=== PATIENT | female | born 1975 | race Hispanic/Latino ===

== ENCOUNTER 2017-07-26 10:07 | Emergency (ER) | payer OTHER ==
[2017-07-26] MEDS ORDERED: LORazepam 2 MG/ML VIAL ONE (10:39)
[2017-07-26 10:52] LABS: Absolute Lymphocytes (CBC) 1.6 K/uL (0.7-4.9); Absolute Monocytes 0.8 K/uL (0.1-1.3); Absolute Neutrophil 7.1 K/uL (1.8-8.0); Basophils % 0.4 % (0-1.3); Eosinophils % 0.4 % (0-4.4); Hematocrit 39.4 % (36.0-45.0); Lymphocytes % 16.6 % (15.3-44.8); MCH 29.2 pg (27.0-35.0); MCV 84.2 fL (80-100); MPV 7.7 fL (7.6-11.3); RBC Red Blood Cell Count 4.68 M/uL (3.86-4.86)
[2017-07-26 10:55] LABS: Protime INR 0.99
[2017-07-26 10:55] LABS: Barbiturates NEGATIVE; Benzodiazepines NEGATIVE; Cocaine NEGATIVE; METHAMPHETAM NEGATIVE; Opiates NEGATIVE; Phencyclidine NEGATIVE; THC Cannibis NEGATIVE
[2017-07-26 10:56] LABS: Bicarbonate 22 mEq/L (21-31); Glucose Level 103 mg/dL (65-120); Potassium 3.8 mEq/L (3.6-5.0); Sodium Level 132 mEq/L (135-145)
--- NOTE | 2017-07-26 11:01 | RAD REPORT ---
EXAM DESCRIPTION: CT - Head Brain Wo Cont - 07/26/2017 10:51 am CLINICAL HISTORY: Seizure, head injury. COMPARISON: 05/22/16, 02/22/16. TECHNIQUE: All CT scans are performed using dose optimization technique as appropriate and may inclu de automated exposure control or mA/KV adjustment according to patient size. FINDINGS: No intracranial hemorrhage, hydrocephalus or extra-axial fluid collection.No areas of brai n edema or evidence of midline shift. The paranasal sinuses and mastoids are clear. The calvarium is intact. IMPRESSION: No acute intracranial abnormality.
[2017-07-26 11:02] LABS: ALT/SGPT 20 IU/L (10-60); AST/SGOT 24 IU/L (10-42); Albumin 4.1 g/dL (3.2-5.5); Alkaline Phosphatase 113 IU/L (42-121); BUN Blood Urea Nitrogen 10 mg/dL (6-20); Bilirubin Direct < 0.1 mg/dL (0-0.2); Bilirubin Total 0.4 mg/dL (0.3-1.2); Protein, Total 8.1 g/dL (6.0-8.3); Salicylates Level 20.9 mg/dl (<30)
[2017-07-26 11:24] LABS: Alcohol Serum/Plasma < 10 mg/dl
[2017-07-26 11:48] LABS: Urine Blood 3+ (NEG); Urine Glucose NEGATIVE (NEG); Urine Protein 1+ (NEG); Urine Specific Gravity 1.015 (1.005-1.030); Urine pH 5.5 (5.0-7.0)
--- NOTE | 2017-07-26 14:09 | ER ---
Nurse's Notes [facility] Name: Bruna Cedeño Age: 42 yrs Sex: Female : 1975 Arrival Date: 07/26/2017 Time: 10:13 Bed 13 Private MD: Diagnosis: Epilepsy and recurrent seizures Presentation: 07/26 10:14 Presenting complaint: EMS states: Witnessed 3 absence seizures. the last one she fell jl7 back and hit her head, large hematoma to right aspect of head. Transition of care: patient was not received from another setting of care. Onset of symptoms was July 26, 2017. Initial Sepsis Screen: Does the patient meet any 2 criteria? No. Patient's initial sepsis screen is negative. Does the patient have a suspected source of infection? No. Patient's initial sepsis screen is negative. Care prior to arrival: None. 10:14 Method Of Arrival: EMS: [facility] 7 10:14 Acuity: DIANE 3 jl7 Triage Assessment: 10:17 General: Appears in no apparent distress. uncomfortable, Behavior is calm, cooperative, jl7 appropriate for age. Pain: Complains of pain in left temporal area Pain does not radiate. Pain currently is 4 out of 10 on a pain scale. at worst was 10 out of 10 on a pain scale. EENT: No signs and/or symptoms were reported regarding the EENT system. Neuro: Level of Consciousness is awake, alert, obeys commands, Oriented to person, place, time, situation, Speech is normal, Facial symmetry appears normal, Pupils are PERRLA. Cardiovascular: Patient's skin is warm and dry. Respiratory: Airway is patent Respiratory effort is even, unlabored, Respiratory pattern is regular, symmetrical. GI: No signs and/or symptoms were reported involving the gastrointestinal system. : No signs and/or symptoms were reported regarding the genitourinary system. Derm: Skin is pink, warm \\T\\ dry. Musculoskeletal: No signs and/or symptoms reported regarding the musculoskeletal system. 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 - Social history:: Smoking status: Patient/guardian denies using tobacco, Patient/guardian denies using alcohol, street drugs. Screenin:55 Abuse screen: Denies threats or abuse. Denies injuries from another. Nutritional jl7 screening: No deficits noted. Tuberculosis screening: No symptoms or risk factors identified. Fall Risk Secondary diagnosis (15 points) seizures, IV access (20 points). Total Tinsley Fall Scale indicates Low Risk Score (25-44 pts). Fall prevention measures have been instituted. Side Rails Up X 2 Placed close to Nursing Station Frequent Obs/Assesments occuring Family Present and informed to notify staff if they need to leave bedside As available Patient and Family Educated on Fall Prevention Program and strategies. Assessment: 10:30 General: See triage assessment. jl7 11:30 Reassessment: No changes from previously documented assessment. Patient and/or family jl7 updated on plan of care and expected duration. Pain level reassessed. Patient is alert, oriented x 3, equal unlabored respirations, skin warm/dry/pink. 12:30 Reassessment: Patient and/or family updated on plan of care and expected duration. Pain jl7 level reassessed. Patient is alert, oriented x 3, equal unlabored respirations, skin warm/dry/pink. Pt's daughter reports "She's been having small one's since she's been here." Pt and guest instructed to inform staff when another seizure happens, verbalizes understanding. Provider notified. 13:50 Reassessment: Provider at bedside discussing plan of care. jl7 Vital Signs: 10:17 BP 129 / 79; Pulse 102; Resp 16; Pulse Ox 95% on R/A; Weight 79.38 kg (R); Height 5 ft. jl7 1 in. (154.94 cm) (R); Pain 4/10; 11:39 BP 104 / 64; Pulse 84; Resp 15; Pulse Ox 95% ; mh5 12:39 BP 127 / 76; Pulse 78; Resp 16 S; Pulse Ox 96% on R/A; jl7 10:17 Body Mass Index 33.07 (79.38 kg, 154.94 cm) jl7 Susu Coma Score: 10:17 Eye Response: spontaneous(4). Verbal Response: oriented(5). Motor Response: obeys jl7 commands(6). Total: 15. ED Course: 10:13 Patient arrived in ED. jl7 10:16 Triage completed. jl7 10:17 Victorino Gil PA is PHCP. cp 10:17 Victorino Starr MD is Attending Physician. cp 10:17 Arm band placed on right wrist. jl7 10:20 Patient has correct armband on for positive identification. Seizure precautions jl7 initiated. 10:20 Pulse ox on. NIBP on. jl7 10:33 Initial lab(s) drawn, by mo, sent to lab. Urine collected: clean catch specimen. jl7 Inserted saline lock: 20 gauge in right antecubital area, using aseptic technique. Blood collected. 10:35 Radiology exam delayed due to pt not readycristy to call. 10:37 Cristy Ruffin, RN is Primary Nurse. jl7 10:51 CT Head Brain wo Cont In Process Unspecified. EDMS 11:07 EKG done, by reliability technician. reviewed by Victorino SHARIF. at1 Administered Medications: 10:40 Drug: Ativan 1 mg Route: IVP; Site: right antecubital; jl7 11:00 Follow up: Response: No adverse reaction jl7 Outcome: 15:03 AMA AMA form signed jl7 15:03 Condition: stable 15:05 Patient left the ED. jl7 Signatures: Dispatcher [employer] EDMS Nika Forbes Amanda, library media technician EKG Tat1 Victorino Gil PA PA cp Martinez, Maria 5 Cristy Ruffin, RN RN jl7 Corrections: (The following items were deleted from the chart) 11:07 10:40 EKG done, by reliability technician. reviewed by Victorino SHARIF at1 at1
--- NOTE | 2017-07-26 14:10 | EDPHYS ---
Physician Documentation [facility] Name: Bruna Cedeño Age: 42 yrs Sex: Female : 1975 Arrival Date: 07/26/2017 Time: 10:13 Bed 13 Private MD: ED Physician Victorino Starr HPI: 07/26 10:30 This 42 yrs old Female presents to ER via EMS with complaints of Seizure. cp 10:30 The patient presents with a history of multiple seizures, a total of 3, that last 1 cp minute(s), the episode(s) was witnessed, by co-worker(s). Character of seizure(s): Loss of consciousness: the patient experienced loss of consciousness, brief, Incontinence: none. Seizure Hx: Seizure medications: Keppra, Trileptal. 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 - Social history:: Smoking status: Patient/guardian denies using tobacco, Patient/guardian denies using alcohol, street drugs. ROS: 10:35 Constitutional: Negative for body aches, chills, fever, poor PO intake. cp 10:35 Eyes: Negative for injury, pain, redness, and discharge. cp 10:35 ENT: Negative for drainage from ear(s), ear pain, sore throat, difficulty swallowing, difficulty handling secretions. 10:35 Neck: Negative for pain with movement, pain at rest, stiffness. 10:35 Cardiovascular: Negative for chest pain, edema, palpitations. 10:35 Respiratory: Negative for cough, shortness of breath, wheezing. 10:35 Abdomen/GI: Negative for abdominal pain, nausea, vomiting, and diarrhea, black/tarry stool, rectal bleeding. 10:35 Back: Negative for pain at rest, pain with movement, radiated pain. 10:35 MS/extremity: Positive for contusion, pain, of the scalp. 10:35 Skin: Negative for cellulitis, rash. 10:35 Neuro: Positive for history of seizure activity, Negative for altered mental status, dizziness, headache, weakness. 10:35 All other systems are negative. Exam: 10:52 Constitutional: The patient appears in no acute distress, alert, awake, cp non-diaphoretic, non-toxic, well developed, well nourished. 10:52 Head/face: Noted is hematoma, that is mild, of the right side of the back of head, tenderness, that is mild, of the right side of the back of head. 10:52 Eyes: Periorbital structures: appear normal, Pupils: equal, round, and reactive to light and accomodation, Extraocular movements: intact throughout, Conjunctiva: normal, no exudate, no injection, Sclera: no appreciated abnormality, Lids and lashes: appear normal, bilaterally. 10:52 ENT: External ear(s): are unremarkable, Ear canal(s): are normal, clear, TM's: bulging, is not appreciated, bilaterally, dullness, bilaterally, erythema, is not appreciated, bilaterally. 10:52 Neck: C-spine: vertebral tenderness, is not appreciated, crepitus, is not appreciated, ROM/movement: is normal, is supple, without pain, no range of motions limitations, no meningismus, no nuchal rigidity, Lymph nodes: no appreciated lymphadenopathy. 10:52 Chest/axilla: Inspection: normal, Palpation: is normal, no crepitus, no tenderness. 10:52 Cardiovascular: Rate: tachycardic, Rhythm: regular, Pulses: Pulses are 2+ in right radial artery and left radial artery. Edema: is not appreciated, JVD: is not appreciated. 10:52 Respiratory: the patient does not display signs of respiratory distress, Respirations: normal, no use of accessory muscles, no retractions, no splinting, no tachypnea, labored breathing, is not present, Breath sounds: are clear throughout, no decreased breath sounds, no stridor, no wheezing. 10:52 Abdomen/GI: Inspection: abdomen appears normal, Bowel sounds: active, all quadrants, Palpation: abdomen is soft and non-tender, in all quadrants. 10:52 Back: pain, is absent, ROM is normal. 10:52 Skin: cellulitis, is not appreciated, no rash present. 10:52 Neuro: Orientation: to person, place \T\ time. Mentation: lucid, able to follow commands, Memory: is normal, Cerebellar function: is grossly normal, Motor: moves all fours, strength is normal, Sensation: is normal. 11:07 ECG was reviewed by the Attending Physician. cp Vital Signs: 10:17 BP 129 / 79; Pulse 102; Resp 16; Pulse Ox 95% on R/A; Weight 79.38 kg (R); Height 5 ft. jl7 1 in. (154.94 cm) (R); Pain 4/10; 11:39 BP 104 / 64; Pulse 84; Resp 15; Pulse Ox 95% ; mh5 12:39 BP 127 / 76; Pulse 78; Resp 16 S; Pulse Ox 96% on R/A; jl7 10:17 Body Mass Index 33.07 (79.38 kg, 154.94 cm) jl7 Susu Coma Score: 10:17 Eye Response: spontaneous(4). Verbal Response: oriented(5). Motor Response: obeys jl7 commands(6). Total: 15. MDM: 10:20 Patient medically screened. cp 12:35 Data reviewed: vital signs, nurses notes, lab test result(s), EKG, radiologic studies, cp CT scan. 12:35 Test interpretation: by ED physician or midlevel provider: ECG. cp 12:40 Physician consultation: Antolin Gutierrez MD was called at 12:41, was contacted at 12:41, regarding patient's condition, would like medications started, Depakote, give 10 mg/kg loading dose and discharge with RX to start 500 mg bid. Diastat can also be given for seizures. 13:05 Physician consultation: DR Cortes, left msg on voicemail \T\ . cp 13:50 Physician consultation: DR Cortes, recommends transfer to [facility] epilepsy center for cp continued monitoring and treatment. Dr Cortes reports difficulty in controlling seizures with current therapy and that patient was sensitive and reports adverse affects when taking oral Depakote and Dilantin in the past. 14:05 Refusal of service: The patient/guardian displays adequate decision making capability cp and despite a detailed discussion of alternatives, benefits, risks, and consequences refuses: transfer to [facility] epilepsy center for continued treatment and management. Patient reports she was admitted in the past and has not noticed any change in seizure activity. 07/26 10:19 Order name: Acetaminophen; Complete Time: 11:57 cp 07/26 11:57 Interpretation: Reviewed. cp 07/26 10:19 Order name: Basic Metabolic Panel; Complete Time: 11:57 cp 07/26 11:57 Interpretation: Normal except: NA 132. cp 07/26 10:19 Order name: CBC with Diff; Complete Time: 11:14 cp 07/26 11:14 Interpretation: Normal except: DANNY% 74.6. cp 07/26 10:19 Order name: ETOH Level; Complete Time: 11:57 cp 07/26 10:19 Order name: Hepatic Function; Complete Time: 11:57 cp 07/26 11:57 Interpretation: Normal except: GLOB 4.0; A/G 1.0. cp 07/26 10:19 Order name: PT-INR; Complete Time: 11:14 cp 07/26 10:19 Order name: Ptt, Activated; Complete Time: 11:14 cp 07/26 10:19 Order name: Salicylate; Complete Time: 11:57 cp 07/26 10:19 Order name: Urine Drug Screen; Complete Time: 11:14 cp 07/26 11:14 Interpretation: Reviewed. cp 07/26 10:19 Order name: EKG; Complete Time: 10:19 cp 07/26 10:19 Order name: CT Head Brain wo Cont; Complete Time: 11:14 cp 07/26 11:15 Interpretation: Report reviewed. 07/26 10:53 Order name: Urine Dipstick--Ancillary (enter results); Complete Time: 11:57 mw2 07/26 11:57 Interpretation: Normal except: UBLD 3+; UPROT 1+. cp 07/26 10:53 Order name: Urine --Ancillary (enter results); Complete Time: 11:57 mw2 07/26 11:58 Interpretation: Reviewed. cp 07/26 10:19 Order name: Urine Test (obtain specimen); Complete Time: 10:37 cp 07/26 10:19 Order name: EKG - Nurse/Tech; Complete Time: 11:18 cp 07/26 10:19 Order name: IV Saline Lock; Complete Time: 10:37 cp 07/26 10:19 Order name: Labs collected and sent; Complete Time: :37 cp 07/26 10:19 Order name: Urine Dipstick-Ancillary (obtain specimen); Complete Time: 10:37 cp EC:07 Rate is 86 beats/min. Rhythm is regular. OH interval is normal. QRS interval is normal. cp QT interval is normal. No ST changes noted. Interpreted by me. Reviewed by me. Administered Medications: 10:40 Drug: Ativan 1 mg Route: IVP; Site: right antecubital; jl7 11:00 Follow up: Response: No adverse reaction jl7 Disposition: 16:00 Chart complete. 19:11 Co-signature as Attending Physician, Victorino Starr MD I agree with the assessment and [facility] plan of care. Disposition: 07/26/17 14:08 Patient has left against medical advice. Impression: Epilepsy and recurrent seizures. - Patients states they are going to Home. - Condition is Stable. - Discharge Instructions: Seizure, Adult. Follow up: Private Physician; When: 2 - 3 days; Reason: Recheck today's complaints. - Problem is an ongoing problem. - Symptoms are unchanged. Signatures: Dispatcher [employer] Victorino Boone MD MD cha Page, Corey, PA PA cp Leal, Jahala RN RN jl7
[2017-07-26 15:11] VITALS: BP 127/76; O2SAT 96
--- NOTE | 2017-07-26 17:02 | EKG ---
Test Date: 2017-07-26 Test Time: 11:00:59 Hide Puller: TIMOTHY MEASUREMENT RESULTS: Intervals: Rate: 86 OH: 144 QRSD: 82 QT: 362 QTc: 433 [place]: P: 48 OH: 144 QRS: 45 T: 33 INTERPRETIVE STATEMENTS: Normal sinus rhythm Normal ECG Compared to ECG 02/22/2016 14:40:22 No significant changes Electronically Signed On 07-26-17 17:01:40 CDT by Efren Cavazos
== END 2017-07-26 15:05 | disposition left against medical advice (07) ==
LOC: ER 10:07
DX: G40.802 Other epilepsy, not intractable, without status epilepticus (principal); I10 Essential (primary) hypertension
CPT/HCPCS: 36415; 70450; 80048; 80076; 80307; 80320; 80329; 81003; 81025; 85025; 85610; 85730; 93005; 96374; 99284

== ENCOUNTER 2018-09-22 17:56 | Emergency (ER) | payer OTHER ==
[2018-09-22] MEDS ORDERED: DERMABOND SKIN ADHESIVE TOP ONE (18:38)
[2018-09-22] MEDS ORDERED: TETANUS & DIPHTHERIA TOX,ADULT 0.5 ML VIAL ONE (18:38)
--- NOTE | 2018-09-22 19:02 | ER ---
Nurse's Notes [facility] Name: Bruna Cedeño Age: 43 yrs Sex: Female : 1975 Arrival Date: 09/22/2018 Time: 17:58 Bed 17 Private MD: Diagnosis: Syncope and collapse;Epilepsy and recurrent seizures;Laceration without foreign body of other part of head Presentation: 09/22 18:00 Presenting complaint: EMS states: Pt had a seizure and fell on the bathtub 40 minutes ca1 ago. Pt hit head, +LOC, pt has Hx of seizures. VS stable. Transition of care: patient was not received from another setting of care. Onset of symptoms was September 22, 2018. Risk Assessment: Do you want to hurt yourself or someone else? Patient reports no desire to harm self or others. Initial Sepsis Screen: Does the patient meet any 2 criteria? No. Patient's initial sepsis screen is negative. Does the patient have a suspected source of infection? No. Patient's initial sepsis screen is negative. Care prior to arrival: Glucose check: 97. 18:00 Method Of Arrival: EMS: [facility] ca1 18:00 Acuity: DIANE 2 ca1 19:15 Mechanism of Injury: Fall bathtub. Trauma event details: Injury occurred in the [address] Triage Assessment: 18:04 General: Appears in no apparent distress. comfortable, Behavior is calm, cooperative, ca1 appropriate for age. Pain: Complains of pain in right temporal area and right ear Pain currently is 8 out of 10 on a pain scale. 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 - Social history:: Smoking status: Patient/guardian denies using tobacco. - Immunization history: Last tetanus immunization: Patient received tetanus shot today in ER. - Ebola Screening: : Patient negative for fever greater than or equal to 101.5 degrees Fahrenheit, and additional compatible Ebola Virus Disease symptoms Patient denies exposure to infectious person Patient denies travel to an Ebola-affected area in the 21 days before illness onset. Screenin:35 Abuse screen: Denies threats or abuse. Denies injuries from another. Nutritional bp screening: No deficits noted. Tuberculosis screening: No symptoms or risk factors identified. 19:15 Fall Risk Ambulatory Aid- None/Bed Rest/Nurse Assist (0 pts). Gait- Normal/Bed cc3 Rest/Wheelchair (0 pts) Mental Status- Oriented to own ability (0 pts). Primary Survey: 18:00 NO uncontrolled hemorrhage observed. A: The patient is alert. No supplemental oxygen in bp use on arrival. Breathing/Chest: Respiratory pattern: regular, Respiratory effort: spontaneous, unlabored, Breath sounds: clear, bilaterally. Chest inspection: symmetrical rise and fall of the chest. Circulation: Cardiac rhythm: sinus rhythm Skin color: pink, Skin temperature: warm, dry. Disability Alert. Exposure/Environment: Obvious injury(ies) are noted at this time: EAR LAC. 19:15 Reassessment Airway Airway Patent Oxygen No O2 Breathing/Chest Respiratory pattern cc3 Regular Respiratory effort Spontaneous Unlabored Breath sounds Clear Chest inspection Symmetrical Circulation Heart tones Present Disability Alert. Secondary Survey: 18:00 HEENT:. Gastrointestinal: No deficits noted. : No signs and/or symptoms were reported bp regarding the genitourinary system. Musculoskeletal: Circulation, motion, and sensation intact. Range of motion: intact in all extremities. Assessment: 18:00 General: Appears in no apparent distress. comfortable, Behavior is cooperative, bp appropriate for age, anxious. Pain: Complains of pain in head. Neuro: Level of Consciousness is awake, alert, obeys commands, Oriented to person, place, time, situation, Appropriate for age. Neuro: Seizure activity NONE NOTED AND NO POST-ICTAL PERIOD OR INCONTINENCE. EENT: No deficits noted. Cardiovascular: No deficits noted. Respiratory: Airway is patent Respiratory effort is even, unlabored, Respiratory pattern is regular, symmetrical. GI: No signs and/or symptoms were reported involving the gastrointestinal system. : No signs and/or symptoms were reported regarding the genitourinary system. Derm: No deficits noted. Musculoskeletal: Circulation, motion, and sensation intact. Range of motion: intact in all extremities. 18:27 Reassessment: PT TO CT. bp 19:15 Reassessment: Patient appears in no apparent distress at this time. Patient and/or cc3 family updated on plan of care and expected duration. Pain level reassessed. Patient is alert, oriented x 3, equal unlabored respirations, skin warm/dry/pink. Received this female patient from morning shift RN Jacques as a case of fall injury. No IV cannula in situ. Patient denies pain at this time. 19:40 Reassessment: Patient appears in no apparent distress at this time. Patient and/or cc3 family updated on plan of care and expected duration. Pain level reassessed. Patient is alert, oriented x 3, equal unlabored respirations, skin warm/dry/pink. Dr. Chapa discharged the patient home, no prescription given. No IV cannula in situ. Patient left ER vitally stable and ambulatory with her daughter. Patient denies pain at this time. Patient states feeling better. Patient states symptoms have improved. Vital Signs: 18:04 BP 153 / 97; Pulse 54; Resp 16 S; Temp 98.6(O); Pulse Ox 95% on R/A; ca1 18:53 BP 148 / 86; Pulse 65; Resp 17; Temp 98.6(TE); Pulse Ox 97% on R/A; mh5 19:15 BP 148 / 86; Pulse 59; Resp 19 S; Temp 98.7(O); Pulse Ox 98% on R/A; ca1 [place] Coma Score: 18:00 Eye Response: spontaneous(4). Verbal Response: oriented(5). Motor Response: obeys bp commands(6). Total: 15. Trauma Score (Adult): 18:00 Eye Response: spontaneous(1); Verbal Response: oriented(1); Motor Response: obeys bp commands(2); Systolic BP: > 89 mm Hg(4); Respiratory Rate: 10 to 29 per min(4); Susu Score: 15; Trauma Score: 12 ED Course: 17:58 Patient arrived in ED. ca1 18:00 Patient has correct armband on for positive identification. Bed in low position. Call bp light in reach. Side rails up X2. Adult w/ patient. 18:00 Patient maintains SpO2 saturation greater than 95% on room air. Thermoregulation: warm bp blanket given to patient. 18:02 Triage completed. ca1 18:04 Arm band placed on right wrist. ca1 18:12 Luis Chapa MD is Attending Physician. alexei 18:16 Jacques Escoto, RN is Primary Nurse. bp 18:33 CT completed. Patient tolerated procedure well. Patient moved back from CT. bq 18:34 CT Head C Spine In Process Unspecified. EDMS 19:40 No provider procedures requiring assistance completed. Patient did not have IV access cc3 during this emergency room visit. Administered Medications: 18:27 Drug: Tetanus-Diphtheria Toxoid Adult 0.5 ml {Tray Delivery Aide: Lumenpulse. Exp: bp 06/29/2020. Lot #: [id number]. } Route: IM; Site: right deltoid; 18:54 Follow up: Response: No adverse reaction bp Intake: 18:00 PO: 0ml; Total: 0ml. bp Output: 18:00 Urine: 0ml; Total: 0ml. bp Outcome: 19:02 Discharge ordered by MD. gs 19:05 Discharge ordered by MD. gs 19:40 Discharged to home ambulatory, with family. cc3 19:40 Condition: stable 19:40 Discharge instructions given to patient, Instructed on discharge instructions, follow up and referral plans. Demonstrated understanding of instructions, follow-up care. 19:40 Patient's length of stay was not longer than 2 hours. cc3 19:45 Patient left the ED. cc3 Signatures: Dispatcher [employer] EDPR Smitha Johnston Neda Duarte 5 Luis Chapa MD MD gs Peltier, Brian, RN RN Luzma Gandara cc3 Dinah Polanco RN RN ca1
--- NOTE | 2018-09-22 19:03 | EDPHYS ---
Physician Documentation [facility] Name: Bruna Cedeño Age: 43 yrs Sex: Female : 1975 Arrival Date: 09/22/2018 Time: 17:58 Bed 17 Private MD: ED Physician Luis Chapa HPI: 09/22 18:18 This 43 yrs old Female presents to ER via EMS with complaints of Fall Injury. gs 18:18 Details of fall: The patient fell from an upright position, while walking. Onset: The gs symptoms/episode began/occurred acutely, just prior to arrival. Associated injuries: The patient sustained injury to the head, contusion, laceration. Severity of symptoms: At their worst the symptoms were moderate, in the emergency department the symptoms have improved, markedly. The patient has experienced similar episodes in the past, a few times. 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 - Social history:: Smoking status: Patient/guardian denies using tobacco. - Immunization history: Last tetanus immunization: Patient received tetanus shot today in ER. - Ebola Screening: : Patient negative for fever greater than or equal to 101.5 degrees Fahrenheit, and additional compatible Ebola Virus Disease symptoms Patient denies exposure to infectious person Patient denies travel to an Ebola-affected area in the 21 days before illness onset. ROS: 18:18 All other systems are negative. gs Exam: 18:18 Head/Face: Normocephalic, atraumatic. Eyes: Pupils equal round and reactive to light, gs extra-ocular motions intact. Lids and lashes normal. Conjunctiva and sclera are non-icteric and not injected. Cornea within normal limits. Periorbital areas with no swelling, redness, or edema. Chest/axilla: Normal chest wall appearance and motion. Nontender with no deformity. No lesions are appreciated. Cardiovascular: Regular rate and rhythm with a normal S1 and S2. No gallops, murmurs, or rubs. Normal PMI, no JVD. No pulse deficits. Respiratory: Lungs have equal breath sounds bilaterally, clear to auscultation and percussion. No rales, rhonchi or wheezes noted. No increased work of breathing, no retractions or nasal flaring. Abdomen/GI: Soft, non-tender, with normal bowel sounds. No distension or tympany. No guarding or rebound. No evidence of tenderness throughout. Back: No spinal tenderness. No costovertebral tenderness. Full range of motion. Skin: Warm, dry with normal turgor. Normal color with no rashes, no lesions, and no evidence of cellulitis. MS/ Extremity: Pulses equal, no cyanosis. Neurovascular intact. Full, normal range of motion. Neuro: Awake and alert, GCS 15, oriented to person, place, time, and situation. Cranial nerves II-XII grossly intact. Motor strength 5/5 in all extremities. Sensory grossly intact. Cerebellar exam normal. Normal gait. 18:18 Constitutional: The patient appears alert, awake. 18:18 ENT: External ear(s): laceration, that is superficial, approximately 1 cm(s), to the pinna of left ear, TM's: are normal. 18:18 Neck: C-spine: vertebral tenderness, that is mild, appreciated at C4 and C5. 19:01 ECG was reviewed by the Attending Physician. Vital Signs: 18:04 BP 153 / 97; Pulse 54; Resp 16 S; Temp 98.6(O); Pulse Ox 95% on R/A; ca1 18:53 BP 148 / 86; Pulse 65; Resp 17; Temp 98.6(TE); Pulse Ox 97% on R/A; mh5 19:15 BP 148 / 86; Pulse 59; Resp 19 S; Temp 98.7(O); Pulse Ox 98% on R/A; ca1 [place] Coma Score: 18:00 Eye Response: spontaneous(4). Verbal Response: oriented(5). Motor Response: obeys bp commands(6). Total: 15. Trauma Score (Adult): 18:00 Eye Response: spontaneous(1); Verbal Response: oriented(1); Motor Response: obeys bp commands(2); Systolic BP: > 89 mm Hg(4); Respiratory Rate: 10 to 29 per min(4); [place] Score: 15; Trauma Score: 12 Laceration: 18:57 Wound Repair of 1cm ( 0.4in ) partial thickness laceration to pinna of left ear. Distal gs neuro/vascular/tendon intact. Wound prep: Simple cleansing. Skin closed with 1-0 Adhesive skin closure using Dermabond. Patient tolerated well. MDM: 18:12 Patient medically screened. 18:18 Differential diagnosis: closed head injury, fracture, laceration. Data reviewed: vital gs signs, nurses notes, radiologic studies. Response to treatment: the patient's symptoms have markedly improved after treatment, and as a result, I will discharge patient. 09/22 18:13 Order name: CT Head C Spine; Complete Time: 19:07 09/22 18:13 Order name: Dermabond; Complete Time: 18:54 09/22 18:17 Order name: EKG - Nurse/Tech; Complete Time: 18:53 09/22 18:17 Order name: EKG; Complete Time: 18:18 EC:01 Rate is 59 beats/min. Rhythm is regular. MD interval is normal. QRS interval is normal. gs T waves are Normal. No ST changes noted. Clinical impression: Normal ECG. Interpreted by me. Administered Medications: 18:27 Drug: Tetanus-Diphtheria Toxoid Adult 0.5 ml {Mattress Renovator: [employer]. Exp: bp 06/29/2020. Lot #: [id number]. } Route: IM; Site: right deltoid; 18:54 Follow up: Response: No adverse reaction bp Disposition: 09/22/18 19:05 Discharged to Home. Impression: Syncope and collapse, Epilepsy and recurrent seizures, Laceration without foreign body of other part of head. - Condition is Stable. - Discharge Instructions: Seizure, Adult, Syncope, Laceration Care, Adult, [id number]. - Medication Reconciliation Form, Thank You Letter, Antibiotic Education, Prescription Opioid Use form. - Follow up: Private Physician; When: 2 - 3 days; Reason: Re-evaluation by your physician. Signatures: Dispatcher [employer] Luis Albright MD MD Jacques Escoto, RN RN bp Luzma Gandara cc3 Dinah Polanco RN RN ca1 Corrections: (The following items were deleted from the chart) 19:04 19:02 09/22/2018 19:02 Discharged to Home. Impression: Syncope and collapse; Laceration gs without foreign body of other part of head. Condition is Stable. Forms are Medication Reconciliation Form, Thank You Letter, Antibiotic Education, Prescription Opioid Use. Follow up: Private Physician; When: 2 - 3 days; Reason: Re-evaluation by your physician. Problem is new. Symptoms have improved. 19:45 19:05 09/22/2018 19:05 Discharged to Home. Impression: Syncope and collapse; Epilepsy cc3 and recurrent seizures; Laceration without foreign body of other part of head. Condition is Stable. Discharge Instructions: Seizure, Adult, Syncope, Laceration Care, Adult, [id number]. Forms are Medication Reconciliation Form, Thank You Letter, Antibiotic Education, Prescription Opioid Use. Follow up: Private Physician; When: 2 - 3 days; Reason: Re-evaluation by your physician.
--- NOTE | 2018-09-22 19:04 | RAD REPORT ---
EXAM DESCRIPTION: CT - Head C Spine Mpr Wo Con - 09/22/2018 6:34 pm CLINICAL HISTORY: Seizure Head and neck injury status post fall. Head and neck pain COMPARISON: 2016 TECHNIQUE: Computed axial tomography of the head and cervical spine was obtained. Sagittal and coronal reconstruction was performed. All CT scans are performed using dose optimization technique as appropriate and may include automated exposure control or mA/KV adjustment according to patient size. FINDINGS: A lyn cisterna magna within the posterior fossa again demonstrated An intracranial bleed is not seen. The ventricles are normal in caliber. An extra-axial fluid collect ion is not noted.Fluid within the visualized sinuses and mastoids is not seen A cervical fracture is not visualized. No dislocation is noted. IMPRESSION: No acute intracranial abnormality is seen. A cervical fracture is not visualized. If the patient continues to have symptoms to suggest intracra nial /spinal cord pathology then MRI would be recommended
[2018-09-22 19:53] VITALS: BP 148/86
[2018-09-22 19:54] VITALS: TEMP 98.7; O2SAT 98
--- NOTE | 2018-09-23 09:09 | EKG ---
Test Date: 2018-09-22 Test Time: 19:01:12 Communications Electrician Supervisor: CHRISTIE MEASUREMENT RESULTS: Intervals: Rate: 59 NV: 154 QRSD: 80 QT: 400 QTc: 396 [place]: P: 39 NV: 154 QRS: 50 T: 40 INTERPRETIVE STATEMENTS: Sinus bradycardia Otherwise normal ECG Compared to ECG 07/26/2017 11:00:59 Sinus rhythm no longer present Electronically Signed On 09-23-18 09:08:22 CDT by Efren Cavazos
== END 2018-09-22 19:45 | disposition home or self-care (01) ==
LOC: ER 17:56
PROC: 0HQ3XZZ Repair Left Ear Skin, External Approach (ICD-10-PCS; principal; 2018-09-22)
DX: S01.312A Laceration without foreign body of left ear, initial encounter (principal); G40.802 Other epilepsy, not intractable, without status epilepticus; W19.XXXA Unspecified fall, initial encounter; Y93.01 Activity, walking, marching and hiking; Y92.9 Unspecified place or not applicable; Z23 Encounter for immunization; I10 Essential (primary) hypertension
CPT/HCPCS: 70450; 72125; 90471; 90714; 93005; 99285

== ENCOUNTER 2020-08-17 11:57 | Emergency (ER) | payer OTHER ==
--- OUTSIDE RECORDS SUMMARY | 2020-08-17 12:00 | XMS REPORT | Continuity of Care Document ---
:1975 Author Organization [facility] t Address [address] [place] [address] Care Team Providers Name Role Phone Doctor Unassigned, [place] Attending Clinician Unavailable Michael Bowman Attending Clinician Problems This patient has no known problems. Allergies, Adverse Reactions, Alerts This patient has no known allergies or adverse reactions. Medications This patient has no known medications. Procedures This patient has no known procedures. Encounters Start End Encounter Admission Attending Care Care Encounter Source Date/Time Date/Time Type Type Clinicians Facility Department ID 2018-11-12 2018-11-12 Orders Doctor ORTIZ [id number] 00:00:00 00:00:00 Only Unassigned, CARLOS [id number] [place] [facility] [id number] 2018-11-11 2018-11-11 [facility] [place] [facility] [id number] 10:42:43 11:54:00 Chelsea Herzog [id number] [place] [id number] [place] [id number] Results This patient has no known results.
[2020-08-17] MEDS ORDERED: levETIRAcetam 1,000 MG in NA CHLORIDE 0.9% 100 ML IV SCH (12:45)
[2020-08-17 12:52] LABS: BUN Blood Urea Nitrogen 5 mg/dL (7-18); Bicarbonate 23 mmol/L (21-32); Glucose Level 100 mg/dL (74-106); Potassium 3.6 mmol/L (3.5-5.1); Sodium Level 134 mmol/L (136-145)
--- NOTE | 2020-08-17 12:54 | RAD REPORT ---
EXAM DESCRIPTION: RAD - Ankle Right 3 View - 08/17/2020 12:40 pm CLINICAL HISTORY: PAINfall subsequent to a seizure COMPARISON: Ankle Right 3 View dated 08/04/2013; Forearm Right dated 08/17/2020 FINDINGS: No fracture, dislocation or periosteal reaction. No joint effusion seen. No joint space na rrowing. No soft tissue abnormality. IMPRESSION: Negative right ankle for acute bone or joint finding. No significant change from the 201 4 study.
--- NOTE | 2020-08-17 12:55 | RAD REPORT ---
EXAM DESCRIPTION: RAD - Forearm Right - 08/17/2020 12:40 pm CLINICAL HISTORY: PAIN, arm pain following a post seizure fall COMPARISON: No comparisons FINDINGS: No fracture is identified. There is no dislocation or periosteal reaction noted. No foreign body or other soft tissue abnormality. IMPRESSION: Negative right forearm examination.
[2020-08-17] MEDS ORDERED: NA CHLORIDE 0.9% 1,000 ML ONE (12:59)
--- NOTE | 2020-08-17 12:59 | RAD REPORT ---
EXAM DESCRIPTION: CT - CTHCSPWOC - 08/17/2020 12:38 pm CLINICAL HISTORY: PAIN, patient fell following a seizure striking the posterior skull and injuring t he neck, headache, neck pain COMPARISON: Head C Spine Mpr Wo Con dated 09/22/2018; Head C Spine Mpr Wo Con dated 02/22/2016 TECHNIQUE: Axial 5 mm thick images of the head were obtained. Axial 2 mm thick images of the cervic al spine were obtained with sagittal and coronal reconstruction images generated and reviewed. All CT scans are performed using dose optimization technique as appropriate and may include automated exposure control or mA/KV adjustment according to patient size. FINDINGS: No intracranial hemorrhage, mass, edema or acute intracranial finding. No suspicion for ac [place] infarction. No focal brain parenchymal abnormality seen as a specific seizure focus. Olvin cistern a magna variant again noted. Mastoid air cells and partially visualized paranasal sinuses are clear. No globe or orbit abnormality seen. Patient has a posterior midline parietal moderate scalp hematoma. Underlying bone is intact. No foreign body seen. Intracranial findings are similar to comparison. Cervical bodies are normal in height. There is reversal of the usual cervical lordosis which may refl ect a positioning artifact within the scanner or indicate muscle spasm. No subluxation abnormalities. No disk space narrowing. No fracture or acute bony abnormality. Central canal detail is inherently limited. No paraspinal mass or hematoma. IMPRESSION: Negative CT head examination for acute or significant finding. Patient has a posterior s calp hematoma with no underlying skull fracture. No cervical spine fracture identified. Kyphotic curvature may be a positioning artifact or the affect of muscle spasm. Central canal detail is inherently limited.
[2020-08-17 13:50] LABS: Urine Blood Negative (Negative); Urine Glucose Negative (Negative); Urine Protein Negative (Negative); Urine Specific Gravity 1.015 (1.005-1.030)
[2020-08-17 14:29] LABS: Absolute Lymphocytes (CBC) 1.6 K/uL (0.7-4.9); Basophils % 0.4 % (0-1.3); Hematocrit 36.5 % (36.0-45.0); Lymphocytes % 14.3 % (15.3-44.8); MPV 8.2 fL (7.6-11.3); RBC Red Blood Cell Count 4.21 M/uL (3.86-4.86)
[2020-08-17] MEDS ORDERED: HYDROCODONE/APAP 5/325 MG TAB ONE (14:50)
[2020-08-17] MEDS ORDERED: TETANUS & DIPHTHERIA TOX,ADULT 0.5 ML VIAL ONE (14:51)
--- NOTE | 2020-08-17 15:02 | ER ---
Nurse's Notes [facility] Name: Bruna Cedeño Age: 45 yrs Sex: Female : 1975 Arrival Date: 08/17/2020 Time: 12:01 Bed 7 Private MD: Diagnosis: Epilepsy and recurrent seizures;Superficial injury of head Presentation: 08/17 12:02 Chief complaint: EMS states: SZ WHILE AT FOOD PANTRY, FALL FROM STANDING, LAC TO bp OCCIPUT. Coronavirus screen: At this time, the client does not indicate any symptoms associated with coronavirus-19. Ebola Screen: No symptoms or risks identified at this time. Initial Sepsis Screen: Does the patient meet any 2 criteria? HR > 90 bpm. No. Patient's initial sepsis screen is negative. Does the patient have a suspected source of infection?. Risk Assessment: Do you want to hurt yourself or someone else? Patient reports no desire to harm self or others. Onset of symptoms was August 17, 2020 at 11:30. 12:02 Method Of Arrival: EMS: [facility] bp 12:02 Acuity: DIANE 3 bp Triage Assessment: 12:06 General: Appears in no apparent distress. comfortable, obese, Behavior is cooperative, bp appropriate for age, anxious. Pain: Complains of pain in scalp. EENT: No deficits noted. Neuro: Level of Consciousness is awake, alert, obeys commands, Oriented to Appropriate for age. Cardiovascular: No deficits noted. Respiratory: No deficits noted. GI: No signs and/or symptoms were reported involving the gastrointestinal system. : No signs and/or symptoms were reported regarding the genitourinary system. Derm: No deficits noted. Musculoskeletal: No deficits noted. Historical: - Allergies: 12:06 No Known Allergies; bp - Home Meds: 12:06 clonazepam 1 mg Oral tab 3 times per day [Active]; Trileptal 600 mg Oral tab 1 tab 2 bp times per day [Active]; Keppra 1,000 mg Oral tab 1 tab every 12 hours [Active]; - PMHx: 12:06 Seizures; Migraines; Hypertension; bp - Immunization history:: Adult Immunizations. - Social history:: Smoking status: Patient denies any tobacco usage or history of. Screenin:15 Abuse screen: Denies threats or abuse. Denies injuries from another. Nutritional bp screening: No deficits noted. Tuberculosis screening: No symptoms or risk factors identified. Fall Risk Fall in past 12 months (25 points). Secondary diagnosis (15 points) seizures, IV access (20 points). Ambulatory Aid- None/Bed Rest/Nurse Assist (0 pts). Gait- Normal/Bed Rest/Wheelchair (0 pts) Mental Status- Oriented to own ability (0 pts). Total Tinsley Fall Scale indicates High Risk Score (45 or more points). Fall prevention measures have been instituted. Side Rails Up X 2 Placed Close to Nursing Station Frequent Obs/Assessments Occuring Family Present and informed to notify staff if the need to leave the bedside As available patient and family educated on Fall Prevention Program and Strategies. Assessment: 12:10 General: SEE TRIAGE NOTE. bp 12:47 Reassessment: PT RETURNED FROM CT. bp 13:30 Reassessment: No changes from previously documented assessment. Patient and/or family bp updated on plan of care and expected duration. Pain level reassessed. Patient is alert, oriented x 3, equal unlabored respirations, skin warm/dry/pink. WOUND CLEANED. 14:58 Reassessment: No changes from previously documented assessment. Patient and/or family bp updated on plan of care and expected duration. Pain level reassessed. Patient is alert, oriented x 3, equal unlabored respirations, skin warm/dry/pink. FAMILY AT B/S. NO WOUND REPAIR NEEDED. 15:12 Reassessment: PT D/C HOME VIA W/C WITH FAMILY, DX WITH RECURRENT SEIZURES. bp Vital Signs: 12:02 BP 183 / 90; Pulse 112; Resp 17; Temp 98.5; Pulse Ox 100% ; Weight 81.65 kg; Height 5 bp ft. 1 in. (154.94 cm); 12:47 BP 184 / 104; Pulse 106; Resp 18; Pulse Ox 99% ; bp 13:27 BP 161 / 87; Pulse 83; Resp 16; Pulse Ox 97% ; bp 14:58 BP 135 / 76; Pulse 66; Resp 16; Pulse Ox 96% ; bp 12:02 Body Mass Index 34.01 (81.65 kg, 154.94 cm) bp [place] Coma Score: 12:06 Eye Response: spontaneous(4). Verbal Response: oriented(5). Motor Response: obeys bp commands(6). Total: 15. ED Course: 12:01 Patient arrived in ED. bp 12:04 Triage completed. bp 12:06 Arm band placed on. bp 12:07 Manju Hathaway [facility]-C [facility]. kb 12:07 Wali Li MD is Attending Physician. kb 12:11 Jacques Escoto, ODALYS is Primary Nurse. bp 12:15 Inserted saline lock: 20 gauge in right antecubital area, using aseptic technique. bp Blood collected. 12:38 CT Head C Spine In Process Unspecified. EDMS 12:40 Forearm Right XRAY In Process Unspecified. EDMS 12:40 Ankle Right 3 View XRAY In Process Unspecified. EDMS 12:49 Patient has correct armband on for positive identification. Bed in low position. Call bp light in reach. Side rails up X2. 13:00 Seizure precautions initiated. bp 14:21 Lab(s) recollected, by me, sent to lab. health system 15:09 Urine Dipstick-Ancillary Sent. bp 15:13 No provider procedures requiring assistance completed. IV discontinued, intact, bp bleeding controlled, No redness/swelling at site. Pressure dressing applied. Administered Medications: 12:46 Drug: Keppra (levETIRAcetam) 1000 mg Route: IV; Rate: calculated rate; Site: right bp antecubital; 12:46 Drug: NS 0.9% 1000 ml Route: IV; Rate: 1000 ml; Site: right antecubital; bp 14:30 Drug: Tetanus-Diphtheria Toxoid Adult 0.5 ml {At Risk Specialist: [employer]. Exp: bp 09/28/2021. Lot #: [id number]. } Route: IM; Site: right deltoid; 15:09 Follow up: Response: No adverse reaction bp 14:30 Drug: [place] (HYDROcodone-acetaminophen) 5 mg-325 mg 1 tabs Route: PO; bp 15:10 Follow up: Response: No adverse reaction; Pain is decreased bp Outcome: 15:02 Discharge ordered by . kb 15:13 Discharged to home via wheelchair, with family. bp 15:13 Condition: stable 15:13 Discharge instructions given to patient, Instructed on discharge instructions, follow up and referral plans. wound care, Demonstrated understanding of instructions, follow-up care, wound care. 15:24 Patient left the ED. bp Signatures: Dispatcher [employer] EDMS Manju Hathaway HOLE DIGGER OPERATOR-C HOLE DIGGER OPERATOR-Neda Duke 5 Jacques Escoto, RN RN bp Corrections: (The following items were deleted from the chart) 12:51 12:47 Pulse 106bpm; Resp 18bpm; Pulse Ox 99%; bp bp 15:13 13:00 Patient has correct armband on for positive identification. Bed in low position. bp Call light in reach. Side rails up X2. bp
--- NOTE | 2020-08-17 15:02 | EDPHYS ---
Physician Documentation [facility] Name: Bruna Cedeño Age: 45 yrs Sex: Female : 1975 Arrival Date: 08/17/2020 Time: 12:01 Bed 7 Private MD: ED Physician Wali Li HPI: 08/17 14:48 This 45 yrs old Female presents to ER via EMS with complaints of Probable kb Seizure. 14:48 The patient presents after having a single isolated seizure, that lasted a couple of kb seconds. Character of seizure(s): Loss of consciousness: the patient experienced loss of consciousness, Motor activity: generalized, Incontinence: none. Seizure onset: just prior to arrival. Context: the seizure(s) was witnessed, by a bystander, occurred at a store, occurred while the patient was standing, Contributing factors: unknown. Seizure Hx: Last seizure: The patient's last seizure was approximately 1 week(s) ago, Seizure medications: Keppra. Associated injury: Head/face: right occipital area, abrasion, pain, swelling, tenderness, Left upper extremity: left forearm, pain. Current symptoms: Currently, the patient is not experiencing any symptoms. The patient has experienced similar episodes in the past, chronically. The patient has not recently seen a physician. Pt reports she has 12-13 seizures a month and no medication regimen has kept them from coming. Has appt with her neurologist next week. States she was standing and all of the sudden had a seizure, woke up on the ground seconds later. States she was just mad that it happened. No post ictal period per EMS. Pt A\\T\\Ox4. Last seizure was last week. States "I have the small seizures, I don't know what yall call them. I don't get a warning, they just happen." Pt states this seizure was similar to ones she normally has.. Historical: - Allergies: 12:06 No Known Allergies; bp - Home Meds: 12:06 clonazepam 1 mg Oral tab 3 times per day [Active]; Trileptal 600 mg Oral tab 1 tab 2 bp times per day [Active]; Keppra 1,000 mg Oral tab 1 tab every 12 hours [Active]; - PMHx: 12:06 Seizures; Migraines; Hypertension; bp - Immunization history:: Adult Immunizations. - Social history:: Smoking status: Patient denies any tobacco usage or history of. ROS: 14:53 Constitutional: Negative for fever, chills, and weight loss. kb 14:53 MS/extremity: Positive for pain, of the left forearm. 14:53 Skin: Positive for abrasion(s), hematoma, swelling, of the right occipital area. 14:53 Neuro: Positive for seizure activity. 14:53 All other systems are negative. Exam: 14:53 Constitutional: This is a well developed, well nourished patient who is awake, alert, kb and in no acute distress. Eyes: Pupils equal round and reactive to light, extra-ocular motions intact. Lids and lashes normal. Conjunctiva and sclera are non-icteric and not injected. Cornea within normal limits. Periorbital areas with no swelling, redness, or edema. ENT: Moist Mucous membranes Cardiovascular: Regular rate and rhythm with a normal S1 and S2. No gallops, murmurs, or rubs. No pulse deficits. Respiratory: Respirations even and unlabored. No increased work of breathing, no retractions or nasal flaring. Abdomen/GI: Soft, non-tender. No distention MS/ Extremity: Pulses equal, no cyanosis. Neurovascular intact. Full, normal range of motion. Neuro: Awake and alert, GCS 15, oriented to person, place, time, and situation. Moves all extremities. Normal gait. 14:53 Skin: injury, abrasion(s), very small abrasion noted, of the right occipital area, moderate hematoma noted to back of scalp. Vital Signs: 12:02 BP 183 / 90; Pulse 112; Resp 17; Temp 98.5; Pulse Ox 100% ; Weight 81.65 kg; Height 5 bp ft. 1 in. (154.94 cm); 12:47 BP 184 / 104; Pulse 106; Resp 18; Pulse Ox 99% ; bp 13:27 BP 161 / 87; Pulse 83; Resp 16; Pulse Ox 97% ; bp 14:58 BP 135 / 76; Pulse 66; Resp 16; Pulse Ox 96% ; bp 12:02 Body Mass Index 34.01 (81.65 kg, 154.94 cm) bp Susu Coma Score: 12:06 Eye Response: spontaneous(4). Verbal Response: oriented(5). Motor Response: obeys bp commands(6). Total: 15. MDM: 12:09 Patient medically screened. kb 14:48 Data reviewed: vital signs, nurses notes. Data interpreted: Pulse oximetry: on room air kb is 97 %. Interpretation: normal. 15:01 Counseling: I had a detailed discussion with the patient and/or guardian regarding: the kb historical points, exam findings, and any diagnostic results supporting the discharge/admit diagnosis, lab results, radiology results, the need for outpatient follow up, a family practitioner, a neurologist, to return to the emergency department if symptoms worsen or persist or if there are any questions or concerns that arise at home. 08/17 12:08 Order name: CBC with Diff kb 08/17 12:08 Order name: Basic Metabolic Panel; Complete Time: 12:55 kb 08/17 12:08 Order name: CT Head C Spine; Complete Time: 13:11 kb 08/17 12:08 Order name: Forearm Right XRAY; Complete Time: 12:56 kb 08/17 12:09 Order name: CBC with Automated Diff; Complete Time: 14:55 EDMS 08/17 13:50 Order name: Urine Dipstick-Ancillary EDMS 08/17 12:08 Order name: Urine Dipstick-Ancillary (obtain specimen); Complete Time: 13:58 kb 08/17 12:08 Order name: IV Start; Complete Time: 12:25 kb 08/17 12:25 Order name: Ankle Right 3 View XRAY; Complete Time: 12:55 bp 08/17 12:50 Order name: Wound Care; Complete Time: 13:58 kb 08/17 12:54 Order name: Labs - recollect needed: recollect all labs; Complete Time: 13:58 bd 08/17 13:53 Order name: Labs collected and sent: recollect [facility], did not have a label.; bd Complete Time: 14:20 Administered Medications: 12:46 Drug: Keppra (levETIRAcetam) 1000 mg Route: IV; Rate: calculated rate; Site: right bp antecubital; 12:46 Drug: NS 0.9% 1000 ml Route: IV; Rate: 1000 ml; Site: right antecubital; bp 14:30 Drug: Tetanus-Diphtheria Toxoid Adult 0.5 ml {Production Troubleshooter: [id number]. Exp: 09/28/2021. Lot #: [id number]. } Route: IM; Site: right deltoid; 15:09 Follow up: Response: No adverse reaction bp 14:30 Drug: Hundred (HYDROcodone-acetaminophen) 5 mg-325 mg 1 tabs Route: PO; bp 15:10 Follow up: Response: No adverse reaction; Pain is decreased bp Disposition: 17:14 Co-signature as Attending Physician, Wali Li MD. rn Disposition: 08/17/20 15:02 Discharged to Home. Impression: Epilepsy and recurrent seizures, Superficial injury of head. - Condition is Stable. - Discharge Instructions: Hematoma, [id number], Seizure, Adult, [id number]. - Medication Reconciliation Form, Thank You Letter, Antibiotic Education, Prescription Opioid Use form. - Follow up: Emergency Department; When: As needed; Reason: Worsening of condition. Follow up: Private Physician; When: 2 - 3 days; Reason: Recheck today's complaints, Continuance of care, Re-evaluation by your physician. Signatures: Dispatcher [employer] EDManju Mac, MATHEW-C [employer]CON[employer]RAFTING OFFICER-Anjali Lockett Roman, MD MD rn Jacques Escoto RN RN bp Corrections: (The following items were deleted from the chart) 15:02 15:02 08/17/2020 15:02 Discharged to Home. Impression: Epilepsy and recurrent seizures. kb Condition is Stable. Forms are Medication Reconciliation Form, Thank You Letter, Antibiotic Education, Prescription Opioid Use. Follow up: Emergency Department; When: As needed; Reason: Worsening of condition. Follow up: Private Physician; When: 2 - 3 days; Reason: Recheck today's complaints, Continuance of care, Re-evaluation by your physician. kb 15:24 15:02 08/17/2020 15:02 Discharged to Home. Impression: Epilepsy and recurrent seizures; bp Superficial injury of head. Condition is Stable. Discharge Instructions: Seizure, Adult, [id number]. Forms are Medication Reconciliation Form, Thank You Letter, Antibiotic Education, Prescription Opioid Use. Follow up: Emergency Department; When: As needed; Reason: Worsening of condition. Follow up: Private Physician; When: 2 - 3 days; Reason: Recheck today's complaints, Continuance of care, Re-evaluation by your physician. kb
[2020-08-17 15:30] VITALS: TEMP 98.5
[2020-08-17 15:34] VITALS: BP 135/76; O2SAT 96
== END 2020-08-17 15:24 | disposition home or self-care (01) ==
LOC: ER 11:57
DX: S00.03XA Contusion of scalp, initial encounter (principal); W19.XXXA Unspecified fall, initial encounter; Z23 Encounter for immunization; I10 Essential (primary) hypertension
CPT/HCPCS: 85025; 80048; 36415; 81003; 70450; 72125; 73090; 73610; 90714; J1953; J7030; 90471; 96374; 99284

== ENCOUNTER 2021-08-19 10:31 | Emergency (ER) | payer OTHER ==
--- OUTSIDE RECORDS SUMMARY | 2021-08-19 10:34 | XMS REPORT | Continuity of Care Document ---
:[address] [facility] t Address 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 Social History Social Habit Start Date Stop Date Quantity Comments Source Sex Assigned At Uni versity [facility] Smoking Status Start Date Stop Date Source Never smoker [facility] Medications Ordered Filled Start Stop Current Ordering Indication Dosage Frequency Signature Comments Components Source Medication Medication Date Date Medication? Clinician (SIG) Name Name lisinopril 2014-04 Yes 20mg Take 20 mg U nivers (PRINIVIL,Z 1-24 by mouth ity of ESTRIL) 20 00:34: daily. [place] mg tablet [facility] [place] topiramate 2014-04 Yes Take by Uni vers (QUDEXY XR) 1-24 mouth. ity of 50 mg CSpX 00:34: [address] lovastatin 2014-04 Yes Take by Uni vers (MEVACOR) 1-24 mouth at ity of 20 mg 00:34: bedtime. [place] tablet [facility] [place] lisinopril 2014-04 Yes 20mg Take 20 mg U nivers (PRINIVIL,Z 1-24 by mouth ity of ESTRIL) 20 00:34: daily. [place] mg tablet [facility] [place] topiramate 2014-04 Yes Take by Uni vers (QUDEXY XR) 1-24 mouth. ity of 50 mg CSpX 00:34: [address] lovastatin 2014-04 Yes Take by Uni vers (MEVACOR) 1-24 mouth at ity of 20 mg 00:34: bedtime. [address] Vital Signs Vital Name Observation Time Observation Value Comments Source Systolic blood 2018-11-11 15:41:00 152 mm[Hg] Univer sity of [facility] Diastolic blood 2018-11-11 15:41:00 84 [facility]Hg[facility] 2018-11-11 15:41:00 69 /min [facility] Body temperature 2018-11-11 15:41:00 36.89 Yolanda [facility] Respiratory rate 2018-11-11 15:41:00 16 /min [facility] Body weight 2018-11-11 15:41:00 79.198 kg [facility] BMI 2018-11-11 15:41:00 32.99 kg/m2 [facility] Oxygen saturation in 2018-11-11 15:41:00 100 /min [facility] Arterial blood by [facility] Pulse oximetry Branch Systolic blood 2018-11-11 15:41:00 152 mm[Hg] Univer sity of [facility] Diastolic blood 2018-11-11 15:41:00 84 mm[Hg] Unive rsity [facility] Heart rate 2018-11-11 15:41:00 69 /min [facility] Body temperature 2018-11-11 15:41:00 36.89 Yolnada [facility] Respiratory rate 2018-11-11 15:41:00 16 /min [facility] Body weight 2018-11-11 15:41:00 79.198 kg [facility] BMI 2018-11-11 15:41:00 32.99 kg/m2 [facility] Oxygen saturation in 2018-11-11 15:41:00 100 /min [facility] Arterial blood by [facility] Pulse oximetry [place] Procedures Procedure Date / Time Performing Clinician Source Performed PATIENT QUESTIONNAIRE 2018-11-12 05:01:00 Doctor Unassigned, No [facility] NOTICE OF PRIVACY 2018-11-11 15:33:25 Doctor Unassigned, No [facility] CONSENT/REFUSAL FOR 2018-11-11 15:32:43 Doctor Unassigned, No [facility] DIAGNOSIS AND TREATMENT [facility] Encounters Start End Encounter Admission Attending Care Care Encounter Source Date/Time Date/Time Type Type Clinicians Facility Department ID 2018-11-12 2018-11-12 Orders Doctor ORTIZ [id number] [facility] 00:00:00 00:00:00 Only UnassignedCARLOS [id number] ity of [facility] [id number] [facility] as [id number] [place] [id number] Branch 2018-11-12 2018-11-12 Orders Doctor ORTIZ [id number] 00:00:00 00:00:00 Only UnassignedCARLOS [id number] [facility] [id number] 2018-11-11 2018-11-11 Emergency [place], [facility] [id number] 10:42:43 11:54:00 Chelsea Herzog [id number] [place] [id number] [place] [id number] 2018-11-11 2018-11-11 Emergency [place], [facility] [id number] [facility] 10:42:43 11:54:00 Chelsea Herzog [id number] i ty [place] [id number] [facility] [id number] [facility] 084 Branch Results This patient has no known results.
[2021-08-19 11:49] LABS: Urine Blood 3+ (Negative); Urine Glucose Negative (Negative); Urine Protein Trace (Negative); Urine Specific Gravity 1.015 (1.005-1.030)
[2021-08-19 11:53] LABS: Absolute Lymphocytes (CBC) 1.9 K/uL (0.7-4.9); Hematocrit 30.5 % (36.0-45.0); MPV 7.9 fL (7.6-11.3)
[2021-08-19 12:07] LABS: Albumin 3.7 g/dL (3.4-5.0); Bilirubin Total 0.2 mg/dL (0.2-1.0); Potassium 3.9 mmol/L (3.5-5.1); Protein, Total 7.7 g/dL (6.4-8.2)
--- NOTE | 2021-08-19 13:19 | EDPHYS ---
Physician Documentation [facility] Name: Alka Cedeño Age: 46 yrs Sex: Female : 1975 Arrival Date: 08/19/2021 Time: 10:36 Bed 17 Private MD: ED Physician Marty Newsome HPI: 08/19 11:22 This 46 yrs old Female presents to ER via Wheelchair with complaints of pm1 Vaginal Bleeding, Abdominal Cramping. 11:22 The patient presents with vaginal bleeding that is heavy, with clots. Onset: The pm1 symptoms/episode began/occurred 3 month(s) ago. Modifying factors: The symptoms are alleviated by nothing, the symptoms are aggravated by nothing. Associated signs and symptoms: Pertinent positives: cramping, Pertinent negatives: nausea, vomiting. Severity of symptoms: in the emergency department the symptoms are actually worse. The patient's method of control includes nothing. The patient has not experienced similar symptoms in the past. The patient has not recently seen a physician. 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 - Social history:: Smoking status: Patient denies any tobacco usage or history of. ROS: 11:22 Positive for vaginal bleeding, Negative for urinary symptoms. pm1 11:22 Constitutional: Negative for fever, chills, and weight loss, Cardiovascular: Negative for chest pain, palpitations, and edema, Respiratory: Negative for shortness of breath, cough, wheezing, and pleuritic chest pain. 11:22 Back: Negative for injury and pain, MS/Extremity: Negative for injury and deformity, Skin: Negative for injury, rash, and discoloration, Neuro: Negative for headache, weakness, numbness, tingling, and seizure. 11:22 Abdomen/GI: Positive for abdominal cramps, of the suprapubic area, Negative for nausea, vomiting, and diarrhea. 11:22 All other systems are negative. Exam: 11:22 Constitutional: This is a well developed, well nourished patient who is awake, alert, pm1 and in no acute distress. Head/Face: Normocephalic, atraumatic. 11:22 Back: No spinal tenderness. No costovertebral tenderness. Full range of motion. Skin: Warm, dry with normal turgor. Normal color with no rashes, no lesions, and no evidence of cellulitis. MS/ Extremity: Pulses equal, no cyanosis. Neurovascular intact. Full, normal range of motion. 11:22 Cardiovascular: Exam negative for acute changes, Rate: normal, Rhythm: regular, Pulses: no pulse deficits are appreciated, Heart sounds: normal, normal S1and S2. 11:22 Respiratory: Exam negative for acute changes, respiratory distress, shortness of breath, Breath sounds: are clear throughout. 11:22 Abdomen/GI: Inspection: abdomen appears normal, Palpation: soft, in all quadrants, mild abdominal tenderness, in the suprapubic area. 11:22 Neuro: Exam negative for acute changes, Orientation: is normal, Mentation: is normal, Motor: is normal, moves all fours. Vital Signs: 11:11 BP 144 / 93; Pulse 80; Resp 16; Temp 98.8(TE); Pulse Ox 100% on R/A; Weight 97.52 kg; vg1 Height 5 ft. 1 in. (154.94 cm); Pain 6/10; 14:35 BP 145 / 65; Pulse 55; Resp 18; Pulse Ox 99% ; ww 11:11 Body Mass Index 40.62 (97.52 kg, 154.94 cm) vg1 MDM: 11:20 Patient medically screened. pm1 13:14 Data reviewed: vital signs. Data interpreted: Pulse oximetry: on room air is 100 %. pm1 Interpretation: normal. Counseling: I had a detailed discussion with the patient and/or guardian regarding: the historical points, exam findings, and any diagnostic results supporting the discharge/admit diagnosis, lab results, the need for outpatient follow up, for definitive care, an OB/Gyne specialist. 08/19 11:20 Order name: CBC with Diff; Complete Time: 12:28 pm1 08/19 11:20 Order name: CMP; Complete Time: 12:28 pm1 08/19 11:49 Order name: Urine Dipstick-Ancillary; Complete Time: 11:53 EDMS 08/19 11:52 Order name: Urine --Ancillary (enter results); Complete Time: 16:52 eb 08/19 11:20 Order name: IV Saline Lock; Complete Time: 11:51 pm1 08/19 11:22 Order name: Urine Dipstick-Ancillary (obtain specimen); Complete Time: 11:51 pm1 08/19 11:22 Order name: Urine Test (obtain specimen); Complete Time: 11:51 pm1 Administered Medications: 13:32 Drug: morphine 4 mg Route: IVP; Site: right antecubital; ww 13:40 Drug: Ketorolac 30 mg Route: IVP; Site: right antecubital; ww 13:46 Drug: Zofran (Ondansetron) 4 mg Route: IVP; Site: right antecubital; ww Disposition: 14:42 Co-signature as Attending Physician, Marty Newsome MD I agree with the assessment and kdr plan of care. Disposition Summary: 08/19/21 13:17 Discharge Ordered Location: Home pm1 Problem: new pm1 Symptoms: have improved pm1 Condition: Stable pm1 Diagnosis - Abnormal uterine and vaginal bleeding, unspecified pm1 Followup: pm1 - With: Emergency Department - When: As needed - Reason: Worsening of condition Followup: pm1 - With: Private Physician - When: 2 - 3 days - Reason: Recheck today's complaints, Continuance of care, Re-evaluation by your physician Discharge Instructions: - Discharge Summary Sheet pm1 - Abnormal Uterine Bleeding pm1 Forms: - Medication Reconciliation Form pm1 - Thank You Letter pm1 - Antibiotic Education pm1 - Prescription Opioid Use pm1 Signatures: Dispatcher [employer] [facility] Marty Newsome MD MD kdr Marinas, Patrick, NP [employer] pm1 Ailyn Santana, RN RN vg1 Rosio Irby RN RN ww
--- NOTE | 2021-08-19 13:19 | ER ---
Nurse's Notes [facility] Name: Alka Cedeño Age: 46 yrs Sex: Female : 1975 Arrival Date: 08/19/2021 Time: 10:36 Bed 17 Private MD: Diagnosis: Abnormal uterine and vaginal bleeding, unspecified Presentation: 08/19 11:11 Chief complaint: Patient states: vaginal bleeding x 3 months; states "heavy flow with vg1 golf size clots" and is going through "one pad within 15 minutes" States had diarrhea yesterday and c/o RLQ pain. Coronavirus screen: Vaccine status: Patient reports being unvaccinated. Client denies travel out of the [place] in the last 14 days. Ebola Screen: Patient denies exposure to infectious person. Patient denies travel to an Ebola-affected area in the 21 days before illness onset. Initial Sepsis Screen: Does the patient meet any 2 criteria? No. Patient's initial sepsis screen is negative. Does the patient have a suspected source of infection? No. Patient's initial sepsis screen is negative. Risk Assessment: Do you want to hurt yourself or someone else? Patient reports no desire to harm self or others. Onset of symptoms was May 2021. 11:11 Method Of Arrival: Wheelchair vg1 11:11 Acuity: DIANE 3 vg1 Triage Assessment: 11:14 General: Appears uncomfortable, Behavior is calm, cooperative. Pain: Complains of pain vg1 in right lower quadrant Pain currently is 10 out of 10 on a pain scale. : Reports vaginal bleeding that is with clots, heavy flow. 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 - Social history:: Smoking status: Patient denies any tobacco usage or history of. Screenin:35 Abuse screen: Denies threats or abuse. Denies injuries from another. Nutritional ww screening: No deficits noted. Tuberculosis screening: No symptoms or risk factors identified. Fall Risk None identified. Assessment: 12:15 General: Appears in no apparent distress. comfortable, Behavior is calm, cooperative. ww Pain: Complains of pain in groin. Neuro: Level of Consciousness is awake, alert, obeys commands, Oriented to person, place, time, situation, Moves all extremities. Speech is normal. Cardiovascular: Patient's skin is warm and dry. GI: Abdomen is non-distended, Reports cramping. : Urine is clear, Reports vaginal bleeding that is. Derm: Skin is intact, is healthy with good turgor, Skin is pink, warm \\T\\ dry. 13:30 Reassessment: Patient appears in no apparent distress at this time. No changes from ww previously documented assessment. Patient and/or family updated on plan of care and expected duration. Pain level reassessed. Patient is alert, oriented x 3, equal unlabored respirations, skin warm/dry/pink. 14:35 Reassessment: Patient appears in no apparent distress at this time. No changes from ww previously documented assessment. Patient and/or family updated on plan of care and expected duration. Pain level reassessed. Patient is alert, oriented x 3, equal unlabored respirations, skin warm/dry/pink. Vital Signs: 11:11 BP 144 / 93; Pulse 80; Resp 16; Temp 98.8(TE); Pulse Ox 100% on R/A; Weight 97.52 kg; vg1 Height 5 ft. 1 in. (154.94 cm); Pain 6/10; 14:35 BP 145 / 65; Pulse 55; Resp 18; Pulse Ox 99% ; ww 11:11 Body Mass Index 40.62 (97.52 kg, 154.94 cm) vg1 ED Course: 10:36 Patient arrived in ED. am2 11:13 Triage completed. vg1 11:14 Arm band placed on. vg1 11:20 Richard Dietrich NP is PHCP. pm1 11:20 Marty Newsome MD is Attending Physician. pm1 11:38 Rosoi Irby RN is Primary Nurse. ww 11:50 Inserted saline lock: 20 gauge in right antecubital area, using aseptic technique. jw7 Blood collected. 11:50 Initial lab(s) drawn, by me, sent to lab. Urine collected: clean catch specimen, jw7 cloudy, blood tinged, Amount Voided: 100mL. 14:35 Patient has correct armband on for positive identification. Bed in low position. Call ww light in reach. Side rails up X 1. Adult w/ patient. 14:35 No provider procedures requiring assistance completed. IV discontinued, bleeding ww controlled, No redness/swelling at site. Pressure dressing applied. Administered Medications: 13:32 Drug: morphine 4 mg Route: IVP; Site: right antecubital; ww 13:40 Drug: Ketorolac 30 mg Route: IVP; Site: right antecubital; ww 13:46 Drug: Zofran (Ondansetron) 4 mg Route: IVP; Site: right antecubital; ww Medication: 14:35 VIS not applicable for this client. ww Outcome: 13:17 Discharge ordered by MD. pm1 14:35 Discharged to home ambulatory. ww 14:35 Condition: stable 14:35 Discharge instructions given to patient, family, Instructed on discharge instructions, follow up and referral plans. medication usage, safety practices, Demonstrated understanding of instructions, follow-up care, medications. 14:37 Patient left the ED. ww Signatures: Richard Dietrich NP [employer] pm1 Anne Fernandez am2 Ailyn Santana, RN RN vg1 Rosio Irby, RN RN ww [place] jw7
[2021-08-19] MEDS ORDERED: ONDANSETRON 4 MG/2 ML VIAL ONE (13:29)
[2021-08-19] MEDS ORDERED: KETOROLAC 30 MG/ML INJ ONE (13:29)
[2021-08-19] MEDS ORDERED: MORPHINE 4 MG/ML SYR ONE (13:29)
[2021-08-19 14:33] LABS: Urine Specific Gravity/Preg 1.015 (1.005-1.030)
[2021-08-19 15:18] VITALS: TEMP 98.8
[2021-08-19 15:19] VITALS: BP 145/65; O2SAT 99
== END 2021-08-19 14:37 | disposition home or self-care (01) ==
LOC: ER 10:31
DX: N93.9 Abnormal uterine and vaginal bleeding, unspecified (principal); I10 Essential (primary) hypertension
CPT/HCPCS: 85025; 36415; 81025; 81003; 80053; 96375; 96374; 99283; J2405

== ENCOUNTER 2022-04-11 15:11 | Emergency (ER) | payer OTHER ==
--- OUTSIDE RECORDS SUMMARY | 2022-04-11 15:17 | XMS REPORT | Continuity of Care Document ---
:1975 Author Organization [facility] t Address [address] [place] [address] Care Team Providers Name Role Phone PCP, PATIENT DOES NOT HAVE A Primary Care Physician UnavailJAN Benton Attending Clinician Unavailable Doctor Unassigned, [place] Attending Clinician Unavailable STEFFI GUERRERO Attending Clinician Unavailable STEFFI GUERRERO Attending Clinician Unavailable Chelsea Bowman Attending Clinician Payers Payer Name Policy Type Policy Number Effective Date Expiration Date Priyanka meyer [facility] [id number] 2018 00:00:00 Problems Condition Condition Condition Status Onset Resolution Last Treating Co mments Source Name Details Category Date Date Treatment Clinician Date Seizure Seizure Disease Active 2014-04 [facility] 04-30 ity of 00:00: [place] 00 Medical Branch 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 Complex partial seizures with secondary generaliz ationICD1 0 Diagnosis Term Remote Computer Terminal Operator Utility Migraine Migraine Disease Active Overview: Un michael -17 Formattin ity of 00:00: g of this [place] 00 note Medical might be Branch different from the original. ICD10 Diagnosis Term Remote Computer Terminal Operator Utility Allergies, Adverse Reactions, Alerts Allergy Allergy Status Severity Reaction(s) Onset Inactive Treating Comm ents Source Name Type Date Date Clinician NO KNOWN Drug Active Univers ALLERGIE Class ity of S [facility] Social History Social Habit Start Date Stop Date Quantity Comments Source Tobacco use and 2021-08-22 2021-08-22 Smokeless tobacco Un iversity of exposure 00:00:00 00:00:00 non-user [facility] Alcohol intake 2021-08-22 2021-08-22 Lifetime University of 00:00:00 00:00:00 non-drinker [facility] (finding) [place] Sex Assigned At [birth year] Universit y of 00:00:00 00:00:00 [facility] Smoking Status Start Date Stop Date Source Never smoked tobacco [facility] Medications Ordered Filled Start Stop Current Ordering Indication Dosage Frequency Signature Comments Components Source Medication Medication Date Date Medication? Clinician (SIG) Name Name ferrous 2021- No [id number] 325mg Take 1 U nivers sulfate 08-23 tablet by ity of (IRON, 00:00: 04:59 mouth [place] FERROUS 00 :00 daily for Medical SULFATE,) 90 days. Branch 325 mg (65 mg iron) tablet ascorbic 2021- No [id number] 500mg Take 1 Univers acid, 08-23 tablet by ity of vitamin C, 00:00: 04:59 mouth [place] 500 mg 00 :00 daily for Medical tablet 90 days. Branch ferrous 2021- No [id number] 325mg Take 1 U nivers sulfate 08-23- tablet by ity of (IRON, 00:00: 04:59 mouth [place] FERROUS 00 :00 daily for Medical SULFATE,) 90 days. Branch 325 mg (65 mg iron) tablet ascorbic 2021- No [id number] 500mg Take 1 Univers acid, 08-23-16 tablet by ity of vitamin C, 00:00: 04:59 mouth [place] 500 mg 00 :00 daily for Medical tablet 90 days. Branch topiramate Yes Take by Univ ers (QUDEXY XR) 5-16 mouth. ity of 50 mg CSpX 14:49: [place] 31 Medical Branch lovastatin 2022-0 Yes Take by [facility] ers (MEVACOR) 5-16 mouth at ity of 20 mg 14:49: bedtime. [place] tablet 31 Medical Branch lisinopril 2021-0 Yes 20mg Take 20 mg U nivers (PRINIVIL,Z 5-16 by mouth ity of ESTRIL) 20 14:49: daily. [place] mg tablet 31 Medical Branch topiramate 0 Yes Take by [facility] ers (QUDEXY XR) 5-16 mouth. ity of 50 mg CSpX 14:49: [place] 31 Medical Branch lovastatin 2021-0 Yes Take by [facility] ers (MEVACOR) 5-16 mouth at ity of 20 mg 14:49: bedtime. [place] tablet 31 Medical Branch lisinopril 0 Yes 20mg Take 20 mg U nivers (PRINIVIL,Z 5-16 by mouth ity of ESTRIL) 20 14:49: daily. [place] mg tablet 31 Medical Branch topiramate 0 Yes Take by [facility] ers (QUDEXY XR) 5-16 mouth. ity of 50 mg CSpX 14:49: [address] Branch lovastatin 0 Yes Take by [facility] ers (MEVACOR) 5-16 mouth at ity of 20 mg 14:49: bedtime. [place] tablet 31 [facility] Branch lisinopril 0 Yes 20mg Take 20 mg U nivers (PRINIVIL,Z 5-16 by mouth ity of ESTRIL) 20 14:49: daily. [place] mg tablet 31 [facility] Branch clonazePAM 2021-0 Yes 1mg Take 1 mg Un michael 1 mg tablet 5-04 by mouth 3 it y of 00:00: (three) [place] 00 times Medical daily. Branch clonazePAM 2021-0 Yes 1mg Take 1 mg Un michael 1 mg tablet 5-04 by mouth 3 it y of 00:00: (three) [place] 00 times Medical daily. Branch clonazePAM 2-0 Yes 1mg Take 1 mg Un michael 1 mg tablet 5-04 by mouth 3 it y of 00:00: (three) [place] 00 times Medical daily. Branch levETIRAcet 2021-0 Yes 750mg Take 750 U nivers am 750 mg 4-28 mg by ity of tablet 00:00: mouth 2 [place] 00 (two) Medical times Branch daily. OXcarbazepi 2021-0 Yes 600mg Take 600 U nivers ne 600 mg 4-28 mg by ity of tablet 00:00: mouth 2 [place] (two) Medical times Branch daily. levETIRAcet 2022-0 Yes 750mg Take 750 U nivers am 750 mg 4-28 mg by ity of tablet 00:00: mouth 2 [place] 00 (two) Medical times Branch daily. OXcarbazepi 2022-0 Yes 600mg Take 600 U nivers ne 600 mg 4-28 mg by ity of tablet 00:00: mouth 2 [place] 00 (two) Medical times Branch daily. levETIRAcet 2022-0 Yes 750mg Take 750 U nivers am 750 mg 4-28 mg by ity of tablet 00:00: mouth 2 [place] (two) Medical times Branch daily. OXcarbazepi 2022-0 Yes 600mg Take 600 U nivers ne 600 mg 4-28 mg by ity of tablet 00:00: mouth 2 [place] (two) Medical times Branch daily. Vital Signs Vital Name Observation Time Observation Value Comments Source Systolic blood 2021-08-22 19:57:00 133 mm[Hg[facility] Diastolic blood 2021-08-22 19:57:00 89 mm[Hg] [facility] Heart rate 2021-08-22 19:43:00 72 /min [facility] Body temperature 2021-08-22 19:43:00 36.67 [facility] Respiratory rate 2021-08-22 19:43:00 20 /min [facility] Body height 2021-08-22 19:43:00 154.9 cm [facility] Body weight 2021-08-22 19:43:00 84.171 kg [facility] BMI 2021-08-22 19:43:00 35.06 kg/m2 [facility] Procedures Procedure Date / Time Performed Performing Clinician [facility] e REFERRAL- 2022-04-05 06:01:00 Doctor Unassigned, No Univer [facility] REQUEST/RESPONSE Name Medical Branch Encounters Start End Encounter Admission Attending Care Care Encounter Source Date/Time Date/Time Type Type Clinicians Facility Department ID 2022-04-05 2022-04-05 Orders Doctor DIANA [id number] Univers 00:00:00 00:00:00 Only Unassigned, CARLOS [id number] ity of [place] [facility] [id number] Lg as [id number] [address] 2021-08-22 2021-08-22 Outpatient R STEFFI GUERRERO [facility] B [id number] Univers 14:30:00 15:12:53 STEFFI GUERRERO ity of [facility] 2021-08-22 2021-08-22 Office [facility] [id number] Univers 14:30:00 15:12:53 Visit Steffi FOFANA [id number] it y of [place] [id number] [facility] [id number] [facility] 134 Branch 2018-11-12 2018-11-12 Orders Doctor DIANA [id number] Univers 00:00:00 00:00:00 Only Unassigned, CARLOS [id number] ity of [place] [facility] [id number] Lg as [id number] [address] 2018-11-12 2018-11-12 Orders Doctor DIANA [id number] 00:00:00 00:00:00 Only Unassigned, CARLOS [id number] [place] [facility] [id number] [id number] 2018-11-11 2018-11-11 [facility] [id number] [facility] 10:42:43 11:54:00 Chelsea Herzog [id number] i ty of [place] 4.2.7.2.686 [facility] [id number] [facility] 084 Branch 2018-11-11 2018-11-11 [facility] [id number] 10:42:43 11:54:00 Chelsea Herzog [id number] [place] 4.2.7.2[place] [id number] Results This patient has no known results.
[2022-04-11] MEDS ORDERED: ONDANSETRON 4 MG/2 ML VIAL ONE (16:01)
[2022-04-11] MEDS ORDERED: KETOROLAC 30 MG/ML INJ ONE (16:01)
[2022-04-11] MEDS ORDERED: NA CHLORIDE 0.9% 1,000 ML ONE (16:01)
[2022-04-11 16:10] LABS: Urine Blood Negative (Negative); Urine Glucose Negative (Negative); Urine Protein Negative (Negative); Urine pH 6.5 (5.0-7.0)
[2022-04-11 16:13] LABS: Absolute Lymphocytes (CBC) 2.1 K/uL (0.7-4.9); Hematocrit 37.9 % (36.0-45.0); Lymphocytes % 20.1 % (15.3-44.8); MCV 89.9 fL (80-100); MPV 8.2 fL (7.6-11.3); RBC Red Blood Cell Count 4.22 M/uL (3.86-4.86)
[2022-04-11 16:30] LABS: Albumin 3.6 g/dL (3.4-5.0); Bilirubin Total 0.2 mg/dL (0.2-1.0)
[2022-04-11 16:46] LABS: Urine Bacteria <20 /HPF (<20); Urine Mucus Slight /HPF (None Seen); Urine RBC <5 /HPF (None Seen)
--- NOTE | 2022-04-11 17:20 | RAD REPORT ---
EXAM DESCRIPTION: CTAbdomen Pelvis W Contrast - 04/11/2022 5:06 pm CLINICAL HISTORY: rlq pain COMPARISON: No comparisons TECHNIQUE: CT of the abdomen and pelvis was performed. All CT scans are performed using dose optimization technique as appropriate and may include automated exposure control or mA/KV adjustment according to patient size. FINDINGS: Lower chest: Ingested contents in the distal esophagus. Liver: No acute abnormality or suspicious lesions. Hepatic steatosis suspected. Biliary: No biliary ductal dilatation. Contracted gallbladder. Stomach: No significant focal abnormality. Duodenum: No significant focal abnormality. Pancreas: No significant abnormality. Spleen: No significant abnormality. Adrenal: No suspicious lesions. Kidney/ureter: No hydronephrosis. No renal calculi. Retroperitoneum: No retroperitoneal adenopathy. Vascular: No aneurysm. Atherosclerosis Bowel: No significant focal abnormality. Normal appendix. Peritoneum: No ascites or free air. Small fat containing right inguinal hernia. Bladder: Grossly unremarkable. Reproductive: No adnexal masses. Nabothian cyst noted. Bones: No acute fracture. Other: n/a IMPRESSION: No acute intra-abdominal or pelvic finding. Normal appendix. No urinary tract calculi id entified.
[2022-04-11] MEDS ORDERED: MORPHINE 4 MG/ML SYR ONE (18:00)
--- NOTE | 2022-04-11 18:05 | RAD REPORT ---
EXAM DESCRIPTION: US - Transvaginal Study Probe - 04/11/2022 5:59 pm CLINICAL HISTORY: ABD PAIN Pelvic pain. COMPARISON: Abdomen Pelvis W Contrast dated 04/11/2022 FINDINGS: Transabdominal ultrasound was obtained. The patient refused a transvaginal pelvic ultrasou nd. The uterus is normal in size, shape and echotexture. The uterus measures 10.4 cm x 4.8 cm x 6.2 cm. The endometrial stripe measures 4 mm, normal. The right ovary measures 2.1 x 1.9 x 1.8 cm with volume of 3.8 cc. The left ovary was not visualized. Blood flow present in the right ovary. Nonvisualized left ovary. No significant pelvic ascites. IMPRESSION: Blood flow present within the right ovary. Nonvisualized left ovary.
--- NOTE | 2022-04-11 18:21 | ER ---
Nurse's Notes [facility] Name: Alka Cedeño Age: 47 yrs Sex: Female : 1975 Arrival Date: 04/11/2022 Time: 15:14 Bed 25 Private MD: Diagnosis: Lower abdominal pain, unspecified Presentation: 04/11 15:31 Chief complaint: Patient states: right lower abdominal pain since her last menstrual ap3 period, which was approx toward the end of March. patient states this has never happened with any of her cycles before which concerns her. Coronavirus screen: At this time, the client does not indicate any symptoms associated with coronavirus-19. Ebola Screen: No symptoms or risks identified at this time. Initial Sepsis Screen: Does the patient meet any 2 criteria? No. Patient's initial sepsis screen is negative. Does the patient have a suspected source of infection? No. Patient's initial sepsis screen is negative. Risk Assessment: Do you want to hurt yourself or someone else? Patient reports no desire to harm self or others. Onset of symptoms was March 28, 2022. 15:31 Method Of Arrival: Ambulatory ap3 15:31 Acuity: DIANE 3 ap3 Triage Assessment: 15:35 General: Appears in no apparent distress. Behavior is calm, cooperative, appropriate ap3 for age. Pain: Complains of pain in right lower quadrant Pain radiates to left lower quadrant Pain currently is 7 out of 10 on a pain scale. Pain began gradually, over the last couple of weeks. Neuro: Level of Consciousness is awake, alert, obeys commands, Oriented to person, place, time, situation, Gait is steady. Cardiovascular: Patient's skin is warm and dry. GI: Reports lower abdominal pain, nausea. : Reports pain in right lower quadrant(s). 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 - Social history:: Smoking status: Patient denies any tobacco usage or history of. Screenin:37 [facility] ED Fall Risk Assessment (Adult) History of falling in the last 3 months, ap3 including since admission. Abuse screen: Denies threats or abuse. Nutritional screening: No deficits noted. Tuberculosis screening: No symptoms or risk factors identified. Assessment: 15:55 General: Appears uncomfortable, Behavior is cooperative. Pain: Complains of pain in em6 left lower quadrant and abdomen and right lower quadrant Pain radiates to right leg Pain currently is 9 out of 10 on a pain scale. Quality of pain is described as radiating, sharp, shooting, Pain began 03/28/22. Neuro: Level of Consciousness is awake, alert, obeys commands, Oriented to person, place, time, situation. Cardiovascular: Patient's skin is warm and dry. Respiratory: Airway is patent Respiratory effort is even, unlabored, Respiratory pattern is regular, symmetrical, Breath sounds are clear bilaterally. GI: Abdomen is non-distended, Bowel sounds present X 4 quads. Abdomen is tender to palpation in right lower quadrant. : No signs and/or symptoms were reported regarding the genitourinary system. EENT: No signs and/or symptoms were reported regarding the EENT system. Derm: No signs and/or symptoms reported regarding the dermatologic system. Musculoskeletal: Circulation, motion, and sensation intact. Range of motion: intact in all extremities. 16:58 Reassessment: Patient appears in no apparent distress at this time. No changes from em6 previously documented assessment. Patient and/or family updated on plan of care and expected duration. Pain level reassessed. Patient is alert, oriented x 3, equal unlabored respirations, skin warm/dry/pink. taken for a cat scan by [employer] in a wheelchair. 17:15 Reassessment: back from ct. em6 17:42 Reassessment: Patient appears in no apparent distress at this time. No changes from em6 previously documented assessment. Patient and/or family updated on plan of care and expected duration. Pain level reassessed. Patient is alert, oriented x 3, equal unlabored respirations, skin warm/dry/pink. left to US with tech via wheelchair. 17:55 Reassessment: patient is back from US. patient had stated pain in the lower left em6 abdomen. provider notified new order given. Vital Signs: 15:31 BP 157 / 94; Pulse 89; Resp 18; Temp 98.8; Pulse Ox 96% ; Weight 85.28 kg; Height 5 ft. ap3 1 in. (154.94 cm); Pain 8/10; 16:00 BP 148 / 80; Pulse 83; Resp 18; Pulse Ox 97% on R/A; em6 17:10 BP 163 / 94; Pulse 82; Resp 16; Pulse Ox 99% on R/A; em6 17:51 BP 102 / 63; Pulse 77; Resp 18; Pulse Ox 98% ; em6 15:31 Body Mass Index 35.52 (85.28 kg, 154.94 cm) ap3 ED Course: 15:14 Patient arrived in ED. rg4 15:16 Manju Hathaway FNP-C is PHCP. kb 15:16 Jose Almonte MD is Attending Physician. kb 15:34 Triage completed. ap3 15:37 Arm band placed on right wrist. ap3 15:37 Patient has correct armband on for positive identification. Adult w/ patient. ap3 15:54 Jessie Duarte, RN is Primary Nurse. em6 15:56 Inserted saline lock: 20 gauge in right antecubital area, using aseptic technique. rs5 Blood collected. 15:56 No provider procedures requiring assistance completed. em6 16:09 CBC with Diff Sent. em6 16:09 CMP Sent. em6 16:09 Lipase Sent. em6 17:08 CT Abd/Pelvis - IV Contrast Only In Process Unspecified. EDMS 18:01 US Transvaginal Study (Probe) In Process Unspecified. EDMS 18:37 IV discontinued, intact, bleeding controlled, No redness/swelling at site. Pressure em6 dressing applied. Administered Medications: 16:09 Drug: NS 0.9% 1000 ml Route: IV; Rate: 1 bolus; Site: right antecubital; em6 18:26 Follow up: IV Status: Completed infusion; IV Intake: 1000ml em6 16:10 Drug: TORadol - (ketorolac) 15 mg Route: IVP; Site: right antecubital; em6 17:00 Follow up: Response: No adverse reaction em6 16:10 Drug: Zofran (Ondansetron) 4 mg Route: IVP; Site: right antecubital; em6 17:00 Follow up: Response: No adverse reaction em6 18:01 Drug: morphine 4 mg Route: IVP; Infused Over: 4 mins; Site: right antecubital; em6 18:26 Follow up: Response: No adverse reaction em6 Medication: 18:37 VIS not applicable for this client. em6 Intake: 18:26 IV: 1000ml; Total: 1000ml. em6 Outcome: 18:20 Discharge ordered by MD. pierre 18:37 Discharged to home via wheelchair, with family. em6 18:37 Condition: stable 18:37 Discharge instructions given to patient, Instructed on discharge instructions, follow up and referral plans. medication usage, Demonstrated understanding of instructions, follow-up care, medications, Prescriptions given X 1. 18:38 Patient left the ED. em6 Signatures: Dispatcher [employer] EDMS Manju Hathaway, MARTHA MEDINAP-Pooja Null rg4 Anne Mota RN RN ap3 Jessie Duarte RN RN em6 Jesus Stallings rs5 Corrections: (The following items were deleted from the chart) 18:27 17:55 Reassessment: patient is back from US em6 em6
--- NOTE | 2022-04-11 18:21 | EDPHYS ---
Physician Documentation [facility] Name: Alka Cedeño Age: 47 yrs Sex: Female : 1975 Arrival Date: 04/11/2022 Time: 15:14 Bed 25 Private MD: ED Physician Jose Almonte HPI: 04/11 18:16 This 47 yrs old Female presents to ER via Ambulatory with complaints of kb Abdominal Pain, Flank Pain, Back Pain. 18:16 The patient presents with abdominal pain right lower quadrant. Onset: The kb symptoms/episode began/occurred 4 week(s) ago. The symptoms radiate to left lower quadrant. Associated signs and symptoms: none. The symptoms are described as constant. Modifying factors: The symptoms are alleviated by nothing, the symptoms are aggravated by pressure. Severity of pain: At its worst the pain was moderate in the emergency department the pain is unchanged. The patient has not experienced similar symptoms in the past. The patient has not recently seen a physician. Pt reports she has had RLQ pain that radiates to LLQ for 4 weeks. States she normally has similar pain just before starting her period, but has never had it continue afterwards. 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 - Social history:: Smoking status: Patient denies any tobacco usage or history of. ROS: 18:16 Constitutional: Negative for fever, chills, and weight loss. kb 18:16 Abdomen/GI: Positive for abdominal pain, Negative for nausea, vomiting, and diarrhea. 18:16 All other systems are negative. Exam: 18:16 Constitutional: This is a well developed, well nourished patient who is awake, alert, kb and in no acute distress. Head/Face: Normocephalic, atraumatic. ENT: Moist Mucous membranes Cardiovascular: Regular rate and rhythm with a normal S1 and S2. No gallops, murmurs, or rubs. No pulse deficits. Respiratory: Respirations even and unlabored. No increased work of breathing. Talking in full sentences Skin: Warm, dry with normal turgor. Normal color. MS/ Extremity: Pulses equal, no cyanosis. Neurovascular intact. Full, normal range of motion. Neuro: Awake and alert, GCS 15, oriented to person, place, time, and situation. Moves all extremities. Normal gait. Psych: Awake, alert, with orientation to person, place and time. Behavior, mood, and affect are within normal limits. 18:16 Abdomen/GI: Inspection: abdomen appears normal, Bowel sounds: normal, Palpation: soft, in all quadrants, moderate abdominal tenderness, in the right lower quadrant. Vital Signs: 15:31 BP 157 / 94; Pulse 89; Resp 18; Temp 98.8; Pulse Ox 96% ; Weight 85.28 kg; Height 5 ft. ap3 1 in. (154.94 cm); Pain 8/10; 16:00 BP 148 / 80; Pulse 83; Resp 18; Pulse Ox 97% on R/A; em6 17:10 BP 163 / 94; Pulse 82; Resp 16; Pulse Ox 99% on R/A; em6 17:51 BP 102 / 63; Pulse 77; Resp 18; Pulse Ox 98% ; em6 15:31 Body Mass Index 35.52 (85.28 kg, 154.94 cm) ap3 MDM: 15:42 Patient medically screened. kb 18:18 Data reviewed: vital signs, nurses notes. Data interpreted: Pulse oximetry: on room air kb is 98 %. Interpretation: normal. Counseling: I had a detailed discussion with the patient and/or guardian regarding: the historical points, exam findings, and any diagnostic results supporting the discharge/admit diagnosis, lab results, radiology results, the need for outpatient follow up, an OB/Gyne specialist, to return to the emergency department if symptoms worsen or persist or if there are any questions or concerns that arise at home. 18:20 ED course: Pt has follow up appt with new grad rn on Sunday. kb 18:36 Differential diagnosis: appendicitis, Endometriosis, non-specific abd pain, urinary kb tract infection, ovarian torsion. 04/11 15:55 Order name: CBC with Diff; Complete Time: 16:46 kb 04/11 15:55 Order name: CMP; Complete Time: 16:46 kb 04/11 15:55 Order name: Lipase; Complete Time: 16:46 kb 04/11 15:55 Order name: Urine Microscopic Only; Complete Time: 16:48 kb 04/11 16:10 Order name: Urine Dipstick-Ancillary; Complete Time: 16:46 EDMS 04/11 17:09 Order name: Urine --Ancillary (enter results); Complete Time: 17:19 bd 04/11 15:55 Order name: CT Abd/Pelvis - IV Contrast Only; Complete Time: 17:21 kb 04/11 15:55 Order name: IV Saline Lock; Complete Time: 15:56 kb 04/11 15:55 Order name: Labs collected and sent; Complete Time: 16:09 kb 04/11 17:22 Order name: US Transvaginal Study (Probe); Complete Time: 18:11 kb 04/11 15:55 Order name: Urine Dipstick-Ancillary (obtain specimen); Complete Time: 16:24 kb Administered Medications: 16:09 Drug: NS 0.9% 1000 ml Route: IV; Rate: 1 bolus; Site: right antecubital; em6 18:26 Follow up: IV Status: Completed infusion; IV Intake: 1000ml em6 16:10 Drug: TORadol - (ketorolac) 15 mg Route: IVP; Site: right antecubital; em6 17:00 Follow up: Response: No adverse reaction em6 16:10 Drug: Zofran (Ondansetron) 4 mg Route: IVP; Site: right antecubital; em6 17:00 Follow up: Response: No adverse reaction em6 18:01 Drug: morphine 4 mg Route: IVP; Infused Over: 4 mins; Site: right antecubital; em6 18:26 Follow up: Response: No adverse reaction em6 Disposition Summary: 04/11/22 18:20 Discharge Ordered Location: Home kb Condition: Stable kb Diagnosis - Lower abdominal pain, unspecified kb Followup: kb - With: Emergency Department - When: As needed - Reason: Worsening of condition Followup: kb - With: Private Physician - When: 2 - 3 days - Reason: Recheck today's complaints, Continuance of care, Re-evaluation by your physician Discharge Instructions: - Discharge Summary Sheet kb - Pelvic Pain, Female, Zose-ac-Chly kb - Abdominal Pain, Adult, Blna-hb-Iabk kb Forms: - Medication Reconciliation Form kb - Thank You Letter kb - Antibiotic Education kb - Prescription Opioid Use kb Prescriptions: - Diclofenac Sodium 75 mg Oral tablet,delayed release (DR/EC) - take 1 tablet by ORAL route 2 times per day As needed; 30 tablet; Refills: 0, kb Product Selection Permitted Signatures: Dispatcher [employer] EDManju Mac, LINSEED CAKE TRIMMER-C Anne Trinidad, RN RN ap3 Jessie Duarte RN RN em6
[2022-04-11 18:51] VITALS: TEMP 98.8
[2022-04-11 19:03] VITALS: BP 102/63; O2SAT 98
== END 2022-04-11 18:38 | disposition home or self-care (01) ==
LOC: ER 15:11
DX: R10.31 Right lower quadrant pain (principal); I10 Essential (primary) hypertension
CPT/HCPCS: 85025; 36415; 81025; 83690; 80053; 74177; 76830; Q9967; J7030; J2405; 81003; 81015; 96361; 96374; 96375; 99284

== ENCOUNTER 2022-04-15 13:53 | Emergency (ER) | payer OTHER ==
--- OUTSIDE RECORDS SUMMARY | 2022-04-15 14:02 | XMS REPORT | Continuity of Care Document ---
:1975 Author Organization [facility] t Address [address] [place] [address] Care Team Providers Name Role Phone PCP, PATIENT DOES NOT HAVE A Primary Care Physician UnavailJAN Benton Attending Clinician Unavailable Doctor Unassigned, Kiefer Attending Clinician Unavailable STEFFI GUERRERO Attending Clinician Unavailable STEFFI GUERRERO Attending Clinician Unavailable Chelsea Bowman Attending Clinician Payers Payer Name Policy Type Policy Number Effective Date Expiration Date Priyanka meyer [facility] [id number] 2018 00:00:00 Problems Condition Condition Condition Status Onset Resolution Last Treating Co mments Source Name Details Category Date Date Treatment Clinician Date Seizure Seizure Disease Active 2014-04 Univers 04-30 ity of 00:00: [place] 00 Medical Branch 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 Complex partial seizures with secondary generaliz ationICD1 0 Diagnosis Term Bar Host Utility Migraine Migraine Disease Active Overview: Un micahel -17 Formattin ity of 00:00: g of this [place] 00 note Medical might be Branch different from the original. ICD10 Diagnosis Term Bar Host Utility Allergies, Adverse Reactions, Alerts Allergy Allergy Status Severity Reaction(s) Onset Inactive Treating Comm ents Source Name Type Date Date Clinician NO KNOWN Drug Active Univers ALLERGIE Class ity of [facility] Social History Social Habit Start Date Stop Date Quantity Comments Source Tobacco use and 2021-08-22 2021-08-22 Smokeless tobacco Un iversity of exposure 00:00:00 00:00:00 non-user [facility] Alcohol intake 2021-08-22 2021-08-22 Lifetime University of 00:00:00 00:00:00 non-drinker [facility] (finding) [place] Sex Assigned At [birth year] Universit y of 00:00:00 00:00:00 [facility] Smoking Status Start Date Stop Date Source Never smoked tobacco [facility] Medications Ordered Filled Start Stop Current Ordering Indication Dosage Frequency Signature Comments Components Source Medication Medication Date Date Medication? Clinician (SIG) Name Name ferrous 2021- No [id number] 325mg Take 1 U nivers sulfate 08-23 tablet by ity of (IRON, 00:00: 04:59 mouth [place] FERROUS 00 :00 daily for Medical SULFATE,) 90 days. Branch 325 mg (65 mg iron) tablet ascorbic No [id number] 500mg Take 1 Univers acid, 08-23 tablet by ity of vitamin C, 00:00: 04:59 mouth [place] 500 mg 00 :00 daily for Medical tablet 90 days. Branch ferrous 2021- No [id number] 325mg Take 1 U nivers sulfate 08-23 tablet by ity of (IRON, 00:00: 04:59 mouth [place] FERROUS 00 :00 daily for Medical SULFATE,) 90 days. Branch 325 mg (65 mg iron) tablet ascorbic 2021- No [id number] 500mg Take 1 Univers acid, 08-23 tablet by ity of vitamin C, 00:00: 04:59 mouth [place] 500 mg 00 :00 daily for Medical tablet 90 days. Branch topiramate Yes Take by [facility] ers (QUDEXY XR) 5-16 mouth. ity of 50 mg CSpX 14:49: [place] 31 Medical Branch lovastatin 0 Yes Take by Univ ers (MEVACOR) 5-16 mouth at ity of 20 mg 14:49: bedtime. [place] tablet 31 Medical Branch lisinopril 0 Yes 20mg Take 20 mg U nivers (PRINIVIL,Z 5-16 by mouth ity of ESTRIL) 20 14:49: daily. [place] mg tablet 31 Medical Branch topiramate 0 Yes Take by [facility] ers (QUDEXY XR) 5-16 mouth. ity of 50 mg CSpX 14:49: [address] Branch lovastatin 0 Yes Take by Univ ers (MEVACOR) 5-16 mouth at ity of 20 mg 14:49: bedtime. [place] tablet [address] [place] [address] Branch lisinopril 0 Yes 20mg Take 20 mg U nivers (PRINIVIL,Z 5-16 by mouth ity of ESTRIL) 20 14:49: daily. [place] mg tablet [address] [place] [address] Branch topiramate 0 Yes Take by [facility] ers (QUDEXY XR) 5-16 mouth. ity of 50 mg CSpX 14:49: [address] Branch lovastatin 0 Yes Take by [facility] ers (MEVACOR) 5-16 mouth at ity of 20 mg 14:49: bedtime. [place] tablet [address] [place] [address] Branch lisinopril 0 Yes 20mg Take 20 mg U nivers (PRINIVIL,Z 5-16 by mouth ity of ESTRIL) 20 14:49: daily. [place] mg tablet 31 [facility] Branch clonazePAM 2021-0 Yes 1mg Take 1 mg Un michael 1 mg tablet 5-04 by mouth 3 it y of 00:00: (three) [place] 00 times Medical daily. Branch clonazePAM 2021-0 Yes 1mg Take 1 mg Un michael 1 mg tablet 5-04 by mouth 3 it y of 00:00: (three) [place] 00 times Medical daily. Branch clonazePAM 2-0 Yes 1mg Take 1 mg Un michael 1 mg tablet 5-04 by mouth 3 it y of 00:00: (three) [place] 00 times Medical daily. Branch levETIRAcet 2021-0 Yes 750mg Take 750 U nivers am 750 mg 4-28 mg by ity of tablet 00:00: mouth 2 [place] 00 (two) Medical times Branch daily. OXcarbazepi 2022-0 Yes 600mg Take 600 U nivers ne 600 mg 4-28 mg by ity of tablet 00:00: mouth 2 [place] (two) Medical times Branch daily. levETIRAcet 2022-0 Yes 750mg Take 750 U nivers am 750 mg 4-28 mg by ity of tablet 00:00: mouth 2 [place] (two) Medical times Branch daily. OXcarbazepi 2022-0 Yes 600mg Take 600 U nivers ne 600 mg 4-28 mg by ity of tablet 00:00: mouth 2 [place] (two) Medical times Branch daily. levETIRAcet 2022-0 Yes 750mg Take 750 U nivers am 750 mg 4-28 mg by ity of tablet 00:00: mouth 2 [place] (two) Medical times Branch daily. OXcarbazepi 2022-0 Yes 600mg Take 600 U nivers ne 600 mg 4-28 mg by ity of tablet 00:00: mouth [place] (two) Medical times Branch daily. Vital Signs Vital Name Observation Time Observation Value Comments Source Systolic blood 2021-08-22 19:57:00 133 mm[Hg] Univer [facility]ity of [facility] Diastolic blood 2021-08-22 19:57:00 89 mm[Hg] Unive [facility] Heart rate 2021-08-22 19:43:00 72 /min [facility] Body temperature 2021-08-22 19:43:00 36.67 Yolanda [facility] Respiratory rate 2021-08-22 19:43:00 20 /min [facility] Body height 2021-08-22 19:43:00 154.9 cm [facility] Body weight 2021-08-22 19:43:00 84.171 kg [facility] BMI 2021-08-22 19:43:00 35.06 kg/m2 [facility] Procedures Procedure Date / Time Performed Performing Clinician [facility] e REFERRAL- 2022-04-05 06:01:00 [facility]igned, [facility] Name Medical Branch Encounters Start End Encounter Admission Attending Care Care Encounter Source Date/Time Date/Time Type Type Clinicians Facility Department ID 2022-04-05 2022-04-05 Orders Doctor DIANA [id number] Univers 00:00:00 00:00:00 Only Unassigned, CARLOS [id number] ity of [facility] [id number] Lg as [id number] [address] 2021-08-22 2021-08-22 Outpatient R STEFFI GUERRERO [facility] B [id number] Univers 14:30:00 15:12:53 STEFFI GUERRERO ity of [facility] 2021-08-22 2021-08-22 Office Angelic [facility] [id number] [facility] [place] [facility] 14:30:00 15:12:53 Visit Steffi FOFANA [id number] it y of [facility] [id number] [facility] [phone] [facility] 134 Branch 2018-11-12 2018-11-12 Orders Doctor DIANA [id number] Univers 00:00:00 00:00:00 Only Unassigned, CARLOS [id number] ity of [facility] [id number] Lg as [id number] [address] 2018-11-12 2018-11-12 Orders Doctor DIANA [id number] 00:00:00 00:00:00 Only Unassigned, CARLOS [id number] [facility] [id number] [facility] 2018-11-11 2018-11-11 Emergency [facility] [id number] [facility] 10:42:43 11:54:00 Chelsea Herzog [id number] i ty of [place] [id number] [facility] [id number] [place] [id number] Branch 2018-11-11 2018-11-11 [facility] [id number] 10:42:43 11:54:00 Chelsea Herzog [id number] [place] [id number] [place] [phone] [id number] Results This patient has no known results.
[2022-04-15 14:31] LABS: Urine Blood Negative (Negative); Urine Glucose Negative (Negative); Urine Protein Negative (Negative); Urine Specific Gravity 1.025 (1.005-1.030); Urine pH 5.5 (5.0-7.0)
--- NOTE | 2022-04-15 14:46 | RAD REPORT ---
EXAM DESCRIPTION: [facility]Stone Protocol - 04/15/2022 2:31 pm CLINICAL HISTORY: flank pain, RLQ pain COMPARISON: Abdomen Pelvis W Contrast dated 04/11/2022 TECHNIQUE: CT of the abdomen and pelvis was performed without contrast. All CT scans are performed using dose optimization technique as appropriate and may include automated exposure control or mA/KV adjustment according to patient size. FINDINGS: Lower chest: No acute abnormality. Liver: No acute abnormality or suspicious lesions. Biliary: No biliary ductal dilatation. Stomach: No significant focal abnormality. Duodenum: No significant focal abnormality. Pancreas: No significant abnormality. Spleen: No significant abnormality. Adrenal: No suspicious lesions. Kidney/ureter: No hydronephrosis. No renal calculi. Retroperitoneum: No retroperitoneal adenopathy. Vascular: No aneurysm. Bowel: No significant focal abnormality. Normal appendix. Peritoneum: No ascites or free air. Bladder: Grossly unremarkable. Reproductive: No adnexal masses. Bones: No acute fracture. Other: n/a IMPRESSION: No acute intra-abdominal or pelvic finding. Normal appendix. No urinary tract calculi.
[2022-04-15 14:50] LABS: Absolute Lymphocytes (CBC) 1.9 K/uL (0.7-4.9); Hematocrit 36.5 % (36.0-45.0); Lymphocytes % 25.2 % (15.3-44.8); MPV 7.8 fL (7.6-11.3); RBC Red Blood Cell Count 4.05 M/uL (3.86-4.86)
[2022-04-15] MEDS ORDERED: MORPHINE 4 MG/ML SYR ONE (14:55)
[2022-04-15] MEDS ORDERED: NA CHLORIDE 0.9% 1,000 ML ONE (14:55)
[2022-04-15] MEDS ORDERED: ONDANSETRON 4 MG/2 ML VIAL ONE (14:55)
[2022-04-15 15:03] LABS: Urine Bacteria <20 /HPF (<20); Urine Crystals Unidentified Few /HPF (None Seen); Urine Mucus Slight /HPF (None Seen); Urine RBC <5 /HPF (None Seen)
[2022-04-15 15:15] LABS: Albumin 3.3 g/dL (3.4-5.0); Bilirubin Total 0.2 mg/dL (0.2-1.0); Potassium 3.7 mmol/L (3.5-5.1); Protein, Total 7.6 g/dL (6.4-8.2)
--- NOTE | 2022-04-15 16:31 | ER ---
Nurse's Notes [facility] Name: Alka Cedeño Age: 47 yrs Sex: Female : 1975 Arrival Date: 04/15/2022 Time: 13:55 Bed 7 Private MD: Diagnosis: Lower abdominal pain, unspecified Presentation: 04/15 14:03 Chief complaint: Patient states: Right side back pain and RLQ pain; denies urine vg1 frequency, burning or blood in urine. Denies NVD. Coronavirus screen: Vaccine status: Patient reports being unvaccinated. Client denies travel out of the [place] in the last 14 days. Ebola Screen: Patient negative for fever greater than or equal to 101.5 degrees Fahrenheit, and additional compatible Ebola Virus Disease symptoms. Initial Sepsis Screen: Does the patient meet any 2 criteria? No. Patient's initial sepsis screen is negative. Does the patient have a suspected source of infection? No. Patient's initial sepsis screen is negative. Risk Assessment: Do you want to hurt yourself or someone else? Patient reports no desire to harm self or others. Onset of symptoms was March 2022. 14:03 Method Of Arrival: Ambulatory vg1 14:03 Acuity: DIANE 3 vg1 Triage Assessment: 14:06 General: Appears uncomfortable, Behavior is cooperative. Pain: Complains of pain in vg1 posterior aspect of right lateral abdomen and right lower quadrant Pain currently is 10 out of 10 on a pain scale. Pain began about a month ago. GI: Abdomen is round non-distended, Last BM was April 14, 2022. Abdomen is tender to palpation in posterior aspect of right lateral abdomen and right lower quadrant Patient currently denies diarrhea, nausea, vomiting. 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 - Social history:: Smoking status: Patient denies any tobacco usage or history of. Screenin:20 [facility] ED Fall Risk Assessment (Adult) History of falling in the last 3 months, aa5 including since admission No falls in past 3 months (0 pts) Confusion or Disorientation No (0 pts) Intoxicated or Sedated No (0 pts) Impaired Gait No (0 pts) Mobility Assist Device Used No (0 pt) Altered Elimination No (0 pt). Abuse screen: Denies threats or abuse. Nutritional screening: No deficits noted. Tuberculosis screening: No symptoms or risk factors identified. Assessment: 14:15 General: Appears uncomfortable, Behavior is calm, cooperative. Pain: Complains of pain aa5 in right lower quadrant and right low back Pain radiates to left lower quadrant Pain currently is 10 out of 10 on a pain scale. Quality of pain is described as crampy, Pain began March 2022 Is continuous. Neuro: Level of Consciousness is awake, alert, obeys commands, Oriented to person, place, time, situation. Cardiovascular: Heart tones S1 S2 present Rhythm is regular. Respiratory: Airway is patent Respiratory effort is even, unlabored, Respiratory pattern is regular, symmetrical. GI: Abdomen is round non-distended, Bowel sounds present X 4 quads. Abd is soft X 4 quads Abdomen is tender to palpation in right lower quadrant and left lower quadrant Reports nausea, Patient currently denies diarrhea, vomiting. : No signs and/or symptoms were reported regarding the genitourinary system. Denies burning with urination. EENT: No signs and/or symptoms were reported regarding the EENT system. Derm: Skin is pink, warm \T\ dry. Musculoskeletal: Range of motion: intact in all extremities. 14:40 Reassessment: Patient is alert, oriented x 3, equal unlabored respirations, skin aa5 warm/dry/pink. Pt back from CT. Pt requesting pain medication, provider notified. . 15:00 Reassessment: Patient is alert, oriented x 3, equal unlabored respirations, skin aa5 warm/dry/pink. 15:28 Reassessment: Patient appears in no apparent distress at this time. Patient and/or hb family updated on plan of care and expected duration. Pain level reassessed. Patient is alert, oriented x 3, equal unlabored respirations, skin warm/dry/pink. 16:30 Reassessment: Patient is alert, oriented x 3, equal unlabored respirations, skin aa5 warm/dry/pink. 17:17 Reassessment: Patient is alert, oriented x 3, equal unlabored respirations, skin aa5 warm/dry/pink. Vital Signs: 14:03 BP 135 / 92; Pulse 90; Resp 18; Temp 98.6(TE); Pulse Ox 97% on R/A; Weight 85.28 kg; vg1 Height 5 ft. 1 in. (154.94 cm); Pain 10/10; 14:36 BP 122 / 71; Pulse 73; Resp 16 S; Pulse Ox 98% on R/A; aa5 15:10 BP 107 / 65; Pulse 69; Resp 14 S; Pulse Ox 96% on R/A; aa5 16:30 BP 112 / 68; Pulse 65; Resp 18 S; Pulse Ox 98% on R/A; aa5 14:03 Body Mass Index 35.52 (85.28 kg, 154.94 cm) vg1 ED Course: 13:55 Patient arrived in ED. as 13:59 Manju Hathaway FNP-C [facility] kb 13:59 Wali Li MD is Attending Physician. kb 14:06 Triage completed. vg1 14:06 Arm band placed on. vg1 14:15 Patient has correct armband on for positive identification. Bed in low position. Call aa5 light in reach. Side rails up X 1. Pulse ox on. NIBP on. 14:16 Rachel Jeffers, ODALYS is Primary Nurse. aa5 14:33 [facility] Protocol In Process Unspecified. EDMS 14:40 Initial lab(s) drawn, by me, sent to lab. Inserted saline lock: 20 gauge in right aa5 antecubital area, using aseptic technique. Blood collected. 17:16 No provider procedures requiring assistance completed. IV discontinued, intact, aa5 bleeding controlled, No redness/swelling at site. Pressure dressing applied. Administered Medications: 14:59 Drug: morphine 4 mg Route: IVP; Infused Over: 4 mins; Site: right antecubital; aa5 15:10 Follow up: Response: No adverse reaction aa5 14:59 Drug: Zofran (Ondansetron) 4 mg Route: IVP; Site: right antecubital; aa5 15:10 Follow up: Response: No adverse reaction aa5 14:59 Drug: NS 0.9% 1000 ml Route: IV; Rate: 1000 ml; Site: right antecubital; aa5 16:00 Follow up: IV Status: Completed infusion; IV Intake: 1000ml aa5 17:13 Drug: Ketorolac 15 mg Route: IVP; Site: right antecubital; aa5 17:16 Follow up: Response: No adverse reaction aa5 Medication: 15:00 VIS not applicable for this client. aa5 Intake: 16:00 IV: 1000ml; Total: 1000ml. aa5 Outcome: 16:31 Discharge ordered by . gabby 17:17 Discharged to home ambulatory. aa5 17:17 Condition: stable 17:17 Discharge instructions given to patient, Instructed on discharge instructions, follow up and referral plans. medication usage, Demonstrated understanding of instructions, follow-up care, medications, Prescriptions given X 1. 17:21 Patient left the ED. aa5 Signatures: Dispatcher [employer] EDMS Manju Hathaway, CRATE LINER-C CRATE LINER-CkSapna Christie Audri, RN RN aa5 Maryellen Norman, RN RN Ailyn Galeano, RN RN vg1 Corrections: (The following items were deleted from the chart) 15:00 14:15 GI: Abdomen is round non-distended, Bowel sounds present X 4 quads. Abd is soft aa5 and non tender X 4 quads. Reports nausea, Patient currently denies diarrhea, vomiting, aa5
--- NOTE | 2022-04-15 16:32 | EDPHYS ---
Physician Documentation [facility] Name: Alka Cedeño Age: 47 yrs Sex: Female : 1975 Arrival Date: 04/15/2022 Time: 13:55 Bed 7 Private MD: ED Physician Wali Li HPI: 04/15 16:35 This 47 yrs old Female presents to ER via Ambulatory with complaints of kb Abdominal Cramping, Thigh Pain. 16:35 The patient presents with abdominal pain right lower quadrant. Onset: The kb symptoms/episode began/occurred 3 week(s) ago, and became worse. The symptoms radiate to left lower quadrant, right quadriceps and left quadriceps. Associated signs and symptoms: none. The symptoms are described as constant. Modifying factors: The symptoms are alleviated by nothing, the symptoms are aggravated by pressure, walking. Severity of pain: At its worst the pain was moderate in the emergency department the pain is unchanged. The patient has experienced similar episodes in the past. The patient has not recently seen a physician. Patient presents for continued right lower quadrant pain that radiates to left lower quadrant and to bilateral upper thighs. Patient reports pain has been increasing since visit on April 11. I saw patient on that day, diagnostics performed include CT abdomen pelvis with contrast, ultrasound, labs. All diagnostics on the day were within normal limits.. 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 - Social history:: Smoking status: Patient denies any tobacco usage or history of. ROS: 16:35 Constitutional: Negative for fever, chills, and weight loss. kb 16:35 Abdomen/GI: Positive for abdominal pain, Negative for nausea, vomiting, and diarrhea. 16:35 All other systems are negative. Exam: 16:35 Constitutional: This is a well developed, well nourished patient who is awake, alert, kb and in no acute distress. Head/Face: Normocephalic, atraumatic. ENT: Moist Mucous membranes Cardiovascular: Regular rate and rhythm with a normal S1 and S2. No gallops, murmurs, or rubs. No pulse deficits. Respiratory: Respirations even and unlabored. No increased work of breathing. Talking in full sentences Skin: Warm, dry with normal turgor. Normal color. MS/ Extremity: Pulses equal, no cyanosis. Neurovascular intact. Full, normal range of motion. Neuro: Awake and alert, GCS 15, oriented to person, place, time, and situation. Moves all extremities. Normal gait. Psych: Awake, alert, with orientation to person, place and time. Behavior, mood, and affect are within normal limits. 16:35 Abdomen/GI: Inspection: abdomen appears normal, Bowel sounds: normal, Palpation: soft, in all quadrants, moderate abdominal tenderness, in the right lower quadrant. Vital Signs: 14:03 BP 135 / 92; Pulse 90; Resp 18; Temp 98.6(TE); Pulse Ox 97% on R/A; Weight 85.28 kg; vg1 Height 5 ft. 1 in. (154.94 cm); Pain 10/10; 14:36 BP 122 / 71; Pulse 73; Resp 16 S; Pulse Ox 98% on R/A; aa5 15:10 BP 107 / 65; Pulse 69; Resp 14 S; Pulse Ox 96% on R/A; aa5 16:30 BP 112 / 68; Pulse 65; Resp 18 S; Pulse Ox 98% on R/A; aa5 14:03 Body Mass Index 35.52 (85.28 kg, 154.94 cm) vg1 MDM: 14:05 Patient medically screened. kb 16:35 Data reviewed: vital signs, nurses notes. Data interpreted: Pulse oximetry: on room air kb is 98 %. Interpretation: normal. Counseling: I had a detailed discussion with the patient and/or guardian regarding: the historical points, exam findings, and any diagnostic results supporting the discharge/admit diagnosis, lab results, radiology results, the need for outpatient follow up, a family practitioner, to return to the emergency department if symptoms worsen or persist or if there are any questions or concerns that arise at home. ED course: Discussed diagnostic results with patient. Patient has follow-up appointment for Sunday with PCP.. ED course: I considered the following discharge prescriptions or medication management in the emergency department: Prescription analgesics considered but were prescribed during last visit. Diagnostic test considered but not performed: Pelvic ultrasound considered but was completed and normal during last visit on April 11. History obtained from: Patient. 04/15 14:05 Order name: CBC with Diff; Complete Time: 14:58 kb 04/15 14:05 Order name: CMP; Complete Time: 15:16 kb 04/15 14:05 Order name: Lipase; Complete Time: 15:16 kb 04/15 14:05 Order name: Urine Microscopic Only; Complete Time: 15:05 kb 04/15 14:05 Order name: CT Stone Protocol; Complete Time: 14:58 kb 04/15 14:32 Order name: Urine Dipstick-Ancillary; Complete Time: 14:37 EDMS 04/15 14:05 Order name: IV Saline Lock; Complete Time: 14:37 kb 04/15 14:05 Order name: Labs collected and sent; Complete Time: 14:37 kb 04/15 14:05 Order name: Urine Dipstick-Ancillary (obtain specimen); Complete Time: 14:29 kb Administered Medications: 14:59 Drug: morphine 4 mg Route: IVP; Infused Over: 4 mins; Site: right antecubital; aa5 15:10 Follow up: Response: No adverse reaction aa5 14:59 Drug: Zofran (Ondansetron) 4 mg Route: IVP; Site: right antecubital; aa5 15:10 Follow up: Response: No adverse reaction aa5 14:59 Drug: NS 0.9% 1000 ml Route: IV; Rate: 1000 ml; Site: right antecubital; aa5 16:00 Follow up: IV Status: Completed infusion; IV Intake: 1000ml aa5 17:13 Drug: Ketorolac 15 mg Route: IVP; Site: right antecubital; aa5 17:16 Follow up: Response: No adverse reaction aa5 Disposition: 18:02 Co-signature as Attending Physician, Wali Li MD. rn Disposition Summary: 04/15/22 16:31 Discharge Ordered Location: Home kb Condition: Stable kb Diagnosis - Lower abdominal pain, unspecified kb Followup: kb - With: Emergency Department - When: As needed - Reason: Worsening of condition Followup: kb - With: Private Physician - When: 2 - 3 days - Reason: Recheck today's complaints, Continuance of care, Re-evaluation by your physician Discharge Instructions: - Discharge Summary Sheet kb - Pelvic Pain, Female, [id number] kb - Abdominal Pain, Adult, [id number] kb Forms: - Medication Reconciliation Form kb - Thank You Letter kb - Antibiotic Education kb - Prescription Opioid Use kb Prescriptions: - Cyclobenzaprine 10 mg Oral Tablet - take 1 tablet by ORAL route every 8 hours As needed; 15 tablet; Refills: 0, kb Product Selection Permitted Signatures: Dispatcher [employer] EDMS Manju Hathaway, ENGINEERING PROGRAMMER-C ENGINEERING PROGRAMMER-Estevanb Wali Li MD MD rn Rachel Jeffers, RN RN aa5 Maryellen Norman, RN RN Ailyn Galeano, RN RN vg1
[2022-04-15] MEDS ORDERED: KETOROLAC 30 MG/ML INJ ONE (17:10)
[2022-04-15 17:44] VITALS: TEMP 98.6
[2022-04-15 17:50] VITALS: BP 122/71; O2SAT 98
== END 2022-04-15 17:21 | disposition home or self-care (01) ==
LOC: ER 13:53
DX: R10.31 Right lower quadrant pain (principal); I10 Essential (primary) hypertension
CPT/HCPCS: 96361; 85025; 36415; 83690; 80053; 76377; 74176; 96375; 96374; 99284; J7030; J2405; 81003; 81015

== ENCOUNTER 2022-07-28 07:36 | Inpatient (IN) | payer OTHER ==
--- OUTSIDE RECORDS SUMMARY | 2022-07-28 07:40 | XMS REPORT | Continuity of Care Document ---
:1975 Author Organization [facility] t Address [address] [facility]. [address] [place] [address] Care Team Providers Name Role Phone Pcp, Patient Does Not Have A Primary Care Physician [id number] Jan Gray MD Attending Clinician JAN GRAY Attending Clinician Unavailable Dorina Church MA Attending Clinician Unavailable Micheline Riggins Attending Clinician Unavailable Pcp-Lab Attending Clinician Unavailable Doctor Unassigned, [place] Attending Clinician Unavailable ABDI GUERRERO Attending Clinician Unavailable ABDI GUERRERO Attending Clinician Unavailable Chelsea Bowman Attending Clinician Payers Payer Name Policy Type Policy Number Effective Date Expiration Date Priyanka meyer [employer] [place] [id number] 2018 2022 [place] 00:00:00 00:00:00 Problems Condition Condition Condition Status Onset [...] different from the original. 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 Complex partial seizures with secondary generaliz ationICD1 0 Diagnosis Term Lens Mounter Utility Migraine Migraine Disease Active Overview: Un michael 4-17 Formattin ity of 00:00: g of this [place] 00 note Medical might be Branch different from the original. ICD10 Diagnosis Term Lens Mounter Utility Allergies, Adverse Reactions, Alerts Allergy Allergy Status Severity Reaction(s) Onset Inactive Treating Comm ents Source Name Type Date Date Clinician NO KNOWN Drug Active Univers ALLERGIE Class ity of S [facility] Social History Social Habit Start Date Stop Date Quantity Comments Source Alcohol intake 2022-07-25 2022-07-25 Lifetime University of 00:00:00 00:00:00 non-drinker [facility] ([facility]) [place] Tobacco use and 2022-05-09 2022-05-09 Smokeless tobacco Un iversity of exposure 00:00:00 00:00:00 non-user [facility] Sex Assigned At [birth year] Universit y of 00:00:00 00:00:00 [facility] Smoking Status Start Date Stop Date Source Never smoked tobacco [facility] Medications Ordered Filled Start Stop Current Ordering Indication Dosage Frequency Signature Comments Components Source Medication Medication Date Date Medication? Clinician (SIG) Name Name OXcarbazepi Yes [id number] 600mg Take 1 Univers ne 600 mg 4-18 tablet by ity o f tablet 00:00: mouth in [place] [address] the Medical morning Branch and 1 tablet in the evening. levETIRAcet Yes [id number] 1000mg Take 1 Univers am 1,000 mg 4-18 tablet by ity of tablet 00:00: mouth in [place] [address] the Medical morning Branch and 1 tablet in the evening. OXcarbazepi 2022-0 Yes [id number] 600mg Take 1 Univers ne 600 mg 4-18 tablet by ity o f tablet 00:00: mouth in [place] [address] the Medical morning Branch and 1 tablet in the evening. levETIRAcet 2022-0 Yes [id number] 1000mg Take 1 Univers am 1,000 mg 4-18 tablet by ity of tablet 00:00: mouth in [place] [address] the Medical morning [place] and 1 tablet in the evening. OXcarbazepi Yes [id number] 600mg Take 1 Univers ne 600 mg 4-18 tablet by ity o f tablet 00:00: mouth in [place] 00 the Medical morning Branch and 1 tablet in the evening. levETIRAcet 2022-0 Yes [id number] 1000mg Take 1 Univers am 1,000 mg 4-18 tablet by ity of tablet 00:00: mouth in [place] 00 the Medical morning Branch and 1 tablet in the evening. cenobamate 2023- Yes [id number] Take 25 mg Univers (XCOPRI) 50 18 -09 by mouth ity of mg Tab 00:00: 04:59 daily for [place] 00 :00 14 days, Medical THEN 50 mg Branch daily for 14 days, THEN 100 mg daily for 14 days, THEN 150 mg daily for 14 days, THEN 200 mg daily for 300 days. cenobamate 2023- Yes [id number] Take 25 mg Univers (XCOPRI) 50 07-25 by mouth ity of mg Tab 00:: 04:59 daily for [place] 00 :00 14 days, Medical THEN 50 mg Branch daily for 14 days, THEN 100 mg daily for 14 days, THEN 150 mg daily for 14 days, THEN 200 mg daily for 300 days. cenobamate 2023- Yes [id number] Take 25 mg Univers (XCOPRI) 50 18 07-16 by mouth ity of mg Tab 00:: 04:59 daily for [place] 00 :00 14 days, Medical THEN 50 mg Branch daily for 14 days, THEN 100 mg daily for 14 days, THEN 150 mg daily for 14 days, THEN 200 mg daily for 300 days. OXcarbazepi 2022-0 Yes [id number] 600mg Take 1 Univers ne 600 mg 4-10 tablet by ity o f tablet 00:00: mouth in [place] 00 the Medical morning Branch and 1 tablet in the evening. OXcarbazepi 2022-2022- No [id number] 600mg Take 1 Univers ne 600 mg 4-10 04-18 tablet by ity of tablet 00:00: 00:00 mouth in [place] 00 :00 the Medical morning Branch and 1 tablet in the evening. OXcarbazepi 2022-0 2022- No [id number] 600mg Take 1 Univers ne 600 mg 4-10 04-18 tablet by ity of tablet 00:00: 00:00 mouth in [place] 00 :00 the Medical morning Branch and 1 tablet in the evening. OXcarbazepi 2022-0 2022- No [id number] 600mg Take 1 Univers ne 600 mg -01 10-18 tablet by ity of tablet 00:00: 00:00 mouth in [place] 00 :00 the Medical morning Branch and 1 tablet in the evening. XCOPRI 200 2022-0 2022- No 1{tbl} Take 1 Un michael mg Tab 3-05 13-18 tablet by ity of 00:00: 00:00 mouth in [place] 00 :00 the Medical morning. Branch XCOPRI 200 2022-0 2022- No 1{tbl} Take 1 Un michael mg Tab 3-05 13-18 tablet by ity of 00:00: 00:00 mouth in [place] 00 :00 the Medical morning. Branch XCOPRI 200 2022-0 2022- No 1{tbl} Take 1 Un michael mg Tab 3-05 13-18 tablet by ity of 00:00: 00:00 mouth in [place] 00 :00 the Medical morning. Branch topiramate 2022-2022- No Take by Uni vers (QUDEXY XR) 05-09 mouth. ity o f 50 mg CSpX 15:19: 00:00 [place] 44 :00 Medical Branch topiramate 2022-0 2022- No Take by Uni vers (QUDEXY XR) 05-09 mouth. ity o f 50 mg CSpX 15:19: 00:00 [place] 44 :00 Medical Branch topiramate 2022-2022- No Take by Uni vers (QUDEXY XR) 05-09 mouth. ity o f 50 mg CSpX 15:19: 00:00 [place] 44 :00 Medical Branch clonazePAM 3-0 Yes [id number] 1mg Take 1 Univers 1 mg tablet -31 tablet by ity of 00:00: mouth in [place] 00 the Medical morning Branch and 1 tablet at noon and 1 tablet in the evening. clonazePAM 2023-0 Yes [id number] 1mg Take 1 Univers 1 mg tablet 1-31 tablet by ity of 00:00: mouth in [place] 00 the Medical morning Branch and 1 tablet at noon and 1 tablet in the evening. clonazePAM 2023-0 Yes [id number] 1mg Take 1 Univers 1 mg tablet 1-31 tablet by ity of 00:00: mouth in [place] [address] the Medical morning Branch and 1 tablet at noon and 1 tablet in the evening. clonazePAM 2023-0 Yes [id number] 1mg Take 1 Univers 1 mg tablet 1-31 tablet by ity of 00:00: mouth in [place] [address] the Medical morning Branch and 1 tablet at noon and 1 tablet in the evening. clonazePAM 2023-0 Yes [id number] 1mg Take 1 Univers 1 mg tablet 1-31 tablet by ity of 00:00: mouth in [place] [address] the Medical morning Branch and 1 tablet at noon and 1 tablet in the evening. clonazePAM 2023-0 Yes [id number] 1mg Take 1 Univers 1 mg tablet 1-31 tablet by ity of 00:00: mouth in [place] [address] the Medical morning Branch and 1 tablet at noon and 1 tablet in the evening. clonazePAM 2023-0 Yes [id number] 1mg Take 1 Univers 1 mg tablet 1-31 tablet by ity of 00:00: mouth in [place] [address] the Medical morning [place] and 1 tablet at noon and 1 tablet in the evening. clonazePAM 2023-0 Yes [id number] 1mg Take 1 Univers 1 mg tablet 1-31 tablet by ity of 00:00: mouth in [place] [address] the Medical morning [place] and 1 tablet at noon and 1 tablet in the evening. clonazePAM 2023-0 Yes [id number] 1mg Take 1 Univers 1 mg tablet 1-31 tablet by ity of 00:00: mouth in [place] [address] the Medical morning Branch and 1 tablet at noon and 1 tablet in the evening. clonazePAM 2023-0 Yes [id number] 1mg Take 1 Univers 1 mg tablet 1-31 tablet by ity of 00:00: mouth in [place] [address] the Medical morning Branch and 1 tablet at noon and 1 tablet in the evening. clonazePAM 2023-0 Yes [id number] 1mg Take 1 Univers 1 mg tablet 1-31 tablet by ity of 00:00: mouth in [place] [address] the Medical morning [place] and 1 tablet at noon and 1 tablet in the evening. clonazePAM 2023-0 Yes [id number] 1mg Take 1 Univers 1 mg tablet 1-31 tablet by ity of 00:00: mouth in [address] Medical morning [place] and 1 tablet at noon and 1 tablet in the evening. ascorbic 2021-0 2021- No [id number] 500mg Take 1 Univers acid, 08-23-16 tablet by ity of vitamin C, 00:00: 04:59 mouth [place] 500 mg 00 :00 daily for Medical tablet 90 days. Branch ferrous 2021-0 2021- No [id number] 325mg Take 1 U nivers sulfate 08-23-16 tablet by ity of (IRON, 00:00: 04:59 mouth [place] FERROUS 00 :00 daily for Medical SULFATE,) 90 days. Branch 325 mg (65 mg iron) tablet ascorbic 2021- No [id number] 500mg Take 1 Univers acid, 08-23-16 tablet by ity of vitamin C, 00:00: 04:59 mouth [place] 500 mg 00 :00 daily for Medical tablet 90 days. Branch ferrous 2021-0 2021- No [id number] 325mg Take 1 U nivers sulfate 08-23-16 tablet by ity of (IRON, 00:00: 04:59 mouth [place] FERROUS 00 :00 daily for Medical SULFATE,) 90 days. Branch 325 mg (65 mg iron) tablet lovastatin Yes Take by [facility] ers (MEVACOR) 5-16 mouth at ity of 20 mg 14:49: bedtime. [place] tablet 31 Medical Branch lisinopril 0 Yes 20mg Take 20 mg U nivers (PRINIVIL,Z 5-16 by mouth ity of ESTRIL) 20 14:49: daily. [place] mg tablet 31 Medical Branch lovastatin 2021-0 Yes Take by [facility] ers (MEVACOR) 5-16 mouth at ity of 20 mg 14:49: bedtime. [place] tablet 31 Medical Branch lisinopril 0 Yes 20mg Take 20 mg U nivers (PRINIVIL,Z 5-16 by mouth ity of ESTRIL) 20 14:49: daily. [place] mg tablet 31 Medical Branch lovastatin 2021-0 Yes Take by [facility] ers (MEVACOR) 5-16 mouth at ity of 20 mg 14:49: bedtime. [place] tablet 31 Medical Branch lisinopril 2021-0 Yes 20mg Take 20 mg U nivers (PRINIVIL,Z 5-16 by mouth ity of ESTRIL) 20 14:49: daily. [place] mg tablet 31 Medical Branch lovastatin 2021-0 Yes Take by Univ ers (MEVACOR) 5-16 mouth at ity of 20 mg 14:49: bedtime. [place] tablet 31 Medical Branch lisinopril 2021-0 Yes 20mg Take 20 mg U nivers (PRINIVIL,Z 5-16 by mouth ity of ESTRIL) 20 14:49: daily. [place] mg tablet 31 Medical Branch lovastatin 2021-0 Yes Take by Univ ers (MEVACOR) 5-16 mouth at ity of 20 mg 14:49: bedtime. [place] tablet 31 Medical Branch lisinopril 2021-0 Yes 20mg Take 20 mg U nivers (PRINIVIL,Z 5-16 by mouth ity of ESTRIL) 20 14:49: daily. [place] mg tablet 31 Medical Branch lovastatin 2021-0 Yes Take by Univ ers (MEVACOR) 5-16 mouth at ity of 20 mg 14:49: bedtime. [place] tablet 31 Medical Branch lisinopril 2021-0 Yes 20mg Take 20 mg U nivers (PRINIVIL,Z 5-16 by mouth ity of ESTRIL) 20 14:49: daily. [place] mg tablet 31 Medical Branch lovastatin 2021-0 Yes Take by Univ ers (MEVACOR) 5-16 mouth at ity of 20 mg 14:49: bedtime. [place] tablet 31 Medical Branch lisinopril 2021-0 Yes 20mg Take 20 mg U nivers (PRINIVIL,Z 5-16 by mouth ity of ESTRIL) 20 14:49: daily. [place] mg tablet 31 Medical Branch lovastatin 2021-0 Yes Take by Univ ers (MEVACOR) 5-16 mouth at ity of 20 mg 14:49: bedtime. [place] tablet 31 Medical Branch lisinopril 2-0 Yes 20mg Take 20 mg U nivers (PRINIVIL,Z 5-16 by mouth ity of ESTRIL) 20 14:49: daily. [place] mg tablet 31 Medical Branch lovastatin 2-0 Yes Take by Univ ers (MEVACOR) 5-16 mouth at ity of 20 mg 14:49: bedtime. [place] tablet 31 Medical Branch lisinopril 2-0 Yes 20mg Take 20 mg U nivers (PRINIVIL,Z 5-16 by mouth ity of ESTRIL) 20 14:49: daily. [place] mg tablet 31 Medical Branch lovastatin 2021-0 Yes Take by Univ ers (MEVACOR) 5-16 mouth at ity of 20 mg 14:49: bedtime. [place] tablet 31 Medical Branch lisinopril 2021-0 Yes 20mg Take 20 mg U nivers (PRINIVIL,Z 5-16 by mouth ity of ESTRIL) 20 14:49: daily. [place] mg tablet 31 Medical Branch lovastatin 2021-0 Yes Take by Univ ers (MEVACOR) 5-16 mouth at ity of 20 mg 14:49: bedtime. [place] tablet 31 Medical Branch lisinopril 2021-0 Yes 20mg Take 20 mg U nivers (PRINIVIL,Z 5-16 by mouth ity of ESTRIL) 20 14:49: daily. [place] mg tablet 31 Medical Branch lovastatin 2021-0 Yes Take by Univ ers (MEVACOR) 5-16 mouth at ity of 20 mg 14:49: bedtime. [place] tablet 31 Medical Branch lisinopril 2021-0 Yes 20mg Take 20 mg U nivers (PRINIVIL,Z 5-16 by mouth ity of ESTRIL) 20 14:49: daily. [place] mg tablet 31 Medical Branch topiramate 2021-0 Yes Take by [facility] ers (QUDEXY XR) 5-16 mouth. ity of 50 mg CSpX 14:49: [place] 31 Medical Branch lovastatin 2021-0 Yes Take by Univ ers (MEVACOR) 5-16 mouth at ity of 20 mg 14:49: bedtime. [place] tablet 31 Medical Branch lisinopril 2021-0 Yes 20mg Take 20 mg U nivers (PRINIVIL,Z 5-16 by mouth ity of ESTRIL) 20 14:49: daily. [place] mg tablet 31 Medical Branch topiramate 2021-0 Yes Take by Univ ers (QUDEXY XR) 5-16 mouth. ity of 50 mg CSpX 14:49: [place] 31 Medical Branch lovastatin 2-0 Yes Take by Univ ers (MEVACOR) 5-16 mouth at ity of 20 mg 14:49: bedtime. [place] tablet 31 Medical Branch lisinopril 2021-0 Yes 20mg Take 20 mg U nivers (PRINIVIL,Z 5-16 by mouth ity of ESTRIL) 20 14:49: daily. [place] mg tablet 31 Medical Branch topiramate 2021-0 Yes Take by Univ ers (QUDEXY XR) 5-16 mouth. ity of 50 mg CSpX 14:49: [place] Medical Branch lovastatin 2021-0 Yes Take by Univ ers (MEVACOR) 5-16 mouth at ity of 20 mg 14:49: bedtime. [place] tablet 31 Medical Branch lisinopril 2021-0 Yes 20mg Take 20 mg U nivers (PRINIVIL,Z 5-16 by mouth ity of ESTRIL) 20 14:49: daily. [place] mg tablet 31 Medical Branch topiramate 2021-0 Yes Take by Univ ers (QUDEXY XR) 5-16 mouth. ity of 50 mg CSpX 14:49: [place] [id number] Medical Branch lovastatin 2021-0 Yes Take by Univ ers (MEVACOR) 5-16 mouth at ity of 20 mg 14:49: bedtime. [place] tablet 31 Medical Branch lisinopril 0 Yes 20mg Take 20 mg U nivers (PRINIVIL,Z 5-16 by mouth ity of ESTRIL) 20 14:49: daily. [place] mg tablet 31 Medical Branch topiramate 2021-0 Yes Take by Univ ers (QUDEXY XR) 5-16 mouth. ity of 50 mg CSpX 14:49: [place] [address] Medical Branch lovastatin 2021-0 Yes Take by Univ ers (MEVACOR) 5-16 mouth at ity of 20 mg 14:49: bedtime. [place] tablet 31 Medical Branch lisinopril 2021-0 Yes 20mg Take 20 mg U nivers (PRINIVIL,Z 5-16 by mouth ity of ESTRIL) 20 14:49: daily. [place] mg tablet 31 Medical Branch clonazePAM 2-0 Yes 1mg Take 1 mg Un michael 1 mg tablet 5-04 by mouth 3 it y of 00:00: (three) [place] 00 times Medical daily. Branch clonazePAM 2-0 Yes 1mg Take 1 mg Un michael 1 mg tablet 5-04 by mouth 3 it y of 00:00: (three) [place] 00 times Medical daily. Branch clonazePAM 2-0 Yes 1mg Take 1 mg Un michael 1 mg tablet 5-04 by mouth 3 it y of 00:00: (three) [place] 00 times Medical daily. Branch clonazePAM 2022-0 Yes 1mg Take 1 mg Un michael 1 mg tablet -04 by mouth 3 it y of 00:00: (three) 00 times Medical daily. Branch clonazePAM 2022-0 Yes 1mg Take 1 mg Un michael 1 mg tablet -04 by mouth 3 it y of 00:00: (three) [place] 00 times Medical daily. Branch clonazePAM 2022-0 2023- No 1mg Take 1 mg U nivers 1 mg tablet 08-10 by mouth 3 i ty of 00:00: 00:00 (three) [place] 00 :00 times Medical daily. Branch clonazePAM 2022-0 2023- No 1mg Take 1 mg U nivers 1 mg tablet -05-09 by mouth 3 i ty of 00:00: 00:00 (three) [place] 00 :00 times Medical daily. Branch clonazePAM 2022-0 2023- No 1mg Take 1 mg U nivers 1 mg tablet 08-10 by mouth 3 i ty of 00:00: 00:00 (three) [place] 00 :00 times Medical daily. Branch levETIRAcet 2022-0 Yes 750mg Take 750 U nivers am 750 mg 4-28 mg by ity of tablet 00:00: mouth [place] (two) Medical times Branch daily. OXcarbazepi 2022-0 Yes 600mg Take 600 U nivers ne 600 mg 4-28 mg by ity of tablet 00:00: mouth [place] (two) Medical times Branch daily. levETIRAcet 2022-0 Yes 750mg Take 750 U nivers am 750 mg 4-28 mg by ity of tablet 00:00: mouth [place] (two) Medical times Branch daily. OXcarbazepi 2022-0 Yes 600mg Take 600 U nivers ne 600 mg 4-28 mg by ity of tablet 00:00: mouth [place] (two) Medical times Branch daily. levETIRAcet 2022-0 Yes 750mg Take 750 U nivers am 750 mg 4-28 mg by ity of tablet 00:00: mouth 2 [place] (two) Medical times Branch daily. OXcarbazepi 2022-0 Yes 600mg Take 600 U nivers ne 600 mg 4-28 mg by ity of tablet 00:00: mouth (two) Medical times Branch daily. levETIRAcet 2022-0 Yes 750mg Take 750 U nivers am 750 mg 4-28 mg by ity of tablet 00:00: mouth (two) Medical times Branch daily. OXcarbazepi 2022-0 Yes 600mg Take 600 U nivers ne 600 mg 4-28 mg by ity of tablet 00:00: mouth (two) Medical times Branch daily. levETIRAcet 2022-0 Yes 750mg Take 750 U nivers am 750 mg 4-28 mg by ity of tablet 00:00: mouth (two) Medical times Branch daily. OXcarbazepi 2022-0 Yes 600mg Take 600 U nivers ne 600 mg 4-28 mg by ity of tablet 00:00: mouth (two) Medical times Branch daily. levETIRAcet 2022-0 Yes 750mg Take 750 U nivers am 750 mg 4-28 mg by ity of tablet 00:00: mouth (two) Medical times Branch daily. OXcarbazepi 2022-0 Yes 600mg Take 600 U nivers ne 600 mg 4-28 mg by ity of tablet 00:00: mouth (two) Medical times Branch daily. levETIRAcet 2022-0 Yes 750mg Take 750 U nivers am 750 mg 4-28 mg by ity of tablet 00:00: mouth (two) Medical times Branch daily. OXcarbazepi 2022-0 Yes 600mg Take 600 U nivers ne 600 mg 4-28 mg by ity of tablet 00:00: mouth (two) Medical times Branch daily. levETIRAcet 2022-0 Yes 750mg Take 750 U nivers am 750 mg 4-28 mg by ity of tablet 00:00: mouth (two) Medical times Branch daily. OXcarbazepi 2022-0 Yes 600mg Take 600 U nivers ne 600 mg 4-28 mg by ity of tablet 00:00: mouth (two) Medical times Branch daily. levETIRAcet 2022-0 Yes 750mg Take 750 U nivers am 750 mg 4-28 mg by ity of tablet 00:00: mouth (two) Medical times Branch daily. levETIRAcet 2022-0 Yes 750mg Take 750 U nivers am 750 mg 4-28 mg by ity of tablet 00:00: mouth (two) Medical times Branch daily. OXcarbazepi 2022-0 Yes 600mg Take 600 U nivers ne 600 mg 4-28 mg by ity of tablet 00:00: mouth (two) Medical times Branch daily. levETIRAcet 2022-0 Yes 750mg Take 750 U nivers am 750 mg 4-28 mg by ity of tablet 00:00: mouth (two) Medical times Branch daily. OXcarbazepi 2022-0 Yes 600mg Take 600 U nivers ne 600 mg 4-28 mg by ity of tablet 00:00: mouth (two) Medical times Branch daily. levETIRAcet 2022-0 Yes 750mg Take 750 U nivers am 750 mg 4-28 mg by ity of tablet 00:00: mouth (two) Medical times Branch daily. OXcarbazepi 2022-0 Yes 600mg Take 600 U nivers ne 600 mg 4-28 mg by ity of tablet 00:00: mouth (two) Medical times Branch daily. levETIRAcet 2022-0 Yes 750mg Take 750 U nivers am 750 mg 4-28 mg by ity of tablet 00:00: mouth (two) Medical times Branch daily. OXcarbazepi 2022-0 Yes 600mg Take 600 U nivers ne 600 mg 4-28 mg by ity of tablet 00:00: mouth (two) Medical times Branch daily. levETIRAcet 2022-0 Yes 750mg Take 750 U nivers am 750 mg 4-28 mg by ity of tablet 00:00: mouth (two) Medical times Branch daily. OXcarbazepi 2022-0 Yes 600mg Take 600 U nivers ne 600 mg 4-28 mg by ity of tablet 00:00: mouth (two) Medical times Branch daily. levETIRAcet 2022-0 2023- No 750mg Take 750 Univers am 750 mg 4-28 04-18 mg by ity of tablet 00:00: 00:00 mouth 2 [place] 00 :00 (two) Medical times Branch daily. levETIRAcet 2022- No 750mg Take 750 Univers am 750 mg 4-28 04-18 mg by ity of tablet 00:00: 00:00 mouth 2 [place] 00 :00 (two) Medical times Branch daily. levETIRAcet 2022- No 750mg Take 750 Univers am 750 mg 4-28 04-18 mg by ity of tablet 00:00: 00:00 mouth 2 [place] 00 :00 (two) Medical times Branch daily. OXcarbazepi 2022- No 600mg Take 600 Univers ne 600 mg 4- 04-10 mg by ity of tablet 00:00: 00:00 mouth 2 [place] 00 :00 (two) Medical times [place] daily. Vital Signs Vital Name Observation Time Observation Value Comments Source Systolic blood 2022-07-25 20:52:00 158 mm[Hg] Univer [facility]ity of [facility] Diastolic blood 2022-07-25 20:52:00 89 mm[Hg] [facility] 2022-07-25 20:52:00 69 /min [facility] Body temperature 2022-07-25 20:52:00 36.61 [facility] Respiratory rate 2022-07-25 20:52:00 18 /[facility] Body height 2022-07-25 20:52:00 154.9 cm [facility] Body weight 2022-07-25 20:52:00 78.835 kg [facility] BMI 2022-07-25 20:52:00 32.84 kg/m2 [facility] Oxygen saturation in 2022-07-25 20:52:00 96 /min [facility] Arterial blood by [facility] Pulse oximetry Branch Systolic blood 2022-05-09 20:19:00 124 mm[Hg] Univer sity [facility] Diastolic blood 2022-05-09 20:19:00 66 mm[Hg] [facility] 2022-05-09 20:19:00 77 /min [facility] Body temperature 2022-05-09 20:18:00 36.39 Yolanda [facility] ersity of [facility] Respiratory rate 2022-05-09 20:18:00 18 /min Univ ersity of [facility] Body weight 2022-05-09 20:18:00 81.647 kg Universi ty of [facility] BMI 2022-05-09 20:18:00 34.01 kg/m2 Universi ty of [facility] Oxygen saturation in 2022-05-09 20:18:00 98 /min [facility] Arterial blood by [facility] Pulse oximetry Branch Systolic blood 2021-08-22 19:57:00 133 mm[Hg] Univer sity of pressure [facility] Diastolic blood 2021-08-22 19:57:00 89 mm[Hg] Unive rsity of [facility] Heart rate 2021-08-22 19:43:00 72 /min Universi ty of [facility] Body temperature 2021-08-22 19:43:00 36.67 Yolanda [facility] ersity of [facility] Respiratory rate 2021-08-22 19:43:00 20 /min [facility] ersity of [facility] Body height 2021-08-22 19:43:00 154.9 cm Universi ty of [facility] Body weight 2021-08-22 19:43:00 84.171 kg Universi ty of [facility] BMI 2021-08-22 19:43:00 35.06 kg/m2 Universi ty [facility] Procedures Procedure Date / Time Performed Performing Clinician Sour e EXTERNAL PROVIDER 2022-04-21 06:01:00 [facility] Branch REFERRAL- 2022-04-05 06:01:00 Doctor Unassigned, No [facility] REQUEST/RESPONSE Name Medical Branch Encounters Start End Encounter Admission Attending Care Care Encounter Source Date/Time Date/Time Type Type Clinicians Facility Department ID 2022-07-25 2022-07-25 Office LINO Gray [id number] [facility] 16:00:00 16:30:00 Visit Jan PRIMARY [id number] ity of CARE [id number] Shima SIDDIQUI [id number] La dical 092 Branch 2022-07-25 2022-07-25 Outpatient R MARINA [facility] [id number] Univers 16:00:00 16:00:00 XIANGPING ity of [facility] 2022-07-17 2022-07-17 Refill Marina [facility] [id number] Univers 00:00:00 00:00:00 [place] PRIMARY [id number] [id number] [id number] [address] 2022-06-15 2022-06-15 [facility] [id number] Univers 00:00:00 00:00:00 [place] PRIMARY [id number] [id number] [id number] [address] 2022-06-08 2022-06-08 Case [facility] [id number] Univers 00:00:00 00:00:00 Management Dorina KAMARA [id number] [id number] [id number] [address] 2022-06-08 2022-06-08 Telephone [facility] [id number] Univers 00:00:00 00:00:00 Dorina KAMARA [id number] [id number] [id number] [address] 2022-05-22 2022-05-22 Telephone Elida JUSTICE [id number] Univers 00:00:00 00:00:00 ANH Hogan [id number] ity of Micheline [place].2.686 [place] [phone] [address] 2022-05-09 2022-05-09 Account Manager Education Pcp-Lab [facility] [id number] Univers 17:15:00 17:30:00 Visit Jan Gray PRIMARY [id number] [place] [phone] [facility] [address] 2022-05-09 2022-05-09 Outpatient R MARINA [facility] [id number] Univers 15:30:00 15:52:23 XIAARIN ity [facility] 2022-05-09 2022-05-09 Office [facility] [id number] Univers 15:30:00 15:52:23 Visit Jan PRIMARY 350.1.13.10 [place] [phone] [facility] [address] [place] [address] 2022-04-21 2022-04-21 Orders Doctor DIANA [id number] [id number] Univers 00:00:00 00:00:00 Only Unassigned, CARLOS 350.1.13.10 ity of [place] [facility] 4.2.7.2.686 Lg as [phone] [address] 2022-04-21 2022-04-21 Telephone [facility] [id number] Univers 00:00:00 00:00:00 [facility] 350.1.13.10 [place] [phone] [address] OFFICE BUILDING 2022-04-19 2022-04-19 Outpatient [facility] [id number] Oren 14:13:12 14:13:12 0111 F Ruperto 2022-04-05 2022-04-05 Orders Doctor DIANA [id number] [id number] Univers 00:00:00 00:00:00 Only Unassigned, CARLOS 350.1.13.10 ity of [place] [facility] 4.2.7.2.686 Lg as [phone] [address] 2021-08-22 2021-08-22 Outpatient R ABDI GUERRERO [facility] B [id number] Univers 14:30:00 15:12:53 ABDI GUERRERO ity [facility] 2021-08-22 2021-08-[address] [facility] 1.2.840.114 [id number] [facility] 14:30:00 15:12:53 Visit Abdi FOFANA 350.1.13.10 it y of WOMEN'S 4.2.7.2.686 [facility] [phone] [facility] [address] 2018-11-12 2018-11-12 Orders Doctor DIANA 1.2.840.114 [id number] Univers 00:00:00 00:00:00 Only Unassigned, CARLOS 350.1.13.10 ity of [place] [facility] 4.2.7.2.686 [facility] [id number] [facility] [address] 2018-11-12 2018-11-12 Orders Doctor DIANA 1.2.840.114 [id number] 00:00:00 00:00:00 Only Unassigned, CARLOS 350.1.13.10 [place] [facility] 4.2.7.2.68 [id number] [facility] 2018-11-11 2018-11-11 Emergency [facility] [id number] [facility] 10:42:43 11:54:00 Chelsea Herzog 350.1.13.10 i ty of [place] 4.[address].7[address] [place] [address] [phone] [place] [address] [place] 2018-11-11 2018-11-11 [facility] [id number] 10:42:43 11:54:00 Chelsea Herzog 350.1.13.10 [place] [address] [place] [address] [id number] [id number] Results Test Description Test Time Test Comments Results Result Comments Source CULTURE, URINE 2022-04-22 SPECIMEN NUMBER: 12:13:50 [id number] CULTURE, URINE SPECIMEN NUMBER: [id number] SPECIMEN COMMENT: URINE SOURCE: URINE REPORT STATUS: FINAL ISOLATE NUMBER 1: ORGANISM: 04/21/2022 >100,000 CFU/ML GRAM NEGATIVE BACILLI IDENTIFICATION: 04/22/2022 ESCHERICHIA COLI E. COLI AMOX ICILLIN/CA SENSITIVE <=8/4AMPICILLIN RESISTANT >16CEFAZOLIN SENSITIVE <=2CEFTRIAXONE SENSITIVE <=1CIPROFLOXACIN SENSITIVE <=1LEVOFLOXACIN SENSITIVE <=2NITROFURANTOIN SENSITIVE <=32PIP/TAZOBAC SENSITIVE <=16TETRACYCLINE SENSITIVE <=4TOBRAMYCIN SENSITIVE <=4TRIMETH/SULFA RESISTANT > NOTE: NUMBERS DISPLAYED REPRESENT MINIMUM INHIBITORY CONCENTRATION (AL) WHICH IS EXPRESSED IN MCG/ML. UNLESS OTHERWISE INDICATED, ALL TESTING PERFORMED [facility] [address] [place] [id number] CRIME PREVENTION POLICE OFFICER: NAOMI ACOSTA M.D. CLIA NUMBER [id number] [facility] [place]. [id number] CBC W/AUTO DIFF WITH PLATELETS 2022-04-20 03:53:15 Test Item Value Reference Range Interpretation Comme nts WBC (test code = 1001) 5.7 K/UL 3.5-11.0 RBC (test code = 1002) 3.99 M/UL 3.80-5.40 HEMOGLOBIN (test code = 12.1 G/DL 11.5-15.5 1003) HEMATOCRIT (test code = 36.0 % 34.0-45.0 1004) MCV (test code = 1005) 90.2 fL 80.0-99.0 MCH (test code = 1006) 30.3 PG 25.0-33.0 MCHC (test code = 1007) 33.6 G/DL 31.0-36.0 RDW (test code = 1038) 12.8 % 11.5-15.0 NEUTROPHILS (test code = 62.6 % 1008) LYMPHOCYTES (test code = 27.6 % 1010) MONOCYTES (test code = 1011) 7.9 % EOSINOPHILS (test code = 1.4 % 1012) BASOPHILS (test code = 1013) 0.3 % IMMATURE GRANULOCYTES (test 0.2 % code = 1036) NUCLEATED RBCS (test code = 0.0 /100 WBC'S See_Comment [Automated message] The 1065) system which ge nerated this result transmit stacey reference range: 0.0. The reference range was not u sed to interpret this result as normal/abnormal . PLATELET COUNT (test code = 228 K/UL [phone]) ABSOLUTE NEUTROPHILS (test 3.58 K/UL 1.50-7.50 code = 1066) ABSOLUTE LYMPHOCYTES (test 1.58 K/UL 1.00-4.00 code = 1067) ABSOLUTE MONOCYTES (test 0.45 K/UL 0.20-1.00 code = 1068) ABSOLUTE EOSINOPHILS (test 0.08 K/UL 0.00-0.50 code = 1040) ABSOLUTE BASOPHILS (test 0.02 K/UL 0.00-0.20 code = 1069) ABS IMMATURE GRANULOCYTES 0.01 K/UL 0.00-0.10 (test code = 1020) ABS NUCLEATED RBCS (test 0.00 K/UL 0.00-0.11 UN LESS OTHERWISE INDICATED, code = 31999) ALL TESTING PE RFORMED ATCLIN[facility] PATH [facility], [facility]. [address] [place] [address] [address] LAB[address]AT[address] DIRE CTOR: NAOMI ACOSTA M.D. CLIA NUMBER [id number] [place]. [id number]
[2022-07-28] MEDS ORDERED: ACETAMINOPHEN 500 MG TAB ONE (08:02)
--- NOTE | 2022-07-28 08:15 | RAD REPORT ---
EXAM DESCRIPTION: CT - Head Brain Wo Cont - 07/28/2022 8:04 am CLINICAL HISTORY: Seizure COMPARISON: 2020 TECHNIQUE: Computed axial tomography of the head was obtained. IV contrast was not requested. All CT scans are performed using dose optimization technique as appropriate and may include automated exposure control or mA/KV adjustment according to patient size. FINDINGS: An intracranial bleed is not seen The ventricles are normal in caliber No extra-axial fluid collection is noted. 1 centimeter low-density area white matter right parietal lobe unchanged. Prominent lyn cisterna magna normal-variant Fluid within the sinuses/ mastoids is not seen. IMPRESSION: No acute intracranial abnormality is seen If patient's symptoms persist MRI of the brain would be recommended
[2022-07-28 09:07] LABS: Hematocrit 38.7 % (36.0-45.0); Lymphocytes % 11.8 % (15.3-44.8); MCV 90.1 fL (80-100); MPV 7.7 fL (7.6-11.3)
--- NOTE | 2022-07-28 09:13 | RAD REPORT ---
EXAM DESCRIPTION: Swapna Single View07/28/2022 9:06 am CLINICAL HISTORY: Facial numbness/seizure COMPARISON: 2015 FINDINGS: The lungs appear clear of acute infiltrate. The heart is normal size IMPRESSION: No acute abnormalities displayed
[2022-07-28] MEDS ORDERED: METOCLOPRAMIDE 10 MG/2mL INJ ONE (09:16)
[2022-07-28] MEDS ORDERED: KETOROLAC 30 MG/ML INJ ONE (09:17)
[2022-07-28] MEDS ORDERED: DIPHENHYDRAMINE 50 MG/ML VIAL ONE (09:17)
[2022-07-28] MEDS ORDERED: NA CHLORIDE 0.9% 1,000 ML ONE ×2 (09:17→14:58)
[2022-07-28 09:25] LABS: Potassium 3.7 mEq/L (3.5-5.1); Troponin High Sensitivity 26.1 pg/mL (<58.9)
[2022-07-28 09:27] LABS: Protime INR 0.97
[2022-07-28] MEDS ORDERED: ONDANSETRON 4 MG/2 ML VIAL ONE (09:59)
--- NOTE | 2022-07-28 10:39 | RAD REPORT ---
EXAM DESCRIPTION: MRI - Brain Wo Cont - 07/28/2022 10:26 am CLINICAL HISTORY: Facial numbness COMPARISON: Head CT July 28, 2022 TECHNIQUE: Axial, sagittal, and coronal magnetic resonance images of the brain were obtained. FINDINGS: A 1 centimeter area of increased signal deep white matter right parietal lobe. Additional small areas increased signal deep, periventricular and subcortical white matter. Diffusion-weighted/ADC mapping demonstrates 3 millimeter area of abnormal signal left periventricular white matter posterior frontal lobe consistent with acute infarct The ventricles are normal caliber. Olvin cisterna magna normal-variant Fluid within the sinuses/mastoids is not seen IMPRESSION: 3 millimeter acute infarction periventricular white matter left frontal lobe Areas of increased signal within deep, periventricular and subcortical white matter could be secondar y to ischemic changes secondary to small vessel disease. A demyelinating process such as multiple scl erosis can also have this appearance
--- NOTE | 2022-07-28 11:01 | ER ---
Nurse's Notes [facility] Name: Alka Cedeño Age: 47 yrs Sex: Female : 1975 Arrival Date: 07/28/2022 Time: 07:36 Bed 5 Private MD: Diagnosis: Left frontal ischemic CVA;Other seizures;Essential (primary) hypertension;Headache Presentation: 07/28 07:41 Chief complaint: EMS states: she has a history of seizures and has recently started ko1 seeing another physician who has changed her medications and the seizures have started back. Coronavirus screen: At this time, the client does not indicate any symptoms associated with coronavirus-19. Ebola Screen: No symptoms or risks identified at this time. Initial Sepsis Screen: Does the patient meet any 2 criteria? No. Patient's initial sepsis screen is negative. Does the patient have a suspected source of infection? No. Patient's initial sepsis screen is negative. Risk Assessment: Do you want to hurt yourself or someone else? Patient reports no desire to harm self or others. Onset of symptoms is unknown. 07:41 Method Of Arrival: EMS: [facility] ko1 07:41 Acuity: DIANE 3 ko1 Triage Assessment: 07:49 General: Appears distressed, comfortable, Behavior is cooperative, appropriate for age, ko1 anxious. Pain: Denies pain. TOOL AND DIE MANAGER: 14:45 LMP N/A - control method ko1 Historical: - PMHx: 07:49 Hypertension; Migraines; Seizures; ko1 - PSHx: 07:49 tubal ligation; ko1 - Immunization history:: Adult Immunizations up to date. - Social history:: Smoking status: Patient denies any tobacco usage or history of. Screenin:07 [facility] ED Fall Risk Assessment (Adult) History of falling in the last 3 months, ko1 including since admission No falls in past 3 months (0 pts) Confusion or Disorientation No (0 pts) Intoxicated or Sedated No (0 pts) Impaired Gait No (0 pts) Mobility Assist Device Used No (0 pt) Altered Elimination No (0 pt) Score/Fall Risk Level 0 - 2 = Low Risk Oriented to surroundings, Maintained a safe environment, Educated pt \T\ family on fall prevention, incl call for assistance when getting out of bed, Assessed \T\ reinforced patient's understanding of fall precautions, Provided non-skid footwear, Hourly rounding (assess needs \T\ fall precautionary measures) done, Used ambulatory aids as needed (educated on \T\ assisted with), Used gait belt as appropriate. Abuse screen: Denies threats or abuse. Denies injuries from another. Nutritional screening: No deficits noted. Tuberculosis screening: No symptoms or risk factors identified. Assessment: 08:07 Neuro: Reports headache frontal area. Cardiovascular: No deficits noted. Respiratory: ko1 No deficits noted. GI: No deficits noted. : No deficits noted. EENT: No deficits noted. Derm: No deficits noted. Musculoskeletal: No deficits noted. 09:04 General: Appears. Pain: Complains of pain in face Pain does not radiate. Pain currently ld1 is 8 out of 10 on a pain scale. Quality of pain is described as throbbing. 09:04 Reassessment: Notified ERP of pain and nausea. See MAR for orders. ld1 10:59 Reassessment: No changes from previously documented assessment. Patient and/or family ko1 updated on plan of care and expected duration. Pain level reassessed. 11:37 Neuro: Seizure activity noted at this time. Patient is post-ictal at this time. ld1 notified ERP. See MAR for orders. 11:55 Neuro: Seizure activity noted at this time. ERP at bedside. Nasopharyngeal 20FR ld1 inserted to right nare. SpO2 desat to 70%. NC applied at 3L. Seizure precautions in place. Meds administered per MD orders. Vital Signs: 07:41 BP 183 / 114; Pulse 106; Resp 20; Temp 98.4; Pulse Ox 96% on R/A; Weight 79.38 kg; ko1 Height 5 ft. 1 in. ; 08:07 BP 194 / 110; Pulse 104; Resp 18; Pulse Ox 98% ; ko1 09:05 Pain 9/10; ld1 09:07 BP 175 / 124; Pulse 115; Resp 18; Pulse Ox 99% on R/A; ld1 09:49 BP 156 / 95; Pulse 100; Resp 16; Pulse Ox 100% ; ko1 10:59 BP 162 / 72; Pulse 92; Resp 16; Pulse Ox 99% ; ko1 11:35 BP 166 / 86; Pulse 116; Resp 20; Pulse Ox 96% on R/A; ld1 11:55 BP 140 / 74; Pulse 118; Resp 28; Pulse Ox 98% on 3 lpm NC; ld1 12:24 BP 150 / 83; Pulse 105; Resp 18; Pulse Ox 99% on 3 lpm NC; ld1 14:44 BP 148 / 94; Pulse 101; Resp 19; Pulse Ox 97% on R/A; ko1 07:41 Body Mass Index 33.07 (79.38 kg, 154.94 cm) ko1 09:05 Pain Scale: Adult ld1 Susu Coma Score: 08:00 Eye Response: spontaneous(4). Motor Response: obeys commands(6). Verbal Response: ko1 oriented(5). Total: 15. ED Course: 07:39 Patient arrived in ED. eb 07:45 Seizure precautions initiated. ko1 07:45 No provider procedures requiring assistance completed. ko1 07:48 Barry Robledo DO is Attending Physician. ms3 07:49 Triage completed. ko1 07:49 Arm band placed on right wrist. Patient placed in an exam room, on a stretcher, on ko1 director of cardiac rehabilitation, on pulse oximetry, Patient notified of wait time. 07:52 Deja Hernandez, RN is Primary Nurse. ko1 08:04 CT Head Brain wo Cont In Process Unspecified. EDMS 08:07 Patient has correct armband on for positive identification. Bed in low position. Call ko1 light in reach. Side rails up X2. Adult w/ patient. Client placed on continuous cardiac and pulse oximetry monitoring. NIBP monitoring applied. telemetry monitor on. Door closed. Noise minimized. Lights dimmed. Warm blanket given. 09:04 Inserted saline lock: 20 gauge in right antecubital area, using aseptic technique. ld1 Blood collected. 09:07 Stroke CXR 1 View In Process Unspecified. EDMS 10:28 MRI - Brain Wo Cont In Process Unspecified. EDMS 10:58 Barry Robledo DO is Hospitalizing Provider. ms3 13:45 EEG was attempted but not completed. The EEG machine kept powering on and off. Biomed at1 was called. Unable to leave message with Dr. Bro due to full voice mail box. 14:38 Patient admitted, IV remains in place. ko1 Administered Medications: 08:03 Drug: Acetaminophen PO 1000 mg Route: PO; ko1 09:21 Drug: metoCLOPramide IVP 10 mg Route: IVP; Site: right antecubital; ko1 09:21 Drug: NS 0.9% IV 1000 ml Route: IV; Rate: 1000 ml; Site: right antecubital; ko1 09:22 Drug: diphenhydrAMINE IVP 25 mg Route: IVP; Site: right antecubital; ko1 09:23 Drug: Ketorolac IVP 10 mg 10 mg Route: IVP; Site: right antecubital; ko1 09:59 Drug: Ondansetron IVP 4 mg Route: IVP; Site: right antecubital; ld1 11:15 Drug: Aspirin PO 325 mg Route: PO; ko1 11:16 Drug: Atorvastatin PO 40 mg Route: PO; ko1 11:50 Drug: Keppra PO 1000 mg Route: PO; ld1 11:50 Drug: clonazePAM PO 1 mg Route: PO; ld1 11:55 Drug: Ativan IVP 1 mg Route: IVP; Site: right antecubital; ko1 Medication: 14:37 VIS not applicable for this client. ko1 Outcome: 11:00 Decision to Hospitalize by Provider. ms3 14:38 Admitted to Tele accompanied by tech, via wheelchair, room 216, on monitor, with chart. ko1 14:38 Admitted to 14:38 Condition: stable 14:38 Instructed on the need for admit. 15:04 Patient left the ED. ld1 Signatures: Dispatcher [employer] EDMS Anne Colón, watch inspector final movement EKG Tat1 Alka Mcnair Marcus, DO DO ms3 Kalli Robledo RN RN ld1 Deja Hernandez RN RN ko1
--- NOTE | 2022-07-28 11:01 | EDPHYS ---
Physician Documentation [facility] Name: Alka Cedeño Age: 47 yrs Sex: Female : 1975 Arrival Date: 07/28/2022 Time: 07:36 Bed 5 Private MD: ED Physician Barry Robledo HPI: 07/28 07:50 This 47 yrs old Female presents to ER via EMS with complaints of Seizure. ms3 07:50 47-year-old female with past medical history of seizures, migraines, ms3 hypertension presents via [facility] for seizures. Patient states she had an appointment with her new neurologist in [place] and her medication dose was decreased from 200 to 25 mg of Xcorpi. Patient states she had multiple seizures yesterday and awoke with left-sided headache and bilateral facial numbness.. HEALTHCARE ADVISORY SERVICES MANAGER: 14:45 LMP N/A - control method ko1 Historical: - PMHx: 07:49 Hypertension; Migraines; Seizures; ko1 - PSHx: 07:49 tubal ligation; ko1 - Immunization history:: Adult Immunizations up to date. - Social history:: Smoking status: Patient denies any tobacco usage or history of. ROS: 07:50 Constitutional: Negative for fever, and chills. Neck: Negative for injury, pain, and ms3 swelling, Cardiovascular: Negative for chest pain, and palpitations. Respiratory: Negative for shortness of breath, cough, wheezing, and pleuritic chest pain, Abdomen/GI: Negative for abdominal pain, nausea, vomiting, diarrhea, and constipation. 07:50 Neuro: Positive for seizure activity. 07:50 All other systems are negative. Exam: 07:50 Constitutional: This is a well developed, well nourished patient who is awake, alert, ms3 and in no acute distress. Head/Face: Normocephalic, atraumatic. Chest/axilla: Normal chest wall appearance and motion. Nontender with no deformity. Cardiovascular: Regular rate and rhythm with a normal S1 and S2. No gallops, murmurs, or rubs. Normal PMI, no JVD. No pulse deficits. Respiratory: Lungs have equal breath sounds bilaterally, clear to auscultation and percussion. No rales, rhonchi or wheezes noted. No increased work of breathing, no retractions or nasal flaring. Abdomen/GI: Soft, non-tender, with normal bowel sounds. No distension or tympany. No guarding or rebound. No evidence of tenderness throughout. Back: No spinal tenderness. No costovertebral tenderness. Full range of motion. Skin: Warm, dry with normal turgor. Normal color with no rashes, no lesions, and no evidence of cellulitis. MS/ Extremity: Pulses equal, no cyanosis. Neurovascular intact. Full, normal range of motion. Neuro: Awake and alert, GCS 15, oriented to person, place, time, and situation. Cranial nerves II-XII grossly intact. Motor strength 5/5 in all extremities. Sensory grossly intact. Cerebellar exam normal. Normal gait. 09:05 ECG was reviewed by the Attending Physician. ms3 Vital Signs: 07:41 BP 183 / 114; Pulse 106; Resp 20; Temp 98.4; Pulse Ox 96% on R/A; Weight 79.38 kg; ko1 Height 5 ft. 1 in. ; 08:07 BP 194 / 110; Pulse 104; Resp 18; Pulse Ox 98% ; ko1 09:05 Pain 9/10; ld1 09:07 BP 175 / 124; Pulse 115; Resp 18; Pulse Ox 99% on R/A; ld1 09:49 BP 156 / 95; Pulse 100; Resp 16; Pulse Ox 100% ; ko1 10:59 BP 162 / 72; Pulse 92; Resp 16; Pulse Ox 99% ; ko1 11:35 BP 166 / 86; Pulse 116; Resp 20; Pulse Ox 96% on R/A; ld1 11:55 BP 140 / 74; Pulse 118; Resp 28; Pulse Ox 98% on 3 lpm NC; ld1 12:24 BP 150 / 83; Pulse 105; Resp 18; Pulse Ox 99% on 3 lpm NC; ld1 14:44 BP 148 / 94; Pulse 101; Resp 19; Pulse Ox 97% on R/A; ko1 07:41 Body Mass Index 33.07 (79.38 kg, 154.94 cm) ko1 09:05 Pain Scale: Adult ld1 Susu Coma Score: 08:00 Eye Response: spontaneous(4). Motor Response: obeys commands(6). Verbal Response: ko1 oriented(5). Total: 15. MDM: 07:48 Patient medically screened. ms3 07:50 Independent interpretation of the following test(s) in the Emergency Department Rhythm ms3 Strip Interpretation Rate: 111BPM Rhythm: sinus tachycardia. 08:34 ED course: Patient states she has had left facial and left foot numbness. She states ms3 this is not typical after her seizures. Discussed case with Dr Gutierrez and he agrees with MRI.. 12:06 ED course: Patient with tonic/clonic seizure. 1 mg Ativan ordered. patient remains ms3 post-ictal. Nasal trumpet placed in right nare. Dr Bro updated on patient's status. 12:07 Data reviewed: vital signs, nurses notes, lab test result(s), EKG, radiologic studies, ms3 and as a result, I will admit patient. Consideration of Admission/Observation Patient was admitted/placed on observation. Management of patient was discussed with the following: Hospitalist: Dr Bro. Accredited Pharmacy Technician: Dr Gutierrez. I considered the following discharge prescriptions or medication management in the emergency department Medications were administered in the Emergency Department. See MAR. Historians other than the Patient: EMS: [facility]. Daughter/Son: Patient's daughter. Counseling: I had a detailed discussion with the patient and/or guardian regarding: the historical points, exam findings, and any diagnostic results supporting the discharge/admit diagnosis, lab results, radiology results, the need for further work-up and treatment in the hospital. 07/28 08:28 Order name: Basic Metabolic Panel; Complete Time: 09:41 ms3 07/28 08:28 Order name: CBC with Diff; Complete Time: 09:41 ms3 07/28 08:28 Order name: High Sensitivity Troponin; Complete Time: 09:41 ms3 07/28 08:28 Order name: Protime (+inr); Complete Time: 09:41 ms3 07/28 08:28 Order name: Ptt, Activated; Complete Time: 09:41 ms3 07/28 09:12 Order name: Glucose, Ancillary Testing; Complete Time: 09:41 EDMS 07/28 12:24 Order name: CBC with Automated Diff EDMS 07/28 12:24 Order name: CBC with Automated Diff EDMS 07/28 12:24 Order name: Comprehensive Metabolic Panel EDMS 07/28 12:24 Order name: Comprehensive Metabolic Panel EDMS 07/28 12:24 Order name: Lipid Profile EDMS 07/28 12:24 Order name: Lipid Profile EDMS 07/28 12:24 Order name: Magnesium EDMS 07/28 12:24 Order name: Magnesium EDMS 07/28 12:24 Order name: Phosphorus EDMS 07/28 12:24 Order name: Phosphorus EDMS 07/28 07:49 Order name: CT Head Brain wo Cont; Complete Time: 08:17 ms3 07/28 08:28 Order name: Stroke CXR 1 View; Complete Time: 09:41 ms3 07/28 08:34 Order name: MRI - Brain Wo Cont; Complete Time: 10:46 ms3 07/28 12:24 Order name: Echo with Doppler EDMS 07/28 12:24 Order name: EEG Request EDMT 07/28 08:28 Order name: EKG; Complete Time: 08:29 ms3 07/28 12:24 Order name: Physical Therapy Consult EDMS 07/28 12:24 Order name: Speech Therapy Consult EDMT 07/28 12:24 Order name: NPO EDMT 07/28 12:24 Order name: NPO EDMT 07/28 12:24 Order name: NPO EDMS 07/28 12:24 Order name: EKG Electrocardiogram EDMS 07/28 08:28 Order name: Accucheck; Complete Time: 09:01 ms3 07/28 08:28 Order name: Cardiac monitoring; Complete Time: 08:31 ms3 07/28 08:28 Order name: EKG - Nurse/Tech; Complete Time: 08:49 ms3 07/28 08:28 Order name: IV Saline Lock; Complete Time: 08:31 ms3 07/28 08:28 Order name: Labs collected and sent; Complete Time: 09:01 ms3 07/28 08:28 Order name: NPO; Complete Time: 08:31 ms3 07/28 08:28 Order name: O2 Per Protocol; Complete Time: 08:31 ms3 07/28 08:28 Order name: O2 Sat Monitoring; Complete Time: 08:31 ms3 07/28 08:28 Order name: Stroke Swallow Screen; Complete Time: 08:49 ms3 EC:05 Rate is 86 beats/min. Rhythm is regular. QRS [place] is Normal. [place] interval is normal. QRS ms3 interval is normal. QT interval is normal. Clinical impression: Normal ECG. Interpreted by me. Reviewed by me. Administered Medications: 08:03 Drug: Acetaminophen PO 1000 mg Route: PO; ko1 09:21 Drug: metoCLOPramide IVP 10 mg Route: IVP; Site: right antecubital; ko1 09:21 Drug: NS 0.9% IV 1000 ml Route: IV; Rate: 1000 ml; Site: right antecubital; ko1 09:22 Drug: diphenhydrAMINE IVP 25 mg Route: IVP; Site: right antecubital; ko1 09:23 Drug: Ketorolac IVP 10 mg 10 mg Route: IVP; Site: right antecubital; ko1 09:59 Drug: Ondansetron IVP 4 mg Route: IVP; Site: right antecubital; ld1 11:15 Drug: Aspirin PO 325 mg Route: PO; ko1 11:16 Drug: Atorvastatin PO 40 mg Route: PO; ko1 11:50 Drug: Keppra PO 1000 mg Route: PO; ld1 11:50 Drug: clonazePAM PO 1 mg Route: PO; ld1 11:55 Drug: Ativan IVP 1 mg Route: IVP; Site: right antecubital; ko1 Disposition Summary: 07/28/22 11:00 Hospitalization Ordered Hospitalization Status: Inpatient Admission ms3 Provider: Barry Robledo msSusy [facility] ms3 Condition: Stable ms3 Problem: new ms3 Symptoms: are unchanged ms3 Bed/Room Type: Standard ms3 Room Assignment: [facility](07/28/22 14:04) eb Diagnosis - Left frontal ischemic CVA ms3 - Other seizures ms3 - Essential (primary) hypertension ms3 - Headache ms3 Forms: - Medication Reconciliation Form ms3 - SBAR form ms3 Critical care time excluding procedures: 12:09 Critical care time: Bedside Care: 30 minutes, Consultation: 10 minutes, Family ms3 Intervention: 5 minutes. Total time: 45 minutes Signatures: Dispatcher [employer] EDMS Alka Mcnair Marcus, DO DO ms3 Kalli Robledo RN RN ld1 Deja Hernandez RN RN ko1 Corrections: (The following items were deleted from the chart) 12:28 12:24 Chest Pa And Lat (2 Views) ordered. EDMS EDMS 14:04 11:00 ms3 eb
[2022-07-28] MEDS ORDERED: ATORVASTATIN 40 MG TAB ONE (11:19)
[2022-07-28] MEDS ORDERED: ASPIRIN 325 MG TAB ONE (11:19)
[2022-07-28] MEDS ORDERED: clonazePAM 1 MG TAB ONE (11:53)
[2022-07-28] MEDS ORDERED: levETIRAcetam 500 MG TAB ONE (11:53)
[2022-07-28] MEDS ORDERED: LORazepam 2 MG/ML VIAL ONE (11:58)
[2022-07-28] MEDS ORDERED: ONDANSETRON 4 MG/2 ML VIAL IV PRN (12:05)
[2022-07-28] MEDS ORDERED: levETIRAcetam 1,000 MG in NA CHLORIDE 0.9% 100 ML IV SCH (12:15)
[2022-07-28 12:43] VITALS: BMI 33.0
[2022-07-28] MEDS: NA CHLORIDE 0.9% 1,000 ML IV SCH (13:00)
[2022-07-28] MEDS: clonazePAM 0.5 MG TAB PO SCH ×2 (14:50→21:30)
[2022-07-28] MEDS ORDERED: clonazePAM 0.5 MG TAB ONE (14:58)
[2022-07-28] MEDS ORDERED: ACETAMINOPHEN 325 MG TABLET PO PRN (18:06)
[2022-07-28] MEDS: ATORVASTATIN 40 MG TAB PO SCH (21:30)
[2022-07-28] MEDS: OXcarbazepine 150 MG TAB PO SCH (21:30)
[2022-07-28] MEDS ORDERED: HYDROCODONE/APAP 10/325 TAB PO ONE (21:42)
[2022-07-28] MEDS ORDERED: DIPHENHYDRAMINE 50 MG/ML VIAL IV ONE (21:42)
[2022-07-28] MEDS ORDERED: NA CHLORIDE 0.9% 1,000 ML IV ONE (21:42)
[2022-07-28] MEDS: levETIRAcetam 1,000 MG in NA CHLORIDE 0.9% 100 ML IV SCH (21:49)
[2022-07-28] MEDS ORDERED: MAGNESIUM SULFATE 1 gm IVPB 1 GM/100 ML BAG IV ONE (22:00)
[2022-07-28] MEDS: METOCLOPRAMIDE 10 MG/2mL INJ IV SCH (22:03)
[2022-07-29] MEDS: NA CHLORIDE 0.9% 1,000 ML IV SCH ×3 (02:20→19:35)
[2022-07-29 03:26] LABS: Absolute Lymphocytes (CBC) 1.7 K/uL (0.7-4.9); Hematocrit 31.5 % (36.0-45.0); MCV 90.6 fL (80-100); MPV 7.7 fL (7.6-11.3); RBC Red Blood Cell Count 3.47 M/uL (3.86-4.86)
[2022-07-29 03:58] LABS: ALT/SGPT 18 U/L (13-56); AST/SGOT 14 U/L (15-37); Albumin 2.8 g/dL (3.4-5.0); Alkaline Phosphatase 107 U/L (45-117); BUN Blood Urea Nitrogen 5 mg/dL (7-18); Bicarbonate 24 mEq/L (21-32); Bilirubin Total 0.4 mg/dL (0.2-1.0); Glomerular Filtration Rate 115 ml/min (=/>90); Glucose Level 121 mg/dL (74-106); HDL Cholesterol 50 mg/dL (40-60); LDL Cholesterol, Calculated 74 mg/dL (<130); Magnesium 2.4 mg/dL (1.6-2.4); Phosphorus 2.5 mg/dL (2.5-4.9); Potassium 3.4 mEq/L (3.5-5.1); Protein, Total 6.1 g/dL (6.4-8.2); Sodium Level 138 mEq/L (136-145)
--- NOTE | 2022-07-29 07:20 | P.HP ---
Certification for Inpatient Patient admitted to: Inpatient With expected LOS: >2 Midnights Patient will require the following post-hospital care: None Practitioner: I am a practitioner with admitting privileges, knowledge of patient current condition, hospital course, and medical plan of care. Services: Services provided to patient in accordance with Admission requirements found in Title 42 Section 412.3 of the Code of Federal Regulations Patient History Date of Service: 07/28/22 Reason for admission: Acute CVA with persistent seizures History of Present Illness: Patient is a 47-year-old female with a history of seizure disorder who normally goes to [facility] for her seizure treatments. She apparently was not acting right according to the daughter so they brought her into the emergency room. In the emergency room she was found to have an acute CVA. She also had a couple of seizures that she did not start on her antiepileptics. She is also recently reduced her dose significantly of a third antiepileptic that she was taken. At this time, she will be admitted to the hospital and we will go ahead and proceed with an MRI of the brain. Neurology consultation is pending. Resume her prior seizure medications. Patient will be admitted for inpatient hospitalization for an acute CVA. We will monitor her and get keep her blood pressure control. Allergies No Known Allergies Allergy (Unverified 07/28/22 12:31) Home medications list reviewed: Yes Home Medications: Cenobamate [Xcopri] 200 mg PO DAILY 07/28/22 Levetiracetam [Keppra] 750 mg PO BID 07/28/22 Lisinopril [Zestril] 20 mg PO DAILY 07/28/22 OXcarbazepine [Oxcarbazepine] 600 mg PO BID 07/28/22 - Past Medical/Surgical History Has patient received pneumonia vaccine in the past: No Diabetic: No -: Seizure disorder -: Hypertension Past Surgical History: Patient denies surgical history - Family History Father Family History: Reviewed- Non-Contributory - Social History Smoking Status: Never smoker Alcohol use: No CD- Drugs: No Caffeine use: No Place of Residence: Home Review of Systems 10-point ROS is otherwise unremarkable Physical Examination - Vital Signs Temperature: 97.8 F Blood Pressure: 136/73 Pulse: 74 Respirations: 17 Pulse Ox (%): 95 - Physical Exam General: Alert, In no apparent distress, Oriented x3 HEENT: Atraumatic, PERRLA, Mucous membr. moist/pink, EOMI, Sclerae nonicteric Neck: Supple, 2+ carotid pulse no bruit, No LAD, Without JVD or thyroid abno rmality Respiratory: Clear to auscultation bilaterally, Normal air movement Cardiovascular: Regular rate/rhythm, Normal S1 S2, No murmurs Gastrointestinal: Normal bowel sounds, Soft and benign, Non-distended, No tenderness Musculoskeletal: No clubbing, No swelling, No tenderness Integumentary: No rashes Neurological: Normal gait, Normal speech, Normal strength at 5/5 x4 extr, Normal tone, Sensation intact, Cranial nerves 3-12 intact, Normal affect Lymphatics: No axilla or inguinal lymphadenopathy - Studies Laboratory Data (last 24 hrs) 07/28/22 08:56: PT 10.7, INR 0.97, APTT 25.7 07/28/22 08:56: WBC 8.20, Hgb 13.1, Hct 38.7, Plt Count 235 07/28/22 08:56: Sodium 134 L, Potassium 3.7, BUN 7, Creatinine 0.57, Glucose 125 H Assessment & Plan - Problems (Diagnosis) (1) Acute cerebrovascular accident (CVA) Current Visit: Yes Status: Acute (2) Seizure disorder Current Visit: Yes Status: Acute (3) History of hypertension Current Visit: Yes Status: Acute - Plan 1. MRI of the brain 2. Echocardiogram and carotid Doppler 3. Anti-platelet therapy and statin therapy 4. Neurology consultation 5. Physical therapy/occupational therapy/speech therapy evaluation 6. Modified barium swallow study 7. EEG; resume antiepileptics 8. Permissive hypertension 9. DVT prophylaxis Discharge Plan: Home Plan to discharge in: Greater than 2 days - Advance Directives Does patient have a Living Will: No Does patient have a Durable POA for Healthcare: No - Code Status/Comfort Care Code Status Assessed: Yes Code Status: Full Code Critical Care: No Time Spent Managing PTS Care (In Minutes): 45
[2022-07-29] MEDS ORDERED: POTASSIUM PHOS IN 0.9 % NACL 15 MMOL/250 ML BAG IV ONE (08:00)
[2022-07-29] MEDS: ENOXAPARIN 40 MG/0.4 ML SQ SCH (08:36)
[2022-07-29] MEDS: ASPIRIN EC 81 MG TAB PO SCH (08:36)
[2022-07-29] MEDS: lisinopriL 20 MG TAB PO SCH (08:36)
[2022-07-29] MEDS: CENOBAMATE 50 MG PO SCH (08:36)
[2022-07-29] MEDS: CLOPIDOGREL 75 MG TABLET PO SCH (08:37)
[2022-07-29] MEDS: clonazePAM 0.5 MG TAB PO SCH ×3 (08:37→21:47)
[2022-07-29] MEDS: OXcarbazepine 150 MG TAB PO SCH ×2 (08:51→21:47)
[2022-07-29] MEDS: levETIRAcetam 1,000 MG in NA CHLORIDE 0.9% 100 ML IV SCH ×2 (08:51→21:47)
[2022-07-29] MEDS ORDERED: CENOBAMATE 50 MG PO SCH (09:00)
--- NOTE | 2022-07-29 14:45 | P.PN ---
Subjective Date of Service: 07/29/22 Subjective: No new changes, No C/O voiced, Improving Review of Systems 10-point ROS is otherwise unremarkable Physical Examination - Vital Signs Temperature: 98.0 F Blood Pressure: 143/79 Pulse: 75 Respirations: 18 Pulse Ox (%): 97 - Physical Exam General: Alert, In no apparent distress, Oriented x3 Respiratory: Clear to auscultation bilaterally, Normal air movement Cardiovascular: Regular rate/rhythm, Normal S1 S2 Gastrointestinal: Normal bowel sounds, No tenderness Musculoskeletal: No tenderness Integumentary: No rashes Neurological: Normal speech, Normal tone, Normal affect Lymphatics: No axilla or inguinal lymphadenopathy - Studies Medications List Reviewed: Yes Assessment & Plan - Problems (Diagnosis) (1) Acute cerebrovascular accident (CVA) Current Visit: Yes Status: Acute (2) Seizure disorder Current Visit: Yes Status: Acute (3) History of hypertension Current Visit: Yes Status: Acute - Plan 1. MRI of the brain 2. Echocardiogram and carotid Doppler 3. Anti-platelet therapy and statin therapy 4. Neurology consultation 5. Physical therapy/occupational therapy/speech therapy evaluation 6. Modified barium swallow study 7. EEG; resume antiepileptics 8. Permissive hypertension 9. DVT prophylaxis - Advance Directives Does patient have a Living Will: No Does patient have a Durable POA for Healthcare: No - Code Status/Comfort Care Code Status: Full Code
[2022-07-29] MEDS: ATORVASTATIN 40 MG TAB PO SCH (21:46)
[2022-07-29] MEDS: METOCLOPRAMIDE 10 MG/2mL INJ IV SCH (22:00)
[2022-07-30] MEDS: NA CHLORIDE 0.9% 1,000 ML IV SCH ×2 (05:00→08:39)
[2022-07-30 06:30] LABS: Potassium 3.7 mEq/L (3.5-5.1)
[2022-07-30] MEDS: CENOBAMATE 50 MG PO SCH (08:30)
[2022-07-30] MEDS: ASPIRIN EC 81 MG TAB PO SCH (08:31)
[2022-07-30] MEDS: OXcarbazepine 150 MG TAB PO SCH (08:31)
[2022-07-30] MEDS: clonazePAM 0.5 MG TAB PO SCH ×2 (08:31→14:31)
[2022-07-30] MEDS: CLOPIDOGREL 75 MG TABLET PO SCH (08:32)
[2022-07-30] MEDS: lisinopriL 20 MG TAB PO SCH (08:32)
[2022-07-30] MEDS: ENOXAPARIN 40 MG/0.4 ML SQ SCH (08:33)
--- NOTE | 2022-07-30 08:54 | EKG ---
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
[2022-07-30] MEDS ORDERED: POTASSIUM 25 MEQ EFFERV TAB PO ONE (09:00)
[2022-07-30] MEDS: levETIRAcetam 1,000 MG in NA CHLORIDE 0.9% 100 ML IV SCH (09:04)
[2022-07-30 09:31] VITALS: O2SAT 99
[2022-07-30 12:32] VITALS: BP 118/64; TEMP 98
== END 2022-07-30 15:53 | disposition home or self-care (01) | DRG 66 ==
LOC: ER 07:36 → ERHOLD 12:06 → 2ND 14:49
PROVIDERS: ADMIT Hospitalist; ATTEND Hospitalist
DX: I63.9 Cerebral infarction, unspecified (principal); G40.909 Epilepsy, unspecified, not intractable, without status epilepticus; I10 Essential (primary) hypertension; Z79.899 Other long term (current) drug therapy; Z98.51 Tubal ligation status
CPT/HCPCS: 36415; 70450; 70551; 71045; 80048; 80053; 80061; 80156; 82947; 83735; 84100; 84132; 84484; 85025; 85610; 85730; 92610; 93005; 96374; 96375; 97116; 97161; 99285; J1200; J1650; J1953; J2405; J2765; J3475; J7030

== ENCOUNTER 2023-11-05 18:13 | Emergency (ER) | payer OTHER ==
--- OUTSIDE RECORDS SUMMARY | 2023-11-05 18:20 | XMS REPORT | Continuity of Care Document ---
Author Name Unknown Address [address] [facility] [address] [place] [address] [facility] thconnect Address [address] [facility] [address] [place] [address] Care Team Providers Care C Software Engineer Name Role Phone PCP, PATIENT DOES NOT HAVE A Primary Care Physic francis Unavailable EL SINGH Attending Clinician Unavailable YOAV PLATT Attending Clinician Unavailable Blane [facility], Justin Attending Clinician Unavailable Yoav Platt MD Attending Clinician [phone] El Singh MD Attending Clinician [phone] Vishal [facility] Attending Clinician Unavailable Draw, Clc-Bls Lab Attending Clinician UnavailJADE Cantrell Attending Clinician Unavailable Pcp, Patient Does Not Have A Attending Clinician Irlanda Rich MD Attending Clinician + IRLANDA RICH Attending Clinician Unaankur Odonnell [facility] Attending Clinician UnaTheresa Israel RN Attending Clinician Unavail able JAN GRAY Attending Clinician Unavailable Jan Gray MD Attending Clinician [phone] Doctor Unassigned, Thrall Attending Clinician U nanoailDorina Rocha MA Attending Clinician UnavailMicheline Griffin Attending Clinician U navailable Pcp-Lab Attending Clinician Unavailable STEFFI GUERRERO Attending Clinician UnavailSTEFFI Mcdowell Attending Clinician Unavaila Chelsea Palomino Attending Clinician [phone] JAN GRAY Admitting Clinician Unavailable Jan Gray MD Admitting Clinician [phone] YOAV PLATT Admitting Clinician Unavailable Payers Payer Name Policy Type Policy Number Effective Date Expirati on Date Source Layar AMARILLO PLUS [id number] 2023 00:00:00 Problems Condition Name Condition Details Condition Category Status Onset Date Resolution Date Last Treatment Date Treating Clinician Comments Source 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 Complex partial seizures with secondary generaliz ationICD1 0 Diagnosis Term Stabilizer Operator Utility [facility] Migraine Migraine Disease Active 07-24 00:00: 00 Overview: Formattin g of this note might be different from the original. ICD10 Diagnosis Term Stabilizer Operator Utility [facility] Allergies, Adverse Reactions, Alerts Allergy Name Allergy Type Status Severity Reaction(s) Onset Date Inactive Date Treating Clinician Comments Source NO KNOWN ALLERGIE S Drug Class Active [facility] Social History Social Habit Start Date Stop Date Quantity Comments Source Gender identity [facility] History of Social function 2023-10-29 00:00:00 2023-10-29 00:00:00 [facility] Alcoholic beverage intake 2023-04-18 00:00:00 2023-04-18 00:00:00 Lifetime non-drinker (finding) [facility] Alcohol intake 2023-04-18 00:00:00 2023-04-18 00:00:00 Lifetime non-drinker (finding) [facility] Tobacco use and exposure 2022-12-18 00:00:00 2022-12-18 00:00:00 Smokeless tobacco non-user [facility] Sex assigned at 1975 00:00:00 1975 00:00:00 [facility] Smoking Status Start Date Stop Date Source Never smoked tobacco [facility] Medications Ordered Medication Name Filled Medication Name Start Date Stop Date Current Medication? Ordering Clinician Indication Dosage Frequency Signature (SIG) Comments Components Source rimegepant (NURTEC ODT) 75 mg TbDL 10-29 00:00: 00 Yes [id number] 75mg Take 1 tablet by mouth as needed for headache. Do not exceed 1 tablet in any 24-hour period. [facility] lovastatin (MEVACOR) 20 mg tablet 10-28 12:23: 40 10-28 00:00 :00 No Take by mouth at bedtime. [facility] lisinopril (PRINIVIL,Z ESTRIL) 20 mg tablet 10-28 12:23: 40 10-28 00:00 :00 No 20mg Take 1 tablet by mouth in the morning. [facility] atorvastati n 40 mg tablet 10-28 00:00: 00 Yes [id number] 40mg Take 1 tablet by mouth at bedtime. [facility] lisinopriL (ZESTRIL) 30 mg tablet 10-28 00:00: 00 Yes [id number] 30mg Take 1 tablet by mouth in the morning. [facility] ergocalcife rol (vitamin D2) 1,250 mcg (50,000 unit) capsule 09-27 00:00: 00 Yes (50,000 unit) Oren Hickey atorvastati n 40 mg tablet 09-27 00:00: 00 Yes 1mg Oren Hickey lisinopril 30 mg tablet 09-27 00:00: 00 Yes 1mg Oren Hickey clopidogrel 75 mg tablet 09-27 00:00: 00 Yes 1mg Oren Hickey paroxetine 20 mg tablet 09-27 00:00: 00 Yes 1mg Oren Hickey Topamax 50 mg tablet 09-27 00:00: 00 Yes 1mg Oren Hickey Topamax 100 mg tablet 09-27 00:00: 00 Yes 1mg Oren Hickey ferrous sulfate 325 mg (65 mg iron) tablet,aiyana yed release 09-27 00:00: 00 Yes 5(65 mg iron) Oren Hickey atorvastati n 40 mg tablet 09-13 00:00: 00 Yes 1mg Oren Hickey clopidogrel 75 mg tablet 09-13 00:00: 00 Yes 1mg Oren Hickey lisinopril 30 mg tablet 09-13 00:00: 00 Yes 1mg Oren Hickey Topamax 50 mg tablet 09-13 00:00: 00 Yes 1mg Oren Hickey paroxetine 20 mg tablet 09-13 00:00: 00 Yes 1mg Oren Hickey ferrous sulfate 325 mg (65 mg iron) tablet,aiyana yed release 09-13 00:00: 00 Yes 5(65 mg iron) Oren Hickey cenobamate 200 mg Tab 07-17 00:00: 00 Yes [id number] 1{tbl} Take 1 tablet by mouth in the morning. [facility] clonazePAM 1 mg tablet 07-17 00:00: 00 Yes [id number] 1mg Take 1 tablet by mouth in the morning and 1 tablet at noon and 1 tablet in the evening. [facility] levETIRAcet am 1,000 mg tablet 07-17 00:00: 00 Yes [id number] 1000mg Take 1 tablet by mouth in the morning and 1 tablet in the evening. [facility] OXcarbazepi ne 600 mg tablet 07-17 00:00: 00 Yes [id number] 600mg Take 1 tablet by mouth in the morning and 1 tablet in the evening. [facility] topiramate 50 mg tablet 07-17 00:00: 00 Yes [id number] 50mg Take 1 tablet by mouth in the morning. [facility] rimegepant (NURTEC ODT) 75 mg TbDL 10 00:00: 00 10-28 00:00 :00 No [id number] 75mg Take 1 tablet by mouth as needed for headache. Do not exceed 1 tablet in any 24-hour period. [facility] OXCARBAZEPI N 600MG 07-01 00:00: 00 Yes 600 Oren Hickey LEVETIRACET A 1000MG 07-01 00:00: 00 Yes 1000 Oren Hickey ergocalcife rol (vitamin D2) 1,250 mcg (50,000 unit) capsule 06-25 00:00: 00 Yes (50,000 unit) Oren Hickey TAKE 1 TABLET DAILY. 06-25 00:00: 00 Yes 20 Oren Hickey TAKE 1 TABLET DAILY. 06-25 00:00: 00 Yes 75 Oren Hickey LISINOPRIL 30MG 06-25 00:00: 00 Yes Oren Hickey XCOPRI 200MG 06-09 00:00: 00 Yes Oren Hickey CLONAZEPAM 1MG - 00:00: 00 Yes Oren Hickey clonazePAM 1 mg tablet 2- 00:00: 00 07-16 00:00 :00 No [id number] 1mg Take 1 tablet by mouth in the morning and 1 tablet at noon and 1 tablet in the evening. [facility] atorvastati n 40 mg tablet 2- 00:00: 00 Yes mg Oren Hickey clopidogrel 75 mg tablet 2- 00:00: 00 Yes mg Oren Hickey lisinopril 30 mg tablet 05-14 00:00: 00 Yes mg Oren Hickey Topamax 50 mg tablet 05-14 00:00: 00 Yes mg Oren Hickey ergocalcife rol (vitamin D2) 1,250 mcg (50,000 unit) capsule 05-14 00:00: 00 Yes (50,000 unit) Oren Hickey SUMATRIPTAN 50MG 05-14 00:00: 00 Yes Oren Hickey NURTEC 75MG ODT - 00:00: 00 Yes Oren Hickey OXcarbazepi ne 600 mg tablet 04-18 00:00: 00 07-16 00:00 :00 No [id number] 600mg Take 1 tablet by mouth in the morning and 1 tablet in the evening. [facility] rimegepant (NURTEC ODT) 75 mg TbDL 04-18 00:00: 00 07-16 00:00 :00 No [id number] 75mg Take 1 tablet by mouth as needed (Headache) . Do not exceed 1 tab in any 24-hour period. [facility] topiramate 50 mg tablet 04-18 00:00: 00 07-16 00:00 :00 No [id number] 50mg Take 1 tablet by mouth in the morning. [facility] levETIRAcet am 1,000 mg tablet 04-18 00:00: 00 07-16 00:00 :00 No [id number] 1000mg Take 1 tablet by mouth in the morning and 1 tablet in the evening. [facility] cenobamate 200 mg Tab 04-18 00:00: 00 07-16 00:00 :00 No [id number] 1{tbl} Take 1 tablet by mouth in the morning. [facility] clonazePAM 1 mg tablet 04-18 00:00: 00 05-15 00:00 :00 No [id number] 1.5mg Take 1.5 tablets by mouth in the morning and 1.5 tablets in the evening. [facility] clonazePAM 1 mg tablet 04-12 00:00: 00 04-18 00:00 :00 No [id number] 1mg TAKE ONE (1) TABLET(S) BY MOUTH THREE TIMES A DAY. [facility] TAKE 1 TABLET DAILY. 2022-04 00:00: 00 Yes 30 Oren Hickey TAKE 1 TABLET AT BEDTIME. 2022-04 00:00: 00 Yes 40 Oren Hickey TAKE 1 TABLET DAILY. 2022-04 00:00: 00 Yes [id number] Oren Hickey TOPAMAX 50MG 2022-04- 00:00: 00 Yes Oren Hickey ATORVASTATI N 40MG 2022-04- 00:00: 00 Yes [id number] Oren Hickey CLONAZEPAM 1MG 2022-04 00:00: 00 Yes 1000 Oren Hickey LEVETIRACET A 1000MG 2022-04 00:00: 00 Yes [id number] Oren Hickey TOPAMAX 50MG 2022-04-16 00:00: 00 Yes [id number] Oren Hickey LISINOPRIL 30MG 2022-04-16 00:00: 00 Yes [id number] Oren Hickey XCOPRI 200MG 2022-04 1-13 00:00: 00 Yes [id number] Oren Hickey ATORVASTATI N 40MG 2022-04 0-24 00:00: 00 Yes Oren Hickey TAKE 1 TABLET FOR MIGRAINE RELIEF. MAY REPEAT EVERY 2 HOURS. MAX 200MG/DAY. 2022-0424 00:00: 00 07-09 00:00 :00 No 50 Oren Hickey TAKE 1 TABLET DAILY. 2022-04 0-24 00:00: 00 07-09 00:00 :00 No 50 Oren Hickey TAKE HALF TAB DAILY 2022-04 0-24 00:00: 00 07-09 00:00 :00 No [id number] Oren Hickey NURTEC 75MG ODT 2022-04 0-19 00:00: 00 Yes Oren Hickey XCOPRI 200MG 2022-04 0-16 00:00: 00 Yes Oren Hickey rimegepant (NURTEC ODT) 75 mg TbDL 2022-04 0- 00:00: 00 04-18 00:00 :00 No [id number] 75mg Take 1 tablet by mouth as needed (Headache) . Do not exceed 1 tab in any 24-hour period. [facility] LEVETIRACET A 1000MG 2022-04 0-05 00:00: 00 Yes Oren Hickey TAKE ONE (1) TABLET(S) BY MOUTH TWICE A DAY. 2022-04 0 00:00: 00 Yes Oren Hickey TAKE ONE (1) TABLET(S) BY MOUTH THREE TIMES A DAY. 2022-04 0 00:00: 00 Yes Oren Hickey cenobamate 200 mg Tab 2022-04 0 00:00: 00 04-18 00:00 :00 No [id number] 1{tbl} Take 1 tablet by mouth in the morning. [facility] levETIRAcet am 1,000 mg tablet 2022-04 0 00:00: 00 04-18 00:00 :00 No [id number] 1000mg Take 1 tablet by mouth in the morning and 1 tablet in the evening. [facility] OXcarbazepi ne 600 mg tablet 2022-04 0 00:00: 00 04-18 00:00 :00 No [id number] 600mg Take 1 tablet by mouth in the morning and 1 tablet in the evening. [facility] topiramate 50 mg tablet 2022-04 0- 00:00: 00 04-18 00:00 :00 No [id number] 50mg Take 1 tablet by mouth in the morning. [facility] clonazePAM 1 mg tablet 2022-04 0- 00:00: 00 04-12 00:00 :00 No [id number] 1mg Take 1 tablet by mouth in the morning and 1 tablet at noon and 1 tablet in the evening. [facility] rimegepant (NURTEC ODT) 75 mg TbDL 2022-04 0- 00:00: 00 01-17 00:00 :00 No [id number] 75mg Take 1 tablet by mouth as needed (Headache) . Do not exceed 1 tab in any 24-hour period. [facility] TAKE 1 TABLET DAILY. 01-05 00:00: 00 07-09 00:00 :00 No [id number] Oren Hickey SUMATRIPTAN 50MG 12-27 00:00: 00 Yes Oren Hickey TOPAMAX 50MG 12-27 00:00: 00 Yes Oren Hickey CLOPIDOGREL 75MG 12-27 00:00: 00 Yes [id number] Oren Hickey TAKE 1 TABLET DAILY. 12-27 00:00: 00 07-09 00:00 :00 No 30 Oren Hickey TAKE 1 TABLET DAILY. 12-27 00:00: 00 07-09 00:00 :00 No 50 Oren Hickey lovastatin (MEVACOR) 20 mg tablet 12-22 17:05: 35 Yes Take by mouth at bedtime. [facility] lisinopril (PRINIVIL,Z ESTRIL) 20 mg tablet 12-22 17:05: 35 Yes 20mg Take 1 tablet by mouth in the morning. [facility] cenobamate (XCOPRI) Tab 200 mg 12-19 15:30: 00 Yes 200mg 200 mg, Oral, QAM, First dose on Sun12/19/22 at 1030, Until Discontinu ed, Routine [facility] topiramate (TOPAMAX) tablet 100 mg 12-19 14:00: 00 Yes 100mg 100 mg, Oral, DAILY, First dose on Sun12/19/22 at 0900, Until Discontinu ed, Routine
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 installation crew member approving Restricted medication : JAN GRAY [facility] lisinopriL (PRINIVIL,Z ESTRIL) tablet 20 mg 12-19 14:00: 00 Yes 20mg 20 mg, Oral, DAILY, First dose on Sun12/19/22 at 0900, Until Discontinu ed, Routine [facility] clopidogreL (PLAVIX) 75 mg tablet 75 mg 12-19 14:00: 00 Yes 75mg 75 mg, Oral, DAILY, First dose on Sun12/19/22 at 0900, Until Discontinu ed, Routine [facility] pantoprazol e (PROTONIX) EC tablet 40 mg 12-19 14:00: 00 Yes 40mg 40 mg, Oral, DAILY, First dose on Sun12/19/22 at 0900, Until Discontinu ed, Routine [facility] atorvastati n (LIPITOR) tablet 40 mg 12-19 02:00: 00 Yes 40mg 40 mg, Oral, QHS, First dose on Sun12/18/22 at 2100, Until Discontinu ed, Routine [facility] heparin (porcine) injection 5,000 Units 12-19 01:00: 00 Yes [id number] 5,000 Units, Subcutaneo us, Q12H, First dose on Sun12/18/22 at 2000, Until Discontinu ed, [facility] LEV[facility] 1000MG 12-19 00:00: 00 Yes Orenchace Hickey OXCARBAZEPI N 600MG 12-19 00:00: 00 Yes [id number] Oren Hickey LORazepam (ATIVAN) injection 1 mg 12-18 21:30: 15 Yes 1mg 1 mg, Intravenou s, Q4HPRN, Starting on Sun12/18/22 at 1630, Until Discontinu ed, Routine, Seizures [facility] OXcarbazepi ne (TRILEPTAL) tablet 600 mg 12-18 20:00: 00 Yes 600mg 600 mg, Oral, BID, First dose on Sun12/18/22 at 1500, Until Discontinu ed, Routine [facility] levETIRAcet am (KEPPRA) tablet 1,000 mg 12-18 20:00: 00 Yes 1000mg 1,000 mg, Oral, BID, First dose on Sun12/18/22 at 1500, Until Discontinu ed, Routine [facility] acetaminoph en (TYLENOL) tablet 650 mg 2023-0 9-11 15:25: 55 Yes 650mg 650 mg, Oral, Q6HPRN, Starting on Sun12/18/22 at 1025, Until Discontinu ed, Routine, Pain (scale 4-6) [facility] docusate (COLACE) capsule 100 mg 12-18 15:25: 55 Yes 100mg 100 mg, Oral, QDAILYPRN, Starting on Sun12/18/22 at 1025, Until Discontinu ed, Routine, Constipati on [facility] SUMATRIPTAN 50MG 11-30 00:00: 00 Yes [id number] Oren Hickey sulfur hexafluorid e microsphr (LUMASON) injection 5 mL 11-29 17:30: 00 11-29 17:21 :00 No [id number] 5mL 5 mL, Intravenou s, ONCE, 1 dose, On Sun11/29/22 at 1230, Routine
solar field installation crew member approving Restricted medication : ANNY DENISE [facility] TAKE 1 TABLET FOR MIGRAINE RELIEF. MAY REPEAT EVERY 2 HOURS. MAX 200MG/DAY. 11-23 00:00: 00 07-09 00:00 :00 No 50 Oren Hickey TOPIRAMATE 50MG 11-18 00:00: 00 Yes [id number] Oren Hickey CLOPIDOGREL 75MG 11-18 00:00: 00 Yes [id number] Oren Hickey TAKE 1 TAB TWICE A DAY NEEDED 11-18 00:00: 00 07-09 00:00 :00 No 25 Oren Hickey iopamidol (ISOVUE 370-500 mL) injection 90 mL 11-06 15:24: 00 11-06 15:24 :00 No [id number] 90mL 90 mL, Intravenou s, ONCE, 1 dose, On Sun11/06/22 at 1030, Routine [facility] lovastatin (MEVACOR) 20 mg tablet 10-30 07:59: 08 Yes Take by mouth at bedtime. [facility] lisinopril (PRINIVIL,Z ESTRIL) 20 mg tablet 10-30 07:57: 26 Yes 20mg Take 1 tablet by mouth in the morning. [facility] NAYZILAM 2PK 5MG SPR 10-30 00:00: 00 Yes Oren Hickey TAKE ONE (1) TABLET(S) BY MOUTH TWICE A DAY. 10-30 00:00: 00 Yes Oren Hickey TAKE ONE (1) TABLET(S) BY MOUTH ONCE A DAY IN THE MORNING. 10-30 00:00: 00 Yes Oren Hickey midazolam 5 mg/spray (0.1 mL) [place] 10-30 00:00: 00 Yes [id number] 1{spray } Use 1 [place] in 1 nostril SEE-INSTRU CTIONS. 1 spray in ONE nostril for seizure lasting more than 3 minutes or for seizure cluster; may repeat dose in 10 minutes in other nostril if needed (do not repeat if the patient is having trouble breathing or excessive sedation). Do not exceed 2 sprays for single episode. Do not use for more than one episode in a 3-day span or more than 5 episodes in a month. [facility] topiramate 50 mg tablet 10-30 00:00: 00 01-08 00:00 :00 No [id number] 100mg Take 2 tablets by mouth in the morning. [facility] levETIRAcet am 1,000 mg tablet 10-30 00:00: 00 01-08 00:00 :00 No [id number] 1000mg Take 1 tablet by mouth in the morning and 1 tablet in the evening. [facility] OXcarbazepi ne 600 mg tablet 10-30 00:00: 00 01-08 00:00 :00 No [id number] 600mg Take 1 tablet by mouth in the morning and 1 tablet in the evening. [facility] cenobamate 200 mg Tab 10-30 00:00: 00 01-08 00:00 :00 No [id number] 1{tbl} Take 1 tablet by mouth in the morning. [facility] LISINOPRIL 30MG 10-23 00:00: 00 Yes Oren Hickey clopidogreL 75 mg tablet 10-23 00:00: 00 Yes [facility] atorvastati n 40 mg tablet 10-23 00:00: 00 10-28 00:00 :00 No [facility] topiramate 50 mg tablet 10-23 00:00: 00 10-30 00:00 :00 No [facility] ergocalcife rol, vitamin d2, 1,250 mcg (50,000 unit) capsule 10-19 00:00: 00 Yes [facility] LEVETIRACET A 750MG 10-07 00:00: 00 Yes [id number] Oren Hickey TOPIRAMATE 50MG 09-25 00:00: 00 Yes Oren Hickey CLOPIDOGREL 75MG 09-25 00:00: 00 Yes [id number] Oren Hickey XCOPRI 50MG 09-25 00:00: 00 Yes [id number] Oren Hickey LEVETIRACET A 750MG 08 00:00: 00 Yes [id number] Oren Hickey OXCARBAZEPI N 600MG 09-10 00:00: 00 Yes [id number] Oren Hickey TAKE 1 TABLET DAILY. 08-29 00:00: 00 07-09 00:00 :00 No 50 Oren Hickey TAKE 1 TABLET DAILY. 08-29 00:00: 00 07-09 00:00 :00 No 75 Oren Hickey TAKE 1 TABLET FOR MIGRAINE RELIEF. MAY REPEAT EVERY 2 HOURS. MAX 200MG/DAY. 08-29 00:00: 00 07-09 00:00 :00 No 50 Oren Hickey TAKE 1 TABLET AT BEDTIME. 08-29 00:00: 00 07-09 00:00 :00 No 40 Oren Hickey TAKE 1 TABLET DAILY. 08-29 00:00: 00 07-09 00:00 :00 No 30 Oren Hickey XCOPRI 50MG 08-26 00:00: 00 Yes Oren Hickey LEVETIRACET A 750MG 5-16 00:00: 00 Yes [id number] Oren Hickey TAKE 1 TABLET DAILY. 08-05 00:00: 00 07-09 00:00 :00 No 30 Oren Hickey TAKE 1 TABLET DAILY. 08-05 00:00: 00 07-09 00:00 :00 No 75 Oren Hickey TAKE 1 TABLET AT BEDTIME. 08-05 00:00: 00 07-09 00:00 :00 No 40 Oren Hickey LISINOPRIL 20MG 07-31 00:00: 00 Yes Oren Hickey TAKE ONE (1) TABLET(S) BY MOUTH DAILY. 07-30 00:00: 00 Yes Oren Hickey ATORVASTATI N 40MG 07-30 00:00: 00 Yes Oren Hickey TAKE ONE (1) TABLET(S) BY MOUTH THREE TIMES A DAY. 07-30 00:00: 00 Yes Oren Hickey XCOPRI 50MG 07-26 00:00: 00 Yes Oren Hickey LEVETIRACET A 1000MG 07-25 00:00: 00 Yes Oren Hickey TAKE 1 TABLET BY MOUTH IN THE MORNING AND IN THE EVENING 07-25 00:00: 00 Yes Oren Hickey OXcarbazepi ne 600 mg tablet 07-25 00:00: 00 10-30 00:00 :00 No [id number] 600mg Take 1 tablet by mouth in the morning and 1 tablet in the evening. [facility] levETIRAcet am 1,000 mg tablet 07-25 00:00: 00 10-30 00:00 :00 No [id number] 1000mg Take 1 tablet by mouth in the morning and 1 tablet in the evening. [facility] cenobamate (XCOPRI) 50 mg Tab 07-25 00:00: 00 10-30 00:00 :00 No [id number] Take 25 mg by mouth daily for 14 days, THEN 50 mg daily for 14 days, THEN 100 mg daily for 14 days, THEN 150 mg daily for 14 days, THEN 200 mg daily for 300 days. [facility] OXcarbazepi ne 600 mg tablet 4-10 00:00: 00 07-25 00:00 :00 No [id number] 600mg Take 1 tablet by mouth in the morning and 1 tablet in the evening. [facility] OXCARBAZEPI N 600MG 0 3-24 00:00: 00 Yes Oren Hickey LISINOPRIL 20MG 2022-0 - 00:00: 00 Yes Oren Hickey XCOPRI 200 mg Tab - 00:00: 00 07-25 00:00 :00 No 1{tbl} Take 1 tablet by mouth in the morning. [facility] OXCARBAZEPI N 600MG 0 2- 00:00: 00 Yes Oren Hickey LISINOPRIL 20MG 0 2- 00:00: 00 Yes Oren Hickey topiramate (QUDEXY XR) 50 mg CSpX - 15:19: 44 05-09 00:00 :00 No Take by mouth. [facility] clonazePAM 1 mg tablet - 00:00: 00 01-08 00:00 :00 No [id number] 1mg Take 1 tablet by mouth in the morning and 1 tablet at noon and 1 tablet in the evening. [facility] LEVETIRACET A 750MG 0 1-25 00:00: 00 Yes [id number] Oren Hickey OXCARBAZEPI N 600MG 2022-0 1- 00:00: 00 Yes Oren Hickey OXCARBAZEPI N 600MG TAB 0 - 00:00: 00 Yes Oren Hickey VITAMIN C 500MG TAB 0 -17 00:00: 00 Yes Oren Hickey 1 TABLET EVERY 12 HOURS. 1-16 00:00: 00 07-09 00:00 :00 No 500 Oren Hickey CLONAZEPAM 1MG 1-12 00:00: 00 Yes 1000 Oren Hickey NITROFUR MON 100MG 1-11 00:00: 00 Yes Oren Hickey TAKE 1 TABLET DAILY. 1-11 00:00: 00 07-09 00:00 :00 No 20 Oren Hickey TAKE ONE (1) TABLET(S) BY MOUTH EVERY EIGHT HOURS NEEDED FOR MUSCLE SPASMS. 1-07 00:00: 00 Yes Oren Hickey XCOPRI 200MG 1-05 00:00: 00 Yes Oren Hickey LISINOPRIL 10MG 2021-04 2-28 00:00: 00 Yes Oren Hickey Dose Unknown 2021-04 2-28 00:00: 00 Yes Oren Hickey LEVETIRACET A 750MG 2021-04 2-27 00:00: 00 Yes 750 Oren Hickey CLONAZEPAM 1MG 2021-04 2-14 00:00: 00 Yes Oren Hickey TAKE 1 TABLET BY MOUTH TWICE A DAY 2021-04 1-28 00:00: 00 Yes Oren Hickey OXCARBAZEPI N 600MG 2021-04 1-04 00:00: 00 Yes Oren Hickey XCOPRI 200MG 2021-04 1-03 00:00: 00 Yes [id number] Oren Hickey CLONAZEPAM 1MG 0 9-14 00:00: 00 Yes 1000 Oren Hickey LEVETIRACET A 750MG 2021-0 7-30 00:00: 00 Yes [id number] Oren Hickey FERROUS SULF 325MG 2021-0 7-18 00:00: 00 Yes [id number] Oren Hickey OXCARBAZEPI N 600MG 0 6-28 00:00: 00 Yes [id number] Oren Hickey FERROUS SULF 325MG 2021-0 6-17 00:00: 00 Yes [id number] Oren Hickey VITAMIN C 500MG 0 6-17 00:00: 00 Yes [id number] Oren Hickey ferrous sulfate (IRON, FERROUS SULFATE,) 325 mg (65 mg iron) tablet 5-17 00:00: 00 11-22 04:59 :00 No [id number] 325mg Take 1 tablet by mouth daily for 90 days. [facility] ascorbic acid, vitamin C, 500 mg tablet 08-23 00:00: 00 11-22 04:59 :00 No [id number] 500mg Take 1 tablet by mouth daily for 90 days. [facility] lovastatin (MEVACOR) 20 mg tablet 08-22 14:49: 31 Yes Take by mouth at bedtime. [facility] lisinopril (PRINIVIL,Z ESTRIL) 20 mg tablet 08-22 14:49: 31 Yes 20mg Take 1 tablet by mouth in the morning. [facility] topiramate (QUDEXY XR) 50 mg CSpX 08-22 14:49: 31 Yes Take by mouth. [facility] clonazePAM 1 mg tablet 08-10 00:00: 00 05-09 00:00 :00 No 1mg Take 1 mg by mouth 3 (three) times daily. [facility] levETIRAcet am 750 mg tablet 08-04 00:00: 00 07-25 00:00 :00 No 750mg Take 750 mg by mouth 2 (two) times daily. [facility] OXcarbazepi ne 600 mg tablet 08-04 00:00: 00 07-17 00:00 :00 No 600mg Take 600 mg by mouth 2 (two) times daily. [facility] pantoprazol e 40 mg tablet,aiyana yed release 11-13 00:00: 00 Yes 1mg Oren Hickey Dose Unknown 09-25 00:00: 00 Yes Oren Hickey lisinopril 20 mg tablet 08-18 00:00: 00 Yes 1mg Oren Hickey amlodipine 10 mg tablet 08-14 00:00: 00 Yes 1mg Orne Hickey prednisone 20 mg tablet 08-14 00:00: 00 Yes 2mg Oren Hickey loratadine 10 mg tablet 08-14 00:00: 00 Yes 1mg Oren Hickey benzonatate 200 mg capsule 08-14 00:00: 00 Yes 1mg Oren Hickey lisinopril 10 mg tablet 06-26 00:00: 00 Yes 1mg Oren Hickey lisinopril 10 mg tablet 2015-04 00:00: 00 Yes 1mg Oren Hickey cyclobenzap rine 10 mg tablet 2015-04 00:00: 00 Yes 1mg Oren Hickey ibuprofen 800 mg tablet 2015-04 00:00: 00 Yes 1mg Oren Hickey amoxicillin 500 mg tablet 2015-04 00:00: 00 Yes 1mg Oren Hickey Sudafed 30 mg tablet 2015-04 00:00: 00 Yes 1mg Oren Hickey gemfibrozil 600 mg tablet 09-07 00:00: 00 Yes 1mg Oren Hickey Vitamin D3 1,000 unit tablet 09-07 00:00: 00 Yes 1unit Oren Hickey Trileptal 600 mg tablet 08-31 00:00: 00 Yes 1mg Oren Hickey Klonopin 0.5 mg tablet 08-31 00:00: 00 Yes 5mg Oren Hickey Keppra 1,000 mg tablet 08-31 00:00: 00 Yes 1mg Oren Hickey Vital Signs Vital Name Observation Time Observation Value Comments S ource Systolic blood pressure 2023-10-29 16:36:00 136 mm[Hg] [facility] Diastolic blood pressure 2023-10-29 16:36:00 76 mm[Hg] [facility] Heart rate 2023-10-29 16:36:00 67 /min [facility] Body temperature 2023-10-29 16:36:00 35.67 Yolanda [facility] Respiratory rate 2023-10-29 16:36:00 16 /min [facility] Body height 2023-10-29 16:36:00 154.9 cm [facility] Body weight 2023-10-29 16:36:00 74.798 kg [facility] BMI 2023-10-29 16:36:00 31.16 kg/m2 [facility] Oxygen saturation in Arterial blood by Pulse oximetry 2023-10-29 16:36:00 99 /min ra [facility] Systolic blood pressure 2023-07-18 17:55:00 134 mm[Hg] [facility] Diastolic blood pressure 2023-07-18 17:55:00 75 mm[Hg] [facility] Heart rate 2023-07-18 17:55:00 66 /min [facility] Body temperature 2023-07-18 17:55:00 36.28 Yolanda [facility] Respiratory rate 2023-07-18 17:55:00 18 /min [facility] Body height 2023-07-18 17:55:00 154.9 cm Univ [facility] Body weight 2023-07-18 17:55:00 74.844 kg [facility] BMI 2023-07-18 17:55:00 31.18 kg/m2 [facility] Oxygen saturation in Arterial blood by Pulse oximetry 2023-07-18 17:55:00 95 /min [facility] Systolic blood pressure 2023-04-18 18:48:00 117 mm[Hg] [facility] Diastolic blood pressure 2023-04-18 18:48:00 72 mm[Hg] [facility] Heart rate 2023-04-18 18:48:00 68 /min [facility] Body temperature 2023-04-18 18:48:00 36.5 Yolanda [facility] Respiratory rate 2023-04-18 18:48:00 16 /min [facility] Body height 2023-04-18 18:48:00 154.9 cm [facility] Body weight 2023-04-18 18:48:00 74.39 kg [facility] BMI 2023-04-18 18:48:00 30.99 kg/m2 [facility] Oxygen saturation in Arterial blood by Pulse oximetry 2023-04-18 18:48:00 100 /min [facility] Systolic blood pressure 2023-03-19 19:25:00 129 mm[Hg] [facility] Diastolic blood pressure 2023-03-19 19:25:00 79 mm[Hg] [facility] Heart rate 2023-03-19 19:25:00 57 /min [facility] 2023-03-19 19:25:00 36.28 Yolanda [facility] Respiratory rate 2023-03-19 19:25:00 18 /min [facility] Body height 2023-03-19 19:25:00 154.9 cm [facility] weight 2023-03-19 19:25:00 74.39 kg Univ [facility] BMI 2023-03-19 19:25:00 30.99 kg/m2 [facility] Oxygen saturation in Arterial blood by Pulse oximetry 2023-03-19 19:25:00 99 /min [facility] Systolic blood pressure 2023-02-15 19:22:00 116 mm[Hg] [facility] Diastolic blood pressure 2023-02-15 19:22:00 69 mm[Hg] [facility] Heart rate 2023-02-15 19:22:00 80 /min [facility] Body height 2023-02-15 19:22:00 154.9 cm [facility] Body weight 2023-02-15 19:22:00 73.347 kg [facility] BMI 2023-02-15 19:22:00 30.55 kg/m2 [facility] Oxygen saturation in Arterial blood by Pulse oximetry 2023-02-15 19:22:00 97 /min [facility] Systolic blood pressure 2023-01-08 17:53:00 137 mm[Hg] [facility] Diastolic blood pressure 2023-01-08 17:53:00 78 mm[Hg] [facility] Heart rate 2023-01-08 17:53:00 77 /min [facility] Body height 2023-01-08 17:53:00 154.9 cm Univ [facility] Body weight 2023-01-08 17:53:00 74.163 kg [facility] BMI 2023-01-08 17:53:00 30.89 kg/m2 [facility] Oxygen saturation in Arterial blood by Pulse oximetry 2023-01-08 17:53:00 98 /min [facility] Systolic blood pressure 2022-12-22 16:15:00 127 mm[Hg] [facility] Diastolic blood pressure 2022-12-22 16:15:00 61 mm[Hg] [facility] Heart rate 2022-12-22 16:15:00 86 /min [facility] Body temperature 2022-12-22 16:15:00 36.83 Yolanda [facility] Respiratory rate 2022-12-22 16:15:00 16 /min [facility] Oxygen saturation in Arterial blood by Pulse oximetry 2022-12-22 16:15:00 98 /min [facility] Body height 2022-12-18 14:15:00 154.9 cm [facility] Body weight 2022-12-18 14:15:00 74.844 kg [facility] BMI 2022-12-18 14:15:00 31.18 kg/m2 [facility] Systolic blood pressure 2022-12-04 13:07:00 128 mm[Hg] [facility] Diastolic blood pressure 2022-12-04 13:07:00 73 mm[Hg] [facility] Heart rate 2022-12-04 13:07:00 64 /min [facility] Body temperature 2022-12-04 13:07:00 36.39 Yolanda [facility] Respiratory rate 2022-12-04 13:07:00 16 /min [facility] Body height 2022-12-04 13:07:00 154.9 cm Univ [facility] Body weight 2022-12-04 13:07:00 74.118 kg [facility] BMI 2022-12-04 13:07:00 30.87 kg/m2 [facility] Oxygen saturation in Arterial blood by Pulse oximetry 2022-12-04 13:07:00 97 /min [facility] Systolic blood pressure 2022-10-30 12:59:00 135 mm[Hg] [facility] Diastolic blood pressure 2022-10-30 12:59:00 77 mm[Hg] [facility] Heart rate 2022-10-30 12:59:00 59 /min [facility] Body height 2022-10-30 12:59:00 154.9 cm [facility] Body weight 2022-10-30 12:59:00 76.068 kg [facility] BMI 2022-10-30 12:59:00 31.69 kg/m2 [facility] Oxygen saturation in Arterial blood by Pulse oximetry 2022-10-30 12:59:00 97 /min [facility] Systolic blood pressure 2022-07-25 20:52:00 158 mm[Hg] [facility] Diastolic blood pressure 2022-07-25 20:52:00 89 mm[Hg] [facility] Heart rate 2022-07-25 20:52:00 69 /min [facility] Body temperature 2022-07-25 20:52:00 36.61 Yolanda [facility] Respiratory rate 2022-07-25 20:52:00 18 /min [facility] Body height 2022-07-25 20:52:00 154.9 cm [facility] Body weight 2022-07-25 20:52:00 78.835 kg [facility] BMI 2022-07-25 20:52:00 32.84 kg/m2 [facility] Oxygen saturation in Arterial blood by Pulse oximetry 2022-07-25 20:52:00 96 /min [facility] Systolic blood pressure 2022-05-09 20:19:00 124 mm[Hg] [facility] Diastolic blood pressure 2022-05-09 20:19:00 66 mm[Hg] [facility] Heart rate 2022-05-09 20:19:00 77 /min [facility] Body temperature 2022-05-09 20:18:00 36.39 Yolanda [facility] Respiratory rate 2022-05-09 20:18:00 18 /min [facility] Body weight 2022-05-09 20:18:00 81.647 kg [facility] BMI 2022-05-09 20:18:00 34.01 kg/m2 [facility] Oxygen saturation in Arterial blood by Pulse oximetry 2022-05-09 20:18:00 98 /min [facility] Systolic blood pressure 2021-08-22 19:57:00 133 mm[Hg] [facility] Diastolic blood pressure 2021-08-22 19:57:00 89 mm[Hg] [facility] Heart rate 2021-08-22 19:43:00 72 /min [facility] Body temperature 2021-08-22 19:43:00 36.67 Yolanda [facility] Respiratory rate 2021-08-22 19:43:00 20 /min [facility] Body height 2021-08-22 19:43:00 154.9 cm [facility] Body weight 2021-08-22 19:43:00 84.171 kg [facility] BMI 2021-08-22 19:43:00 35.06 kg/m2 [facility] BP Systolic 2023-09-28 15:10:00 109 mm[Hg] Step hen F Ruperto BP Diastolic 2023-09-28 15:10:00 64 mm[Hg] Matteo phen F [place] Weight Measured 2023-09-28 15:10:00 165.60 pounds Oren F Ruperto Height Measured 2023-09-28 15:10:00 61.00 inches Oren F [place] Body Temperature 2023-09-28 15:10:00 98.30 degrees Oren F Ruperto Heart Rate 2023-09-28 15:10:00 81.00 /min Michaela en F Ruperto Respiratory Rate 2023-09-28 15:10:00 18.00 /min Oren F Ruperto BP Systolic 2023-06-26 13:17:00 122 mm[Hg] Step hen F Ruperto BP Diastolic 2023-06-26 13:17:00 69 mm[Hg] Matteo phen F Ruperto Weight Measured 2023-06-26 13:17:00 164.20 pounds Oren F Ruperto Height Measured 2023-06-26 13:17:00 61.00 inches Oren F Ruperto Body Temperature 2023-06-26 13:17:00 98.40 degrees Oren F Ruperto Heart Rate 2023-06-26 13:17:00 78.00 /min Michaela en F Ruperto Respiratory Rate 2023-06-26 13:17:00 19.00 /min Oren F Ruperto BP Systolic 2023-04-03 13:28:00 128 mm[Hg] Step hen F Ruperto BP Diastolic 2023-04-03 13:28:00 75 mm[Hg] Matteo phen F Ruperto Weight Measured 2023-04-03 13:28:00 159.80 pounds Oren F Ruperto Height Measured 2023-04-03 13:28:00 61.00 inches Oren F Ruperto Body Temperature 2023-04-03 13:28:00 98.10 degrees Oren F Ruperto Heart Rate 2023-04-03 13:28:00 65.00 /min Michaela en F Ruperto Respiratory Rate 2023-04-03 13:28:00 17.00 /min Oren F Ruperto BP Systolic 2023-01-30 13:45:00 108 mm[Hg] Step hen F Ruperto BP Diastolic 2023-01-30 13:45:00 71 mm[Hg] Matteo phen F Ruperto Weight Measured 2023-01-30 13:45:00 162.00 pounds Oren F Ruperto Height Measured 2023-01-30 13:45:00 61.00 inches Oren F Ruperto Body Temperature 2023-01-30 13:45:00 98.10 degrees Oren F Ruperto Heart Rate 2023-01-30 13:45:00 84.00 /min Michaela en F Ruperto Respiratory Rate 2023-01-30 13:45:00 17.00 /min Oren F Ruperto BP Systolic 2022-12-27 13:17:00 110 mm[Hg] Step hen F Ruperto BP Diastolic 2022-12-27 13:17:00 68 mm[Hg] Matteo phen F Ruperto Weight Measured 2022-12-27 13:17:00 162.60 pounds Oren F Ruperto Height Measured 2022-12-27 13:17:00 61.00 inches Oren F Ruperto Body Temperature 2022-12-27 13:17:00 98.20 degrees Oren F Ruperto Heart Rate 2022-12-27 13:17:00 79.00 /min Michaela en F Ruperto Respiratory Rate 2022-12-27 13:17:00 19.00 /min Oren F Ruperto BP Systolic 2022-11-18 10:23:00 154 mm[Hg] Step hen F Ruperto BP Diastolic 2022-11-18 10:23:00 84 mm[Hg] Matteo phen F Ruperto Weight Measured 2022-11-18 10:23:00 166.00 pounds Oren F Ruperto Height Measured 2022-11-18 10:23:00 61.00 inches Oren F Ruperto Body Temperature 2022-11-18 10:23:00 97.80 degrees Oren F Ruperto Heart Rate 2022-11-18 10:23:00 68.00 /min Michaela en F Ruperto Respiratory Rate 2022-11-18 10:23:00 Oren F Ruperto BP Systolic 2022-08-29 10:23:00 123 mm[Hg] Step hen F Ruperto BP Diastolic 2022-08-29 10:23:00 74 mm[Hg] Matteo phen F Ruperto Weight Measured 2022-08-29 10:23:00 173.20 pounds Oren F Ruperto Height Measured 2022-08-29 10:23:00 61.00 inches Oren F Ruperto Body Temperature 2022-08-29 10:23:00 98.10 degrees Oren F Ruperto Heart Rate 2022-08-29 10:23:00 76.00 /min Michaela en F Ruperto Respiratory Rate 2022-08-29 10:23:00 17.00 /min Oren F Ruperto BP Systolic 2022-08-05 10:25:00 139 mm[Hg] Step hen F Ruperto BP Diastolic 2022-08-05 10:25:00 82 mm[Hg] Matteo phen F Ruperto Weight Measured 2022-08-05 10:25:00 175.00 pounds Oren F Ruperto Height Measured 2022-08-05 10:25:00 61.00 inches Oren F Ruperto Body Temperature 2022-08-05 10:25:00 98.00 degrees Oren F Ruperto Heart Rate 2022-08-05 10:25:00 67.00 /min Michaela en F Ruperto Respiratory Rate 2022-08-05 10:25:00 18.00 /min Oren F Ruperto BP Systolic 2022-04-19 14:19:00 129 mm[Hg] Step hen F Ruperto BP Diastolic 2022-04-19 14:19:00 80 mm[Hg] Matteo phen F Ruperto Weight Measured 2022-04-19 14:19:00 182.60 pounds Oren F Ruperto Height Measured 2022-04-19 14:19:00 61.00 inches Oren F Ruperto Body Temperature 2022-04-19 14:19:00 98.00 degrees Oren F Ruperto Heart Rate 2022-04-19 14:19:00 100.00 /min Step hen F Ruperto Respiratory Rate 2022-04-19 14:19:00 18.00 /min Oren F Ruperto BP Systolic 2022-04-05 14:20:00 150 mm[Hg] Step hen F Ruperto BP Diastolic 2022-04-05 14:20:00 88 mm[Hg] Matteo phen F Ruperto Weight Measured 2022-04-05 14:20:00 182.40 pounds Oren Hickey Height Measured 2022-04-05 14:20:00 61.00 inches Oren Hickey Body Temperature 2022-04-05 14:20:00 98.60 degrees Oren F Ruperto Heart Rate 2022-04-05 14:20:00 84.00 /min Michaela en F Ruperto Respiratory Rate 2022-04-05 14:20:00 18.00 /min Oren F Ruperto Procedures Procedure Date / Time Performed Performing Clinician Source PHOSPHORUS 2022-12-18 19:22:00 Masha Skelton [facility] MAGNESIUM 2022-12-18 19:22:00 Masha Skelton [facility] BASIC METABOLIC PANEL (NA, K, CL, CO2, GLUCOSE, BUN, CREATININE, CA) 2022-12-18 19:22:00 Masha Skelton [facility] CBC WITH DIFF 2022-12-18 19:22:00 Masha Skelton [facility] TRANSTHORACIC ECHO (TTE) COMPLETE W/ CONTRAST 2022-11-29 17:18:[address] [facility] CT ANGIOGRAM NECK 2022-11-06 15:37:[address] [facility] CT ANGIOGRAM HEAD 2022-11-06 15:37:[address] [facility] COMP. METABOLIC PANEL ([id number]) 2022-10-30 16:25:00 Ron Fitch [facility] CBC WITH DIFF 2022-10-30 16:25:00 Ron Fitch [facility] VITAMIN D, 25-OH 2022-10-30 16:25:00 Ron Fitch [facility] FACTOR 5 LEIDEN 2022-10-30 16:25:00 [facility] [id number] MUTATION 2022-10-30 16:25:00 Mimi Fitch [facility] FIBRINOGEN 2022-10-30 16:25:00 Ron Fitch [facility] HYPERCOAGULABLE EVALUATION-LAV 2022-10-30 16:25:00 Ron Fitch [facility] ANTITHROMBIN ACTIVITY 2022-10-30 16:25:00 Alma Fitch [facility] PROTEIN C ACTIVITY 2022-10-30 16:25:00 Jono Fitch [facility] FREE PROTEIN S 2022-10-30 16:25:00 [facility] BENEFITS 2022-10-30 12:19:35 Docto r Unassigned, Thrall [facility] EXTERNAL PROVIDER RECORDS 2022-04-21 06:01:00 Do ctor Unassigned, Thrall [facility] REFERRAL- REQUEST/RESPONSE 2022-04-05 06:01:00 D octor Unassigned, Thrall [facility] [id number] Ecg Routine Ecg W/least 12 Lds W/i r 2016-11-13 00:00:00 Oren Hickey Encounters Start Date/Time End Date/Time Encounter Type Admission Type Attending Clinicians Care Facility Care Department Encounter ID Source 2023-11-16 00:00:00 2023-11-16 00:00:00 Outpatient R EL SINGH [facility] [id number] [facility] 2023-10-01 00:00:00 2023-11-02 17:20:41 Telephone Justin Arguelles [facility] 1.2.840.114 350.1.13.10 4.2.7.2.686 [id number] [facility] 2023-10-29 00:00:00 2023-10-30 08:24:10 Refill Yoav Platt [facility] 1.2.840.114 350.1.13.10 4.2.7.2.686 [id number] [facility] 2023-10-29 11:30:00 2023-10-29 12:32:27 Outpatient R EL SINGH [facility] [id number] [facility] 2023-10-29 11:30:00 2023-10-29 12:32:27 Office Visit El Singh [facility] 1..840.114 350.1.13.10 4.2.7.2.686 [id number] [facility] 2023-09-28 15:06:11 2023-09-28 15:06:[address] [facility] [id number] Oren Hickey 2023-09-28 00:00:00 2023-09-28 00:00:00 Outpatient Visit SFA [id number] Oren Hickey 2023-09-04 00:00:00 2023-09-04 10:57:15 Telephone Ina Rodgers [facility] 1.2.840.114 350.1.13.10 4.2.7.2.686 [id number] [facility] 2023-08-13 00:00:00 2023-08-17 16:41:10 Telephone GiuliaYoav [facility] 1.2.840.114 350.1.13.10 4.2.7.2.686 [id number] [facility] 2023-07-30 00:00:00 2023-07-30 00:00:00 Refill Yoav Platt [facility] 1.2.840.114 350.1.13.10 4.2.7.2.686 [id number] [facility] 2023-07-18 14:15:00 2023-07-18 14:30:00 Desk Monitor Visit Draw, Clc-Bls Lab Yoav Platt [facility] 1.2.840.114 350.1.13.10 4.2.7.2.686 [id number] [facility] 2023-07-18 14:15:00 2023-07-18 14:15:00 Outpatient [facility] [id number] [facility] 2023-07-18 13:20:00 2023-07-18 13:40:00 Office Visit Yoav Platt [facility] 1.2.840.114 350.1.13.10 4.2.7.2.686 [id number] [facility] 2023-07-16 14:30:00 2023-07-16 14:30:00 Outpatient R EL SINGH [facility] [id number] [facility] 2023-07-13 00:00:00 2023-07-13 00:00:00 Telephone Yoav Platt [facility] 1.2.840.114 350.1.13.10 4.2.7.2.686 [id number] [facility] 2023-07-10 00:00:00 2023-07-10 00:00:00 Telephone Yoav Platt [facility] 1.2.840.114 350.1.13.10 4.2.7.2.686 [id number] [facility] 2023-05-15 00:00:00 2023-05-15 00:00:00 Telephone Yoav Platt [facility] 1.2.840.114 350.1.13.10 4.2.7.2.686 [id number] [facility] 2023-04-18 13:20:00 2023-04-18 13:34:13 Office Visit Yoav Platt [facility] 1.2.840.114 350.1.13.10 4.2.7.2.686 [id number] [facility] 2023-04-18 13:20:00 2023-04-18 13:34:13 Outpatient R YOAV PLATT [facility] [id number] [facility] 2023-04-12 00:00:00 2023-04-12 00:00:00 Refill Yoav Platt [facility] 1.2.840.114 350.1.13.10 4.2.7.2.686 [id number] [facility] 2023-04-03 13:17:16 2023-04-03 13:17:[address] [facility] [id number] Oren Jean Ruperto 2023-03-19 14:30:00 2023-03-19 14:30:00 Office Visit El Singh [facility] 1.2.840.114 350.1.13.10 4.2.7.2.686 [id number] [facility] 2023-03-19 14:30:00 2023-03-19 14:15:15 Outpatient R EL SINGH [facility] [id number] [facility] 2023-03-08 00:00:00 2023-03-08 00:00:00 Letter (Out) Pcp, Patient Does Not Have A [facility] 1.2840.114 350.1.13.10 4.2.7.2.686 [id number] [facility] 2023-02-23 00:00:00 2023-02-23 00:00:00 Telephone Irlanda Richeshan [facility] 1.2.840.114 350.1.13.10 4.2.7.2.686 [id number] [facility] 2023-02-20 00:00:00 2023-02-20 00:00:00 Telephone Irlanda Rich Bryan [facility] 1.2.840.114 350.1.13.10 4.2.7.2.686 [id number] [facility] 2023-02-19 00:00:00 2023-02-19 00:00:00 Telephone Irlanda Rich [facility] 1.2.840.114 350.1.13.10 4.2.7.2.686 [id number] [facility] 2023-02-15 13:00:00 2023-02-15 13:58:35 Outpatient R IRLANDA RICH [facility]AD [facility] [id number] [facility] 2023-02-15 13:00:00 2023-02-15 13:58:35 Office Visit Irlanda Rich [facility] 1.2.840.114 350.1.13.10 4.2.7.2.686 [id number] [facility] 2023-01-30 13:19:50 2023-01-30 13:19:[address] [facility] [id number] [facility] Oren Hickey 2023-01-26 00:00:00 2023-01-26 00:00:00 Telephone Hadley Odonnell [facility] 1.2.840.114 350.1.13.10 4.2.7.2.686 [id number] [facility] 2023-01-17 00:00:00 2023-01-17 00:00:00 Telephone Yoav Platt [facility] 1.2.840.114 350.1.13.10 4.2.7.2.686 [id number] [facility] 2023-01-08 13:30:00 2023-01-08 13:45:00 Desk Monitor Visit Draw, Clc-Bls Lab Yoav Platt [facility] OFF[facility] 1.2.840.114 350.1.13.10 4.2.7.2.686 [id number] [facility] 2023-01-08 12:40:00 2023-01-08 13:00:00 Office Visit Yoav Platt [facility] OFF[facility] 1.2.840.114 350.1.13.10 4.2.7.2.686 [id number] [facility] 2023-01-08 12:40:00 2023-01-08 12:40:00 Outpatient R YOAV PLATT [facility] [id number] [facility] 2022-12-27 13:07:44 2022-12-27 13:07:[address] [facility] [id number] Oren Miranda Ruperto 2022-12-25 00:00:00 2022-12-25 00:00:00 Transition of Care Theresa Tracey 1.2.840.114 350.1.13.10 4.2.7.2.686 [id number] [facility] 2022-12-18 09:02:00 2022-12-22 17:05:00 Inpatient U JAN GRAY [facility] [id number] [facility] 2022-12-18 09:02:00 2022-12-22 17:05:00 Hospital Encounter Yoav Platt Jan Gray [facility] 1.2.840.114 350.1.13.10 4.2.7.2.686 [id number] [facility] 2022-12-04 08:00:00 2022-12-04 17:13:42 Outpatient R EL SINGH [facility] [id number] [facility] 2022-12-04 08:00:00 2022-12-04 17:13:42 Office Visit El Singh [facility] 1.840.114 350.1.13.10 4.2.7.2.686 [id number] [facility] 2022-11-30 00:00:00 2022-11-30 00:00:00 Telephone GiuliaYoav [facility] 1.840.114 350.1.13.10 4.2.7.2.686 [id number] [facility] 2022-11-29 11:00:00 2022-11-29 23:59:00 Outpatient R GIULIA YOAV [facility] [id number] [facility] 2022-11-29 11:00:00 2022-11-29 23:59:00 Hospital Encounter AracelipaoloYoav [facility] BU[facility] 1..840.114 350.1.13.10 4.2.7.2.686 [id number] [facility] 2022-11-18 10:16:15 2022-11-18 10:16:[address] [facility] [id number] Oren Hickey 2022-11-13 08:00:00 2022-11-13 08:00:00 Outpatient R YOAV PLATT [facility] [id number] [facility] 2022-11-06 09:26:11 2022-11-06 23:59:00 Hospital Encounter Yoav Platt [facility] 1.84.114 350.1.13.10 4.2.7.2.686 [id number] [facility] 2022-11-06 09:25:54 2022-11-06 09:25:54 Outpatient R YOAV PLATT [facility] [id number] [facility] 2022-11-06 09:25:54 2022-11-06 09:25:54 Hospital Encounter Yoav Platt [facility] 1.2840.114 350.1.13.10 4.2.7.2.686 [id number] [facility] 2022-10-31 00:00:00 2022-10-31 00:00:00 Telephone Yoav Platt [facility] 1.20.114 350.1.13.10 4.2.7.2.686 [id number] [id number] [facility] 2022-10-30 11:15:00 2022-10-30 15:46:43 Desk Monitor Visit Draw, Clc-Bls Lab Yoav Platt [facility] 1.20.114 350.1.13.10 4.2.7.2.686 [id number] [facility] 2022-10-30 08:00:00 2022-10-30 09:15:48 Outpatient R YOAV PLATT [facility] [id number] [facility] 2022-10-30 08:00:00 2022-10-30 09:15:48 Office Visit Yoav Platt [facility] 1.2840.114 350.1.13.10 4.2.7.2.686 [id number] [id number] [facility] 2022-10-30 00:00:00 2022-10-30 00:00:00 Orders Only Doctor Unassigned, [facility] 1.2840.114 350.1.13.10 4.2.7.2.686 [id number] [id number] [facility] 2022-10-16 00:00:00 2022-10-16 00:00:00 Telephone Yoav Platt [facility] 1.2.840.114 350.1.13.10 4.2.7.2.686 [id number] [id number] [facility] 2022-08-29 10:10:01 2022-08-29 10:10:[address] [facility] [id number] Oren Hickey 2022-08-18 09:45:47 2022-08-18 09:45:47 Outpatient [facility] [id number] Oren Hickey 2022-08-10 00:00:00 2022-08-10 00:00:00 Telephone Jan Gray [facility] 1.2.840.114 350.1.13.10 4.2.7.2.686 [id number] [id number] [facility] 2022-08-08 00:00:00 2022-08-08 00:00:00 Telephone Yoav Platt [facility] 1.2.840.114 350.1.13.10 4.2.7.2.686 [id number] [id number] [facility] 2022-08-08 00:00:00 2022-08-08 00:00:00 Telephone Jan Gray [facility] 1.2.840.114 350.1.13.10 4.2.7.2.686 [id number] [id number] [facility] 2022-08-05 10:17:45 2022-08-05 10:17:[address] [facility] [id number] Oren Hickey 2022-07-28 00:00:00 2022-07-28 00:00:00 Telephone Jan Gray [facility] 1.2.840.114 350.1.13.10 4.2.7.2.686 [id number] [id number] [facility] 2022-07-25 16:00:00 2022-07-25 16:30:00 Office Visit Jan Gray [facility] 1.2.840.114 350.1.13.10 4.2.7.2.686 [id number] 092 [id number] [facility] 2022-07-25 16:00:00 2022-07-25 16:00:00 Outpatient R JAN GRAY [facility] [id number] [facility] 2022-07-17 00:00:00 2022-07-17 00:00:00 [facility] 1.2.840.114 350.1.13.10 4.2.7.2.686 [id number] [id number] [facility] 2022-06-15 00:00:00 2022-06-15 00:00:00 [facility] 1.2.840.114 350.1.13.10 4.2.7.2.686 [id number] [id number] [facility] 2022-06-08 00:00:00 2022-06-08 00:00:00 Case Management [facility] 1.2.840.114 350.1.13.10 4.2.7.2.686 [id number] 086 [id number] [facility] 2022-06-08 00:00:00 2022-06-08 00:00:00 Telephone Dorina Church [facility] 1.2.840.114 350.1.13.10 4.2.7.2.686 [id number] [id number] [facility] 2022-05-22 00:00:00 2022-05-22 00:00:00 Telephone Micheline Riggins [facility] 1.2.840.114 350.1.13.10 4.2.7.2.686 [id number] [id number] [facility] 2022-05-09 17:15:00 2022-05-09 17:30:00 Desk Monitor Visit Pcp-Lab [facility] 1.2.840.114 350.1.13.10 4.2.7.2.686 [id number] [facility] 2022-05-09 15:30:00 2022-05-09 15:52:23 Outpatient R MARINA [facility] [id number] [facility] 2022-05-09 15:30:00 2022-05-09 15:52:23 Office Visit [facility] 1.2.840.114 350.1.13.10 4.2.7.2.686 [id number] [id number] [facility] 2022-04-21 00:00:00 2022-04-21 00:00:00 Orders Only Doctor Unassigned, Thrall [facility] 1.2.840.114 350.1.13.10 4.2.7.2.686 [id number] [facility] 2022-04-21 00:00:00 2022-04-21 00:00:00 [facility] 1.2.840.114 350.1.13.10 4.2.7.2.686 [id number] [id number] [facility] 2022-04-19 14:13:12 2022-04-19 14:13:[address] [facility] [id number] Oren Hickey 2022-04-05 00:00:00 2022-04-05 00:00:00 Orders Only Doctor Unassigned, Thrall [facility] 1.2.840.114 350.1.13.10 4.2.7.2.686 [id number] [facility] 2021-08-22 14:30:00 2021-08-22 15:12:53 Outpatient R STEFFI GUERRERO [facility] [id number] [facility] 2021-08-22 14:30:00 2021-08-22 15:12:53 Office Visit Steffi Guerrero [facility] 1.2.840.114 350.1.13.10 4.2.7.2.686 [id number] [facility] 2018-11-12 00:00:00 2018-11-12 00:00:00 Orders Only Doctor Unassigned, Thrall [facility] 1.2.840.114 350.1.13.10 4.2.7.2.686 [id number] 009 [id number] [facility] 2018-11-12 00:00:00 2018-11-12 00:00:00 Orders Only Doctor Unassigned, Thrall [facility] 1.2.840.114 350.1.13.10 4.2.7.2.686 [id number] 009 [id number] 2018-11-11 10:42:43 2018-11-11 11:54:00 Emergency BrandtChelsea [facility] 1.2.840.114 350.1.13.10 4.2.7.2.686 [id number] 084 [id number] [facility] 2018-11-11 10:42:43 2018-11-11 11:54:00 Emergency PruettChelsea donald [facility] 1.2.840.114 350.1.13.10 4.2.7.2.686 [id number] [id number] Results Test Description Test Time Test Comments Results Result Co mments Source Oren HickeyVITAMIN D, 25 [id number] 00:00:00* Test Item Value Reference Range Interpretation Comme nts VITAMIN D, 25 OH (test code = 4958) 23 NG/ML TNOY [id number] 00:00:00* Test Item Value Reference Range Interpretation Comme haroon TSH, THIRD GENERATION (test code = 2821) 1.520 UIU/ML Oren HickeyLIPID [id number] 00:00:00* Test Item Value Reference Range Interpretation Comme nts CHOLESTEROL (test code = 2210) 168 MG/DL TRIGLYCERIDES (test code = 2232) 256 MG/DL HDL CHOLESTEROL (test code = 2220) 46 MG/DL CALC LDL CHOL (test code = 2237) 88 MG/DL RISK RATIO LDL/HDL (test cod e = 2238) 1.91 RATIO Oren HickeyCOMPREHENSIVE METABOLIC [id number] 00:00:00* Test Item Value Reference Range Interpretation Comme nts GLUCOSE (test code = 2217) 106 MG/DL BUN (test code = 2208) 9 MG/DL CREATININE (test code = 2214) 0.59 MG/DL eGFR (2020 CKD-EPI) (test code = 75782) 112 ML/MIN/1.73 CALC BUN/CREAT (test code = 2235) 15 RATIO SODIUM (test code = 2231) 136 MEQ/L POTASSIUM (test code = 2228) 4.2 MEQ/L CHLORIDE (test code = 2215) 103 MEQ/L CARBON DIOXIDE (test code = 2206) 18 MEQ/L CALCIUM (test code = 2209) 8.8 MG/DL PROTEIN, TOTAL (test code = 2229) 7.0 G/DL ALBUMIN (test code = 2201) 4.3 G/DL CALC GLOBULIN (test code = 2240) 2.7 G/DL CALC A/G RATIO (test code = 2234) 1.6 RATIO BILIRUBIN, TOTAL (test code = 2207) <0.2 MG/DL ALKALINE PHOSPHATASE (test code = 2204) 137 U/L AST (test code = 2218) 16 U/L ALT (test code = 2219) 14 U/L Oren HickeyOXCARBAZEPINE [id number] 00:00:00* Test Item Value Reference Range Interpretation Comme nts OXCARBAZEPINE METABOLITE (te st code = 63043) 18.2 mcg/mL Oren [id number] 00:00:00* Test Item Value Reference Range Interpretation Comme nts LEVETIRACETAM (test code = 44286) 15.2 mcg/mL Oren HickeyCBC W/AUTO [id number] 00:00:00* Test Item Value Reference Range Interpretation Comme nts WBC (test code = 1001) 7.2 K/UL RBC (test code = 1002) 3.95 M/UL HEMOGLOBIN (test code = 1003) 12.2 G/DL HEMATOCRIT (test code = 1004) 36.6 % MCV (test code = 1005) 92.7 fL MCH (test code = 1006) 30.9 PG MCHC (test code = 1007) 33.3 G/DL RDW (test code = 1038) 13.7 % NEUTROPHILS (test code = 1008) 64.4 % LYMPHOCYTES (test code = 1010) 27.4 % MONOCYTES (test code = 1011) 7.2 % EOSINOPHILS (test code = 1012) 0.6 % BASOPHILS (test code = 1013) 0.3 % IMMATURE GRANULOCYTES (test code = 1036) 0.1 % NUCLEATED RBCS (test code = 1065) 0.0 /100WBC'S PLATELET COUNT (test code = 1015) 233 K/UL ABSOLUTE NEUTROPHILS (test c ode = 1066) 4.66 K/UL ABSOLUTE LYMPHOCYTES (test c ode = 1067) 1.98 K/UL ABSOLUTE MONOCYTES (test cod e = 1068) 0.52 K/UL ABSOLUTE EOSINOPHILS (test c ode = 1040) 0.04 K/UL ABSOLUTE BASOPHILS (test cod e = 1069) 0.02 K/UL ABS IMMATURE GRANULOCYTES (t est code = 1020) 0.01 K/UL ABS NUCLEATED RBCS (test cod e = 16770) 0.00 K/UL Oren HickeyCOMPREHENSIVE METABOLIC [id number] 00:00:00* Test Item Value Reference Range Interpretation Comme nts GLUCOSE (test code = 2217) 87 MG/DL BUN (test code = 2208) 13 MG/DL CREATININE (test code = 2214) 0.96 MG/DL eGFR (2020 CKD-EPI) (test co de = 08556) 74 ML/MIN/1.73 CALC BUN/CREAT (test code = 2235) 14 RATIO SODIUM (test code = 2231) 141 MEQ/L POTASSIUM (test code = 2228) 3.9 MEQ/L CHLORIDE (test code = 2215) 106 MEQ/L CARBON DIOXIDE (test code = 2206) 22 MEQ/L CALCIUM (test code = 2209) 8.8 MG/DL PROTEIN, TOTAL (test code = 2229) 7.2 G/DL ALBUMIN (test code = 2201) 4.8 G/DL CALC GLOBULIN (test code = 2240) 2.4 G/DL CALC A/G RATIO (test code = 2234) 2.0 RATIO BILIRUBIN, TOTAL (test code = 2207) <0.2 MG/DL ALKALINE PHOSPHATASE (test code = 2204) 133 U/L AST (test code = 2218) 16 U/L ALT (test code = 2219) 12 U/L Oren HickeyVITAMIN D, 25 [id number] 07:00:13* Test Item Value Reference Range Interpretation Comme nts VITAMIN D, 25 OH (test code = 4958) 35 NG/ML SEE BELOW EFFECTIVE 12/2022, PLEASE NOTE NEW METHODOLOGY IS ELECTROCHEMILUMINESCENCE BINDING ASSAY. NOTE: 25-HYDROXYVITAMIN D ASSAY INCLUDES 25-HYDROXYVITAMIN D2 AND D3. INTERPRETIVE RANGES PEDIATRIC (<17 YEARS) . . . . . . . . . . . NG/ML 20-100ADULT: INSUFFICIENT . . . . . . . . . . . . . . NG/ML <20 SUBOPTIMAL . . . . . . . . . . . . . . . NG/ML 20-29 OPTIMAL . . . . . . . . . . . . . . . . . NG/ML 30-100 UNLESS OTHERWISE INDICATED, ALL TESTING PERFORMED AT [facility] [address] [place] [address] COMPUTER SUPPORT ANALYST: VALENCIA GONZALES M.D. CLIA NUMBER [id number] [place]. [id number] CBC W/AUTO DIFF WITH [id number] 01:35:43* Test Item Value Reference Range Interpretation Comme nts WBC (test code = 1001) 7.2 K/UL 3.5-11.0 RBC (test code = 1002) 4.06 M/UL 3.80-5.40 HEMOGLOBIN (test code = 1003) 12.1 G/DL 11.5-15.5 HEMATOCRIT (test code = 1004) 36.4 % 34.0-45.0 MCV (test code = 1005) 89.7 fL 80.0-99.0 MCH (test code = 1006) 29.8 PG 25.0-33.0 MCHC (test code = 1007) 33.2 G/DL 31.0-36.0 RDW (test code = 1038) 14.5 % 11.5-15.0 NEUTROPHILS (test code = 1008) 62.5 % LYMPHOCYTES (test code = 1010) 29.5 % MONOCYTES (test code = 1011) 6.8 % EOSINOPHILS (test code = 1012) 0.6 % BASOPHILS (test code = 1013) 0.3 % IMMATURE GRANULOCYTES (test code = 1036) 0.3 % NUCLEATED RBCS (test code = 1065) 0.0 /100 WBC'S See_Comment [Automated messa ge] The system which generated this result transmitted reference range: 0.0. The reference range was not used to interpret this result as normal/abnormal. PLATELET COUNT (test code = 1015) 232 K/UL 130-400 ABSOLUTE NEUTROPHILS (test code = 1066) 4.51 K/UL 1.50-7.50 ABSOLUTE LYMPHOCYTES (test code = 1067) 2.13 K/UL 1.00-4.00 ABSOLUTE MONOCYTES (test code = 1068) 0.49 K/UL 0.20-1.00 ABSOLUTE EOSINOPHILS (test code = 1040) 0.04 K/UL 0.00-0.50 ABSOLUTE BASOPHILS (test code = 1069) 0.02 K/UL 0.00-0.20 ABS IMMATURE GRANULOCYTES (test code = 1020) 0.02 K/UL 0.00-0.10 ABS NUCLEATED RBCS (test code = 96222) 0.00 K/UL 0.00-0.11 VITAMIN D, 25 [id number] 00:00:00* Test Item Value Reference Range Interpretation Comme nts VITAMIN D, 25 OH (test code = 4958) 35 NG[facility] [id number] 00:00:00* Test Item Value Reference Range Interpretation Comme nts WBC (test code = 1001) 7.2 K/UL RBC (test code = 1002) 4.06 M/UL HEMOGLOBIN (test code = 1003) 12.1 G/DL HEMATOCRIT (test code = 1004) 36.4 % MCV (test code = 1005) 89.7 fL MCH (test code = 1006) 29.8 PG MCHC (test code = 1007) 33.2 G/DL RDW (test code = 1038) 14.5 % NEUTROPHILS (test code = 1008) 62.5 % LYMPHOCYTES (test code = 1010) 29.5 % MONOCYTES (test code = 1011) 6.8 % EOSINOPHILS (test code = 1012) 0.6 % BASOPHILS (test code = 1013) 0.3 % IMMATURE GRANULOCYTES (test code = 1036) 0.3 % NUCLEATED RBCS (test code = 1065) 0.0 /100WBC'S PLATELET COUNT (test code = 1015) 232 K/UL ABSOLUTE NEUTROPHILS (test c ode = 1066) 4.51 K/UL ABSOLUTE LYMPHOCYTES (test c ode = 1067) 2.13 K/UL ABSOLUTE MONOCYTES (test cod e = 1068) 0.49 K/UL ABSOLUTE EOSINOPHILS (test c ode = 1040) 0.04 K/UL ABSOLUTE BASOPHILS (test cod e = 1069) 0.02 K/UL ABS IMMATURE GRANULOCYTES (t est code = 1020) 0.02 K/UL ABS NUCLEATED RBCS (test cod e = 96867) 0.00 K/UL Oren [id number] 15:59:06* Test Item Value Reference Range Interpretation Comments LEVETIRACETAM (test code = 60893) 21.4 mcg/mL 12.0-46.0 Sample type: serum T his test was developed and its performance characteristicsdetermined by [facility] ([facility]). It has not beencleared or approved by the U.S. Food and Drug Administration (FDA).The FDA has determined that such clearance or approval is notnecessary. This test is used for clinical purposes and should not beregarded as investigational or for research. [facility] is qualified toperform high complexity testing under the Clinical LaboratoryImprovement Amendments (CLIA). TESTING PERFORMED AT [facility] [address] [facility] [address], [address] [address] CLIA NO: [id number] UNLESS OTHERWISE INDICATED, ALL TESTING PERFORMED AT [facility] [address] [place] [address] COMPUTER SUPPORT ANALYST: VALENCIA GONZALES M.D. [place] NUMBER [id number] [facility] [place]. [id number] 00:00:00* Test Item Value Reference Range Interpretation Comme [facility] LEVETIRACETAM (test code = 50501) 21.4 mcg/mL Oren HickeyVITAMIN D, 25 [id number] 03:47:07* Test Item Value Reference Range Interpretation Comme [facility] VITAMIN D, 25 OH (test code = 4958) 29 NG/ML SEE BELOW L EFFECTIVE 12/2022, PLEASE NOTE NEW METHODOLOGY IS ELECTROCHEMILUMINESCENCE BINDING ASSAY. NOTE: 25-HYDROXYVITAMIN D ASSAY INCLUDES 25-HYDROXYVITAMIN D2 AND D3. INTERPRETIVE RANGES PEDIATRIC (<17 YEARS) . . . . . . . . . . . NG/ML 20-100ADULT: INSUFFICIENT . . . . . . . . . . . . . . NG/ML <20 SUBOPTIMAL . . . . . . . . . . . . . . . NG/ML 20-29 OPTIMAL . . . . . . . . . . . . . . . . . NG/ML 30-100 COMPREHENSIVE METABOLIC [id number] 03:22:39* Test Item Value Reference Range Interpretation Comme [facility] GLUCOSE (test code = 2217) 105 MG/DL 70-99 H BUN (test code = 2208) 14 MG/DL 6-20 CREATININE (test code = 2214) 0.62 MG/DL 0.60-1.30 eGFR (2020 CKD-EPI) (test code = 48252) 112 ML/MIN/1.73 >60 CALC BUN/CREAT (test code = 2235) 23 RATIO 6-28 SODIUM (test code = 2231) 140 MEQ/L 133-146 POTASSIUM (test code = 2228) 4.2 MEQ/L 3.5-5.4 CHLORIDE (test code = 2215) 106 MEQ/L 95-107 CARBON DIOXIDE (test code = 2206) 20 MEQ/L 19-31 CALCIUM (test code = 2209) 9.0 MG/DL 8.5-10.5 PROTEIN, TOTAL (test code = 2229) 7.3 G/DL 6.1-8.3 ALBUMIN (test code = 2201) 4.3 G/DL 3.5-5.2 CALC GLOBULIN (test code = 2240) 3.0 G/DL 1.9-3.7 CALC A/G RATIO (test code = 2234) 1.4 RATIO 1.0-2.6 BILIRUBIN, TOTAL (test code = 2207) 0.2 MG/DL <=1.2 ALKALINE PHOSPHATASE (test code = 2204) 140 U/L 40-116 H AST (test code = 2218) 16 U/L 9-40 ALT (test code = 2219) 12 U/L 5-40 CBC W/AUTO DIFF WITH [id number] 02:53:01* Test Item Value Reference Range Interpretation Comme nts WBC (test code = 1001) 6.5 K/UL 3.5-11.0 RBC (test code = 1002) 3.70 M/UL 3.80-5.40 L HEMOGLOBIN (test code = 1003) 11.1 G/DL 11.5-15.5 L HEMATOCRIT (test code = 1004) 33.8 % 34.0-45.0 L MCV (test code = 1005) 91.4 fL 80.0-99.0 MCH (test code = 1006) 30.0 PG 25.0-33.0 MCHC (test code = 1007) 32.8 G/DL 31.0-36.0 RDW (test code = 1038) 13.8 % 11.5-15.0 NEUTROPHILS (test code = 1008) 62.4 % LYMPHOCYTES (test code = 1010) 28.7 % MONOCYTES (test code = 1011) 7.6 % EOSINOPHILS (test code = 1012) 0.8 % BASOPHILS (test code = 1013) 0.3 % IMMATURE GRANULOCYTES (test code = 1036) 0.2 % NUCLEATED RBCS (test code = 1065) 0.0 /100 WBC'S See_Comment [Automated [employer] ge] The system which generated this result transmitted reference range: 0.0. The reference range was not used to interpret this result as normal/abnormal. PLATELET COUNT (test code = 1015) 225 K/UL 130-400 ABSOLUTE NEUTROPHILS (test code = 1066) 4.03 K/UL 1.50-7.50 ABSOLUTE LYMPHOCYTES (test code = 1067) 1.85 K/UL 1.00-4.00 ABSOLUTE MONOCYTES (test code = 1068) 0.49 K/UL 0.20-1.00 ABSOLUTE EOSINOPHILS (test code = 1040) 0.05 K/UL 0.00-0.50 ABSOLUTE BASOPHILS (test code = 1069) 0.02 K/UL 0.00-0.20 ABS IMMATURE GRANULOCYTES (test code = 1020) 0.01 K/UL 0.00-0.10 ABS NUCLEATED RBCS (test code = 04582) 0.00 K/UL 0.00-0.11 VITAMIN D, 25 [id number] 00:00:00* Test Item Value Reference Range Interpretation Comme nts VITAMIN D, 25 OH (test code = 4958) 29 NG/ML [facility] [id number] 00:00:00* Test Item Value Reference Range Interpretation Comme nts WBC (test code = 1001) 6.5 K/UL RBC (test code = 1002) 3.70 M/UL HEMOGLOBIN (test code = 1003) 11.1 G/DL HEMATOCRIT (test code = 1004) 33.8 % MCV (test code = 1005) 91.4 fL MCH (test code = 1006) 30.0 PG MCHC (test code = 1007) 32.8 G/DL RDW (test code = 1038) 13.8 % NEUTROPHILS (test code = 1008) 62.4 % LYMPHOCYTES (test code = 1010) 28.7 % MONOCYTES (test code = 1011) 7.6 % EOSINOPHILS (test code = 1012) 0.8 % BASOPHILS (test code = 1013) 0.3 % IMMATURE GRANULOCYTES (test code = 1036) 0.2 % NUCLEATED RBCS (test code = 1065) 0.0 /100WBC'S PLATELET COUNT (test code = 1015) 225 K/UL ABSOLUTE NEUTROPHILS (test c ode = 1066) 4.03 K/UL ABSOLUTE LYMPHOCYTES (test c ode = 1067) 1.85 K/UL ABSOLUTE MONOCYTES (test cod e = 1068) 0.49 K/UL ABSOLUTE EOSINOPHILS (test c ode = 1040) 0.05 K/UL ABSOLUTE BASOPHILS (test cod e = 1069) 0.02 K/UL ABS IMMATURE GRANULOCYTES (t est code = 1020) 0.01 K/UL ABS NUCLEATED RBCS (test cod e = 79775) 0.00 K/UL Oren Jean RupertoCOMPREHENSIVE METABOLIC [id number] 00:00:00* Test Item Value Reference Range Interpretation Comme nts GLUCOSE (test code = 2217) 105 MG/DL BUN (test code = 2208) 14 MG/DL CREATININE (test code = 2214) 0.62 MG/DL eGFR (2020 CKD-EPI) (test code = 94980) 112 ML/MIN/1.73 CALC BUN/CREAT (test code = 2235) 23 RATIO SODIUM (test code = 2231) 140 MEQ/L POTASSIUM (test code = 2228) 4.2 MEQ/L CHLORIDE (test code = 2215) 106 MEQ/L CARBON DIOXIDE (test code = 2206) 20 MEQ/L CALCIUM (test code = 2209) 9.0 MG/DL PROTEIN, TOTAL (test code = 2229) 7.3 G/DL ALBUMIN (test code = 2201) 4.3 G/DL CALC GLOBULIN (test code = 2240) 3.0 G/DL CALC A/G RATIO (test code = 2234) 1.4 RATIO BILIRUBIN, TOTAL (test code = 2207) 0.2 MG/DL ALKALINE PHOSPHATASE (test code = 2204) 140 U/L AST (test code = 2218) 16 U/L ALT (test code = 2219) 12 U/L Oren Jean RupertoBasic Metabolic Panel (Na, K, Cl, CO2, Glucose, BUN, Creatinine, Ca)2022-12-18 20:04:02* Test Item Value Reference Range Interpretation Comme nts NA (test code = 0599056547) 134 mmol/L 135-145 L K (test code = 0033603390) 3.4 mmol/L 3.5-5.0 L CL (test code = 5075356313) 104 mmol/L 98-108 CO2 TOTAL (test code = 4045084886) 20 mmol/L 23-31 L AGAP (test code = 4236048391) 10 2-16 BUN (test code = 1416335813) 7 mg/dL 7-23 GLUCOSE (test code = 7586265162) 105 mg/dL 70-110 CREATININE (test code = 1414874997) 0.50 mg/dL 0.50-1.04 CALCIUM (test code = 2217220063) 8.4 mg/dL 8.6-10.6 L eGFR (test code = 8551898364) 133.4 mL/min/1.73m2 TREV (test code = TREV) Association of Glomerular Filtration Rate (GFR) and Staging of Kidney Disease* + --+ --+ ------+| GFR (mL/min/1.73 m2) ?| With Kidney Damage ?| ?Without Kidney Damage+ --------+ --------+ +| ?>90 ?| ?Stage one ?| ? Normal ?+ ---+ ---+ -------+| ?60-89 ?| ?Stage two ?| ? Decreased GFR ? + --+ --+ ------+| ?30-59 ?| ?Stage three ?| ? Stage three ? + --+ --+ ------+| ?15-29 ?| ?Stage four ? | ? Stage four ?+ ---+ ---+ -------+| ?<15 (or dialysis) ? ?| ?Stage five ? | ? Stage five ?+ ---+ ---+ -------+ *Each stage assumes the associated GFR level has been in effect for at least three months. ?Stages 1 to 5, with or without kidney disease, indicate chronic kidney disease. Notes: Determination of stages one and two (with eGFR >59mL/min/1.73 m2) requires estimation of kidney damage for at least three months as defined by structural or functional abnormalities of the kidney, manifested by either:Pathological abnormalities or Markers of kidney damage (including abnormalities in the composition of the blood or urine or abnormalities in imaging tests). Lab Interpretation (test code = 08791-7) [facility]normal [facility] [id number] 20:04:02* Test Item Value Reference Range Interpretation Comme nts MAGNESIUM (test code = 1549952482) 2.0 mg/dL 1.7-2.4 Lab Interpretation (test cod e = 03411-9) Normal [facility] [id number] 20:04:02* Test Item Value Reference Range Interpretation Comme nts PHOSPHORUS (test code = 3203655696) 3.0 mg/dL 2.5-5.0 Lab Interpretation (test cod e = 61883-5) Normal [facility] with Bgrkqpckrkbx0059-03-02 19:58:38* Test Item Value Reference Range Interpretation Comme nts WBC (test code = 6690-2) 7.64 See_Comment [Automated messa ge] The system which generated this result transmitted reference range: 4.30 - 11.10 10*3/?L. The reference range was not used to interpret this result as normal/abnormal. RBC (test code = 789-8) 3.79 See_Comment L [Automated messa ge] The system which generated this result transmitted reference range: 3.93 - 5.25 10*6/?L. The reference range was not used to interpret this result as normal/abnormal. HGB (test code = 718-7) 11.3 g/dL 11.6-15.0 L HCT (test code = 4544-3) 34.0 % 35.7-45.2 L MCV (test code = 787-2) 89.7 fL 80.6-95.5 MCH (test code = 785-6) 29.8 pg 25.9-32.8 MCHC (test code = 786-4) 33.2 g/dL 31.6-35.1 RDW-SD (test code = 11088-5) 48.2 fL 39.0-49.9 RDW-CV (test code = 788-0) 14.7 % 12.0-15.5 PLT (test code = 777-3) 217 See_Comment [Automated messa ge] The system which generated this result transmitted reference range: 166 - 358 10*3/?L. The reference range was not used to interpret this result as normal/abnormal. MPV (test code = 22625-0) 10.4 fL 9.5-12.9 NRBC/100 WBC (test code = 5676995550) 0.0 See_Comment [Automated [employer] ssage] The system which generated this result transmitted reference range: 0.0 - 10.0 /100 WBCs. The reference range was not used to interpret this result as normal/abnormal. NRBC x10^3 (test code = 6636570598) See_Comment [Automated messa ge] The system which generated this result transmitted reference range: 10*3/?L. The reference range was not used to interpret this result as normal/abnormal. GRAN MAT (NEUT) % (test code = 770-8) 66.2 % IMM GRAN % (test code = 6858878556) 0.30 % LYMPH % (test code = 736-9) 26.8 % MONO % (test code = 5905-5) 6.0 % EOS % (test code = 713-8) 0.4 % BASO % (test code = 706-2) 0.3 % GRAN MAT x10^3(ANC) (test code = 1146320156) 5.06 10*3/uL 1.88-7.09 IMM GRAN x10^3 (test code = 7223040404) 0.00-0.06 LYMPH x10^3 (test code = 731-0) 2.05 10*3/uL 1.32-3.29 MONO x10^3 (test code = 742-7) 0.46 10*3/uL 0.33-0.92 EOS x10^3 (test code = 711-2) 0.03 10*3/uL 0.03-0.39 BASO x10^3 (test code = 704-7) 0.01-0.07 Lab Interpretation (test code = 25589-6) [facility]normal [facility]2022-11-30 02:24:40* Test Item Value Reference Range Interpretation Comme nts Height (test code = 0403481495) 61 in Weight (test code = 3121201694) 167 lbs Systolic BP (test code = 1661045390) 117 mmHg Diastolic BP (test code = 8495671558) 68 mmHg Heart Rate (test code = 8716886349) 89 bpm BSA (test code = 8874558766) 1.75 m2 LVIDD (test code = 8361166689) 4.20 cm Left Ventricular End Diastolic Volume by Teichholz Method (test code = 0666000) 79.8 mL IVS (test code = 2371103477) 0.92 cm Interventricular Septum Diastolic Thickness by 2D (test code = 3237895) 0.92 cm LVPWD (test code = 0346956042) 0.85 cm PW (test code = 8147765736) 0.85 cm 0.6-1.1 EF(Teich) (test code = 9457669682) 62.30 % LVIDS (test code = 2615548215) 2.80 cm Left Ventricular End Systolic Volume by Teichholz Method (test code = 2751116) 30.1 mL FS (test code = 3337177865) 33 % EF - 2D (test code = 94187146) 62.30 % LVOT diameter (test code = 4102014650) 1.96 cm LVOT area (test code = 1410161830) 3.00 cm2 ACS (test code = 4341172112) 1.82 cm Ao root diam (test code = 6492365694) 3.60 cm Aortic root (test code = 3195167724) 3.6 cm Ao root annulus (test code = 2008746344) 3.6 cm LA size (test code = 4739333192) 3.3 cm E wave decelartion time (test code = 6217267617) 0.27 s MV Peak E Antonio (test code = 6663229880) 67.7 cm/s MV Peak A Antonio (test code = 7720864981) 74.1 cm/s E/A ratio (test code = 9846186786) 0.91 ratio MV Prop V (test code = 6197285928) 32.00 cm/s Tapse (test code = 9938763753) 1.94 cm LVOT stroke volume (test code = 5126906335) 70.20 cm3 LVOT peak antonio (test code = 8734065669) 106.7 cm/s LVOT mn grad (test code = 5111495574) 2.0 mmHg AV LVOT peak gradient (test code = 3496293862) 4.6 mmHg LVOT peak VTI (test code = 7097307130) 23.2 cm LV V1 mean (test code = 8694506687) 63.30 cm/s Aortic valve mean velocity (test code = 8228565122) 107.8 cm/s Ao peak antonio (test code = 0259833766) 179.1 cm/s Ao VTI (test code = 1759118819) 36.1 cm AV area by cont VTI (test code = 7696460326) 2.0 cm2 AV area peak antonio (test code = 4121272703) 1.8 cm2 Ao max PG (test code = 5635893418) 12.80 mm[Hg] AV peak gradient (test code = 7376124481) 12.8 mmHg AV valve area (test code = 8409322471) 1.95 cm2 AV mean gradient (test code = 0835910486) 5.6 mmHg AI dec slope (test code = 6731868937) 239.60 cm/s2 AV regurgitation pressure 1/2 time (test code = 9949843212) 491.5 ms AI max antonio (test code = 8340053945) 402.00 cm/s AI max PG (test code = 1083016554) 64.60 mm[Hg] MR max PG (test code = 3711549654) 71.70 mm[Hg] MR max antonio (test code = 7267536774) 423.50 cm/s Mr max antonio (test code = 5183737942) 423.5 m/s TR Peak Antonio (test code = 1444770419) 238.3 cm/s Triscuspid Valve Regurgitation Peak Gradient (test code = 5053624731) 22.7 mmHg LAV(MOD-sp4) (test code = 5556669097) 28.60 mL Radiology Study observation (narrative) (test code = 24533-7) TREV (test code = TREV) ?Left?Ventricle: Left ventricle size is normal. Normal wall thickness. Normal wall motion. Normal systolic function with a visually estimated EF of 55 - 60%. Normal diastolic function. ?Tricuspid?Valve: Trace transvalvular regurgitation. Right ventricular systolic pressure is 20-25 mmHg. ?RA pressure is 0-5 mmHg. ?Aorta: Borderline enlarged ascending aorta 3.0cm. ?Left?Atrium: PFO present viewable by saline contrast. Left VentricleLeft ventricle size is normal. Normal wall thickness. Normal wall motion. Normal systolic function with a visually estimated EF of 55 - 60%. Normal diastolic function.Right VentricleRight ventricle size is normal. Normal systolic function.Left AtriumLeft atrium size is normal. PFO present viewable by saline contrast.Right AtriumRight atrium size is normal.IVC/SVCRA pressure is 0-5 mmHg.Mitral ValveMitral valve structure is grossly normal. Trace transvalvular regurgitation.Tricuspi d ValveTricuspid valve structure is grossly normal. Trace transvalvular regurgitation. Right ventricular systolic pressure is 20-25 mmHg. RA pressure is 0-5 mmHg.Aortic ValveAortic valve opens well. Trace transvalvular regurgitation.Pulmonic ValveNot well visualized.Ascending AortaBorderline enlarged ascending aorta 3.0cm.PericardiumNo pericardial effusion.Study DetailsStudy quality was adequate. A complete echocardiogram was performed using 2D, color flow Doppler and spectral Doppler. The apical, parasternal and subcostal views were obtained. 5 mL of Lumason ultrasound enhancing agent used and saline contrast was performed. 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 Incidence: Between 3 and 8 percent of people with ancestry are heterozygous and about 1 in 5000 individuals are homozygous with two copies of the mutation. The mutation is less common in other population.Inheritance: Autosomal dominant. Penetrance: Lifetime risk of thrombosis is 10 percent for heterozygotes and 80 percent for homozygotes. 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 Note: Standardized nomenclature for the Factor 5 Leiden mutation is c.1601G>A (p.Ovt108Kqd). Methodology: Polymerase chain reaction and fluorescence monitoring. Limitations: Rare Factor V mutations (F3561G, X1972N, and U1621A) and any additional SNPs in the probe binding region may interfere with the target detection and yield an INVALID result. The performance of this assay has not been evaluated with samples from pediatric patients. Counseling and informed consent are recommended for genetic testing. References: OMIM: 800121 https://ghr.nlm.nih.gov/co ndition/qhwbsw-f-epadcw-th rombophilia [facility] 2 Z37903I [id number] 15:05:26* Test Item Value Reference Range Interpretation Comme nts Factor 2 K91243I Mutation (test code = 2506201284) Normal Normal TREV (test code = TREV) Phenotype Characteristics: Thrombophilia due to production of too much coagulation factor 2 (F2, also called prothrombin). Incidence: Approximately 2-5 percent of Caucasians and 0.3 percent of Americans are heterozygous; about 1 in 10,000 individuals are homozygous with two copies of the mutation.Inheritance: Autosomal dominant. Penetrance: The risk of thrombosis is increased 2-4 fold for heterozygotes and further increased for homozygotes. Mutation Tested: F2 c.69782R>A (N80548J). Clinical Sensitivity for Venous Thrombosis: Approximately 10%. Methodology: Polymerase chain reaction and fluorescence monitoring Limitations: The performance of this assay has not been evaluated with samples from pediatric patients. Counseling and informed consent are recommended for genetic testing. 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 Incidence: Between 3 and 8 percent of people with ancestry are heterozygous and about 1 in 5000 individuals are homozygous with two copies of the mutation. The mutation is less common in other population.Inheritance: Autosomal dominant. Penetrance: Lifetime risk of thrombosis is 10 percent for heterozygotes and 80 percent for homozygotes. 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 Note: Standardized nomenclature for the Factor 5 Leiden mutation is c.1601G>A (p.Vok133Lwq). Methodology: Polymerase chain reaction and fluorescence monitoring. Limitations: Rare Factor V mutations (K1669W, N6686N, and D8679S) and any additional SNPs in the probe binding region may interfere with the target detection and yield an INVALID result. The performance of this assay has not been evaluated with samples from pediatric patients. Counseling and informed consent are recommended for genetic testing. 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 Incidence: Approximately 2-5 percent of Caucasians and 0.3 percent of Americans are heterozygous; about 1 in 10,000 individuals are homozygous with two copies of the mutation.Inheritance: Autosomal dominant. Penetrance: The risk of thrombosis is increased 2-4 fold for heterozygotes and further increased for homozygotes. Mutation Tested: F2 c.09437K>A (O03858T). Clinical Sensitivity for Venous Thrombosis: Approximately 10%. Methodology: Polymerase chain reaction and fluorescence monitoring Limitations: The performance of this assay has not been evaluated with samples from pediatric patients. Counseling and informed consent are recommended for genetic testing. References: OMIM: 584014 https://ghr.nlm.nih.gov/c ondition/prothrombin-thro mbophilia [facility]VIT[facility]IN D, [id number] 08:55:05* Test Item Value Reference Range Interpretation Comme nts VIT D 25OH (test code = 36969-1) 26 ng/mL 25-80 TREV (test code = TREV) Deficiency: <20 ng/mLInsufficiency : 20-24 ng/mLOptimal: 25-80 ng/mL Lab Interpretation (test code = 55296-3) Normal [facility], [id number] 08:55:05* Test Item Value Reference Range Interpretation Comme nts VIT D 25OH (test code = 82463-3) 26 ng/mL 25-80 TREV (test code = TREV) Deficiency: <20 ng/mLInsufficiency : 20-24 ng/mLOptimal: 25-80 ng/mL Lab Interpretation (test code = 98016-5) Normal [facility]COMP. METABOLIC PANEL (30248)2022-10-30 22:28:01* Test Item Value Reference Range Interpretation Comme nts NA (test code = 9957925996) 133 mmol/L 135-145 L K (test code = 2585289379) 3.6 mmol/L 3.5-5.0 CL (test code = 0490437448) 100 mmol/L 98-108 CO2 TOTAL (test code = 4731129663) 21 mmol/L 23-31 L AGAP (test code = 2363187040) 12 2-16 BUN (test code = 1206132543) 10 mg/dL 7-23 GLUCOSE (test code = 1299073057) 100 mg/dL 70-110 CREATININE (test code = 6444227813) 0.51 mg/dL 0.50-1.04 TOTAL BILI (test code = 1853501131) 0.4 mg/dL 0.1-1.1 CALCIUM (test code = 1172248630) 8.9 mg/dL 8.6-10.6 T PROTEIN (test code = 6874163590) 7.5 g/dL 6.3-8.2 ALBUMIN (test code = 7154386800) 4.2 g/dL 3.5-5.0 ALK PHOS (test code = 6661488367) 164 U/L 34-122 H ALTv (test code = 1742-6) 16 U/L 5-35 AST(SGOT) (test code = 5857728948) 22 U/L 13-40 eGFR (test code = 3187554088) 130.4 mL/min/1.73m2 TREV (test code = TREV) Association of Glomerular Filtration Rate (GFR) and Staging of Kidney Disease* + --+ --+ ------+| GFR (mL/min/1.73 m2) ?| With Kidney Damage ?| ?Without Kidney Damage+ --------+ --------+ +| ?>90 ?| ?Stage one ?| ? Normal ?+ ---+ ---+ -------+| ?60-89 ?| ?Stage two ?| ? Decreased GFR ? + --+ --+ ------+| ?30-59 ?| ?Stage three ?| ? Stage three ? + --+ --+ ------+| ?15-29 ?| ?Stage four ? | ? Stage four ?+ ---+ ---+ -------+| ?<15 (or dialysis) ? ?| ?Stage five ? | ? Stage five ?+ ---+ ---+ -------+ *Each stage assumes the associated GFR level has been in effect for at least three months. ?Stages 1 to 5, with or without kidney disease, indicate chronic kidney disease. Notes: Determination of stages one and two (with eGFR >59mL/min/1.73 m2) requires estimation of kidney damage for at least three months as defined by structural or functional abnormalities of the kidney, manifested by either:Pathological abnormalities or Markers of kidney damage (including abnormalities in the composition of the blood or urine or abnormalities in imaging tests). Lab Interpretation (test code = 17697-3) Abnormal [facility]. METABOLIC PANEL (74659)2022-10-30 22:28:01* Test Item Value Reference Range Interpretation Comme nts NA (test code = 5418725925) 133 mmol/L 135-145 L K (test code = 6161777069) 3.6 mmol/L 3.5-5.0 CL (test code = 8251989355) 100 mmol/L 98-108 CO2 TOTAL (test code = 9748533065) 21 mmol/L 23-31 L AGAP (test code = 0863266220) 12 2-16 BUN (test code = 1934326996) 10 mg/dL 7-23 GLUCOSE (test code = 5529786566) 100 mg/dL 70-110 CREATININE (test code = 4945562139) 0.51 mg/dL 0.50-1.04 TOTAL BILI (test code = 5895198660) 0.4 mg/dL 0.1-1.1 CALCIUM (test code = 9920904008) 8.9 mg/dL 8.6-10.6 T PROTEIN (test code = 0587509988) 7.5 g/dL 6.3-8.2 ALBUMIN (test code = 5873815965) 4.2 g/dL 3.5-5.0 ALK PHOS (test code = 9525378079) 164 U/L 34-122 H ALTv (test code = 1742-6) 16 U/L 5-35 AST(SGOT) (test code = 9197854479) 22 U/L 13-40 eGFR (test code = 4733468814) 130.4 mL/min/1.73m2 TREV (test code = TREV) Association of Glomerular Filtration Rate (GFR) and Staging of Kidney Disease* + --+ --+ ------+| GFR (mL/min/1.73 m2) ?| With Kidney Damage ?| ?Without Kidney Damage+ --------+ --------+ +| ?>90 ?| ?Stage one ?| ? Normal ?+ ---+ ---+ -------+| ?60-89 ?| ?Stage two ?| ? Decreased GFR ? + --+ --+ ------+| ?30-59 ?| ?Stage three ?| ? Stage three ? + --+ --+ ------+| ?15-29 ?| ?Stage four ? | ? Stage four ?+ ---+ ---+ -------+| ?<15 (or dialysis) ? ?| ?Stage five ? | ? Stage five ?+ ---+ ---+ -------+ *Each stage assumes the associated GFR level has been in effect for at least three months. ?Stages 1 to 5, with or without kidney disease, indicate chronic kidney disease. Notes: Determination of stages one and two (with eGFR >59mL/min/1.73 m2) requires estimation of kidney damage for at least three months as defined by structural or functional abnormalities of the kidney, manifested by either:Pathological abnormalities or Markers of kidney damage (including abnormalities in the composition of the blood or urine or abnormalities in imaging tests). Lab Interpretation (test code = 46899-9) Abnormal [facility] WITH [id number] 21:27:59* Test Item Value Reference Range Interpretation Comme nts WBC (test code = 6690-2) 6.45 See_Comment [Automated Keypr] The system which generated this result transmitted reference range: 4.30 - 11.10 10*3/?L. The reference range was not used to interpret this result as normal/abnormal. RBC (test code = 789-8) 3.87 See_Comment L [Automated Keypr] The system which generated this result transmitted reference range: 3.93 - 5.25 10*6/?L. The reference range was not used to interpret this result as normal/abnormal. HGB (test code = 718-7) 11.3 g/dL 11.6-15.0 L HCT (test code = 4544-3) 33.9 % 35.7-45.2 L MCV (test code = 787-2) 87.6 fL 80.6-95.5 MCH (test code = 785-6) 29.2 pg 25.9-32.8 MCHC (test code = 786-4) 33.3 g/dL 31.6-35.1 RDW-SD (test code = 58132-5) 44.5 fL 39.0-49.9 RDW-CV (test code = 788-0) 13.8 % 12.0-15.5 PLT (test code = 777-3) 234 See_Comment [Automated messa ge] The system which generated this result transmitted reference range: 166 - 358 10*3/?L. The reference range was not used to interpret this result as normal/abnormal. MPV (test code = 35114-2) 10.7 fL 9.5-12.9 NRBC/100 WBC (test code = 2627075282) 0.0 See_Comment [Automated me ssage] The system which generated this result transmitted reference range: 0.0 - 10.0 /100 WBCs. The reference range was not used to interpret this result as normal/abnormal. NRBC x10^3 (test code = 0806160704) See_Comment [Automated messa ge] The system which generated this result transmitted reference range: 10*3/?L. The reference range was not used to interpret this result as normal/abnormal. GRAN MAT (NEUT) % (test code = 770-8) 69.1 % IMM GRAN % (test code = 3948546307) 0.20 % LYMPH % (test code = 736-9) 24.2 % MONO % (test code = 5905-5) 6.0 % EOS % (test code = 713-8) 0.3 % BASO % (test code = 706-2) 0.2 % GRAN MAT x10^3(ANC) (test code = 7478389814) 4.46 10*3/uL 1.88-7.09 IMM GRAN x10^3 (test code = 5156033532) 0.00-0.06 LYMPH x10^3 (test code = 731-0) 1.56 10*3/uL 1.32-3.29 MONO x10^3 (test code = 742-7) 0.39 10*3/uL 0.33-0.92 EOS x10^3 (test code = 711-2) 0.03-0.39 L BASO x10^3 (test code = 704-7) 0.01-0.07 Lab Interpretation (test code = 66851-8) Abnormal [facility] WITH [id number] 21:27:59* Test Item Value Reference Range Interpretation Comme nts WBC (test code = 6690-2) 6.45 See_Comment [Automated messa ge] The system which generated this result transmitted reference range: 4.30 - 11.10 10*3/?L. The reference range was not used to interpret this result as normal/abnormal. RBC (test code = 789-8) 3.87 See_Comment L [Automated messa ge] The system which generated this result transmitted reference range: 3.93 - 5.25 10*6/?L. The reference range was not used to interpret this result as normal/abnormal. HGB (test code = 718-7) 11.3 g/dL 11.6-15.0 L HCT (test code = 4544-3) 33.9 % 35.7-45.2 L MCV (test code = 787-2) 87.6 fL 80.6-95.5 MCH (test code = 785-6) 29.2 pg 25.9-32.8 MCHC (test code = 786-4) 33.3 g/dL 31.6-35.1 RDW-SD (test code = 76287-1) 44.5 fL 39.0-49.9 RDW-CV (test code = 788-0) 13.8 % 12.0-15.5 PLT (test code = 777-3) 234 See_Comment [Automated messa ge] The system which generated this result transmitted reference range: 166 - 358 10*3/?L. The reference range was not used to interpret this result as normal/abnormal. MPV (test code = 90566-2) 10.7 fL 9.5-12.9 NRBC/100 WBC (test code = 5460039253) 0.0 See_Comment [Automated [employer] ssage] The system which generated this result transmitted reference range: 0.0 - 10.0 /100 WBCs. The reference range was not used to interpret this result as normal/abnormal. NRBC x10^3 (test code = 0516451170) See_Comment [Automated messa ge] The system which generated this result transmitted reference range: 10*3/?L. The reference range was not used to interpret this result as normal/abnormal. GRAN MAT (NEUT) % (test code = 770-8) 69.1 % IMM GRAN % (test code = 5529616533) 0.20 % LYMPH % (test code = 736-9) 24.2 % MONO % (test code = 5905-5) 6.0 % EOS % (test code = 713-8) 0.3 % BASO % (test code = 706-2) 0.2 % GRAN MAT x10^3(ANC) (test code = 5123137126) 4.46 10*3/uL 1.88-7.09 IMM GRAN x10^3 (test code = 6671687405) 0.00-0.06 LYMPH x10^3 (test code = 731-0) 1.56 10*3/uL 1.32-3.29 MONO x10^3 (test code = 742-7) 0.39 10*3/uL 0.33-0.92 EOS x10^3 (test code = 711-2) 0.03-0.39 L BASO x10^3 (test code = 704-7) 0.01-0.07 Lab Interpretation (test code = 00858-1) Abnormal [facility], 25 [id number] 02:26:26* Test Item Value Reference Range Interpretation Comme nts VITAMIN D, 25 OH (test code = 4958) 16 NG/ML SEE BELOW L EFFECTIVE 12/2022, PLEASE NOTE NEW METHODOLOGY IS ELECTROCHEMILUMINESCENCE BINDING ASSAY. NOTE: 25-HYDROXYVITAMIN D ASSAY INCLUDES 25-HYDROXYVITAMIN D2 AND D3. INTERPRETIVE RANGES PEDIATRIC (<17 YEARS) . . . . . . . . . . . NG/ML 20-100ADULT: INSUFFICIENT . . . . . . . . . . . . . . NG/ML <20 SUBOPTIMAL . . . . . . . . . . . . . . . NG/ML 20-29 OPTIMAL . . . . . . . . . . . . . . . . . NG/ML 30-100 [facility] has important pathology staff changes effective 06/07/2022. New pathology staff will provide uninterrupted, excellent patient care and clinical consultation. See URL: [email or web address]. UNLESS OTHERWISE INDICATED, ALL TESTING PERFORMED AT [facility] [address] [place] [address] COMPUTER SUPPORT ANALYST: VALENCIA GONZALES M.D. CLIA NUMBER [id number] [facility] [place]. [id number] TSH, THIRD [id number] 02:18:46* Test Item Value Reference Range Interpretation Comme nts TSH, THIRD GENERATION (test code = 2821) 1.350 UIU/ML 0.400-4.100 COMPREHENSIVE METABOLIC [id number] 00:26:02* Test Item Value Reference Range Interpretation Comme nts GLUCOSE (test code = 2217) 91 MG/DL 70-99 BUN (test code = 220) 7 MG/DL 6-20 CREATININE (test code = 2214) 0.55 MG/DL 0.60-1.30 L eGFR (2020 CKD-EPI) (test code = 68532) 115 ML/MIN/1.73 >60 CALC BUN/CREAT (test code = 2235) 13 RATIO 6-28 SODIUM (test code = 2231) 132 MEQ/L 133-146 L POTASSIUM (test code = 2228) 4.0 MEQ/L 3.5-5.4 CHLORIDE (test code = 2215) 96 MEQ/L 95-107 CARBON DIOXIDE (test code = 2206) 25 MEQ/L 19-31 CALCIUM (test code = 2209) 9.3 MG/DL 8.5-10.5 PROTEIN, TOTAL (test code = 2229) 7.6 G/DL 6.1-8.3 ALBUMIN (test code = 2201) 4.6 G/DL 3.5-5.2 CALC GLOBULIN (test code = 2240) 3.0 G/DL 1.9-3.7 CALC A/G RATIO (test code = 2234) 1.5 RATIO 1.0-2.6 BILIRUBIN, TOTAL (test code = 2207) 0.2 MG/DL See_Comment [Automated me ssage] The system which generated this result transmitted reference range: <=1.2. The reference range was not used to interpret this result as normal/abnormal. ALKALINE PHOSPHATASE (test code = 2204) 153 U/L 40-116 H AST (test code = 2218) 16 U/L 9-40 ALT (test code = 2219) 15 U/L 5-40 LIPID [id number] 00:26:02* Test Item Value Reference Range Interpretation Comme nts CHOLESTEROL (test code = 2210) 169 MG/DL <200 TRIGLYCERIDES (test code = 2232) 147 MG/DL <150 HDL CHOLESTEROL (test code = 2220) 57 MG/DL >39 CALC LDL CHOL (test code = 2237) 88 MG/DL <100 NOTE: CALCULATED LDL IS BASED ON ZORA-HARDY METHOD WHICHINCLUDES ADJUSTABLE TRIGLYCERIDE:VLDL CHOLESTEROL RATIO.THIS FACTOR VARIES BY MEASURED TRIGLYCERIDE AND NON-HDLCHOLESTEROL CONCENTRATIONS WITH INCREASED CALCULATED LDL SEENIN HIGHER TRIGLYCERIDE OR LOWER NON-HDL SPECIMENS. FOR MOREINFORMATION, SEE CLIENT ANNOUNCEMENT AT [email or web address] [email or web address] RATIO LDL/HDL (test code = 2238) 1.54 RATIO <3.22 LIPID [id number] 00:00:00* Test Item Value Reference Range Interpretation Comme nts CHOLESTEROL (test code = 2210) 169 MG/DL TRIGLYCERIDES (test code = 2232) 147 MG/DL HDL CHOLESTEROL (test code = 2220) 57 MG/DL CALC LDL CHOL (test code = 2237) 88 MG/DL RISK RATIO LDL/HDL (test cod e = 2238) 1.54 RATIO Oren HickeyTSH, THIRD [id number] 00:00:00* Test Item Value Reference Range Interpretation Comme nts TSH, THIRD GENERATION (test code = 2821) 1.350 UIU/ML Oren HickeyVITAMIN D, 25 [id number] 00:00:00* Test Item Value Reference Range Interpretation Comme nts VITAMIN D, 25 OH (test code = 4958) 16 NG/ML Oren HickeyCOMPREHENSIVE METABOLIC [id number] 00:00:00* Test Item Value Reference Range Interpretation Comme nts GLUCOSE (test code = 2217) 91 MG/DL BUN (test code = 2208) 7 MG/DL CREATININE (test code = 2214) 0.55 MG/DL eGFR (2020 CKD-EPI) (test code = 39699) 115 ML/MIN/1.73 CALC BUN/CREAT (test code = 2235) 13 RATIO SODIUM (test code = 2231) 132 MEQ/L POTASSIUM (test code = 2228) 4.0 MEQ/L CHLORIDE (test code = 2215) 96 MEQ/L CARBON DIOXIDE (test code = 2206) 25 MEQ/L CALCIUM (test code = 2209) 9.3 MG/DL PROTEIN, TOTAL (test code = 2229) 7.6 G/DL ALBUMIN (test code = 2201) 4.6 G/DL CALC GLOBULIN (test code = 2240) 3.0 G/DL CALC A/G RATIO (test code = 2234) 1.5 RATIO BILIRUBIN, TOTAL (test code = 2207) 0.2 MG/DL ALKALINE PHOSPHATASE (test code = 2204) 153 U/L AST (test code = 2218) 16 U/L ALT (test code = 2219) 15 U/L [facility] DIFF WITH [id number] 03:42:14* Test Item Value Reference Range Interpretation Comme nts WBC (test code = 1001) 7.6 K/UL 3.5-11.0 RBC (test code = 1002) 4.21 M/UL 3.80-5.40 HEMOGLOBIN (test code = 1003) 12.7 G/DL 11.5-15.5 HEMATOCRIT (test code = 1004) 38.0 % 34.0-45.0 MCV (test code = 1005) 90.3 fL 80.0-99.0 MCH (test code = 1006) 30.2 PG 25.0-33.0 MCHC (test code = 1007) 33.4 G/DL 31.0-36.0 RDW (test code = 1038) 13.8 % 11.5-15.0 NEUTROPHILS (test code = 1008) 67.9 % LYMPHOCYTES (test code = 1010) 24.6 % MONOCYTES (test code = 1011) 6.7 % EOSINOPHILS (test code = 1012) 0.4 % BASOPHILS (test code = 1013) 0.3 % IMMATURE GRANULOCYTES (test code = 1036) 0.1 % NUCLEATED RBCS (test code = 1065) 0.0 /100 WBC'S See_Comment [Automated [employer]] The system which generated this result transmitted reference range: 0.0. The reference range was not used to interpret this result as normal/abnormal. PLATELET COUNT (test code = 1015) 216 K/UL 130-400 ABSOLUTE NEUTROPHILS (test code = 1066) 5.13 K/UL 1.50-7.50 ABSOLUTE LYMPHOCYTES (test code = 1067) 1.86 K/UL 1.00-4.00 ABSOLUTE MONOCYTES (test code = 1068) 0.51 K/UL 0.20-1.00 ABSOLUTE EOSINOPHILS (test code = 1040) 0.03 K/UL 0.00-0.50 ABSOLUTE BASOPHILS (test code = 1069) 0.02 K/UL 0.00-0.20 ABS IMMATURE GRANULOCYTES (test code = 1020) 0.01 K/UL 0.00-0.10 ABS NUCLEATED RBCS (test code = 10207) 0.00 K/UL 0.00-0.11 CBC W/AUTO [id number] 00:00:00* Test Item Value Reference Range Interpretation Comme nts WBC (test code = 1001) 7.6 K/UL RBC (test code = 1002) 4.21 M/UL HEMOGLOBIN (test code = 1003) 12.7 G/DL HEMATOCRIT (test code = 1004) 38.0 % MCV (test code = 1005) 90.3 fL MCH (test code = 1006) 30.2 PG MCHC (test code = 1007) 33.4 G/DL RDW (test code = 1038) 13.8 % NEUTROPHILS (test code = 1008) 67.9 % LYMPHOCYTES (test code = 1010) 24.6 % MONOCYTES (test code = 1011) 6.7 % EOSINOPHILS (test code = 1012) 0.4 % BASOPHILS (test code = 1013) 0.3 % IMMATURE GRANULOCYTES (test code = 1036) 0.1 % NUCLEATED RBCS (test code = 1065) 0.0 /100WBC'S PLATELET COUNT (test code = 1015) 216 K/UL ABSOLUTE NEUTROPHILS (test c ode = 1066) 5.13 K/UL ABSOLUTE LYMPHOCYTES (test c ode = 1067) 1.86 K/UL ABSOLUTE MONOCYTES (test cod e = 1068) 0.51 K/UL ABSOLUTE EOSINOPHILS (test c ode = 1040) 0.03 K/UL ABSOLUTE BASOPHILS (test cod e = 1069) 0.02 K/UL ABS IMMATURE GRANULOCYTES (t est code = 1020) 0.01 K/UL ABS NUCLEATED RBCS (test cod e = 50877) 0.00 K/UL Oren Argueta, [id number] 12:13:50SPECIMEN NUMBER: [id number] CULTURE, URINE SPECIMEN NUMBER: [id number] SPECIMEN COMMENT: URINE SOURCE: URINE REPORT STATUS: FINAL ISOLATE NUMBER 1: ORGANISM: 04/21/2022 >100,000 CFU/ML GRAM NEGATIVEBACILLI IDENTIFICATION: 04/22/2022 ESCHERICHIA COLI E. COLI AMOXICILLIN/CA SENSITIVE <=8/4AMPICILLIN RESISTANT >16CEFAZOLIN SENSITIVE <=2CEFTRIAXONE SENSITIVE <=1CIPROFLOXACIN SENSITIVE <=1LEVOFLOXACIN SENSITIVE <=2NITROFURANTOIN SENSITIVE <=32PIP/TAZOBAC SENSITIVE <=16TETRACYCLINE SENSITIVE <=4TOBRAMYCIN SENSITIVE <=4TRIMETH/SULFA RESISTANT >2/38NOTE: NUMBERS DISPLAYED REPRESENT MINIMUM INHIBITORY CONCENTRATION (AL) WHICH IS EXPRESSED IN MCG/ML. UNLESS OTHERWISE INDICATED, ALL TESTING PERFORMED [facility] [employer] [address] [place] [address] COMPUTER SUPPORT ANALYST: NAOMI ACOSTA M.D. CLIA NUMBER [id number] [place]. [id number], [id number] 00:00:00* Test Item Value Reference Range Interpretation Comme nts CULTURE, URINE (test code = 11002) SPECIMEN NUMBER: [id number] [facility]FF WITH [id number] 03:53:15* Test Item Value Reference Range Interpretation Comme nts WBC (test code = 1001) 5.7 K/UL 3.5-11.0 RBC (test code = 1002) 3.99 M/UL 3.80-5.40 HEMOGLOBIN (test code = 1003) 12.1 G/DL 11.5-15.5 HEMATOCRIT (test code = 1004) 36.0 % 34.0-45.0 MCV (test code = 1005) 90.2 fL 80.0-99.0 MCH (test code = 1006) 30.3 PG 25.0-33.0 MCHC (test code = 1007) 33.6 G/DL 31.0-36.0 RDW (test code = 1038) 12.8 % 11.5-15.0 NEUTROPHILS (test code = 1008) 62.6 % LYMPHOCYTES (test code = 1010) 27.6 % MONOCYTES (test code = 1011) 7.9 % EOSINOPHILS (test code = 1012) 1.4 % BASOPHILS (test code = 1013) 0.3 % IMMATURE GRANULOCYTES (test code = 1036) 0.2 % NUCLEATED RBCS (test code = 1065) 0.0 /100 WBC'S See_Comment [Automated message] The system which generated this result transmitted reference range: 0.0. The reference range was not used to interpret this result as normal/abnormal. PLATELET COUNT (test code = 1015) 228 K/UL 130-400 ABSOLUTE NEUTROPHILS (test code = 1066) 3.58 K/UL 1.50-7.50 ABSOLUTE LYMPHOCYTES (test code = 1067) 1.58 K/UL 1.00-4.00 ABSOLUTE MONOCYTES (test code = 1068) 0.45 K/UL 0.20-1.00 ABSOLUTE EOSINOPHILS (test code = 1040) 0.08 K/UL 0.00-0.50 ABSOLUTE BASOPHILS (test code = 1069) 0.02 K/UL 0.00-0.20 ABS IMMATURE GRANULOCYTES (test code = 1020) 0.01 K/UL 0.00-0.10 ABS NUCLEATED RBCS (test code = 70821) 0.00 K/UL 0.00-0.11 UNLESS OTHER CLEMENTE INDICATED, ALL TESTING PERFORMED [facility] [address] [place] [address] COMPUTER SUPPORT ANALYST: NAOMI ACOSTA M.D. CLIA NUMBER [id number] [facility] [place]. [id number] CBC W/AUTO [id number] 00:00:00* Test Item Value Reference Range Interpretation Comme nts WBC (test code = 1001) 5.7 K/UL RBC (test code = 1002) 3.99 M/UL HEMOGLOBIN (test code = 1003) 12.1 G/DL HEMATOCRIT (test code = 1004) 36.0 % MCV (test code = 1005) 90.2 fL MCH (test code = 1006) 30.3 PG MCHC (test code = 1007) 33.6 G/DL RDW (test code = 1038) 12.8 % NEUTROPHILS (test code = 1008) 62.6 % LYMPHOCYTES (test code = 1010) 27.6 % MONOCYTES (test code = 1011) 7.9 % EOSINOPHILS (test code = 1012) 1.4 % BASOPHILS (test code = 1013) 0.3 % IMMATURE GRANULOCYTES (test code = 1036) 0.2 % NUCLEATED RBCS (test code = 1065) 0.0 /100WBC'S PLATELET COUNT (test code = 1015) 228 K/UL ABSOLUTE NEUTROPHILS (test c ode = 1066) 3.58 K/UL ABSOLUTE LYMPHOCYTES (test c ode = 1067) 1.58 K/UL ABSOLUTE MONOCYTES (test cod e = 1068) 0.45 K/UL ABSOLUTE EOSINOPHILS (test c ode = 1040) 0.08 K/UL ABSOLUTE BASOPHILS (test cod e = 1069) 0.02 K/UL ABS IMMATURE GRANULOCYTES (t est code = 1020) 0.01 K/UL ABS NUCLEATED RBCS (test cod e = 38014) 0.00 K/UL Oren HickeyCOMPREHENSIVE METABOLIC [id number] 00:00:00* Test Item Value Reference Range Interpretation Comme nts GLUCOSE (test code = 2217) 94 MG/DL BUN (test code = 2208) 8 MG/DL CREATININE (test code = 2214) 0.56 MG/DL eGFR (2020 CKD-EPI) (test code = 09446) 115 ML/MIN/1.73 CALC BUN/CREAT (test code = 2235) 14 RATIO SODIUM (test code = 2231) 138 MEQ/L POTASSIUM (test code = 2228) 4.0 MEQ/L CHLORIDE (test code = 2215) 100 MEQ/L CARBON DIOXIDE (test code = 2206) 24 MEQ/L CALCIUM (test code = 2209) 9.1 MG/DL PROTEIN, TOTAL (test code = 2229) 7.6 G/DL ALBUMIN (test code = 2201) 4.3 G/DL CALC GLOBULIN (test code = 2240) 3.3 G/DL CALC A/G RATIO (test code = 2234) 1.3 RATIO BILIRUBIN, TOTAL (test code = 2207) 0.2 MG/DL ALKALINE PHOSPHATASE (test code = 2204) 139 U/L AST (test code = 2218) 15 U/L ALT (test code = 2219) 10 U/L Oren HickeyLIPID [id number] 00:00:00* Test Item Value Reference Range Interpretation Comme nts CHOLESTEROL (test code = 2210) 240 MG/DL TRIGLYCERIDES (test code = 2232) 317 MG/DL HDL CHOLESTEROL (test code = 2220) 49 MG/DL CALC LDL CHOL (test code = 2237) 142 MG/DL RISK RATIO LDL/HDL (test cod e = 2238) 2.90 RATIO Oren HickeyCBC W/AUTO [id number] 00:00:00* Test Item Value Reference Range Interpretation Comme nts WBC (test code = 1001) 6.9 K/UL RBC (test code = 1002) 4.32 M/UL HEMOGLOBIN (test code = 1003) 12.5 G/DL HEMATOCRIT (test code = 1004) 37.7 % MCV (test code = 1005) 87.3 fL MCH (test code = 1006) 28.9 PG MCHC (test code = 1007) 33.2 G/DL RDW (test code = 1038) 13.6 % NEUTROPHILS (test code = 1008) 65.4 % LYMPHOCYTES (test code = 1010) 25.5 % MONOCYTES (test code = 1011) 8.2 % EOSINOPHILS (test code = 1012) 0.6 % BASOPHILS (test code = 1013) 0.3 % PLATELET COUNT (test code = 1015) 223 K/UL Oren HickeyHEMOGLOBIN [id number] 00:00:00* Test Item Value Reference Range Interpretation Comme haroon HEMOGLOBIN A1c (test code = 62593) 5.8 % Oren HickeyVITAMIN D, 25 [id number] 00:00:00* Test Item Value Reference Range Interpretation Comme nts VITAMIN D, 25 OH (test code = 4958) 21 NG/ML Oren HickeyCOMPREHENSIVE METABOLIC [id number] 00:00:00* Test Item Value Reference Range Interpretation Comme nts GLUCOSE (test code = 2217) 87 MG/DL BUN (test code = 2208) 7 MG/DL CREATININE (test code = 2214) 0.49 MG/DL eGFR AMER. (test cod e = 68326) 142 ML/MIN/1.73 eGFR NON- AMER. (test code = 88461) 123 ML/MIN/1.73 CALC BUN/CREAT (test code = 2235) 14 RATIO SODIUM (test code = 2231) 138 MEQ/L POTASSIUM (test code = 2228) 4.1 MEQ/L CHLORIDE (test code = 2215) 98 MEQ/L CARBON DIOXIDE (test code = 2206) 27 MEQ/L CALCIUM (test code = 2209) 9.0 MG/DL PROTEIN, TOTAL (test code = 2229) 7.0 G/DL ALBUMIN (test code = 2201) 4.4 G/DL CALC GLOBULIN (test code = 2240) 2.6 G/DL CALC A/G RATIO (test code = 2234) 1.7 RATIO BILIRUBIN, TOTAL (test code = 2207) 0.1 MG/DL ALKALINE PHOSPHATASE (test code = 2204) 116 U/L AST (test code = 2218) 13 U/L ALT (test code = 2219) 9 U/L Oren HickeyLIPID [id number] 00:00:00* Test Item Value Reference Range Interpretation Comme nts CHOLESTEROL (test code = 2210) 196 MG/DL TRIGLYCERIDES (test code = 2232) 182 MG/DL HDL CHOLESTEROL (test code = 2220) 54 MG/DL CALC LDL CHOL (test code = 2237) 106 MG/DL RISK RATIO LDL/HDL (test cod e = 2238) 1.96 RATIO Oren HickeyCBC W/AUTO [id number] 00:00:00* Test Item Value Reference Range Interpretation Comme nts WBC (test code = 1001) 6.8 K/UL RBC (test code = 1002) 4.42 M/UL HEMOGLOBIN (test code = 1003) 13.1 G/DL HEMATOCRIT (test code = 1004) 38.5 % MCV (test code = 1005) 87.1 fL MCH (test code = 1006) 29.6 PG MCHC (test code = 1007) 34.0 G/DL RDW (test code = 1038) 13.8 % NEUTROPHILS (test code = 1008) 61 % LYMPHOCYTES (test code = 1010) 30 % MONOCYTES (test code = 1011) 9 % EOSINOPHILS (test code = 1012) 1 % PLATELET COUNT (test code = 1015) 242 K/UL Oren HickeyHEMOGLOBIN [id number] 00:00:00* Test Item Value Reference Range Interpretation Comme nts HEMOGLOBIN A1c (test code = 52633) 5.6 % Oren [id number] 00:00:00* Test Item Value Reference Range Interpretation Comme haroon TSH (test code = 2821) 1.4 UIU/ML Oren HickeyVITAMIN [id number] 00:00:00* Test Item Value Reference Range Interpretation Comme haroon VITAMIN B-12 (test code = 2840) 424 PG/ML Oren HickeyVITAMIN D, 25 [id number] 00:00:00* Test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 the next 7 days. | || Call 911 for emergency medical transport if a person has a temperature equal to | || or greater than 104 F (40 C), is confused, or is not responding to verbal | || stimuli or commands. | |+ + -+| EKG | 2016-01-24 || Call 911 chest pain returns. | || Patient - Signs and symptoms of stroke and OH | |+ + -+| Labs: CMP, lipid | 2016-02-24 || Medications: Lisinopril 30mg daily - to be released 10/11 for MAIL ORDER from [facility] | || pharmacy | || | || Monitor blood pressure daily and log results. Bring results to next office | || visit. | || DASH diet - The DASH diet is rich in fruits, vegetables, whole grains, and | || low-fat dairy foods; includes meat, fish, poultry, nuts, and beans; and is | || limited in sugar-sweetened foods and beverages, red meat, and added fats. | || Avoid foods with high salt content such as processed foods, lunch meats, and | || canned food. | || Exercise for 30 minutes five times a week. | || Follow up in 3 months for assessment of regimen | |+ + -+| Cyclobenzaprine 10 mg take three times a day as needed | 2016-02-24 || Ibuprofen 800 mg by mouth every 6-8 hours as needed for pain | || Discussed medication purpose and side effects | || Rest | || Follow up with clinic in 2 weeks | |+ + -+| Continuing f/u with neurologist as scheduled | 2016-06-26 || Continuing taking meds as prescribed | |+ + -+| Low fat, low sugar, low cholesterol, low sodium diet and exercise 4 or 5 times | 2016-09-25 || a week for 30 min/day | |+ + -+| EKG NSR 79 | 2016-11-13 || Full panel labs except thyroid with Vitamin D performed, pending results | || Possibly anxiety of GERD related | || Trial of pantoprazole 40mg qAM given | |+ + -+| Low fat, low sugar, low cholesterol, low sodium diet and exercise 4 or 5 times | 2016-11-13 || a week for 30 min/day | |+ + -+| increase physical activity | 2022-04-05 |+ + -+| Recommend daily physical activity including cardiovascular and strengthening | 2022-04-05 || exercises. | |+ + -+| Recommend diet high in fruits and vegetables, lean meats, low in fat and | 2022-04-05 || processed sugars. Monitor portion size | |+ + -+| CT abdomen and US abdomen normal. pt was given muscle relaxer | 2022-04-19 || UA and CBC pending | || ER precaution | || TVUS pending | || rx ibuprofen 600 mg BID | |+ + -+| continue clopidogrel and atorvastatin | 2022-08-05 || - to be released 10/11 for MAIL ORDER from [facility] | |+ + -+| Labs: Vit D | 2022-08-29 || Vitamin D caps refilled | |+ + -+| lipid panel ordered | 2022-11-18 || Continue Atorvatatin 40 - to be released 10/11 for MAIL ORDER from [facility] | || FU in 3 months | |+ + -+| topiramate increased to 100 mg daily due to migraines not being controlled on | 2022-11-18 || current regimen | || Hold Sumatriptan 2/2 s/e . | || Continue Nurtec- Pt gets from Neuro | |+ + -+| Low fat, low sugar, low cholesterol, low sodium diet and exercise 4 or 5 times | 2022-12-27 || a week for 30 min/day | |+ + -+| CBC performed, pending results | 2023-04-03 |+ + -+| Continue paroxetine 20 mg | 2023-06-26 || - to be released 10/11 for MAIL ORDER from [facility] pharmacy | |+ + -+| Labs: B12, TSH | 2023-09-28 |+ + -+50185-6Xwzc of TreatmentLNCARE PLANTXTSFA|SOC-[id number]|2.16.840. 1.540890.10.20.22.2.10AVAvailabl e for patient fnxrSfycxqcYrwjfecxrVVTXi73 Section NarrativeNARRATIVEFormatted C-CDA narrative textSFAStdeejay Amador [facility]2024-06-24T00:00:00 Oren Amador [facility] 2023-09-05 09:32:52 9491-00-02P57:32:52Summary: [facility] PharmacyMonthly Clinical AssessmentAfter reviewing the results of the administered survey, it is appropriate to continue the medication as prescribed. The [facility] will refill the medication and continue to follow this patient and address any concerns that arise while on therapy with Nurtec.Thank you,[facility] 53642-8Froqnpzze encounter CmnbQD0754-75-86X01:33:05Telepho ne encounter NoteTXT1.2.840.195499.1.13.104.2 .7.2.010887|[id number] e for patient vkpi39387-6OwjxYJSYHZXNXPMWdtwzb stacey C-CDA narrative [id number] Kumar [address] MejiSfyclzgqpOkrdccxzzOIPU042482 6821OFZUFAMCIKLINWROQIZMKC5404-2 09-04T09:33:051.2.840.162299.1.72 .3.15|1.2.840.927782.1.13.104.2. 7.2.727879_[id number] Ina Rodgers [facility] 2023-09-04 10:50:37 2365-09-57G08:50:37 [facility] PharmacyMonthly Clinical Refill AssessmentElifransisco Cedeño is a 48 year old female who is followed by the [facility] specialty pharmacy service for [facility].Am I speaking with the patient? YesHave you missed any doses since the last fill? NoWere any of the medications discontinued? NoHave any changes been made to the medication, dose, or instructions on how to take it? NoHave you started taking any new medications, herbals, or supplements? NoHave you been diagnosed with any new medical conditions? NoAre you experiencing any acute illness such as the common cold or flu-like symptoms? NoDo you have any new allergies to medications or foods? NoHave you been to the emergency room, hospital, or urgent care clinic since your last refill? NoHave you experienced or do you have any concerns about side effects? NoDo you have any concerns or questions about taking or administering the medication as prescribed? NoDo you think the medication is working for you? YesWhen is the next dose needed? The next dose is needed on (taken as needed)Would you prefer the medication be shipped to your address? YES, the confirmed shipping address is [address] [place] [address] [address] [facility] [address].Do you have any specific shipping directions? NoThe results of this survey will be reviewed by a specialty pharmacist and the medication order will be refilled.Thank you,Deloris Rowe[facility] 355[address]-1Ahokuodak encounter PhnxRP4961-67-69B01:57:15Telepho ne encounter NoteTXT1.2.840.777355.1.13.104.2 .7.2.492359|[id number] e for patient uskh40811-5AwwsXOSGMDTSRGCWczuwe stacey C-CDA narrative djff429217672Lcjqvmn [address]veston[place]onTXTX[address] 8394MVTLSUESDUWUXCGRNBDZHU5789-7 09-03T10:57:151.2.840.169795.1.72 .3.15|1.2.840.491866.1.13.104.2. 7.2.727879_[id number] Deloris Rowe [facility] 2023-08-17 16:27:56 5863-12-21Z49:27:56 Thank you colleagues. Medical management it is then.El Singh M.D.Interventional CardiologyPager: [phone] 94076-4Abpjjvqsk encounter UrqeHB1807-15-45N77:29:28Telepho ne encounter NoteTXT1.2.840.695898.1.13.104.2 .7.2.850459|[id number] e for patient nqqp60999-1ChauEJYEGVDEFHMNuwuyo stacey C-CDA narrative textIM-INTERVENTIONAL CARDIOLOGY STAFF-INTERVENTIONAL CARDIOLOGY [address] MsdlXeuuqmxwmSjimnbrtlPGVV394228 1317VNEFGKPZESTTPGQBXAUFLA6161-9 6:29:281.2.840.723653.1.72 .3.15|1.2.840.484432.1.13.104.2. 7.2.727879_[id number] IM-INTERVENTIONAL CARDIOLOGY [facility] 2023-08-16 20:10:28 4527-93-38K54:10:[address] Singh,Our mutual patient was previously seen in stroke clinic . She had stroke in July 2022 and the MRI report from that time suggest a lacunar infarct . Her stroke etiology is small vessel disease. She had 2 D echo which showed PFO . In my opinion the infarct is not cardioembolic and doesn't warrant PFO closure but this can be discussed further with the patient. Her ROPE score is 5 . I am copying the Mri brain report from that time . I dont think she had a YARELIS performed yetDR Jimbroussard MRIExam Date: 07/28/22 EXAM DESCRIPTION: MRI - Brain Wo Cont - 07/28/2022 10:26 am CLINICAL HISTORY: Facial numbness COMPARISON: Head CT July 28, 2022 TECHNIQUE: Axial, sagittal, and coronal magnetic resonance images of the brain were obtained. FINDINGS: A 1 centimeter area of increased signal deep white matter right parietal lobe. Additional small areas increased signal deep, periventricular and subcortical white matter. Diffusion-weighted/ADC mapping demonstrates 3 millimeter area of abnormal signal left periventricular white matter posterior frontal lobe consistent with acute infarct The ventricles are normal caliber. Olvin cisterna magna normal-variant Fluid within the sinuses/mastoids is not seen 34997-3Myonsqirh encounter PnmrXA4525-24-90H67:22:50Telepho ne encounter NoteTXT1.2.840.918038.1.13.104.2 .7.2.369689|[id number] e for patient rbss87156-2GtxsFIHAVYLTGTVEhdefh stacey C-CDA narrative text[address] WcctHzumuesuhAiiuvxvigOTGE411[address] 0837NFNNQKKRMUDYABJCEJAWNR2541-8 5-09T20:22:501.2.840.672268.1.72 .3.15|1.2.840.101220.1.13.104.2. 7.2.727879_[id number] [facility] 2023-08-16 08:48:03 7507-71-22F77:48:03 Dr. Rich, could you please communicate your thoughts to her manager legal, Dr. Singh? He is considering PFO closure.Thanks. 87819-4Eguzhuahr encounter AcrkTD4390-42-46I33:48:55Telepho ne encounter NoteTXT1.2.840.114817.1.13.104.2 .7.2.212812|[id number] e for patient kgwg56703-4QvzjJMUIIQOUDDEPzrjya stacey C-CDA narrative textUT[address] PegjEjfpzwuwfDcpjjyqkvWBQE942705 5048AVKCHJTSGUMINAXASTIEOU1988-9 5-09T08:48:551.2.840.684007.1.72 .3.15|1.2.840.240792.1.13.104.2. 7.2.727879_[id number] [facility] 2023-08-15 23:04:17 4977-15-57T28:04:17 I saw the patient in February 2023 . She had stroke in July 2022 and report is available in care everywhere which I had put in my note. I asked the daughter and the patient to bring the actual images and explained fully that new MRI brain will not be helpful as those acute signal changes will not be there . They never brought the images . She doesn't need new MRI brain or follow-up in stroke clinic as her stroke work up is complete . If there are any new stroke symptoms she can be seen . Previous telephone encounters suggest theta she was rude and yelling at our clinic nurses for no reason. When she had the stroke she had facial droop only which also resolved and as no other deficits .I also answered all questions from stroke standpoint . Follow-up at 3 months is suggested so that they can bring the actual images and have more informed discussion. I always review actual patient images myself independent of what radi[place] [address]-1Eblefhfwv encounter ReuvJR2460-33-96W11:17:48Telepho ne encounter NoteTXT1.2.840.002760.1.13.104.2 .7.2.993070|[id number] e for patient xvue41221-2GdooLZIDUAIKOGSPclweg stacey C-CDA narrative textUT[address]vdGalvestonGalvestonTXTX[address] 3376DUQIPOEXAIZIVKLPFKDIUZ8138-6 :17:481.2.840.874424.1.72 .3.15|1.2.840.937007.1.13.104.2. 7.2.727879_[id number] [facility] 2023-08-14 17:54:26 8206-51-28S46:54:26 Patient has not been seen by Layla since February 2023.Dr. Rich do you want me to overbook patient to see you for follow up?See all from Dr. Platt, Lolita, and Latrell below. 76269-7Htiasgruh encounter UfnvWX1129-51-83Z95:55:13Telepho ne encounter NoteTXT1.2.840.499549.1.13.104.2 .7.2.615208|[id number] e for patient ovab90440-2KfiiOVXDBTUQOCFBidwpf staecy C-CDA narrative ijth307611592Xbqeqxxsy [address]onGalvestonTXTX[address] 7960AQPHLUYGPUZRNOLIZCKCNR5760-1 :55:131.2.840.294506.1.72 .3.15|1.2.840.029329.1.13.104.2. 7.2.727879_[id number] Alka Li [facility] 2023-08-14 15:57:18 9089-74-36A65:57:[address] Rich that mentioned MRI, for stroke purposes. I've sent this message to him and will defer to him on that. Also, in his note he said for her to RTC in 3 months. She needs to be scheduled to see him for follow-up as instructed. 88470-3Yozegrvks encounter UpkyCM7149-55-06J33:59:04Telepho ne encounter NoteTXT1.2.840.546856.1.13.104.2 .7.2.485344|[id number] for patient fcsu06984-4GbclLVCGCCUKNHZTxdbit stacey C-CDA narrative text[address] YvnqUmrmggdotHlqjyuqnbBHQS674403 2306LJNETJJBFYPHKRSJUPUWMH7724-3 5-07T15:59:041.2.840.076662.1.72 .3.15|1.2.840.600122.1.13.104.2. 7.2.727879_[id number] [facility] 2023-08-14 14:55:39 5994-05-75D15:55:39 please review and advise, pt states that at the office visit 03/19/2023 you mentioned MRI. Please review and advise, do you wish to order MRI? Let us know how you would like this handled. Thank you. 54400-4Jqhjpbryh encounter LkpzYI4499-81-70Z84:59:54Telepho ne encounter NoteTXT1.2.840.622971.1.13.104.2 .7.2.904519|[id number] e for patient kycq68955-6BevsJGGYQTWVWDLHvnsaj stacey C-CDA narrative [id number] K Marrs [address]onGalvestonTXTX[address] 6884PCXFBGIHWTTXOZUQSHAEBM7515-5 4:59:541.2.840.584252.1.72 .3.15|1.2.840.729916.1.13.104.2. 7.2.727879_[id number] Lolita Santosh Javier RN [facility] 2023-08-13 16:47:06 9395-66-32K77:47:06 The patiens wanting to get a MRI ordered. She stated that Dr. Singh at her last visit said he would get with neurology to get it done. She stated it hasn't happened yet. Can you please look into this and see about getting an MRI ordered if need be. Thank you! 11343-8Petgdtrfd encounter UazlZM0311-31-76T48:48:52Telepho ne encounter NoteTXT1.2.840.073161.1.13.104.2 .7.2.799342|[id number] e for patient aiwp56800-9ThtoHLXPUQNXRHBKkvkeb stacey C-CDA narrative ibfq025202597Vfyusk [address] 1541ZKNVCPIAXMIHAIBMIHKTPC1496-0 6:48:521.2.840.654276.1.72 .3.15|1.2.840.300096.1.13.104.2. 7.2.727879_[id number] Latrell Geiger [facility] 2023-07-18 14:15:00 0930-86-65F03:15:00 Images from the original note were not included.Venipuncture collection performed by clean technique on the right anticubitus. Total of 1 attempts were made. Slight pressure and a bandage/dressing were applied to the site(s). The patient experienced no complications. The following specimens were processed according to instructions and sent to [facility] laboratories per lab order on 07/18/2023:LT BLUESST 1RED 2LAV 2PPTDK GREEN (LiHep)DK GREEN (SodH)GRAYDK BLUE (K2)DK BLUE (S)ACDBlood CultureNIPT/NTD 99417-9Lsxwk KfqbFO3802-22-82B50:30:33Nurse NoteTXT1.2.840.060809.1.13.104.2 .7.2.018240|[id number] e for patient qhyz39581-4Azkva NoteLNNARRATIVEFormatted C-CDA narrative textUT[address] RtpsTycqamcxbQzetlizjaXYIV492706 2304FPIWSAITOTPVCJHLLDRLLC9714-5 4-10T14:30:331.2.840.782718.1.72 .3.15|1.2.840.542203.1.13.104.2. 7.2.727879_[id number] [facility] 2023-07-13 11:41:11 4046-22-89B66:41:11 Please review and update the PA for the cenobamate. Thank you. 03484-2Uhirmdtuh encounter LvgeWT2499-27-23H18:42:45Telepho ne encounter NoteTXT1.2.840.101618.1.13.104.2 .7.2.332193|[id number] e for patient lxsf52764-7NnekBISUHVFOESXZxlzhz stacey C-CDA narrative mhup752677175Jfuudx Santosh Javier [address]TXTX[address] 4916WNMPHMFCZCDJWWSWJXKYPG1497-2 1:42:451.2.840.190642.1.72 .3.15|1.2.840.187095.1.13.104.2. 7.2.727879_[id number] Lolita Javier RN [facility] 2023-07-13 10:39:36 8672-67-08G14:39:36 Copied from [facility] #[id number]. Topic: Clinical - Medical Advice>> Jul 13, 2023 10:37 AM Patient Gaming Director wrote:Alka Cedeño is a 48 year old femalePt calling to check status of authorization for cenobamate 200 mg. Please advise.See encounter dated 07/10/23. 05746-8Sqgtvkbtt encounter UokwMJ5641-68-11S31:42:59Telepho ne encounter NoteTXT1.2.840.795101.1.13.104.2 .7.2.820924|[id number] e for patient zfse54783-7CmadJHCQULFAUTEZxshlz stacey C-CDA narrative jwvp092102906Ekfro [address]TXTX[address] 1566KDOMVMDMSQFUAAXUBZRLYM3520-1 0:42:591.2.840.231913.1.72 .3.15|1.2.840.756248.1.13.104.2. 7.2.727879_[id number] Efra Barbosa [facility] 2023-07-10 10:41:25 3614-70-13P10:41:25 Forwarding to pharmacy for review. 66426-4Kazrtiyfh encounter DebsSQ0022-34-23L66:42:27Telepho ne encounter NoteTXT1.2.840.350569.1.13.104.2 .7.2.689232|[id number] e for patient pxov78704-4ObhqUVNMIXQLPPHEfmitv stacey C-CDA narrative qazu175868626Gcqehby Gaytan RN[address] OyvqJqrnvrtvwVuxleltbnWWOL301904 5012GPCXJSXUAVEZWMKBHLKUBZ3826-3 0:42:271.2.840.879727.1.72 .3.15|1.2.840.054863.1.13.104.2. 7.2.727879_[id number] Sita Riley RN [facility] 2023-07-10 10:22:52 7222-55-60F32:22:52 Copied from [facility] #[id number]. Topic: Clinical - Medical Advice>> Jul 10, 2023 10:20 AM Patient Gaming Director wrote:Alka Cedeño is a 48 year old femalePt [facility] insurance states auth is required for cenobamate 200 mg for it to be covered. Please advise.[facility] Fx. Bt requesting to please contact her once auth is completed.[facility] [address] [facility] & Andrea [address] [facility] [address]Yezna: [phone] Nkiikmijvrylcw signed by Efra Barbosa at 07/10/2023 10:27 AM UIQ89538-7Xwaqulgqm encounter TmhvAH3827-64-10T03:27:11Telepho ne encounter NoteTXT1.2.840.079775.1.13.104.2 .7.2.813141|[id number] e for patient djce96562-5NvmxTPREIVBCWQDTnesyu stacey C-CDA narrative ofof419240924Uwlwe [address]TXTX[address] 4282GPPSFCJCEPOBMIKSOZELHM0719-6 07-09T10:27:111.2.840.901282.1.72 .3.15|1.2.840.668094.1.13.104.2. 7.2.727879_[id number] Efra Barbosa [facility] 2023-05-15 16:14:01 5261-22-46C95:14:01 Returned call to patient, read Dr. Platt's note to patient, she verbalized understanding and states her daughter is helping her to take her meds now so she will not miss any doses. Informed patient new RX has been sent to her preferred pharmacy. 63121-3Apazxcveu encounter ZotdOW4834-84-48P95:15:39Telepho ne encounter NoteTXT1.2.840.024756.1.13.104.2 .7.2.544955|7165598047VQHgalxltz e for patient jqvv39906-6JzpoHWYTEZHVLOQYutkbs stacey C-CDA narrative omef368928097Titvn Gorman RN[address] StreetTXTX[address] 2071UHKUXCNHMHSZYHXUEFXHUA4865-5 2-06T16:15:391.2.840.467011.1.72 .3.15|1.2.840.118975.1.13.104.2. 7.2.727879_[id number] Hammad Harris RN [facility] 2023-05-15 15:23:51 3725-82-21I30:23:51 That is fine but she needs to commit to never missing any of the doses, including the midday dose. 19273-0Mzlgrlfqr encounter VascRW4208-28-88B49:24:31Telepho ne encounter NoteTXT1.2.840.627497.1.13.104.2 .7.2.126158|[id number] e for patient mifd08744-2ZuluGCVWJJMGZKMJnayxd stacey C-CDA narrative [place]TX[address] 8656MBNSOZAXNQZHNNVVFCWPTC5827-2 :24:311.2.840.427003.1.72 .3.15|1.2.840.266002.1.13.104.2. 7.2.727879_[id number] [facility] 2023-05-15 12:36:17 8634-22-15N42:36:17 Pt requesting to change back to Clonazepam 1 mg TID because it made her fell safer, routing to Dr Platt for review and recommendations.Per RAD[facility] note 04/18/2023:Seizure disorderComment: Not optimally controlled, due to consistently missing the midday dose of clonazepam. I explained that we will change this now from 1 mg 3 times daily to 1.5 mg twice daily. She is happy with that. Continue other ASMs at their current doses. She has not had to use the midazolam nasal spray yet, but she does keep it on hand just in case. 31864-3Tjojgiqtx encounter GogaMO1110-60-13O81:38:09Telepho ne encounter NoteTXT1.2.840.301959.1.13.104.2 .7.2.555178|[id number] e for patient iwka81347-6QmceRYGSRKJCFGANbfxyt stacey C-CDA narrative [address]veston[place] 4255XJOOKXXDMALLIULYVNDVCH1229-3 2:38:091.2.840.735205.1.72 .3.15|1.2.840.436331.1.13.104.2. 7.2.727879_[id number] [facility] 2023-05-15 08:31:19 5498-92-82I94:31:19 Alka Cedeño is a 48 year old femalePatient is calling to speak with provider or nurse, said she want to go back to taking the full dose of her clonazePAM 1 mg tablet, 3 x a day, she states she feeling safer take it. Please advise 23119-4Mhbhqrntj encounter EmydSJ2186-61-96X50:32:55Telepho ne encounter NoteTXT1.2.840.243282.1.13.104.2 .7.2.679054|[id number] e for patient mdjg34930-5PzdgAKWJWTFBLETGpcacf stacey Aguilar-VINICIUSA narrative xjkd414878665Torbg J Frank[address] BmmmDxmdnmjzaYwxpmqypkXHIG115675 8128XPLPUELRGJLHCCVPACLXQZ1609-4 08:32:551.2.840.240612.1.72 .3.15|1.2.840.361445.1.13.104.2. 7.2.727879_[id number] Smitha Ahn [facility] 2023-04-12 14:12:32 0461-21-73Z31:12:32 Routing to provider for approval or denial 75510-7Ziuvqaewu encounter TimeEP6228-81-52T82:13:27Telepho ne encounter NoteTXT1.2.840.842208.1.13.104.2 .7.2.112829|3061013388JBUrhznmzg e for patient evew18250-0GkpsREIXYSRFDHKUxxvgd stacey C-CDA narrative textUT36 Young StreetTXTX[address] 0933TEXKRQTPFZWWTFGHJNACFP8756-1 04-12T14:13:271.2.840.488132.1.72 .3.15|1.2.840.060112.1.13.104.2. 7.2.727879_[id number] [facility] 2023-04-12 12:27:17 9775-82-02L52:27:17 Alka Cedeño is a 48 year old femalePatient is calling as she is in need of refill of:clonazePAM 1 mg tablet 3xdayShe will be out of medication before her 04/18/2023 appointment. [phone] [address] SandersPhone: Kmjlmnccowccmy signed by Sabrina Pennington at 04/12/2023 12:31 PM DUQ07540-3Vxaukuezh encounter TqduSR1329-51-79B31:31:00Telepho ne encounter NoteTXT1.2.840.377086.1.13.104.2 .7.2.798944|[id number] e for patient cqjt51359-4EnazJHVJPZVMNWLKhmezg stacey C-CDA narrative jxeb354620884Kgxgrlkiv A LeeUT36 Young StreetTXTX[address] 8248KOQNDBKBKYPNIMUMGQVWNT8407-8 04-12T12:31:001.2.840.908941.1.72 .3.15|1.2.840.018227.1.13.104.2. 7.2.727879_[id number] Sabrina Pennington [facility] 2022-12-25 15:40:15 0979-26-17H21:40:15 TRANSITIONAL CARE MANAGEMENT ASSESSMENT12/25/2022 Alka CedeñoWnvtbv123996QHoalahivu Torres is a 47 year old /White female was admitted on 12/18/[address] 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 She denies having any questions/concerns at this time.)Discharge InstructionsDo you understand your at-home instructions?: YesMedicationsHave you filled your prescriptions and do you have them in your home? : N/A (no new meds ordered.)Do you know how to take your medications?: YesCan you provide me with the names or descriptions of any stzp-pin-pewhrwx or supplements you are currently taking?: YesSuppliesDid you receive applicable home medical supplies/equipment?: N/AFollow Up AppointmentHas a follow up appointment been scheduled?: YesDo you have any questions about your follow up appointments?: NoAre you able to get to your appointment? Who will be taking you?: Yes (pt has transportation)Home Health AssistanceHas the home health nurse contacted you since you've been home?: N/ASurvey - RecognitionIs there anything you would like to share about your recent hospitalization, or anyone you would like to recognize?: NoDo you have any suggestions for improvement?: NoDo you have any other questions or concerns at this time?: NoFuture Appointments: Future Appointments Provider Department Dept Phone 01/08/2023 12:40 PM Yoav Platt MD [facility] Neurology, [facility] [phone] 03/19/2023 2:30 PM El Singh MD [facility] [phone] 58359-1Jyoekjfim encounter FkbhRV4223-06-38T18:40:53Telepho ne encounter NoteTXT1.2.840.655320.1.13.104.2 .7.2.380505|0848242572ISUiurgvvw e for patient tvkj21251-3AxjxIH126187439Soyrok L Deborde RN[address] NpzoKlednzbgsAplsztybrGQDR073869 9350VTKBNEFLMGCUDHSONWCMWU9035-9 12-25T15:40:531.2.840.957248.1.72 .3.15|1.2.840.462121.1.13.104.2. 7.2.727879_[id number] Theresa Tracey RN [facility] 2022-12-22 13:41:17 6821-25-63L38:41:17 Problem: Seizures, Risk of / or ActualGoal: Absence of injury related to seizure activityOutcome: ResolvedGoal: Absence of seizure activityOutcome: ResolvedGoal: Successful induction of monitored seizure activity (Epilepsy Monitoring Unit - EMU)Outcome: Resolved Problem: Falls, Risk ofGoal: Absence of fallsOutcome: Resolved Problem: Discharge PlanningGoal: Adequate for dischargeOutcome: ResolvedGoal: Effective communicationOutcome: Resolved Problem: PainGoal: Control of pain at or below patient's documented comfort goalOutcome: ResolvedGoal: Reduction in pain sensationOutcome: Resolved 43082-5Ccwx of care grjfPT8254-38-79D30:41:23Plan of care noteTXT1.2.840.054125.1.13.104.2 .7.2.191027|0684775593BFFprwisut e for patient mepy50697-8OjhlRJUQLFOACJ68 Le StreetTXTX[address] 1113NVDGFDCXRCMLIUAUGNVNCK2087-1 3:41:231.2.840.040906.1.72 .3.15|1.2.840.287429.1.13.104.2. 7.2.727879_[id number] [facility] 2022-12-22 07:30:44 1338-34-99N38:30:44 Problem: Seizures, Risk of / or ActualGoal: Absence of injury related to seizure activityOutcome: Progressing as expectedGoal: Absence of seizure activityOutcome: Progressing as expectedGoal: Successful induction of monitored seizure activity (Epilepsy Monitoring Unit - EMU)Outcome: Progressing as expected Problem: Falls, Risk ofGoal: Absence of fallsOutcome: Progressing as expected Problem: Discharge PlanningGoal: Adequate for dischargeOutcome: Progressing as expectedGoal: Effective communicationOutcome: Progressing as expected Problem: PainGoal: Control of pain at or below patient's documented comfort goalOutcome: Progressing as expectedGoal: Reduction in pain sensationOutcome: Progressing as expected 96907-6Euyl of care qysqDU8905-46-33C84:30:52Plan of care noteTXT1.2.840.983602.1.13.104.2 .7.2.030641|[id number] e for patient eqdz86376-9GpntVQ957769163Eayuzg L Hillman RNUT[address] StreetTXTX[address] 9168JRYPYHNZWDNXAPKDSHAGCR1354-6 07:30:521.2.840.601926.1.72 .3.15|1.2.840.404466.1.13.104.2. 7.2.727879_[id number] Britney Pate RN [facility] 2022-12-21 09:16:50 8581-55-74C59:16:50 Problem: Seizures, Risk of / or ActualGoal: Absence of injury related to seizure activityOutcome: Progressing as expectedGoal: Absence of seizure activityOutcome: Progressing as expectedGoal: Successful induction of monitored seizure activity (Epilepsy Monitoring Unit - EMU)Outcome: Progressing as expected Problem: Falls, Risk ofGoal: Absence of fallsOutcome: Progressing as expected Problem: Discharge PlanningGoal: Adequate for dischargeOutcome: Progressing as expectedGoal: Effective communicationOutcome: Progressing as expected Problem: PainGoal: Control of pain at or below patient's documented comfort goalOutcome: Progressing as expectedGoal: Reduction in pain sensationOutcome: Progressing as expected 38981-3Mczp of care waefWT0068-32-66P00:16:54Plan of care noteTXT1.2.840.122162.1.13.104.2 .7.2.859488|7819929915BZBcriafyq e for patient hsyr04761-3PsptZD759058049Tdhgq E Clare RN[address] DvmiLceycrxkwQddjyekqjGUAS709788 7871XLAYZAXGPMLSZIOLHDLGHV1924-9 09:16:541.2.840.053586.1.72 .3.15|1.2.840.137247.1.13.104.2. 7.2.727879_[id number] Efren Coy RN [facility] 2022-12-21 05:53:28 7789-21-20E66:53:28 Problem: Seizures, Risk of / or ActualGoal: Absence of injury related to seizure activityOutcome: Progressing as expectedGoal: Absence of seizure activityOutcome: Progressing as expectedGoal: Successful induction of monitored seizure activity (Epilepsy Monitoring Unit - EMU)Outcome: Progressing as expected Problem: Falls, Risk ofGoal: Absence of fallsOutcome: Progressing as expected Problem: Discharge PlanningGoal: Adequate for dischargeOutcome: Progressing as expectedGoal: Effective communicationOutcome: Progressing as expected Problem: PainGoal: Control of pain at or below patient's documented comfort goalOutcome: Progressing as expectedGoal: Reduction in pain sensationOutcome: Progressing as expected 02385-2Cede of care hwaqTN3479-08-84F06:53:31Plan of care noteTXT1.2.840.446494.1.13.104.2 .7.2.193436|2999766193RRUuzqigvx e for patient gszh30024-8DsrgQP554776911Ruqlyv d G Domingo RN[address] RamxJgxtskcmwDlsphgwumYZEG526761 9174MSZDQXYZZPLWFXJTKURLYJ8291-7 05:53:311.2.840.366971.1.72 .3.15|1.2.840.506697.1.13.104.2. 7.2.727879_[id number] Mark Scanlon RN [facility] 2022-12-20 10:47:57 5601-96-42I01:47:57 Problem: Seizures, Risk of / or ActualGoal: Absence of injury related to seizure activityOutcome: Progressing as expectedGoal: Absence of seizure activityOutcome: Progressing as expectedGoal: Successful induction of monitored seizure activity (Epilepsy Monitoring Unit - EMU)Outcome: Progressing as expected Problem: Falls, Risk ofGoal: Absence of fallsOutcome: Progressing as expected Problem: Discharge PlanningGoal: Adequate for dischargeOutcome: Progressing as expectedGoal: Effective communicationOutcome: Progressing as expected Problem: PainGoal: Control of pain at or below patient's documented comfort goalOutcome: Progressing as expectedGoal: Reduction in pain sensationOutcome: Progressing as expected 93517-2Fmmu of care offxRF2211-53-55D97:48:04Plan of care noteTXT1.2.840.710106.1.13.104.2 .7.2.596527|4921358288VRNifvvqyd e for patient vhlx26140-1TskpGE444213547Zolo Adrianna Jessica RNUT[address] SmleHwsbgktbuXmmwfainmOFQG890565 5533NWBUGJYNVJPIXULVPYOEUD9310-4 12-20T10:48:041.2.840.230625.1.72 .3.15|1.2.840.764949.1.13.104.2. 7.2.727879_[id number] Cornelia Jessica RN [facility] 2022-12-20 00:42:03 6233-90-20X92:42:03 Problem: Seizures, Risk of / or ActualGoal: Absence of injury related to seizure activityOutcome: Progressing as expectedGoal: Absence of seizure activityOutcome: Progressing as expectedGoal: Successful induction of monitored seizure activity (Epilepsy Monitoring Unit - EMU)Outcome: Progressing as expected Problem: Falls, Risk ofGoal: Absence of fallsOutcome: Progressing as expected Problem: Discharge PlanningGoal: Adequate for dischargeOutcome: Progressing as expectedGoal: Effective communicationOutcome: Progressing as expected Problem: PainGoal: Control of pain at or below patient's documented comfort goalOutcome: Progressing as expectedGoal: Reduction in pain sensationOutcome: Progressing as expected 89619-9Onqp of care ziqfHU8574-09-12P39:42:06Plan of care noteTXT1.2.840.329071.1.13.104.2 .7.2.460858|0352437155YBLaqvwaze e for patient orkq76314-4BjkgNB017311787Sluhk Gayla RNUT[address] WwgzIwzmtmzgwOmqfgulpjNSHU657590 5291WVIOHIYLUOGXPMFFOQMJDY6013-1 12-20T00:42:061.2.840.880063.1.72 .3.15|1.2.840.221609.1.13.104.2. 7.2.727879_[id number] Racheal Gayla RN [facility] 2022-12-19 09:51:20 0300-74-92P72:51:20 Problem: Seizures, Risk of / or ActualGoal: Absence of injury related to seizure activity12/19/2022950 by Cornelia Jessica RNOutcome: Progressing as expected12/19/202250 by Cornelia Jessica RNOutcome: Progressing as expectedGoal: Absence of seizure activity12/19/202251 by Cornelia Jessica RNOutcome: Progressing as expected12/19/202250 by Cornelia Jessica, RNOutcome: Progressing as expectedGoal: Successful induction of monitored seizure activity (Epilepsy Monitoring Unit - EMU)12/19/202251 by Cornelia Jessica, RNOutcome: Progressing as expected12/19/202250 by Cornelia Jessica, RNOutcome: Progressing as expected Problem: Falls, Risk ofGoal: Absence of falls12/19/202251 by Cornelia Jessica RNOutcome: Progressing as expected12/19/202250 by Cornelia Jessica, RNOutcome: Progressing as expected Problem: Discharge PlanningGoal: Adequate for discharge12/19/202251 by Cornelia Jessica RNOutcome: Progressing as expected12/19/202250 by Cornelia Jessica, RNOutcome: Progressing as expectedGoal: Effective communication12/19/2022950 by Cornelia Jessica RNOutcome: Progressing as expected12/19/202250 by Cornelia Jessica, RNOutcome: Progressing as expected Problem: PainGoal: Control of pain at or below patient's documented comfort goalOutcome: Progressing as expectedGoal: Reduction in pain sensationOutcome: Progressing as expected 39772-7Agbi of care jmrvTZ6504-63-20L48:51:24Plan of care noteTXT1.2.840.033454.1.13.104.2 .7.2.476732|9016452636AFFfwpodsx e for patient jnzu89546-9TrmwRXJGOSRNXZ[address] [place], [place] [address] 3815OGEUCRXWNFPPPALOCNQINU7786-1 09:51:241.2.840.778563.1.72 .3.15|1.2.840.610821.1.13.104.2. 7.2.727879_[id number] [facility] 2022-12-19 09:50:43 3448-65-05B50:50:43 Problem: Seizures, Risk of / or ActualGoal: Absence of injury related to seizure activityOutcome: Progressing as expectedGoal: Absence of seizure activityOutcome: Progressing as expectedGoal: Successful induction of monitored seizure activity (Epilepsy Monitoring Unit - EMU)Outcome: Progressing as expected Problem: Falls, Risk ofGoal: Absence of fallsOutcome: Progressing as expected Problem: Discharge PlanningGoal: Adequate for dischargeOutcome: Progressing as expectedGoal: Effective communicationOutcome: Progressing as expected 62854-9Boda of care jlsuMN1602-94-63I09:50:49Plan of care noteTXT1.2.840.069848.1.13.104.2 .7.2.836586|4108744435BUPpsnrmdl e for patient thjt52168-4HjkgLAPNFDNUKC[address] [place], [place] [address] 3994ZQQADQGVCNXJICCQLAGOQG3321-7 09:50:491.2.840.705433.1.72 .3.15|1.2.840.525732.1.13.104.2. 7.2.727879_[id number] [facility] 2022-12-19 06:01:05 3782-74-81Y66:01:05 Problem: Seizures, Risk of / or ActualGoal: Absence of injury related to seizure activityOutcome: Progressing as expectedGoal: Absence of seizure activityOutcome: Progressing as expectedGoal: Successful induction of monitored seizure activity (Epilepsy Monitoring Unit - EMU)Outcome: Progressing as expected Problem: Falls, Risk ofGoal: Absence of fallsOutcome: Progressing as expected Problem: Discharge PlanningGoal: Adequate for dischargeOutcome: Progressing as expectedGoal: Effective communicationOutcome: Progressing as expected 88038-6Xhyp of care rnwnGU8747-28-03X40:01:08Plan of care noteTXT1.2.840.932105.1.13.104.2 .7.2.161402|8707897306CTRynsehvi e for patient lppa12737-3IyhpDESONHNAPS[address] JzybUcmqlgdhtTboykltyvMKMC974068 0724BKXALBYXGSOKPIXJFUKQQE6689-1 06:01:081.2.840.270468.1.72 .3.15|1.2.840.653043.1.13.104.2. 7.2.727879_[id number] [facility] 2022-12-18 13:09:37 9104-88-13Y66:09:37 Problem: Seizures, Risk of / or ActualGoal: Absence of injury related to seizure activityOutcome: Progressing as expectedGoal: Absence of seizure activityOutcome: Progressing as expectedGoal: Successful induction of monitored seizure activity (Epilepsy Monitoring Unit - EMU)Outcome: Progressing as expected Problem: Falls, Risk ofGoal: Absence of fallsOutcome: Progressing as expected Problem: Discharge PlanningGoal: Adequate for dischargeOutcome: Progressing as expectedGoal: Effective communicationOutcome: Progressing as expected 46272-5Jtnl of care razjZU7943-01-28Q99:09:42Plan of care noteTXT1.2.840.692673.1.13.104.2 .7.2.849293|1709806798LGRxdyvtqw e for patient ecpe05943-6YxndFYEDHMKHVH99 [address] StreetTXTX[address] 3708RKEIUYCEXBSBZGBKRMYRJF4436-4 3:09:421.2.840.723911.1.72 .3.15|1.2.840.182959.1.13.104.2. 7.2.727879_[id number] [facility] 2022-11-30 13:08:22 2132-19-23A27:08:22 Thank you pt has been notified. She verbalized understanding. Closing encounter. 25466-0Rbzmevhed encounter OrggMQ2722-29-79I33:22:27Telepho ne encounter NoteTXT1.2.840.752811.1.13.104.2 .7.2.640356|[id number] e for patient [id number] K Marrs [address]TXTX[address] 7742IUOTKCDIAGADHCCDJBGBJF6796-5 11-30T13:22:271.2.840.701792.1.72 .3.15|1.2.840.321785.1.13.104.2. 7.2.727879_[id number] Lolita Javier RN [facility] 2022-11-30 09:09:17 9851-53-92Q27:09:17 Please inform patient:Echo shows a PFO, which is a common finding that may increase the chance of stroke in some patients. Have placed cardiology referral to discuss closure of the PFO. Thanks. 31797-5Oaictteff encounter YennIK9388-38-95Y66:14:21Telepho ne encounter NoteTXT1.2.840.303366.1.13.104.2 .7.2.895429|[id number] inna for patient zwom68203-8PnyaXULEFZPEFP[address] BiubHkkltkpshIpcybfsmpCODC500419 5592DTCMMSZONGRPXGUBXLOZSR0267-4 11-30T09:14:211.2.840.621623.1.72 .3.15|1.2.840.193952.1.13.104.2. 7.2.727879_[id number] [facility] 2022-11-01 13:21:20 6995-72-72R82:21:20 Pt states that she received 2 different doses of Keppra from pharmacy. She received a 750 mg and 1000 mg. It was explained to her that she is suppose to be on the 1000 mg BID as directed back in July. Pt stated she was not aware of change, but start tonight with the correct dose ( pt has already taken the 750 mg this AM). Pt has also been informed that she can transfer any, or all of her medication to which every pharmacy she chooses. Pt verbalized understanding. Pt was reminded of test scheduled in Radiology on the . Ms. Cedeño verbalized understanding. 15185-1Sdvcfnokp encounter MwurYU3011-92-08E53:30:15Telepho ne encounter NoteTXT1.2.840.973381.1.13.104.2 .7.2.040937|[id number] e for patient [id number] K Marrs RN[address] 7486SJWPNOGMJYEOXXAQEXVIGR7173-9 7-26T13:30:151.2.840.793308.1.72 .3.15|1.2.840.408564.1.13.104.2. 7.2.727879_[id number] Lolita Frost Yaya RN [facility] 2022-10-31 13:15:07 6265-88-92H89:15:07 Alka Cedeño is a 47 year old female calling states that her daughter went to pharm yesterday and picked up meds and she was given 2 bottles of keppra: 750mg and 1000mg. She's wondering if she needs to take both. Pls advise, thanks. She's states that she currently gets her migraine meds from [facility] w/ her PCP and wondering if she can still continue to get the meds from [facility]. She believes that the mg were increased for that medication. 75440-7Ktsscmpvc encounter UtmwET0165-79-12D08:18:20Telepho ne encounter NoteTXT1.2.840.442250.1.13.104.2 .7.2.110258|[id number] e for patient [id number] M. Garcia[address] 6230UEOSZFKGNYXMHATDKYCUPW1175-1 7-25T13:18:201.2.840.058469.1.72 .3.15|1.2.840.815253.1.13.104.2. 7.2.727879_[id number] Olamide Santana [facility] 2022-10-30 11:15:00 5241-58-25W53:15:00 Images from the original note were not included.Venipuncture collection performed by clean technique on the left forearm(s). Total of 1 attempts were made. Slight pressure and a bandage/dressing were applied to the site(s). The patient experienced no complications. The following specimens were processed according to instructions and sent to [facility] laboratories per lab order on 10/30/2022: LT BLUE 5 SST 3 RED LAV 2 PPT DK GREEN (LiHep) DK GREEN (SodH) RIDLEY DK BLUE (K2) DK BLUE (S) ACD Blood Culture NIPT/NTD 74947-8Vporz BgnvDM8709-55-87T18:27:15Nurse NoteTXT1.2.840.233727.1.13.104.2 .7.2.463650|[id number] e for patient [id number] MsryFivosrwclCcidglzsyROYB671904 5665NJFZZWHZRASRNTVZVJTHRD6792-4 7-24T11:27:151.2.840.491483.1.72 .3.15|1.2.840.895006.1.13.104.2. 7.2.727879_[id number] Blane Olivares [facility] 2022-10-30 11:15:00 4901-29-02E89:15:00 Addended by: EDEL FITCH on: 11/01/2022 09:19 AM Modules accepted: Orders [id number] DgtpdgtoRG4533-67-00T29:19:13Add endum DocumentTXT1.2.840.166385.1.13.1 04.2.7.2.493314|[id number] lable for patient [id number] [address] WotcVjsmfrcarOwnpekgazBTFE427755 8985JRUTJTYLIPYGAMWLNWFSZZ7325-8 09:19:131.2.840.774818.1.72 .3.15|1.2.840.925237.1.13.104.2. 7.2.727879_[id number] Edel [facility] 2022-10-30 08:00:00 1489-56-29R34:00:00 Addended by: YOAV PLATT MD on: 10/30/2022 01:45 PM Modules accepted: Level of Service [id number] LugebdnzDQ9085-14-72Z43:45:06Add endum DocumentTXT1.2.840.792471.1.13.1 04.2.7.2.112411|[id number] lable for patient [address] WigwVoblofgvcNtjiekgpqRWCJ904568 8188WHUCBSSFJWWYSIOONTPAZS9909-3 3:45:061.2.840.480385.1.72 .3.15|1.2.840.894437.1.13.104.2. 7.2.727879_[id number] [facility]
--- NOTE | 2023-11-05 19:46 | RAD REPORT ---
EXAM DESCRIPTION: Swapna Single View11/05/2023 7:29 pm CLINICAL HISTORY: Chest pain COMPARISON: 2022 FINDINGS: The lungs appear clear of acute infiltrate. The heart is normal size IMPRESSION: No acute abnormalities displayed
--- NOTE | 2023-11-05 21:26 | RAD REPORT ---
EXAM DESCRIPTION: CT - Head Brain Wo Cont - 11/05/2023 9:12 pm CLINICAL HISTORY: Weakness/prior fall COMPARISON: 2022 TECHNIQUE: Computed axial tomography of the head was obtained. IV contrast was not requested. All CT scans are performed using dose optimization technique as appropriate and may include automated exposure control or mA/KV adjustment according to patient size. FINDINGS: An intracranial bleed is not seen The ventricles are normal in caliber Olvin cisterna magna posterior fossa unchanged. Small low-density area deep white matter right parietal lobe unchanged. Fluid within the sinuses/ mastoids is not seen. IMPRESSION: No acute intracranial abnormality is seen If patient's symptoms persist MRI of the brain would be recommended
[2023-11-05 21:42] LABS: Specific Gravity > 1.030 (1.005-1.030)
[2023-11-05 21:43] LABS: Specific Gravity > 1.030 (1.005-1.030); Urine Bilirubin NEGATIVE (Negative); Urine Blood Negative (Negative); Urine Clarity Turbid (Clear); Urine Color Yellow (Yellow); Urine Glucose NEGATIVE (Negative); Urine Ketones NEGATIVE (Negative); Urine Protein 1+ (Negative); Urine Urobilinogen Normal (Normal); Urine pH 5.5 (5.0-7.0)
[2023-11-05 21:44] LABS: Sqamous Epithelial <5 /HPF (None Seen); Urine Bacteria <20 /HPF (<20); Urine Culture Reflex Order NOT NEEDED; Urine Microscopic Reflex YN ORDER UMIC; Urine Mucus Slight /HPF (None Seen); Urine Nitrite NEGATIVE (Negative); Urine RBC <5 /HPF (None Seen); Urine WBC <5 /HPF (<5)
[2023-11-05 21:48] LABS: SARS-CoV-2 Antigen CONTROL BLUE LINE VIS/BG OK; SARS-CoV-2 Antigen Rapid Res Negative (Negative)
[2023-11-05] MEDS ORDERED: NA CHLORIDE 0.9% 1,000 ML ONE (21:48)
[2023-11-05] MEDS ORDERED: MECLIZINE HCL 12.5 MG TAB ONE (22:43)
[2023-11-05 23:13] LABS: Absolute Lymphocytes (CBC) 2.1 K/uL (0.7-4.9); Absolute Monocytes 0.6 K/uL (0.1-1.3); Absolute Neutrophil 4.4 K/uL (1.8-8.0); Basophils % 0.4 % (0-1.3); Eosinophils % 0.6 % (0-4.4); Hematocrit 39.1 % (36.0-45.0); Hemoglobin 12.8 g/dL (12.0-15.0); Lymphocytes % 29.6 % (15.3-44.8); MCH 31.6 pg (27.0-35.0); MCHC 32.8 g/dL (32.0-36.0); MCV 96.2 fL (80-100); MPV 8.2 fL (7.6-11.3); Monocytes % 8.4 % (3.3-12.3); Platelets 204 thou/uL (152-406); RBC Red Blood Cell Count 4.06 M/uL (3.86-4.86); Red Cell Distribution Width 13.4 % (12.1-15.2)
[2023-11-05] MEDS ORDERED: KETOROLAC 30 MG/ML INJ ONE (23:21)
[2023-11-05 23:31] LABS: ALT/SGPT 23 U/L (13-56); AST/SGOT 17 U/L (15-37); Albumin 3.9 g/dL (3.4-5.0); Alkaline Phosphatase 153 U/L (45-117); Anion Gap 9.9 mEq/L (5.0-15.0); BUN Blood Urea Nitrogen 16 mg/dL (7-18); Bicarbonate 23 mEq/L (21-32); Bilirubin Total 0.3 mg/dL (0.2-1.0); Globulin 4.1 g/dL (2.3-3.5); Glomerular Filtration Rate 109 ml/min (=/>90); Glucose Level 98 mg/dL (74-106); Potassium 3.9 mEq/L (3.5-5.1); Sodium Level 130 mEq/L (136-145); Troponin High Sensitivity 4.6 pg/mL (<58.9)
[2023-11-05 23:39] LABS: Bilirubin Direct < 0.2 mg/dL (0-0.2); Bilirubin Indirect, Calculated 0.1 mg/dL (0.2-0.8)
--- NOTE | 2023-11-05 23:56 | EDPHYS ---
Physician Documentation [facility] Name: Alka Cedeño Age: 48 yrs Sex: Female : 1975 Arrival Date: 11/05/2023 Time: 18:13 Bed 8 Private MD: ED Physician Wali Li HPI: 11/04 19:10 This 48 yrs old Female presents to ER via Ambulatory with complaints of cp Probable Seizure, Weakness, Dizziness. 19:10 The patient presents with dizziness, generalized weakness, lightheadedness. cp 19:10 Onset: The symptoms/episode began/occurred 2 week(s) ago. Associated signs and cp symptoms: Pertinent positives: back pain, Pertinent negatives: abdominal pain, chest pain, focal weakness. The patient presents after having a single isolated seizure, that lasted an unknown period of time, 2 weeks ago. Seizure Hx: known seizure disorder. Patient's baseline: Neuro: alert and fully oriented, Motor: no deficits, Ambulation: walks without assistance, Speech: normal. Historical: - Allergies: 19:09 No Known Allergies; cm10 - PMHx: 19:09 Hypertension; Migraines; Seizures; TIA; cm10 - PSHx: 19:09 tubal ligation; cm10 - Immunization history:: Adult Immunizations up to date. - Infectious Disease History:: Denies. - Social history:: Smoking status: Patient denies any tobacco usage or history of. ROS: 19:15 Constitutional: Negative for body aches, chills, fever, poor PO intake, cp 19:15 Eyes: Negative for injury, pain, redness, and discharge, cp 19:15 ENT: Negative for drainage from ear(s), ear pain, sore throat, difficulty swallowing, difficulty handling secretions, 19:15 Cardiovascular: Positive for chest pain, Negative for edema, palpitations, 19:15 Respiratory: Negative for cough, shortness of breath, wheezing, 19:15 Abdomen/GI: Negative for abdominal pain, vomiting, diarrhea, constipation, 19:15 : Negative for urinary symptoms, vaginal bleeding, 19:15 Neuro: Positive for dizziness, weakness, Negative for altered mental status, 19:15 All other systems are negative, Exam: 19:20 Constitutional: The patient appears in no acute distress, alert, awake, cp non-diaphoretic, non-toxic, well developed, well nourished, 19:20 Head/Face: Normocephalic, atraumatic. cp 19:20 Eyes: Periorbital structures: appear normal, Pupils: equal, round, and reactive to light and accomodation, Extraocular movements: intact throughout, Conjunctiva: normal, no exudate, no injection, Sclera: no appreciated abnormality, Lids and lashes: appear normal, bilaterally, 19:20 ENT: External ear(s): are unremarkable, Nose: is normal, Mouth: Lips: moist, Oral mucosa: pink and intact, moist, Posterior pharynx: Airway: no evidence of obstruction, patent, 19:20 Neck: ROM/movement: is normal, is supple, without pain, no range of motions limitations, 19:20 Chest/axilla: Inspection: normal, 19:20 Cardiovascular: Rate: normal, Rhythm: regular, Edema: is not appreciated, JVD: is not appreciated, 19:20 Respiratory: the patient does not display signs of respiratory distress, Respirations: normal, no use of accessory muscles, no retractions, labored breathing, is not present, Breath sounds: are clear throughout, no decreased breath sounds, no stridor, no wheezing, 19:20 Abdomen/GI: Inspection: abdomen appears normal, Palpation: abdomen is soft and non-tender, in all quadrants, 19:20 Back: pain, that is mild, ROM is normal, 19:20 Neuro: Orientation: to person, place \T\ time. Mentation: is normal, Motor: moves all fours, strength is normal, Sensation: no obvious gross deficits, Gait: is steady, at a normal pace, without difficulty, 21:28 ECG was reviewed by the Attending Physician. cp Vital Signs: 19:07 BP 133 / 73; Pulse 71; Resp 16; Temp 96.8; Pulse Ox 98% on R/A; Weight 74.84 kg; Height cm10 5 ft. 1 in. ; Pain 10/10; 21:30 BP 113 / 72; Pulse 65; Resp 16; Temp 98.2(O); Pulse Ox 100% on R/A; kd3 22:31 BP 122 / 63; Pulse 59; Resp 18; Pulse Ox 100% on R/A; kd3 23:10 BP 130 / 68; Pulse 52; Resp 19; Pulse Ox 100% on R/A; kd3 19:07 Body Mass Index 31.18 (74.84 kg, 154.94 cm) cm10 19:07 Pain Scale: Adult cm10 [place] Coma Score: 19:09 Eye Response: spontaneous(4). Motor Response: obeys commands(6). Verbal Response: cm10 oriented(5). Total: 15. MDM: 19:13 Patient medically screened. cp 23:55 Data reviewed: vital signs, nurses notes, lab test result(s), EKG, radiologic studies, cp CT scan, plain films, and as a result, I will discharge patient. 23:55 Differential diagnosis: cerebral vascular accident, cardiac arrhythmia, seizure. I cp considered the following discharge prescriptions or medication management in the emergency department Medications were administered in the Emergency Department. See MAR. Independent interpretation of the following test(s) in the Emergency Department EKG: See my EKG interpretation above. Care significantly affected by the following chronic conditions: Hypertension, seizure disorder. Counseling: I had a detailed discussion with the patient and/or guardian regarding the historical points, exam findings, and any diagnostic results supporting the discharge/admit diagnosis, lab results, radiology results, to return to the emergency department if symptoms worsen or persist or if there are any questions or concerns that arise at home. Response to treatment: the patient's symptoms have mildly improved after treatment, and as a result, I will discharge patient. 11/04 19:09 Order name: Basic Metabolic Panel; Complete Time: 23:46 11/04 23:46 Interpretation: Normal except: NA 130; CA 8.3. 11/04 19:09 Order name: CBC with Diff; Complete Time: 23:19 11/04 19:09 Order name: LFT's; Complete Time: 23:46 11/04 23:47 Interpretation: Normal except: ALK 153; IBILI, CALC 0.1; GLOB 4.1; A/G 1.0. 11/04 19:09 Order name: Magnesium; Complete Time: 23:46 11/04 19:09 Order name: Troponin HS; Complete Time: 23:46 11/04 19:09 Order name: SARS RAPID; Complete Time: 22:19 11/04 19:09 Order name: Urinalysis w/ reflexes; Complete Time: 22:19 11/04 22:19 Interpretation: Normal except: UCLA Turbid; Urine SG > 1.030; UPROT 1+. cp 11/04 19:09 Order name: Test, Urine; Complete Time: 22:19 cp 11/04 22:20 Interpretation: Reviewed. cp 11/04 19:09 Order name: XRAY Chest (1 view); Complete Time: 22:19 cp 11/04 22:20 Interpretation: Report review. cp 11/04 19:09 Order name: CT Head Brain wo Cont; Complete Time: 22:19 cp 11/04 22:20 Interpretation: Report reviewed. cp 11/04 19:09 Order name: Cardiac monitoring; Complete Time: : cp 11/04 19:09 Order name: EKG - Nurse/Tech; Complete Time: : cp 11/04 19:09 Order name: IV Saline Lock; Complete Time: : cp 11/04 19:09 Order name: Labs collected and sent; Complete Time: : cp 11/04 19:09 Order name: O2 Per Protocol; Complete Time: : cp 11/04 19:09 Order name: O2 Sat Monitoring; Complete Time: :29 cp EC: Rate is 56 beats/min. Rhythm is regular. WI interval is normal. QRS interval is normal. cp QT interval is normal. T waves are Inverted in lead aVR. Interpreted by me. Reviewed by me. Administered Medications: 21:53 Drug: NS 0.9% IV 1000 ml IV at 1 bolus Per protocol; 1000 mL bolus Route: IV; Rate: 1 kd3 bolus; Site: right antecubital; 22:48 Drug: Meclizine PO 25 mg PO once Route: PO; bm8 23:23 Drug: Ketorolac IVP 15 mg IVP once Route: IVP; Site: right antecubital; kd3 Disposition Summary: 11/05/23 23:55 Discharge Ordered Notes: Location: Home cp Problem: new cp Symptoms: have improved cp Condition: Stable cp Diagnosis - Dizziness and giddiness cp - Weakness cp - Dorsalgia, unspecified cp Followup: cp - With: Private Physician - When: 2 - 3 days - Reason: Recheck today's complaints Discharge Instructions: - Discharge Summary Sheet cp - Acute Back Pain, Adult cp - Dizziness cp - Weakness cp Forms: - Medication Reconciliation Form cp - Antibiotic Education cp - Prescription Opioid Use cp - Patient Portal Instructions cp - Leadership Thank You Letter cp Prescriptions: - Ibuprofen 800 mg Oral Tablet - take 1 tablet ORAL route every 8 hours As needed take with food; 30 tablet; cp Refills: 0, Product Selection Permitted - Meclizine 25 mg Oral Tablet - take 1 tablet ORAL route every 8 hours As needed; 30 tablet; Refills: 0, cp Product Selection Permitted Addendum: 11/08/2023 10:42 Co-signature as Attending Physician, Wali Li MD I reviewed the patient's care r n provided by the Advanced Practice Provider and agree with the diagnosis and treatment plan. Signatures: Dispatcher [employer] EDMS Wali Li MD MD rn Page, Corey, PA PA cp Doucette, Kyli, RN RN kd3 Sabiha Duarte, RN RN cm10 Rishi Storey, RN RN bm8 Corrections: (The following items were deleted from the chart) 11/04 19:10 19:10 BASIC METABOLIC PANEL+C.LAB.BRZ ordered. EDMS EDMS 19:10 19:10 CBC+H.LAB.BRZ ordered. EDMS EDMS 19:10 19:10 HEPATIC FUNCTION+C.LAB.BRZ ordered. EDMS EDMS 19:10 19:10 MAGNESIUM+C.LAB.BRZ ordered. EDMS EDMS 19:10 19:10 Troponin High Sensitivity+C.LAB.BRZ ordered. EDMS EDMS 19:10 19:10 SARS-COV-2 Antigen Rapid+I.LAB.BRZ ordered. EDMS EDMS 19:10 19:10 Urinalysis+U.LAB.BRZ ordered. EDMS EDMS 19:10 19:10 Test, Urine+UC.LAB.BRZ ordered. EDMS EDMS 19:10 19:10 Chest Single View+RAD.RAD.BRZ ordered. EDMS EDMS 19:10 19:10 Head Brain Wo Cont+CT.RAD.BRZ ordered. EDMS EDMS
--- NOTE | 2023-11-05 23:56 | ER ---
Nurse's Notes [facility] Name: Alka Cedeño Age: 48 yrs Sex: Female : 1975 Arrival Date: 11/05/2023 Time: 18:13 Bed 8 Private MD: Diagnosis: Dizziness and giddiness;Weakness;Dorsalgia, unspecified Presentation: 11/04 19:07 Chief complaint: Patient states: Generalized weakness and back pain. pt states that she cm10 had a seizure 2 weeks ago with a fall. Pt reports feeling like she is going to pass out. Coronavirus screen: Client denies travel out of the [place] in the last 14 days. At this time, the client does not indicate any symptoms associated with coronavirus-19. Ebola Screen: Patient denies travel to an Ebola-affected area in the 21 days before illness onset. No symptoms or risks identified at this time. Initial Sepsis Screen: Does the patient meet any 2 criteria? No. Patient's initial sepsis screen is negative. Does the patient have a suspected source of infection? No. Patient's initial sepsis screen is negative. Risk Assessment: Do you want to hurt yourself or someone else? Patient reports no desire to harm self or others. Onset of symptoms was November 05, 2023. 19:07 Method Of Arrival: Ambulatory cm10 19:07 Acuity: DIANE 3 cm10 Triage Assessment: 19:09 General: Appears in no apparent distress. comfortable, Behavior is calm, cooperative. cm10 Neuro: No deficits noted. Level of Consciousness is awake, alert, obeys commands, Oriented to person, place, time, situation, Appropriate for age. Respiratory: No deficits noted. Airway is patent Respiratory effort is even, unlabored, Respiratory pattern is regular, symmetrical. Historical: - Allergies: 19:09 No Known Allergies; cm10 - PMHx: 19:09 Hypertension; Migraines; Seizures; TIA; cm10 - PSHx: 19:09 tubal ligation; cm10 - Immunization history:: Adult Immunizations up to date. - Infectious Disease History:: Denies. - Social history:: Smoking status: Patient denies any tobacco usage or history of. Screenin:30 [facility] ED Fall Risk Assessment (Adult) History of falling in the last 3 months, kd3 including since admission No falls in past 3 months (0 pts) Confusion or Disorientation No (0 pts) Intoxicated or Sedated No (0 pts) Impaired Gait No (0 pts) Mobility Assist Device Used No (0 pt) Altered Elimination No (0 pt) Score/Fall Risk Level 0 - 2 = Low Risk Maintained a safe environment. Abuse screen: Denies threats or abuse. Denies injuries from another. Nutritional screening: No deficits noted. Tuberculosis screening: No symptoms or risk factors identified. Assessment: 21:30 General: Appears uncomfortable, Behavior is calm, cooperative. Pain: Complains of pain kd3 in back. Neuro: Level of Consciousness is awake, alert, obeys commands, Oriented to person, place, time, situation. Cardiovascular: Patient's skin is warm and dry. Respiratory: Airway is patent Trachea midline Respiratory effort is even, unlabored, Respiratory pattern is regular, symmetrical. 22:51 General: Called outside lab to inquire about un resulted lab work. outside lab is kd3 unable to locate blood work at this time, This RN Recollected blood work and sent back to the lab,. 23:10 Reassessment: No changes from previously documented assessment. Patient and/or family kd3 updated on plan of care and expected duration. Pain level reassessed. Patient is alert, oriented x 3, equal unlabored respirations, skin warm/dry/pink. 23:18 General: Outside lab confirms receipt of redraw blood tubes. . kd3 Vital Signs: 19:07 BP 133 / 73; Pulse 71; Resp 16; Temp 96.8; Pulse Ox 98% on R/A; Weight 74.84 kg; Height cm10 5 ft. 1 in. ; Pain 10/10; 21:30 BP 113 / 72; Pulse 65; Resp 16; Temp 98.2(O); Pulse Ox 100% on R/A; kd3 22:31 BP 122 / 63; Pulse 59; Resp 18; Pulse Ox 100% on R/A; kd3 23:10 BP 130 / 68; Pulse 52; Resp 19; Pulse Ox 100% on R/A; kd3 19:07 Body Mass Index 31.18 (74.84 kg, 154.94 cm) cm10 19:07 Pain Scale: Adult cm10 [place]u Coma Score: 19:09 Eye Response: spontaneous(4). Motor Response: obeys commands(6). Verbal Response: cm10 oriented(5). Total: 15. ED Course: 18:18 Patient arrived in ED. mg5 18:22 [facility]. cp 18:22 Leonidas Romo MD is Attending Physician. cp 19:09 Triage completed. cm10 19:09 Wali Li MD is Attending Physician. cp 19:10 Arm band placed on Patient placed in waiting room. cm10 19:31 XRAY Chest (1 view) In Process Unspecified. EDMS 20:50 Rocio Perez, ODALYS is Primary Nurse. kd3 21:14 CT Head Brain wo Cont In Process Unspecified. EDMS 21:29 Test, Urine Sent. kd3 21:29 Urinalysis w/ reflexes Sent. kd3 21:29 SARS RAPID Sent. kd3 21:29 Basic Metabolic Panel Sent. kd3 21:29 CBC with Diff Sent. kd3 21:29 LFT's Sent. kd3 21:29 Magnesium Sent. kd3 21:29 Troponin HS Sent. kd3 21:29 Initial lab(s) drawn, by az, sent to lab. Urine collected: clean catch specimen, clear, kd3 EKG done, by ED staff, reviewed by Victorino SHARIF. Inserted saline lock: 20 gauge in right antecubital area, using aseptic technique. Blood collected. Flushed with 10 mL NS. 21:31 Patient has correct armband on for positive identification. Provided Education on: kd3 diagnostics . 21:31 Seizure precautions initiated. kd3 21:31 No provider procedures requiring assistance completed. kd3 07 00:05 IV discontinued, intact, bleeding controlled, No redness/swelling at site. Pressure kd3 dressing applied. Administered Medications: 11/04 21:53 Drug: NS 0.9% IV 1000 ml IV at 1 bolus Per protocol; 1000 mL bolus Route: IV; Rate: 1 kd3 bolus; Site: right antecubital; 22:48 Drug: Meclizine PO 25 mg PO once Route: PO; bm8 23:23 Drug: Ketorolac IVP 15 mg IVP once Route: IVP; Site: right antecubital; kd3 Medication: 21:31 VIS not applicable for this client. kd3 Outcome: 23:55 Discharge ordered by . cp 11/05 00:04 Discharged to home ambulatory, with family, kd3 Condition: stable Discharge instructions given to patient, family, Instructed on discharge instructions, follow up and referral plans. medication usage, Demonstrated understanding of instructions, follow-up care, medications, Prescriptions given X 2, 00:05 Patient left the ED. kd3 Signatures: Dispatcher [employer] EDMS Victorino Gil PA PA cp Doucette, Kyli, RN RN kd3 Sabiha Duarte RN RN cm10 Mariella Cox 5 Rishi Storey RN RN bm8
[2023-11-06 00:19] VITALS: TEMP 98.2; O2SAT 100
[2023-11-06 00:22] VITALS: BP 130/68
--- NOTE | 2023-11-07 11:48 | EKG ---
Test Date: 2023-11-05 Test Time: 21:20:27 Environmental Field Services Technician: JASPREET MEASUREMENT RESULTS: Intervals: Rate: 56 OR: 170 QRSD: 86 QT: 398 QTc: 384 [place]: P: 65 OR: 170 QRS: 69 T: 66 INTERPRETIVE STATEMENTS: Sinus bradycardia Otherwise normal ECG Compared to ECG 07/28/2022 08:44:34 Sinus rhythm no longer present Electronically Signed On 11-07-23 11:44:21 CDT by Govind Cook
== END 2023-11-06 00:05 | disposition home or self-care (01) ==
LOC: ER 18:13
DX: R42 Dizziness and giddiness (principal); R53.1 Weakness; M54.9 Dorsalgia, unspecified; Z11.52 Encounter for screening for COVID-19
CPT/HCPCS: 85025; 81001; 80048; 36415; 83735; 81025; 80076; 84484; 70450; 71045; 96374; 99284; 87811; J8597; J7030; 93005

== ENCOUNTER 2024-02-13 15:42 | Emergency (ER) | payer OTHER ==
--- OUTSIDE RECORDS SUMMARY | 2024-02-13 15:47 | XMS REPORT | Continuity of Care Document ---
Author Name Unknown Address [address] [facility] [address] [place] [address] [facility] [address] [facility] [address] [place] [address] Care Team Providers Care Beehive Kiln Supervisor Name Role Phone Connie Castellano Primary Care Physician [phone] YOAV PLATT Attending Clinician Unavailable EL SINGH Attending Clinician Unavailable IRLANDA RICH Attending Clinician Unav ailable IRLANDA RICH Attending Clinician Unav ailable Yoav Platt MD Attending Clinician [phone] Irlanda Rich MD Attending Clinician + Chava [facility], Baylee Nielsen Attending Clinician UnavailMichael Duckworth CPhT Attending Clinician Unavailable El Singh MD Attending Clinician [phone] Blane [facility] Attending Clinician Unavailable Yoav Platt MD Attending Clinician [phone] El Singh MD Attending Clinician [phone] Vishal [facility] Attending Clinician Unavailable Cuco, [facility] Attending Clinician UnavailJADE Cantrell Attending Clinician Unavailable Pcp, Patient Does Not Have A Attending Clinician Belle RPHadley De La Cruz Attending Clinician Unava ilable Deborde RN, Theresa Ferro Attending Clinician Unavail able JAN GRAY Attending Clinician Unavailable Jan Gray MD Attending Clinician [phone] Doctor Unassigned, [place] Attending Clinician U navailable Dorina Church MA Attending Clinician UnavailMichleine Griffin Attending Clinician U navailable Pcp-Lab Attending Clinician Unavailable STEFFI GUERRERO Attending Clinician Unavaila STEFFI Ojeda Attending Clinician Unavaila Chelsea Palomino Attending Clinician [phone] YOAV PLATT Admitting Clinician Unavailable JAN GRAY Admitting Clinician Jan Pratt MD Admitting Clinician [phone] Payers Payer Name Policy Type Policy Number Effective Date Expirati on Date Source [employer] [facility] [id number] 2024 00:00:00 Problems Condition Name Condition Details Condition Category Status Onset Date Resolution Date Last Treatment Date Treating Clinician Comments Source 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 Complex partial seizures with secondary generaliz ationICD1 0 Diagnosis Term Intervention Analyst Utility [facility] Migraine Migraine Disease Active 07-24 00:00: 00 Overview: Formattin g of this note might be different from the original. ICD10 Diagnosis Term Intervention Analyst Utility [facility] Allergies, Adverse Reactions, Alerts Allergy Name Allergy Type Status Severity Reaction(s) Onset Date Inactive Date Treating Clinician Comments Source NO KNOWN ALLERGIE S Drug Class Active [facility] Social History Social Habit Start Date Stop Date Quantity Comments Source Gender identity [facility] Alcoholic beverage intake 2024-01-28 00:00:00 2024-01-28 00:00:00 Lifetime non-drinker (finding) [facility] History of Social function 2023-10-29 00:00:00 2023-10-29 00:00:00 [facility] Alcohol intake 2023-04-18 00:00:00 2023-04-18 00:00:00 Lifetime non-drinker (finding) [facility] Tobacco use and exposure 2022-12-18 00:00:00 2022-12-18 00:00:00 Smokeless tobacco non-user [facility] Sex assigned at 1975 00:00:00 1975 00:00:00 [facility] Smoking Status Start Date Stop Date Source Never smoked tobacco [facility] Medications Ordered Medication Name Filled Medication Name Start Date Stop Date Current Medication? Ordering Clinician Indication Dosage Frequency Signature (SIG) Comments Components Source levETIRAcet am 1,000 mg tablet 2023-04 00:00: 00 Yes [id number] 1000mg Take 1 tablet by mouth every 12 (twelve) hours. [facility] levETIRAcet am (KEPPRA) 250 mg tablet 2023-04 00:00: 00 Yes [id number] 250mg Take 1 tablet by mouth every 12 (twelve) hours. [facility] midazolam 5 mg/spray (0.1 mL) [place] 2023-04 00:00: 00 Yes [id number] 1{spray } Use 1 [place] in 1 nostril SEE-INSTRU CTIONS. 1 spray [...] more than 5 episodes in a month. [facility] clonazePAM 1 mg tablet 2023-04 00:00: 00 Yes [id number] 1mg TAKE 1 TABLET BY MOUTH IN THE MORNING AND 1 TABLET AT NOON AND 1 TABLET IN THE EVENING. [facility] cenobamate (XCOPRI) 200 mg Tab 2023-04 00:00: 00 Yes [id number] TAKE ONE (1) TABLET(S) BY MOUTH ONCE A DAY IN THE MORNING. [facility] OXcarbazepi ne 600 mg tablet 2023-04 00:00: 00 Yes [id number] 600mg Take 1 tablet by mouth every 12 (twelve) hours. [facility] rimegepant (NURTEC ODT) 75 mg TbDL 2023-04 00:00: 00 Yes [id number] 75mg Take 1 tablet by mouth daily as needed for headache symptoms. [facility] topiramate 50 mg tablet 2023-04 00:00: 00 Yes [id number] 50mg Take 1 tablet by mouth in the morning. [facility] levETIRAcet am 1,000 mg tablet 2023-04 00:00: 00 02-12 00:00 :00 No [id number] 1500mg Take 1.5 tablets by mouth every 12 (twelve) hours. [facility] atorvastati n 40 mg tablet 12-26 00:00: 00 Yes 1mg Oren Hickey lisinopril 30 mg tablet 12-26 00:00: 00 Yes 1mg Oren Hickey oxcarbazepi ne 600 mg tablet 12-23 00:00: 00 Yes mg Oren Hickey levetiracet am 1,000 mg tablet 12-23 00:00: 00 Yes mg Oren Hickey clonazepam 1 mg tablet 12-07 00:00: 00 Yes mg Oren Hickey perflutren lipid microsphere s (DEFINITY) injection 2 mL 11-15 14:00: 00 11-15 13:55 :00 No [id number] 2mL 2 mL, IV Push, ONCE, 1 dose, On Sun11/16/23 at 0900, Routine [facility] rimegepant (NURTEC ODT) 75 mg TbDL 10-29 00:00: 00 01-27 00:00 :00 No [id number] 75mg Take 1 tablet by mouth as needed for headache. Do not exceed 1 tablet in any 24-hour period. [facility] lovastatin (MEVACOR) 20 mg tablet 10-28 12:23: 40 10-28 00:00 :00 No Take by mouth at bedtime. [facility] lisinopril (PRINIVIL,Z ESTRIL) 20 mg tablet 10-28 12:23: 40 10-28 00:00 :00 No 20mg Take 1 tablet by mouth in the morning. [facility] atorvastati n 40 mg tablet 10-28 00:00: 00 Yes [id number] 40mg Take 1 tablet by mouth at bedtime. [facility] lisinopriL (ZESTRIL) 30 mg tablet 10-28 00:00: 00 Yes [id number] 30mg Take 1 tablet by mouth in the morning. [facility] ergocalcife rol (vitamin D2) 1,250 mcg [...] cenobamate 200 mg Tab 07-17 00:00: 00 01-27 00:00 :00 No [id number] 1{tbl} Take 1 tablet by mouth in the morning. [facility] clonazePAM 1 mg tablet 07-17 00:00: 00 01-27 00:00 :00 No [id number] 1mg Take 1 tablet by mouth in the morning and 1 tablet at noon and 1 tablet in the evening. [facility] levETIRAcet am 1,000 mg tablet 07-17 00:00: 00 01-27 00:00 :00 No [id number] 1000mg Take 1 tablet by mouth in the morning and 1 tablet in the evening. [facility] OXcarbazepi ne 600 mg tablet 07-17 00:00: 00 01-27 00:00 :00 No [id number] 600mg Take 1 tablet by mouth in the morning and 1 tablet in the evening. [facility] topiramate 50 mg tablet 07-17 00:00: 00 01-27 00:00 :00 No [id number] 50mg Take 1 tablet by mouth in the morning. [facility] rimegepant (NURTEC ODT) 75 mg TbDL 4-10 00:00: 00 10-28 00:00 :00 No [id number] 75mg Take 1 tablet by mouth as needed for headache. Do not exceed 1 tablet in any 24-hour period. [facility] OXCARBAZEPI N 600MG 07-01 00:00: 00 [...] 00:00: 00 Yes Oren Hickey XCOPRI 200MG - 00:00: 00 Yes Oren Hickey CLONAZEPAM 1MG 06-09 00:00: 00 Yes Oren Hickey clonazePAM 1 mg tablet - 00:00: 00 07-16 00:00 :00 No [id number] 1mg Take 1 tablet by mouth in the morning and 1 tablet at noon and 1 tablet in the evening. [facility] atorvastati n 40 mg tablet 2- 00:00: 00 Yes mg Oren Hickey clopidogrel 75 mg tablet 2- 00:00: 00 Yes mg Oren Hickey lisinopril 30 mg tablet - 00:00: 00 Yes mg Oren Hcikey Topamax 50 mg tablet - 00:00: 00 Yes mg Oren Hickey ergocalcife rol (vitamin D2) 1,250 mcg (50,000 unit) capsule 2- 00:00: 00 Yes (50,000 unit) Oren Hickey SUMATRIPTAN 50MG 2-05 00:00: 00 Yes Oren Hickey NURTEC 75MG ODT 1-12 00:00: 00 Yes Oren Hickey OXcarbazepi ne 600 mg tablet - 00:00: 00 07-16 00:00 :00 No [id number] 600mg Take 1 tablet by mouth in the morning and 1 tablet in the evening. [facility] rimegepant (NURTEC ODT) 75 mg TbDL 04-18 00:00: 00 07-16 00:00 :00 No [id number] 75mg Take 1 tablet by mouth as needed (Headache) . Do not exceed 1 tab in any 24-hour period. [facility] topiramate 50 mg tablet 04-18 00:00: 00 07-16 00:00 :00 No [id number] 50mg Take 1 tablet by mouth in the morning. [facility] levETIRAcet am 1,000 mg tablet 04-18 00:00: 00 07-16 00:00 :00 No [id number] 1000mg Take 1 tablet by mouth in the morning and 1 tablet in the evening. [facility] cenobamate 200 mg Tab 04-18 00:00: 00 07-16 00:00 :00 No [id number] 1{tbl} Take 1 tablet by mouth in the morning. [facility] clonazePAM 1 mg tablet 04-18 00:00: 00 05-15 00:00 :00 No [id number] 1.5mg Take 1.5 tablets by mouth in the morning and 1.5 tablets in the evening. [facility] clonazePAM 1 mg tablet 04-12 00:00: 00 04-18 00:00 :00 No [id number] 1mg TAKE ONE (1) TABLET(S) BY MOUTH THREE TIMES A DAY. [facility] TAKE 1 TABLET DAILY. 2022-04 2- 00:00: 00 Yes 30 Oren Hickey TAKE 1 TABLET AT BEDTIME. 2022-04 00:00: 00 Yes 40 Oren Hickey TAKE 1 TABLET DAILY. 2022-04 00:00: 00 Yes [id number] Oren Hickey TOPAMAX 50MG 2022-04 2- 00:00: 00 Yes Oren Hickey ATORVASTATI N 40MG 2022-04 2- 00:00: 00 Yes [id number] Oren Hickey CLONAZEPAM 1MG 2022-04 2- 00:00: 00 Yes 1000 Oren Hickey LEVETIRACET A 1000MG 2022-04 2- 00:00: 00 Yes [id number] Oren Hickey TOPAMAX 50MG 2022-04- 00:00: 00 Yes [id number] Oren Hickey LISINOPRIL 30MG 2022-04- 00:00: 00 Yes [id number] Oren Hickey XCOPRI 200MG 2022-04- 00:00: 00 Yes [id number] Oren Hickey ATORVASTATI N 40MG 2022-04 0-24 00:00: 00 Yes Oren Hickey TAKE 1 TABLET FOR MIGRAINE RELIEF. MAY REPEAT EVERY 2 HOURS. MAX 200MG/DAY. 2022-04 0-24 00:00: 00 07-09 00:00 :00 No 50 Oren Hickey TAKE 1 TABLET DAILY. 2022-04 0-24 00:00: 00 07-09 00:00 :00 No 50 Oren Hickey TAKE HALF TAB DAILY 2022-04 0-24 00:00: 00 07-09 00:00 :00 No [id number] Oren Hickey NURTEC 75MG ODT 2022-04 0-19 00:00: 00 Yes Oren Hickey XCOPRI 200MG 2022-04 0-16 00:00: 00 Yes Oren Hickey rimegepant (NURTEC ODT) 75 mg TbDL 2022-04 0-11 00:00: 00 04-18 00:00 :00 No [id number] 75mg Take 1 tablet by mouth as needed (Headache) . Do not exceed 1 tab in any 24-hour period. [facility] LEVETIRACET A 1000MG 2022-04 0-05 00:00: 00 Yes Oren Hickey TAKE ONE (1) TABLET(S) BY MOUTH TWICE A DAY. 2022-04 00:00: 00 Yes Oren Hickey TAKE ONE (1) TABLET(S) BY MOUTH THREE TIMES A DAY. 2022-04 00:00: 00 Yes Oren Hickey cenobamate 200 mg Tab 2022-04 0 00:00: 00 04-18 00:00 :00 No [id number] 1{tbl} Take 1 tablet by mouth in the morning. [facility] levETIRAcet am 1,000 mg tablet 2022-04 00:00: 00 04-18 00:00 :00 No [id number] 1000mg Take 1 tablet by mouth in the morning and 1 tablet in the evening. [facility] OXcarbazepi ne 600 mg tablet 2022-04 00:00: 00 04-18 00:00 :00 No [id number] 600mg Take 1 tablet by mouth in the morning and 1 tablet in the evening. [facility] topiramate 50 mg tablet 2022-04 00:00: 00 04-18 00:00 :00 No [id number] 50mg Take 1 tablet by mouth in the morning. [facility] clonazePAM 1 mg tablet 2022-04 00:00: 00 04-12 00:00 :00 No [id number] 1mg Take 1 tablet by mouth in the morning and 1 tablet at noon and 1 tablet in the evening. [facility] rimegepant (NURTEC ODT) 75 mg TbDL 2022-04 00:00: 00 01-17 00:00 :00 No [id number] 75mg Take 1 tablet by mouth as needed (Headache) . Do not exceed 1 tab in any 24-hour period. [facility] TAKE 1 TABLET DAILY. 01-05 00:00: 00 07-09 00:00 :00 No [id number] Oren Hickey SUMATRIPTAN 50MG 12-27 00:00: 00 Yes Oren Hickey TOPAMAX 50MG 12-27 00:00: 00 Yes Oern Hickey CLOPIDOGREL 75MG 12-27 00:00: 00 Yes [id number] Oren Hickey TAKE 1 TABLET DAILY. 12-27 00:00: 00 07-09 00:00 :00 No 30 Oren Hickey TAKE 1 TABLET DAILY. 12-27 00:00: 00 07-09 00:00 :00 No 50 Oren Hickey lovastatin (MEVACOR) 20 mg tablet 12-22 17:05: 35 Yes Take by mouth at bedtime. [facility] lisinopril (PRINIVIL,Z ESTRIL) 20 mg tablet 12-22 17:05: 35 Yes 20mg Take 1 tablet by mouth in the morning. [facility] cenobamate (XCOPRI) Tab 200 mg 12-19 15:30: 00 Yes 200mg 200 mg, Oral, QAM, First dose on Sun12/19/22 at 1030, Until Discontinu ed, Routine [facility] topiramate (TOPAMAX) tablet 100 mg 12-19 14:00: 00 Yes 100mg 100 mg, Oral, DAILY, First dose on Sun12/19/22 at 0900, Until Discontinu ed, Routine
member of congress approving Restricted medication : JAN GRAY [facility] lisinopriL (PRINIVIL,Z ESTRIL) tablet 20 mg 12-19 14:00: 00 Yes 20mg 20 mg, Oral, DAILY, First dose on Sun12/19/22 at 0900, Until Discontinu ed, Routine [facility] clopidogreL (PLAVIX) 75 mg tablet 75 mg 12-19 14:00: 00 Yes 75mg 75 mg, Oral, DAILY, First dose on Sun12/19/22 at 0900, Until Discontinu ed, Routine [facility] pantoprazol e (PROTONIX) EC tablet 40 mg 12-19 14:00: 00 Yes 40mg 40 mg, Oral, DAILY, First dose on Sun12/19/22 at 0900, Until Discontinu ed, Routine [facility] atorvastati n (LIPITOR) tablet 40 mg 12-19 02:00: 00 Yes 40mg 40 mg, Oral, QHS, First dose on Sun12/18/22 at 2100, Until Discontinu ed, Routine [facility] heparin (porcine) injection 5,000 Units 12-19 01:00: 00 Yes [id number] 5,000 Units, Subcutaneo us, Q12H, First dose on Sun12/18/22 at 2000, Until Discontinu ed, Routine [facility] LEVETIRACET A 1000MG 12-19 00:00: 00 Yes Orenchace Hickey OXCARBAZEPI N 600MG 12-19 00:00: 00 Yes [id number] Oren Hickey LORazepam (ATIVAN) injection 1 mg 12-18 21:30: 15 Yes 1mg 1 mg, Intravenou s, Q4HPRN, Starting on Sun12/18/22 at 1630, Until Discontinu ed, Routine, Seizures [facility] OXcarbazepi ne (TRILEPTAL) tablet 600 mg 12-18 20:00: 00 Yes 600mg 600 mg, Oral, BID, First dose on Sun12/18/22 at 1500, Until Discontinu ed, Routine [facility] levETIRAcet am (KEPPRA) tablet 1,000 mg 12-18 20:00: 00 Yes 1000mg 1,000 mg, Oral, BID, First dose on Sun12/18/22 at 1500, Until Discontinu ed, Routine [facility] acetaminoph en (TYLENOL) tablet 650 mg 12-18 15:25: 55 Yes 650mg 650 mg, Oral, Q6HPRN, Starting on Sun12/18/22 at 1025, Until Discontinu ed, Routine, Pain (scale 4-6) [facility] docusate (COLACE) capsule 100 mg 12-18 15:25: 55 Yes 100mg 100 mg, Oral, QDAILYPRN, Starting on Sun12/18/22 at 1025, Until Discontinu ed, Routine, Constipati on [facility] SUMATRIPTAN 50MG 11-30 00:00: 00 Yes [id number] Oren Hickey sulfur hexafluorid e microsphr (LUMASON) injection 5 mL 11-29 17:30: 00 11-29 17:21 :00 No [id number] 5mL 5 mL, Intravenou s, ONCE, 1 dose, On Sun11/29/22 at 1230, Routine
member of congress approving Restricted medication : ANNY DENISE [facility] TAKE 1 TABLET FOR MIGRAINE RELIEF. MAY REPEAT EVERY 2 HOURS. MAX 200MG/DAY. 11-23 00:00: 00 07-09 00:00 :00 No 50 Oren Hickey TOPIRAMATE 50MG 11-18 00:00: 00 Yes [id number] Oren Hickey CLOPIDOGREL 75MG 11-18 00:00: 00 Yes [id number] Oren Hickey TAKE 1 TAB TWICE A DAY NEEDED 11-18 00:00: 00 07-09 00:00 :00 No 25 Oren Hickey iopamidol (ISOVUE 370-500 mL) injection 90 mL 11-06 15:24: 00 11-06 15:24 :00 No [id number] 90mL 90 mL, Intravenou s, ONCE, 1 dose, On Sun11/06/22 at 1030, Routine [facility] lovastatin (MEVACOR) 20 mg tablet 10-30 07:59: 08 Yes Take by mouth at bedtime. [facility] lisinopril (PRINIVIL,Z ESTRIL) 20 mg tablet 10-30 07:57: 26 Yes 20mg Take 1 tablet by mouth in the morning. [facility] NAYZILAM 2PK 5MG SPR 10-30 00:00: 00 Yes Oren Hickey TAKE ONE (1) TABLET(S) BY MOUTH TWICE A DAY. 10-30 00:00: 00 Yes Oren Hickey TAKE ONE (1) TABLET(S) BY MOUTH ONCE A DAY IN THE MORNING. 10-30 00:00: 00 Yes Oren Hickey midazolam 5 mg/spray (0.1 mL) [place] 10-30 00:00: 00 02-12 00:00 :00 No [id number] 1{spray } Use 1 [place] in 1 nostril SEE-INSTRU CTIONS. 1 spray [...] more than 5 episodes in a month. [facility] topiramate 50 mg tablet 10-30 00:00: 00 01-08 00:00 :00 No [id number] 100mg Take 2 tablets by mouth in the morning. [facility] levETIRAcet am 1,000 mg tablet 10-30 00:00: 00 01-08 00:00 :00 No [id number] 1000mg Take 1 tablet by mouth in the morning and 1 tablet in the evening. [facility] OXcarbazepi ne 600 mg tablet 10-30 00:00: 00 01-08 00:00 :00 No [id number] 600mg Take 1 tablet by mouth in the morning and 1 tablet in the evening. [facility] cenobamate 200 mg Tab 10-30 00:00: 00 01-08 00:00 :00 No [id number] 1{tbl} Take 1 tablet by mouth in the morning. [facility] LISINOPRIL 30MG 10-23 00:00: 00 Yes Oren Hickey clopidogreL 75 mg tablet 10-23 00:00: 00 Yes [facility] atorvastati n 40 mg tablet 10-23 00:00: 00 10-28 00:00 :00 No [facility] topiramate 50 mg tablet 10-23 00:00: 00 10-30 00:00 :[address] [facility] ergocalcife rol, vitamin d2, 1,250 mcg (50,000 unit) capsule 10-19 00:00: 00 Yes [facility] LEVETIRACET A 750MG 10-07 00:00: 00 Yes [id number] Oren Hickey TOPIRAMATE 50MG - 00:00: 00 Yes Oren Hickey CLOPIDOGREL 75MG - 00:00: 00 Yes [id number] Oren Hickey XCOPRI 50MG - 00:00: 00 Yes [id number] Oren Hickey LEVETIRACET A 750MG 09-14 00:00: 00 Yes Oren Hickey OXCARBAZEPI N 600MG 09-10 00:00: 00 Yes [id number] Oren Hickey TAKE 1 TABLET DAILY. 08-29 [...] 00 Yes Oren Hickey LEVETIRACET A 750MG 08-22 00:00: 00 Yes [id number] Oren Hickey TAKE 1 TABLET DAILY. 08-05 [...] 07-25 00:00: 00 10-30 00:00 :00 No [id number] 600mg Take 1 tablet by mouth in the morning and 1 tablet in the evening. [facility] levETIRAcet am 1,000 mg tablet 07-25 00:00: 00 10-30 00:00 :00 No [id number] 1000mg Take 1 tablet by mouth in the morning and 1 tablet in the evening. [facility] cenobamate (XCOPRI) 50 mg Tab 18 00:00: 00 10-30 00:00 :00 No [id number] Take 25 mg by mouth daily for 14 days, THEN 50 mg daily for 14 days, THEN 100 mg daily for 14 days, THEN 150 mg daily for 14 days, THEN 200 mg daily for 300 days. [facility] OXcarbazepi ne 600 mg tablet 410 00:00: 00 07-25 00:00 :00 No [id number] 600mg Take 1 tablet by mouth in the morning and 1 tablet in the evening. [facility] OXCARBAZEPI N 600MG 2022-0 3-24 00:00: 00 Yes [id number] Oren Hickey LISINOPRIL 20MG 2022-0 3- 00:00: 00 Yes Oren Hickey XCOPRI 200 mg Tab - 00:00: 00 07-25 00:00 :00 No 1{tbl} Take 1 tablet by mouth in the morning. [facility] OXCARBAZEPI N 600MG 0 2- 00:00: 00 Yes Oren Hickey LISINOPRIL 20MG 0 2- 00:00: 00 Yes Oren Hickey topiramate (QUDEXY XR) 50 mg CSpX - 15:19: 44 05-09 00:00 :00 No Take by mouth. [facility] clonazePAM 1 mg tablet 05-09 00:00: 00 01-08 00:00 :00 No [id number] 1mg Take 1 tablet by mouth in the morning and 1 tablet at noon and 1 tablet in the evening. [facility] LEVETIRACET A 750MG 1- 00:00: 00 Yes [id number] Oren Hickey OXCARBAZEPI N 600MG 0 1- 00:00: 00 Yes [id number] Oren Hickey OXCARBAZEPI N 600MG TAB - 00:00: 00 Yes Oren Hickey VITAMIN C 500MG TAB -17 00:00: 00 Yes Oren Hickey 1 TABLET EVERY 12 HOURS. 1-16 00:00: 00 07-09 00:00 :00 No 500 Oren Hickey CLONAZEPAM 1MG 0 1-12 00:00: 00 Yes 1000 Oren Hickey NITROFUR MON 100MG 1-11 00:00: 00 Yes Oren Hickey TAKE 1 TABLET DAILY. 1- 00:00: 00 07-09 00:00 :00 No 20 Oren Hickey TAKE ONE (1) TABLET(S) BY MOUTH EVERY EIGHT HOURS NEEDED FOR MUSCLE SPASMS. 1-07 00:00: 00 Yes Oren Hickey XCOPRI 200MG 0 1-05 00:00: 00 Yes Oren Hickey LISINOPRIL 10MG 2021-04 2-28 00:00: 00 Yes Oren Hickey Dose Unknown 2021-04 2-28 00:00: 00 Yes Oren Hickey LEVETIRACET A 750MG 1 2-27 00:00: 00 Yes 750 Oren Hickey CLONAZEPAM 1MG 1 2-14 00:00: 00 Yes Oren Hickey TAKE 1 TABLET BY MOUTH TWICE A DAY 2021-04 1-28 00:00: 00 Yes Oren Hickey OXCARBAZEPI N 600MG 2021-04 1-04 00:00: 00 Yes Oren Hickey XCOPRI 200MG 2021-04 1-03 00:00: 00 Yes [id number] Oren Hickey CLONAZEPAM 1MG 0 9-14 00:00: 00 Yes 1000 Oren Hickey LEVETIRACET A 750MG 2021-0 7-30 00:00: 00 Yes [id number] Oren Hickey FERROUS SULF 325MG 2021-0 7-18 00:00: 00 Yes [id number] Oren Hickey OXCARBAZEPI N 600MG 6-28 00:00: 00 Yes [id number] Oren Hickey FERROUS SULF 325MG 0 6-17 00:00: 00 Yes [id number] Oren Hickey VITAMIN C 500MG 0 6-17 00:00: 00 Yes [id number] Oren Hickey ferrous sulfate (IRON, FERROUS SULFATE,) 325 mg (65 mg iron) tablet 08-23 00:00: 00 11-22 04:59 :00 No [id number] 325mg Take 1 tablet by mouth daily for 90 days. [facility] ascorbic acid, vitamin C, 500 mg tablet -17 00:00: 00 11-22 04:59 :00 No [id number] 500mg Take 1 tablet by mouth daily for 90 days. [facility] lovastatin (MEVACOR) 20 mg tablet 08-22 14:49: 31 Yes Take by mouth at bedtime. [facility] lisinopril (PRINIVIL,Z ESTRIL) 20 mg tablet 08-22 14:49: 31 Yes 20mg Take 1 tablet by mouth in the morning. [facility] topiramate (QUDEXY XR) 50 mg CSpX 08-22 14:49: 31 Yes Take by mouth. [facility] clonazePAM 1 mg tablet 08-10 00:00: 00 05-09 00:00 :00 No 1mg Take 1 mg by mouth 3 (three) times daily. [facility] levETIRAcet am 750 mg tablet 08-04 00:00: 00 07-25 00:00 :00 No 750mg Take 750 mg by mouth 2 (two) times daily. [facility] OXcarbazepi ne 600 mg tablet 08-04 00:00: 00 07-17 00:00 :00 No 600mg Take 600 mg by mouth 2 (two) times daily. [facility] pantoprazol e 40 mg tablet,aiyana yed release 11-13 00:00: 00 Yes 1mg Oren Hickey Dose Unknown 09-25 00:00: 00 Yes Oren Hickey lisinopril 20 mg tablet 08-18 00:00: 00 Yes 1mg Oren Hickey amlodipine 10 mg tablet 08-14 00:00: 00 Yes 1mg Oren Hickey prednisone 20 mg tablet 08-14 00:00: [...] Value Comments S ource Systolic blood pressure 2024-01-28 17:24:00 127 mm[Hg] [facility] Diastolic blood pressure 2024-01-28 17:24:00 96 mm[Hg] [facility] Heart rate 2024-01-28 17:24:00 60 /min [facility] Body height 2024-01-28 17:24:00 154.9 cm [facility] Body weight 2024-01-28 17:24:00 76.159 kg [facility] BMI 2024-01-28 17:24:00 31.72 kg/m2 [facility] Oxygen saturation in Arterial blood by Pulse oximetry 2024-01-28 17:24:00 97 /min [facility] Systolic blood pressure 2023-10-29 16:36:00 136 mm[Hg] [facility] Diastolic blood pressure 2023-10-29 16:36:00 76 mm[Hg] [facility] Heart rate 2023-10-29 16:36:00 67 /min [facility] Body temperature 2023-10-29 16:36:00 35.67 [facility] Respiratory rate 2023-10-29 16:36:00 16 /min [facility] Body height 2023-10-29 16:36:00 154.9 cm [facility] Body weight 2023-10-29 16:36:00 74.798 kg [facility] BMI 2023-10-29 16:36:00 31.16 kg/m2 [facility] Oxygen saturation in Arterial blood by Pulse oximetry 2023-10-29 16:36:00 99 /min ra [facility] Systolic blood pressure 2023-07-18 17:55:00 134 mm[Hg] [facility] Diastolic blood pressure 2023-07-18 17:55:00 75 mm[Hg] [facility] [facility] Heart [facility] 2023-07-18 17:55:00 66 /min [facility] Body temperature 2023-07-18 17:55:00 36.28 [facility] Respiratory rate 2023-07-18 17:55:00 18 /min [facility] Body height 2023-07-18 17:55:00 154.9 cm [facility] Body weight 2023-07-18 17:55:00 74.844 kg [facility] BMI 2023-07-18 17:55:00 31.18 kg/m2 [facility] Oxygen saturation in Arterial blood by Pulse oximetry 2023-07-18 17:55:00 95 /min [facility] Systolic blood pressure 2023-04-18 18:48:00 117 mm[Hg] [facility] Diastolic blood pressure 2023-04-18 18:48:00 72 mm[Hg] [facility] Heart rate 2023-04-18 18:48:00 68 /min [facility] Body temperature 2023-04-18 18:48:00 36.5 [facility] Respiratory rate 2023-04-18 18:48:00 16 /min [facility] Body height 2023-04-18 18:48:00 154.9 cm [facility] Body weight 2023-04-18 18:48:00 74.39 kg [facility] BMI 2023-04-18 18:48:00 30.99 kg/m2 [facility] Oxygen saturation in Arterial blood by Pulse oximetry 2023-04-18 18:48:00 100 /min [facility] Systolic blood pressure 2023-03-19 19:25:00 129 mm[Hg] [facility] Diastolic blood pressure 2023-03-19 19:25:00 79 mm[Hg] [facility] Heart rate 2023-03-19 19:25:00 57 /min [facility] Body temperature 2023-03-19 19:25:00 36.28 [facility] Respiratory rate 2023-03-19 19:25:00 18 /min [facility] Body height 2023-03-19 19:25:00 154.9 cm [facility] Body weight 2023-03-19 19:25:00 74.39 kg [facility] BMI 2023-03-19 19:25:00 30.99 kg/m2 [facility] Oxygen saturation in Arterial blood by Pulse oximetry 2023-03-19 19:25:00 99 /min [facility] Systolic blood pressure 2023-02-15 19:22:00 116 mm[Hg] [facility] Diastolic blood pressure 2023-02-15 19:22:00 69 mm[Hg] [facility] Heart rate 2023-02-15 19:22:00 80 /min [facility] height 2023-02-15 19:22:00 154.9 cm [facility] Body weight 2023-02-15 19:22:00 73.347 kg [facility] BMI 2023-02-15 19:22:00 30.55 kg/m2 [facility] Oxygen saturation in Arterial blood by Pulse oximetry 2023-02-15 19:22:00 97 /min [facility] Systolic blood pressure 2023-01-08 17:53:00 137 mm[Hg] [facility] Diastolic blood pressure 2023-01-08 17:53:00 78 mm[Hg] [facility] Heart rate 2023-01-08 17:53:00 77 /min [facility] Body height 2023-01-08 17:53:00 154.9 cm [facility] Body weight 2023-01-08 17:53:00 74.163 kg [facility] BMI 2023-01-08 17:53:00 30.89 kg/m2 [facility] Oxygen saturation in Arterial blood by Pulse oximetry 2023-01-08 17:53:00 98 /min [facility] Systolic blood pressure 2022-12-22 16:15:00 127 mm[Hg] [facility] Diastolic blood pressure 2022-12-22 16:15:00 61 mm[Hg] [facility] Heart rate 2022-12-22 16:15:00 86 /min [facility] Body temperature 2022-12-22 16:15:00 36.83 [facility] Respiratory rate 2022-12-22 16:15:00 16 /min [facility] Oxygen saturation in Arterial blood by Pulse oximetry 2022-12-22 16:15:00 98 /min [facility] Body height 2022-12-18 14:15:00 154.9 cm [facility] Body weight 2022-12-18 14:15:00 74.844 kg [facility] BMI 2022-12-18 14:15:00 31.18 kg/m2 [facility] Systolic blood pressure 2022-12-04 13:07:00 128 mm[Hg] [facility] Diastolic blood pressure 2022-12-04 13:07:00 73 mm[Hg] [facility] Heart rate 2022-12-04 13:07:00 64 /min [facility] Body temperature 2022-12-04 13:07:00 36.39 [facility] Respiratory rate 2022-12-04 13:07:00 16 /min [facility] Body height 2022-12-04 13:07:00 154.9 cm [facility] Body weight 2022-12-04 13:07:00 74.118 kg [facility] BMI 2022-12-04 13:07:00 30.87 kg/m2 [facility] Oxygen saturation in Arterial blood by Pulse oximetry 2022-12-04 13:07:00 97 /min [facility] Systolic blood pressure 2022-10-30 12:59:00 135 mm[Hg] [facility] Diastolic blood pressure 2022-10-30 12:59:00 77 mm[Hg] [facility] Heart rate 2022-10-30 12:59:00 59 /min [facility] Body height 2022-10-30 12:59:00 154.9 cm [facility] Body weight 2022-10-30 12:59:00 76.068 kg [facility] BMI 2022-10-30 12:59:00 31.69 kg/m2 [facility] Oxygen saturation in Arterial blood by Pulse oximetry 2022-10-30 12:59:00 97 /min [facility] Systolic blood pressure 2022-07-25 20:52:00 158 mm[Hg] [facility] Diastolic blood pressure 2022-07-25 20:52:00 89 mm[Hg] [facility] Heart rate 2022-07-25 20:52:00 69 /min [facility] Body temperature 2022-07-25 20:52:00 36.61 [facility] Respiratory rate 2022-07-25 20:52:00 18 /min [facility] Body height 2022-07-25 20:52:00 154.9 cm [facility] Body weight 2022-07-25 20:52:00 78.835 kg [facility] BMI 2022-07-25 20:52:00 32.84 kg/m2 [facility] Oxygen saturation in Arterial blood by Pulse oximetry 2022-07-25 20:52:00 96 /min [facility] Systolic blood pressure 2022-05-09 20:19:00 124 mm[Hg] [facility] Diastolic blood pressure 2022-05-09 20:19:00 66 mm[Hg] [facility] Heart rate 2022-05-09 20:19:00 77 /min [facility] Body temperature 2022-05-09 20:18:00 36.39 [facility] Respiratory rate 2022-05-09 20:18:00 18 /min [facility] Body weight 2022-05-09 20:18:00 81.647 kg [facility] BMI 2022-05-09 20:18:00 34.01 kg/m2 [facility] Oxygen saturation in Arterial blood by Pulse oximetry 2022-05-09 20:18:00 98 /min [facility] Systolic blood pressure 2021-08-22 19:57:00 133 mm[Hg] [facility] Diastolic blood pressure 2021-08-22 19:57:00 89 mm[Hg] [facility] Heart rate 2021-08-22 19:43:00 72 /min [facility] Body temperature 2021-08-22 19:43:00 36.67 [facility] Respiratory rate 2021-08-22 19:43:00 20 /min [facility] Body height 2021-08-22 19:43:00 154.9 cm [facility] Body weight 2021-08-22 19:43:00 84.171 kg [facility] BMI 2021-08-22 19:43:00 35.06 kg/m2 [facility] BP Systolic 2023-12-27 13:12:00 135 mm[Hg] Step hen F Ruperto BP Diastolic 2023-12-27 13:12:00 86 mm[Hg] Matteo phen F Ruperto Weight Measured 2023-12-27 13:12:00 169.00 pounds Oren F Ruperto Height Measured 2023-12-27 13:12:00 61.00 inches Oren F Ruperto Body Temperature 2023-12-27 13:12:00 98.20 degrees Oren F Ruperto Heart Rate 2023-12-27 13:12:00 74.00 /min Michaela en F Ruperto Respiratory Rate 2023-12-27 13:12:00 16.00 /min Oren F Ruperto BP Systolic 2023-09-28 15:10:00 109 mm[Hg] Step hen F Ruperto BP Diastolic 2023-09-28 15:10:00 64 mm[Hg] Matteo phen F Ruperto Weight Measured 2023-09-28 15:10:00 165.60 pounds Oren F Ruperto Height Measured 2023-09-28 15:10:00 61.00 inches Oren F Ruperto Body Temperature 2023-09-28 15:10:00 98.30 degrees Oren [...] Weight Measured 2022-04-05 14:20:00 182.40 pounds Oren F Ruperto Height Measured 2022-04-05 14:20:00 61.00 inches Oren F Ruperto Body Temperature 2022-04-05 14:20:00 98.60 degrees Oren F Ruperto Heart Rate 2022-04-05 14:20:00 84.00 /min Michaela Hickey Respiratory Rate 2022-04-05 14:20:00 18.00 /min Oren Jean Ruperto Procedures Procedure Date / Time Performed Performing Clinician Source MR BRAIN WO CONTRAST 2024-02-04 19:54:13 Yoav Platt [facility] TRANSTHORACIC ECHO (TTE) COMPLETE W/ CONTRAST 2023-11-16 13:51:11 El Singh [facility] PHOSPHORUS 2022-12-18 19:22:00 Masha Skelton [facility] MAGNESIUM 2022-12-18 19:22:00 Costa [facility] BASIC METABOLIC PANEL (NA, K, CL, CO2, GLUCOSE, BUN, CREATININE, CA) 2022-12-18 19:22:00 Costa Masha [facility] CBC WITH DIFF 2022-12-18 19:22:00 Costa [facility] TRANSTHORACIC ECHO (TTE) COMPLETE W/ CONTRAST 2022-11-29 17:18:28 M[facility] CT ANGIOGRAM NECK 2022-11-06 15:37:56 [address] CT ANGIOGRAM HEAD 2022-11-06 15:37:14 Mih[facility] COMP. METABOLIC PANEL (06048) 2022-10-30 16:25:00 Mih[facility] CBC WITH DIFF 2022-10-30 16:25:00 Ron Fitch [facility] VITAMIN D, 25-OH 2022-10-30 16:25:00 Mih[facility] FACTOR 5 LEIDEN 2022-10-30 16:25:00 [facility] [id number] MUTATION 2022-10-30 16:25:00 Mimi Fitch [facility] FIBRINOGEN 2022-10-30 16:25:00 Ron Fitch [facility] HYPERCOAGULABLE EVALUATION-LAV 2022-10-30 16:25:00 Mihir [facility] ANTITHROMBIN ACTIVITY 2022-10-30 16:25:00 Alma Fitch [facility] PROTEIN C ACTIVITY 2022-10-30 16:25:00 Jono Fitch [facility] FREE PROTEIN S 2022-10-30 16:25:00 [facility] ASSIGNMENT OF BENEFITS 2022-10-30 12:19:35 Docto r Unassigned, Dunmor [facility] EXTERNAL PROVIDER RECORDS 2022-04-21 06:01:00 Do ctor Unassigned, [facility] REFERRAL- REQUEST/RESPONSE 2022-04-05 06:01:00 D octor Unassigned, Dunmor [facility] [address]698 Ecg Routine Ecg W/least 12 Lds W/i r 2016-11-13 00:00:00 Oren Hickey Plan of Care Planned Activity Planned Date Details Comments Source Encounters Start Date/Time End Date/Time Encounter Type Admission Type Attending Clinicians Care Facility Care Department Encounter ID Source 2024-02-14 14:30:00 2024-02-14 14:30:00 Outpatient R IRLANDA RICH MUHAMMAD [facility] [id number] [facility] 2024-02-13 00:00:00 2024-02-13 15:07:53 Telephone Yoav Platt [facility] MEDICAL OFFICE BUILDING 1.2.840.114 350.1.13.10 4.2.7.2.686 [id number] [facility] 2024-02-04 14:19:01 2024-02-04 23:59:00 Outpatient R YOAV PLATT [facility] [id number] [facility] 2024-02-04 14:19:01 2024-02-04 23:59:00 Hospital Encounter Yoav Platt [facility] 1.2.840.114 350.1.13.10 4.2.7.2.686 [id number] [facility] 2024-01-28 00:00:00 2024-01-29 09:16:30 Telephone Irlanda Rich [facility] MEDICAL OFF[facility] BUILDING 1.2.840.114 350.1.13.10 4.2.7.2.686 [id number] [facility] 2024-01-28 00:00:00 2024-01-28 16:52:21 Specialty Pharmacy Larsen, Baylee Gia CabralnBaylee Gia [facility] 1.2.840.114 350.1.13.10 4.2.7.2.686 [id number] [facility] 2024-01-28 00:00:00 2024-01-28 16:10:29 Specialty Pharmacy Michael Mendoza Gary [facility] 1.2.840.114 350.1.13.10 4.2.7.2.686 [id number] [facility] 2024-01-28 00:00:00 2024-01-28 15:54:36 Refill Giulia [facility] MEDICAL OFFICE BUILDING 1.2.840.114 350.1.13.10 4.2.7.2.686 [id number] [facility] 2024-01-28 00:00:00 2024-01-28 15:10:57 Refill Giulia [facility] MEDICAL OFFICE BUILDING 1.2.840.114 350.1.13.10 4.2.7.2.686 [id number] [facility] 2024-01-28 00:00:00 2024-01-28 14:55:12 Refill Giulia [facility] MEDICAL OFFICE BUILDING 1.2.840.114 350.1.13.10 4.2.7.2.686 [id number] [facility] 2024-01-28 13:00:00 2024-01-28 13:20:00 [facility] MED[facility] OFF[facility] BUILD[facility] 1.2.840.114 350.1.13.10 4.2.7.2.686 [id number] [facility] 2024-01-28 00:00:00 2024-01-28 13:06:32 Telephone Yoav Platt [facility] MEDICAL OFFICE BUILDING 1.2.840.114 350.1.13.10 4.2.7.2.686 [id number] [facility] 2024-01-28 13:00:00 2024-01-28 13:00:00 Outpatient R YOAV PLATT [facility] [id number] [facility] 2024-01-27 00:00:00 2024-01-28 11:08:21 Refill Yoav Platt [facility] MEDICAL OFFICE BUILDING 1..840.114 350.1.13.10 4.2.7.2.686 [id number] [facility] 2024-01-15 13:08:55 2024-01-15 13:08:55 Outpatient SFA [facility] [id number] Oren Hickey 2023-12-27 13:09:34 2023-12-27 13:09:34 Outpatient SFA [facility]FA [id number] Oren Hickey 2023-12-26 00:00:00 2023-12-27 11:24:45 Telephone El Singh [facility] 1..840.114 350.1.13.10 4.2.7.2.686 [id number] [facility] 2023-12-27 00:00:00 2023-12-27 00:00:00 Outpatient Visit SFA [id number] Oren Hickey 2023-12-25 00:00:00 2023-12-26 10:12:15 Telephone El Singh [facility] 1..840.114 350.1.13.10 4.2.7.2.686 [id number] [facility] 2023-11-21 00:00:00 2023-11-26 09:44:18 Telephone El Singh [facility] 1.2.840.114 350.1.13.10 4.2.7.2.686 [id number] [facility] 2023-11-19 00:00:00 2023-11-19 15:20:47 Telephone El Singh [facility] MEDICAL OFFICE BUILDING 1.2.840.114 350.1.13.10 4.2.7.2.686 [id number] [facility] 2023-11-16 08:51:36 2023-11-16 23:59:00 Hospital Encounter El Singh [facility] BUILDING 1.2.840.114 350.1.13.10 4.2.7.2.686 [id number] [facility] 2023-11-16 08:07:29 2023-11-16 08:50:00 Outpatient R EL SINGH [facility] [id number] [facility] 2023-11-16 07:30:00 2023-11-16 08:50:00 Hospital Encounter El Singh [facility] 1.2.840.114 350.1.13.10 4.2.7.2.686 [id number] [facility] 2023-10-01 00:00:00 2023-11-02 17:20:41 Telephone Justin Arguelles [facility] 1.2.840.114 350.1.13.10 4.2.7.2.686 [id number] [facility] 2023-10-29 00:00:00 2023-10-30 08:24:10 Yoav Haider [facility] MEDICAL OFF[facility] BUILDING 1.2.840.114 350.1.13.10 4.2.7.2.686 [id number] [facility] 2023-10-29 11:30:00 2023-10-29 12:32:27 Outpatient R EL SINGH [facility] [id number] Konrad s [facility] 2023-10-29 11:30:00 2023-10-29 12:32:27 Office Visit El Singh [facility] 1.2.840.114 350.1.13.10 4.2.7.2.686 [id number] [facility] 2023-09-28 15:06:11 2023-09-28 15:06:[address] [facility] [id number] Oren Hickey 2023-09-28 00:00:00 2023-09-28 00:00:[address] [facility] [id number] Oren Hickey 2023-09-04 00:00:00 2023-09-04 10:57:15 Telephone Ina Rodgers [facility] 1.2.840.114 350.1.13.10 4.2.7.2.686 [id number] [facility] 2023-08-13 00:00:00 2023-08-17 16:41:10 Telephone Giulia Yoav [facility] MEDICAL OFFICE BUILDING 1.2.840.114 350.1.13.10 4.2.7.2.686 [id number] [facility] 2023-07-30 00:00:00 2023-07-30 00:00:00 Refill Giulia [facility] 1.2.840.114 350.1.13.10 4.2.7.2.686 [id number] [facility] 2023-07-18 14:15:00 2023-07-18 14:30:00 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 Visit Draw, Clc-Bls Lab Giulia [facility] OFF[facility] BUILD[facility] 1.2.840.114 350.1.13.10 4.2.7.2.686 [id number] [facility] 2023-07-18 14:15:00 2023-07-18 14:15:00 Outpatient R GIULIA [facility] [id number] [facility] 2023-07-18 13:20:00 2023-07-18 13:40:00 Office Visit Giulia [facility] OFF[facility] BUILDING 1.2.840.114 350.1.13.10 4.2.7.2.686 [id number] [facility] 2023-07-16 14:30:00 2023-07-16 14:30:00 Outpatient R EL SINGH [facility] [id number] [facility] 2023-07-13 00:00:00 2023-07-13 00:00:00 Telephone Giulia [facility] MEDICAL OFFICE BUILDING 1.2.840.114 350.1.13.10 4.2.7.2.686 [id number] [facility] 2023-07-10 00:00:00 2023-07-10 00:00:00 Telephone Yoav Platt [facility] OFFICE BUILDING 1.2.840.114 350.1.13.10 4.2.7.2.686 [id number] [facility] 2023-05-15 00:00:00 2023-05-15 00:00:00 Telephone Giulia [facility] OFF[facility] BUILDING 1.2.840.114 350.1.13.10 4.2.7.2.686 [id number] [facility] 2023-04-18 13:20:00 2023-04-18 13:34:13 Office Visit Masel, Yoav S [facility] MEDICAL OFFICE BUILDING 1.2.840.114 350.1.13.10 4.2.7.2.686 [id number] [facility] 2023-04-18 13:20:00 2023-04-18 13:34:13 Outpatient R YOAV PLATT [facility] [id number] [facility] 2023-04-12 00:00:00 2023-04-12 00:00:00 Refill Yoav Platt [facility] MEDICAL OFFICE BUILDING 1.2.840.114 350.1.13.10 4.2.7.2.686 [id number] [facility] 2023-04-03 13:17:16 2023-04-03 13:17:[address] [facility] [id number] Oren Jean Ruperto 2023-03-19 14:30:00 2023-03-19 14:30:00 Office Visit El Singh [facility] MEDICAL OFFICE BUILDING 1.2.840.114 350.1.13.10 4.2.7.2.686 [id number] [facility] 2023-03-19 14:30:00 2023-03-19 14:15:15 Outpatient R EL SINGH [facility] [id number] [facility] 2023-03-08 00:00:00 2023-03-08 00:00:00 Letter (Out) Pcp, Patient Does Not Have A [facility] 1.2840.114 350.1.13.10 4.2.7.2.686 [id number] [facility] 2023-02-23 00:00:00 2023-02-23 00:00:00 Telephone Irlanda Rich [facility] MEDICAL OFFICE BUILDING 1.2.840.114 350.1.13.10 4.2.7.2.686 [id number] [facility] 2023-02-20 00:00:00 2023-02-20 00:00:00 Telephone Irlanda Richeshan [facility] MEDICAL OFFICE BUILDING 1.2.840.114 350.1.13.10 4.2.7.2.686 [id number] [facility] 2023-02-19 00:00:00 2023-02-19 00:00:00 Telephone Irlanda Richeshan [facility] MEDICAL OFFICE BUILDING 1.2.840.114 350.1.13.10 4.2.7.2.686 [id number] [facility] 2023-02-15 13:00:00 2023-02-15 13:58:35 Outpatient R IRLANDA RICH MUHAMMAD [facility] [id number] [facility] 2023-02-15 13:00:00 2023-02-15 13:58:35 Office Visit Irlanda Rich [facility] MEDICAL OFFICE BUILDING 1.2.840.114 350.1.13.10 4.2.7.2.686 [id number] [facility] 2023-01-30 13:19:50 2023-01-30 13:19:[address] 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 [id number] Oren Hickey 2022-12-25 00:00:00 2022-12-25 00:00:00 Transition of Care Theresa [facility] 1.2.840.114 350.1.13.10 4.2.7.2.686 [id number] [facility] 2022-12-18 09:02:00 2022-12-22 17:05:00 Inpatient U JAN GRAY [facility] [id number] [facility] 2022-12-18 09:02:00 2022-12-22 17:05:00 [facility] 1..840.114 350.1.13.10 4.2.7.2.686 [id number] [facility] 2022-12-04 08:00:00 2022-12-04 17:13:42 Outpatient EL PEÑA [facility] [id number] [facility] 2022-12-04 08:00:00 2022-12-04 17:13:42 Office Visit El Singh [facility] MEDICAL OFFICE BUILDING 1.2.840.114 350.1.13.10 4.2.7.2.686 [id number] [facility] 2022-11-30 00:00:00 2022-11-30 00:00:00 Telephone Yoav Platt [facility] MEDICAL OFFICE BUILDING 1.2.840.114 350.1.13.10 4.2.7.2.686 [id number] [facility] 2022-11-29 11:00:00 2022-11-29 23:59:00 Outpatient YOAV CUEVA [facility] [id number] [facility] 2022-11-29 11:00:00 2022-11-29 23:59:00 Hospital Encounter Yoav Platt [facility] BUILDING 1..840.114 350.1.13.10 4.2.7.2.686 [id number] [facility] 2022-11-18 10:16:15 2022-11-18 10:16:[address] [facility] [id number] Oren Hickey 2022-11-13 08:00:00 2022-11-13 08:00:00 Outpatient YOAV CUEVA [facility] [id number] [facility] 2022-11-06 09:26:11 2022-11-06 23:59:00 Hospital Encounter Yoav Platt [facility] 1..840.114 350.1.13.10 4.2.7.2.686 [id number] [facility] 2022-11-06 09:25:54 2022-11-06 09:25:54 Outpatient YOAV CUEVA [facility] [id number] [facility] 2022-11-06 09:25:54 2022-11-06 09:25:54 [facility] 1.2840.114 350.1.13.10 4.2.7.2.686 [id number] [facility] 2022-10-31 00:00:00 2022-10-31 00:00:00 Telephone Yoav Platt [facility] BUILD[facility] 1.2840.114 350.1.13.10 4.2.7.2.686 [id number] [facility] 2022-10-30 11:15:00 2022-10-30 15:46:43 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 Visit Draw, [facility] Giulia [facility] MEDICAL OFFICE BUILDING 1.2840.114 350.1.13.10 4.2.7.2.686 [id number] [facility] 2022-10-30 08:00:00 2022-10-30 09:15:48 Outpatient R GIULIA VANDERBILT [facility] [id number] [facility] 2022-10-30 08:00:00 2022-10-30 09:15:48 Office Visit Yoav Platt [facility] MEDICAL OFFICE BUILDING 1.2840.114 350.1.13.10 4.2.7.2.686 [id number] [facility] 2022-10-30 00:00:00 2022-10-30 00:00:00 Orders Only Doctor Unassigned, [place] [facility] 1.2840.114 350.1.13.10 4.2.7.2.686 [id number] [facility] 2022-10-16 00:00:00 2022-10-16 00:00:00 Telephone Yoav Platt [facility] 1.2840.114 350.1.13.10 4.2.7.2.686 [id number] [facility] 2022-08-29 10:10:01 2022-08-29 10:10:01 Outpatient [facility]US [facility] [id number] 0523 Oren Hickey 2022-08-18 09:45:47 2022-08-18 09:45:47 Outpatient [facility] [id number] 0512 Oren Hickey 2022-08-10 00:00:00 2022-08-10 00:00:00 Telephone Jan Gray [facility] 1.2.840.114 350.1.13.10 4.2.7.2.686 [id number] [facility] 2022-08-08 00:00:00 2022-08-08 00:00:00 Telephone Yoav Platt [facility] 1.2.840.114 350.1.13.10 4.2.7.2.686 [id number] [id number] [facility] 2022-08-08 00:00:00 2022-08-08 00:00:00 Telephone Jan Gray [facility] 1.2.840.114 350.1.13.10 4.2.7.2.686 [id number] 092 [id number] [facility] 2022-08-05 10:17:45 2022-08-05 10:17:45 Outpatient [facility] [id number] 0429 Oren Hickey 2022-07-28 00:00:00 2022-07-28 00:00:00 Telephone Jan Gray [facility] 1.2.840.114 350.1.13.10 4.2.7.2.686 [id number] [facility] 2022-07-25 16:00:00 2022-07-25 16:30:00 Office Visit Jan Gray [facility] 1.2.840.114 350.1.13.10 4.2.7.2.686 [id number] [facility] 2022-07-25 16:00:00 2022-07-25 16:00:00 Outpatient R JAN GRAY [facility] [id number] [facility] 2022-07-17 00:00:00 2022-07-17 00:00:00 [facility] 1.2.840.114 350.1.13.10 4.2.7.2.686 [id number] [facility] 2022-06-15 00:00:00 2022-06-15 00:00:00 Telephone Jan Gray [facility] 1.2.840.114 350.1.13.10 4.2.7.2.686 [id number] 092 [id number] [facility] 2022-06-08 00:00:00 2022-06-08 00:00:00 Case Management Dorina ChurchY [facility] 1.2.840.114 350.1.13.10 4.2.7.2.686 [id number] [facility] 2022-06-08 00:00:00 2022-06-08 00:00:00 Telephone Dorina Church [facility] 1.2.840.114 350.1.13.10 4.2.7.2.686 [id number] [id number] [facility] 2022-05-22 00:00:00 2022-05-22 00:00:00 Telephone Micheline Riggins [place] 1.2.840.114 350.1.13.10 4.2.7.2.686 [id number] [id number] [facility] 2022-05-09 17:15:00 2022-05-09 17:30:00 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 [facility] 1.2.840.114 350.1.13.10 4.2.7.2.686 [id number] [facility] 2022-05-09 15:30:00 2022-05-09 15:52:23 Outpatient R JAN GRAY [facility] [id number] [facility] 2022-05-09 15:30:00 2022-05-09 15:52:23 [facility] 1.2.840.114 350.1.13.10 4.2.7.2.686 [id number] [facility] 2022-04-21 00:00:00 2022-04-21 00:00:00 Orders Only Doctor Unassigned, [place] [facility] 1.2.840.114 350.1.13.10 4.2.7.2.686 [id number] [id number] [facility] 2022-04-21 00:00:00 2022-04-21 00:00:00 [facility] 1.2.840.114 350.1.13.10 4.2.7.2.686 [id number] [id number] [facility] 2022-04-19 14:13:12 2022-04-19 14:13:[address] [facility] [id number] 0111 Oren Hickey 2022-04-05 00:00:00 2022-04-05 00:00:00 Orders Only Doctor Unassigned, [place] [facility] 1.2.840.114 350.1.13.10 4.2.7.2.686 [id number] [id number] [facility] 2021-08-22 14:30:00 2021-08-22 15:12:53 Outpatient R STEFFI GUERRERO CHERYAL [facility] [id number] [facility] 2021-08-22 14:30:00 2021-08-22 15:12:53 Office Visit Steffi Guerrero [facility] 1.2.840.114 350.1.13.10 4.2.7.2.686 [id number] [facility] 2018-11-12 00:00:00 2018-11-12 00:00:00 Orders Only Doctor Unassigned, [place] [facility] 1.2.840.114 350.1.13.10 4.2.7.2.686 [id number] 009 [id number] [facility] 2018-11-12 00:00:00 2018-11-12 00:00:00 Orders Only Doctor Unassigned, [place] [facility] 1.2.840.114 350.1.13.10 4.2.7.2.686 [id number] 009 [id number] 2018-11-11 10:42:43 2018-11-11 11:54:00 Emergency TroyChelsea [facility] 1.2.840.114 350.1.13.10 4.2.7.2.686 [id number] 084 [id number] [facility] 2018-11-11 10:42:43 2018-11-11 11:54:00 Emergency PruettChelsea donald [facility] 1.2.840.114 350.1.13.10 4.2.7.2.686 [id number] 084 [id number] Results Test Description Test Time Test Comments Results Resul t Comments Source MR BRAIN WO CONTRAST 2024-01-09 8 20:08:29 MR BRAIN WO CONTRAST COMPARISON: Brain MRI dated 02/28/2015 HISTORY: Stroke, follow up TECHNIQUE: Multisequence multiplanar MR images of the brain obtainedwithout IV contrast. FINDINGS: There is cerebellar and to lesser extent cerebral volume loss slightlyadvanced for age. No midline shift, hydrocephalus or pathologicalextra-axi al fluid collection is present. The basal cisterns areunremarkable. Subependymal nodularity isointense to ridley matter along the lateralventricles. Scattered deep and periventricular white matter foci ofT2/FLAIR hyperintensity, nonspecific but likely reflecting chronicmicrovascular ischemic changes. No restricted diffusion is present tosuggest acute infarct. No abnormal parenchymal signal abnormality ispresent. No abnormal gradient blooming. The T2 flow voids for the major intracranial vessels are unremarkable. Noabnormal fluid signal is present in the mastoid air cells or paranasal airsinuses. [facility] [id number] 00:00:00* Test Item Value Reference Range Interpretation Comme nts CHOLESTEROL (test code = 2210) 168 MG/DL TRIGLYCERIDES (test code = 2232) 256 MG/DL HDL CHOLESTEROL (test code = 2220) 46 MG/DL CALC LDL CHOL (test code = 2237) 88 MG/DL RISK RATIO LDL/HDL (test cod e = 2238) 1.91 RATIO Oren HickeyCOMPREHENSIVE METABOLIC [id number] 00:00:00* Test Item Value Reference Range Interpretation Comme nts GLUCOSE (test code = 2217) 106 MG/DL BUN (test code = 2208) 9 MG/DL CREATININE (test code = 2214) 0.59 MG/DL eGFR (2020 CKD-EPI) (test code = 04382) 112 ML/MIN/1.73 CALC BUN/CREAT (test code = [...] (test code = 2219) 14 U/L Oren HickeyVITAMIN [id number] 00:00:00* Test Item Value Reference Range Interpretation Comme nts VITAMIN B-12 (test code = 2840) 377 PG/ML Oren HickeyVITAMIN D, 25 [id number] 00:00:00* Test Item Value Reference Range Interpretation Comme haroon VITAMIN D, 25 OH (test code = 4958) 23 NG/ML Oren HickeyTSH, THIRD [id number] 00:00:00* Test Item Value Reference Range Interpretation Comme haroon TSH, THIRD GENERATION (test code = 2821) 1.520 UIU/ML Oren HickeyLIPID [id number] 00:00:00* Test Item Value Reference Range Interpretation Comme nts CHOLESTEROL (test code = 2210) 168 MG/DL TRIGLYCERIDES (test code = 2232) 256 MG/DL HDL CHOLESTEROL (test code = 2220) 46 MG/DL CALC LDL CHOL (test code = 2237) 88 MG/DL RISK RATIO LDL/HDL (test cod e = 2238) 1.91 RATIO Oren HickeyCOMPREHENSIVE METABOLIC [id number] 00:00:00* Test Item Value Reference Range Interpretation Comme nts GLUCOSE (test code = 2217) 106 MG/DL BUN (test code = 2208) 9 MG/DL CREATININE (test code = 2214) 0.59 MG/DL eGFR (2020 CKD-EPI) (test code = 26335) 112 ML/MIN/1.73 CALC BUN/CREAT (test code = [...] (test code = 2219) 14 U/L Oren HickeyVITAMIN [id number] 00:00:00* Test Item Value Reference Range Interpretation Comme [facility] VITAMIN B-12 (test code = 2840) 377 PG/ML Oren HickeyVITAMIN D, 25 [id number] 00:00:00* Test Item Value Reference Range Interpretation Comme [facility] VITAMIN D, 25 OH (test code = 4958) 23 NG/ML Oren HickeyTSH, THIRD [id number] 00:00:00* Test Item Value Reference Range Interpretation Comme nts TSH, THIRD GENERATION (test code = 2821) 1.520 UIU/ML Oren HickeyOXCARBAZEPINE [id number] 00:00:00* Test Item Value Reference Range Interpretation Comme [facility] OXCARBAZEPINE METABOLITE (te st code = 25812) 18.2 mcg/mL Oren [id number] 00:00:00* Test Item Value Reference Range Interpretation Comme [facility] LEVETIRACETAM (test code = 73195) 15.2 mcg/mL Oren HickeyOXCARBAZEPINE [id number] 00:00:00* Test Item Value Reference Range Interpretation Comme [facility] OXCARBAZEPINE METABOLITE (te st code = 72883) 18.2 mcg/mL Oren [id number] 00:00:00* Test Item Value Reference Range Interpretation Comme [facility] LEVETIRACETAM (test code = 73085) 15.2 mcg/mL Oren HickeyCBC W/AUTO [id number] 00:00:00* Test Item Value Reference Range Interpretation Comme [facility] WBC (test code = 1001) 7.2 K/UL [...] ABS NUCLEATED RBCS (test cod e = 11557) 0.00 K/UL Oren HickeyCOMPREHENSIVE METABOLIC [id number] 00:00:00* Test Item Value Reference Range Interpretation Comme nts GLUCOSE (test code = 2217) 87 MG/DL BUN (test code = 2208) 13 MG/DL CREATININE (test code = 2214) 0.96 MG/DL eGFR (2020 CKD-EPI) (test co de = 59015) 74 ML/MIN/1.73 CALC BUN/CREAT (test code = [...] (test code = 2219) 12 U/L Oren HickeyCBC W/AUTO [id number] 00:00:00* Test Item Value Reference Range Interpretation [...] ABS NUCLEATED RBCS (test cod e = 66952) 0.00 K/UL Oren F AustinCOMPREHENSIVE METABOLIC [id number] 00:00:00* Test Item Value Reference Range Interpretation Comme nts GLUCOSE (test code = 2217) 87 MG/DL BUN (test code = 2208) 13 MG/DL CREATININE (test code = 2214) 0.96 MG/DL eGFR (2020 CKD-EPI) (test co de = 54608) 74 ML/MIN/1.73 CALC BUN/CREAT (test code = [...] 2219) 12 U/L Oren HickeyVITAMIN D, 25 [id number] 07:00:13* Test Item Value Reference Range Interpretation [...] TESTING PERFORMED AT [facility] [address] [place] [address] AGRICULTURAL EQUIPMENT OPERATOR: VALENCIA GONZALES M.D. CLIA NUMBER [id number] [facility] [place]. [id number] CBC W/AUTO DIFF WITH [id number] 01:35:43* Test Item Value Reference Range Interpretation [...] 0.00-0.10 ABS NUCLEATED RBCS (test code = 65669) 0.00 K/UL 0.00-0.11 CBC W/AUTO [id number] 00:00:00* Test Item Value Reference Range Interpretation [...] ABS NUCLEATED RBCS (test cod e = 94596) 0.00 K/UL Oren HickeyVITAMIN D, 25 [id number] 00:00:00* Test Item Value Reference Range Interpretation Comme nts VITAMIN D, 25 OH (test code = 4958) 35 NG/ML Oren HickeyCBC W/AUTO [id number] 00:00:00* Test Item Value Reference Range Interpretation [...] ABS NUCLEATED RBCS (test cod e = 58824) 0.00 K/UL Oren HickeyVITAMIN D, 25 [id number] 00:00:00* Test Item Value Reference Range Interpretation Comme nts VITAMIN D, 25 OH (test code = 4958) 35 NG/ML Oren [id number] 15:59:06* Test Item Value Reference Range Interpretation Comments LEVETIRACETAM (test code = 25937) 21.4 mcg/mL 12.0-46.0 Sample type: serum T his test was developed and its performance characteristicsdetermined by [facility] ([facility]). It has not beencleared or approved by the U.S. Food and Drug Administration (FDA).The FDA has determined that such clearance or approval is notnecessary. This test is used for clinical purposes and should not beregarded as investigational or for research. [facility] is qualified toperform high complexity testing under the Clinical LaboratoryImprovement Amendments (CLIA). TESTING PERFORMED AT [facility] [address] [place] [address], [facility], [place] [address] CLIA NO: [id number] UNLESS OTHERWISE INDICATED, ALL TESTING PERFORMED AT [facility] [address] [place] [address] AGRICULTURAL EQUIPMENT OPERATOR: VALENCIA GONZALES M.D. CLIA NUMBER [id number] [place]. [id number] 00:00:00* Test Item Value Reference Range Interpretation Comme nts LEVETIRACETAM (test code = 73711) 21.4 mcg/mL Oren [id number] 00:00:00* Test Item Value Reference Range Interpretation Comme nts LEVETIRACETAM (test code = 32554) 21.4 mcg/mL Oren F AustinVITAMIN D, 25 [id number] 03:47:07* Test Item Value Reference Range Interpretation Comme [facility] VITAMIN D, 25 OH (test code = [...] . . . NG/ML 30-100 COMPREHENSIVE METABOLIC [id number] 03:22:39* Test Item Value Reference Range Interpretation Comme [facility] GLUCOSE (test code = 221) 105 MG/DL 70-99 H BUN (test code = 2207) 14 MG/DL 6-20 CREATININE (test code = 2214) 0.62 MG/DL 0.60-1.30 eGFR (2020 CKD-EPI) (test code = 60973) 112 ML/MIN/1.73 >60 CALC BUN/CREAT (test code = 2235) 23 RATIO 6-28 SODIUM (test code = 2231) 140 MEQ/L 133-146 POTASSIUM (test code = 2228) 4.2 MEQ/L 3.5-5.4 CHLORIDE (test code = 2215) 106 MEQ/L 95-107 CARBON DIOXIDE (test code = 2206) 20 MEQ/L 19-31 CALCIUM (test code = 2209) 9.0 MG/DL 8.5-10.5 PROTEIN, TOTAL (test code = 222) 7.3 G/DL 6.1-8.3 ALBUMIN (test code = 1) 4.3 G/DL 3.5-5.2 CALC GLOBULIN (test code = 2240) 3.0 G/DL 1.9-3.7 CALC A/G RATIO (test code = 2234) 1.4 RATIO 1.0-2.6 BILIRUBIN, TOTAL (test code = 2206) 0.2 MG/DL <=1.2 ALKALINE PHOSPHATASE (test code = 2204) 140 U/L 40-116 H AST (test code = 2218) 16 U/L 9-40 ALT (test code = 2219) 12 U/L 5-40 CBC W/AUTO DIFF WITH [id number] 02:53:01* Test Item Value Reference Range Interpretation [...] = 1065) 0.0 /100 WBC'S See_Comment [Automated [employer] ge] The system which generated this result [...] 0.00-0.10 ABS NUCLEATED RBCS (test code = 78594) 0.00 K/UL 0.00-0.11 COMPREHENSIVE METABOLIC [id number] 00:00:00* Test Item Value Reference Range Interpretation Comme nts GLUCOSE (test code = 2217) 105 MG/DL BUN (test code = 2208) 14 MG/DL CREATININE (test code = 2214) 0.62 MG/DL eGFR (2020 CKD-EPI) (test code = 81086) 112 ML/MIN/1.73 CALC BUN/CREAT (test code = [...] 2219) 12 U/L Oren HickeyVITAMIN D, 25 [id number] 00:00:00* Test Item Value Reference Range Interpretation Comme [facility] VITAMIN D, 25 OH (test code = 4958) 29 NG/ML Oren HickeyCBC W/AUTO [id number] 00:00:00* Test Item Value Reference Range Interpretation Comme [facility] WBC (test code = 1001) 6.5 K/UL [...] ABS NUCLEATED RBCS (test cod e = 16921) 0.00 K/UL Oren HickeyCOMPREHENSIVE METABOLIC [id number] 00:00:00* Test Item Value Reference Range Interpretation Comme nts GLUCOSE (test code = 2217) 105 MG/DL BUN (test code = 2208) 14 MG/DL CREATININE (test code = 2214) 0.62 MG/DL eGFR (2020 CKD-EPI) (test code = 35303) 112 ML/MIN/1.73 CALC BUN/CREAT (test code = [...] 2219) 12 U/L Oren HickeyVITAMIN D, 25 [id number] 00:00:00* Test Item Value Reference Range Interpretation Comme nts VITAMIN D, 25 OH (test code = 4958) 29 NG/ML Oren HickeyCBC W/AUTO [id number] 00:00:00* Test Item Value Reference Range Interpretation [...] ABS NUCLEATED RBCS (test cod e = 49834) 0.00 K/UL Oren HickeyBasic Metabolic Panel (Na, K, Cl, CO2, Glucose, BUN, Creatinine, Ca)2022-12-18 20:04:02* Test Item Value Reference Range Interpretation Comme nts NA (test code = 5422936913) 134 mmol/L 135-145 L K (test code = 9747948234) 3.4 mmol/L 3.5-5.0 L CL (test code = 2036618145) 104 mmol/L 98-108 CO2 TOTAL (test code = 4641590284) 20 mmol/L 23-31 L AGAP (test code = 2818431772) 10 2-16 BUN (test code = 5390992101) 7 mg/dL 7-23 GLUCOSE (test code = 5610724173) 105 mg/dL 70-110 CREATININE (test code = 3046701301) 0.50 mg/dL 0.50-1.04 CALCIUM (test code = 6741919956) 8.4 mg/dL 8.6-10.6 L eGFR (test code = 0951378446) 133.4 mL/min/1.73m2 TREV (test code = TREV) [...] imaging tests). Lab Interpretation (test code = 38564-4) Abnormal [facility] HospitalMagn[facility] [id number] 20:04:02* Test Item Value Reference Range Interpretation Comme nts MAGNESIUM (test code = 7620588363) 2.0 mg/dL 1.7-2.4 Lab Interpretation (test cod e = 36281-4) Normal [facility] HospitalPhosphorus [id number] 20:04:02* Test Item Value Reference Range Interpretation Comme nts PHOSPHORUS (test code = 6253078125) 3.0 mg/dL 2.5-5.0 Lab Interpretation (test cod e = 63405-9) Normal [facility] HospitalCBC with [id number] 19:58:38* Test Item Value Reference Range Interpretation [...] 33.2 g/dL 31.6-35.1 RDW-SD (test code = 31783-8) 48.2 fL 39.0-49.9 RDW-CV (test code = 788-0) 14.7 % 12.0-15.5 PLT (test code = 777-3) 217 See_Comment [Automated messa ge] The system which generated this result transmitted reference range: 166 - 358 10*3/?L. The reference range was not used to interpret this result as normal/abnormal. MPV (test code = 04854-6) 10.4 fL 9.5-12.9 NRBC/100 WBC (test code = 0380734562) 0.0 See_Comment [Automated me ssage] The system which generated this result transmitted reference range: 0.0 - 10.0 /100 WBCs. The reference range was not used to interpret this result as normal/abnormal. NRBC x10^3 (test code = 5191392483) See_Comment [Automated messa ge] The system which generated this result transmitted reference range: 10*3/?L. The reference range was not used to interpret this result as normal/abnormal. GRAN MAT (NEUT) % (test code = 770-8) 66.2 % IMM GRAN % (test code = 9583636816) 0.30 % LYMPH % (test code = 736-9) 26.8 % MONO % (test code = 5905-5) 6.0 % EOS % (test code = 713-8) 0.4 % BASO % (test code = 706-2) 0.3 % GRAN MAT x10^3(ANC) (test code = 4010345153) 5.06 10*3/uL 1.88-7.09 IMM GRAN x10^3 (test code = 5042962926) 0.00-0.06 LYMPH x10^3 (test code = 731-0) 2.05 10*3/uL 1.32-3.29 MONO x10^3 (test code = 742-7) 0.46 10*3/uL 0.33-0.92 EOS x10^3 (test code = 711-2) 0.03 10*3/uL 0.03-0.39 BASO x10^3 (test code = 704-7) 0.01-0.07 Lab Interpretation (test code = 03313-8) Abnormal [facility] HospitalTransthoracic echo (TTE)2022-11-30 02:24:40* Test Item Value Reference Range Interpretation Comme nts Height (test code = 4499497045) 61 in Weight (test code = 9099803361) 167 lbs Systolic BP (test code = 0349136304) 117 mmHg Diastolic BP (test code = 9804690808) 68 mmHg Heart Rate (test code = 7841488508) 89 bpm BSA (test code = 6810016389) 1.75 m2 LVIDD (test code = 9103608548) 4.20 cm Left Ventricular End Diastolic Volume by Teichholz Method (test code = 6526183) 79.8 mL IVS (test code = 2893485011) 0.92 cm Interventricular Septum Diastolic Thickness by 2D (test code = 0628805) 0.92 cm LVPWD (test code = 0495035983) 0.85 cm PW (test code = 7339608002) 0.85 cm 0.6-1.1 EF(Teich) (test code = 8140760530) 62.30 % LVIDS (test code = 5401671174) 2.80 cm Left Ventricular End Systolic Volume by Teichholz Method (test code = 6782632) 30.1 mL FS (test code = 7211181056) 33 % EF - 2D (test code = 70519368) 62.30 % LVOT diameter (test code = 5783588456) 1.96 cm LVOT area (test code = 3179844583) 3.00 cm2 ACS (test code = 4226854816) 1.82 cm Ao root diam (test code = 4681689519) 3.60 cm Aortic root (test code = 8231470140) 3.6 cm Ao root annulus (test code = 8131835251) 3.6 cm LA size (test code = 0159840270) 3.3 cm E wave decelartion time (test code = 6406488076) 0.27 s MV Peak E Antonio (test code = 3082662434) 67.7 cm/s MV Peak A Antonio (test code = 3513489183) 74.1 cm/s E/A ratio (test code = 2733080085) 0.91 ratio MV Prop V (test code = 4767737864) 32.00 cm/s Tapse (test code = 6084246299) 1.94 cm LVOT stroke volume (test code = 0335628904) 70.20 cm3 LVOT peak antonio (test code = 1391781377) 106.7 cm/s LVOT mn grad (test code = 1759954253) 2.0 mmHg AV LVOT peak gradient (test code = 5524721154) 4.6 mmHg LVOT peak VTI (test code = 2161933422) 23.2 cm LV V1 mean (test code = 5025350601) 63.30 cm/s Aortic valve mean velocity (test code = 0189012704) 107.8 cm/s Ao peak antonio (test code = 0824198420) 179.1 cm/s Ao VTI (test code = 4043393047) 36.1 cm AV area by cont VTI (test code = 3287763053) 2.0 cm2 AV area peak antonio (test code = 3968099194) 1.8 cm2 Ao max PG (test code = 0429355472) 12.80 mm[Hg] AV peak gradient (test code = 4131363993) 12.8 mmHg AV valve area (test code = 8101367759) 1.95 cm2 AV mean gradient (test code = 3473180143) 5.6 mmHg AI dec slope (test code = 9127784268) 239.60 cm/s2 AV regurgitation pressure 1/2 time (test code = 6307403596) 491.5 ms AI max antonio (test code = 8847043747) 402.00 cm/s AI max PG (test code = 2723269607) 64.60 mm[Hg] MR max PG (test code = 9912474497) 71.70 mm[Hg] MR max antonio (test code = 2642700388) 423.50 cm/s Mr max antonio (test code = 3820633688) 423.5 m/s TR Peak Antonio (test code = 4603743666) 238.3 cm/s Triscuspid Valve Regurgitation Peak Gradient (test code = 5762836475) 22.7 mmHg LAV(MOD-sp4) (test code = 6870502055) 28.60 mL Radiology Study observation (narrative) (test code = 75785-4) TREV (test code = TREV) ?Left?Ventricle: Left [...] agent used and saline contrast was performed. [facility] HospitalFA[facility] 5 [id number] 15:05:26* Test Item Value Reference Range Interpretation Comme nts FACTOR 5 LEIDEN (test code = 4176838117) Normal Normal TREV (test code = TREV) [...] the Factor 5 Leiden mutation is c.1601G>A (p.Hem668Ays). Methodology: Polymerase chain reaction and fluorescence monitoring. Limitations: Rare Factor V mutations (Q9792A, P6991S, and K2833P) and any additional SNPs in the probe binding region may interfere with the target detection and yield an INVALID result. The performance of this assay has not been evaluated with samples from pediatric patients. Counseling and informed consent are recommended for genetic testing. References: OMIM: 840251 [email or web address]://ghr.nlm.nih.gov/co ndition/dvguci-n-kswxjv-[facility] HospitalFACTOR 2 P77424Z [id number] 15:05:26* Test Item Value Reference Range Interpretation Comme nts Factor 2 [id number] Mutation (test code = 6206644168) Normal Normal TREV (test code = TREV) [...] further increased for homozygotes. Mutation Tested: F2 c.00273T>A (Q36600Q). Clinical Sensitivity for Venous Thrombosis: Approximately 10%. Methodology: Polymerase chain reaction and fluorescence monitoring Limitations: The performance of this assay has not been evaluated with samples from pediatric patients. Counseling and informed consent are recommended for genetic testing. References: OMIM: [id number] [email or web address] [facility] HospitalFA[facility] [id number] 15:05:26* Test Item Value Reference Range Interpretation Comme nts FACTOR 5 LEIDEN (test code = 9787851962) Normal Normal TREV (test code = TREV) [...] the Factor 5 Leiden mutation is c.1601G>A (p.Bgy429Frl). Methodology: Polymerase chain reaction and fluorescence monitoring. Limitations: Rare Factor V mutations (Q2487A, P0195U, and A6642Z) and any additional SNPs in the probe binding region may interfere with the target detection and yield an INVALID result. The performance of this assay has not been evaluated with samples from pediatric patients. Counseling and informed consent are recommended for genetic testing. References: OMIM: [id number] [email or web address] [email or web address] [email or web address] [facility]FA[facility] C94153I [id number] 15:05:26* Test Item Value Reference Range Interpretation Comme nts Factor 2 W77168D Mutation (test code = 7436224220) Normal Normal TREV (test code = TREV) [...] further increased for homozygotes. Mutation Tested: F2 c.43241X>A (C48127D). Clinical Sensitivity for Venous Thrombosis: Approximately 10%. Methodology: Polymerase chain reaction and fluorescence monitoring Limitations: The performance of this assay has not been evaluated with samples from pediatric patients. Counseling and informed consent are recommended for genetic testing. References: OMIM: [id number] [email or web address] [email or web address] [email or web address] [facility] HospitalVITAMIN D, [id number] 08:55:05* Test Item Value Reference Range Interpretation Comme [facility] VIT D 25OH (test code = 89084-8) 26 ng/mL 25-80 TREV (test code = TREV) Deficiency: <20 ng/mLInsufficiency : 20-24 ng/mLOptimal: 25-80 ng/mL Lab Interpretation (test code = 02936-3) [id number] 08:55:05* Test Item Value Reference Range Interpretation Comme nts VIT D 25OH (test code = 50483-3) 26 ng/mL 25-80 TREV (test code = TREV) Deficiency: <20 ng/mLInsufficiency : 20-24 ng/mLOptimal: 25-80 ng/mL Lab Interpretation (test code = 74269-1) [facility]OLIC PANEL (17725)2022-10-30 22:28:01* Test Item Value Reference Range Interpretation Comme nts NA (test code = 4442245545) 133 mmol/L 135-145 L K (test code = 6884556632) 3.6 mmol/L 3.5-5.0 CL (test code = 2762076020) 100 mmol/L 98-108 CO2 TOTAL (test code = 4076840479) 21 mmol/L 23-31 L AGAP (test code = 5493437268) 12 2-16 BUN (test code = 9787172358) 10 mg/dL 7-23 GLUCOSE (test code = 8265656991) 100 mg/dL 70-110 CREATININE (test code = 2053786594) 0.51 mg/dL 0.50-1.04 TOTAL BILI (test code = 0218939582) 0.4 mg/dL 0.1-1.1 CALCIUM (test code = 5034430308) 8.9 mg/dL 8.6-10.6 T PROTEIN (test code = 1226339896) 7.5 g/dL 6.3-8.2 ALBUMIN (test code = 2291386187) 4.2 g/dL 3.5-5.0 ALK PHOS (test code = 1791480216) 164 U/L 34-122 H ALTv (test code = 1742-6) 16 U/L 5-35 AST(SGOT) (test code = 8471439828) 22 U/L 13-40 eGFR (test code = 0733579193) 130.4 mL/min/1.73m2 TREV (test code = TREV) [...] imaging tests). Lab Interpretation (test code = 55708-2) Abnormal [facility] METABOLIC PANEL (35213)2022-10-30 22:28:01* Test Item Value Reference Range Interpretation Comme nts NA (test code = 0536740334) 133 mmol/L 135-145 L K (test code = 3831401513) 3.6 mmol/L 3.5-5.0 CL (test code = 9769102390) 100 mmol/L 98-108 CO2 TOTAL (test code = 5243991596) 21 mmol/L 23-31 L AGAP (test code = 5334077138) 12 2-16 BUN (test code = 8371219784) 10 mg/dL 7-23 GLUCOSE (test code = 7535968009) 100 mg/dL 70-110 CREATININE (test code = 6994653494) 0.51 mg/dL 0.50-1.04 TOTAL BILI (test code = 5435533947) 0.4 mg/dL 0.1-1.1 CALCIUM (test code = 3220487515) 8.9 mg/dL 8.6-10.6 T PROTEIN (test code = 2713535332) 7.5 g/dL 6.3-8.2 ALBUMIN (test code = 5060444633) 4.2 g/dL 3.5-5.0 ALK PHOS (test code = 3806673736) 164 U/L 34-122 H ALTv (test code = 1742-6) 16 U/L 5-35 AST(SGOT) (test code = 5875564638) 22 U/L 13-40 eGFR (test code = 4401609277) 130.4 mL/min/1.73m2 TREV (test code = TREV) [...] imaging tests). Lab Interpretation (test code = 72649-3) Abnormal [facility] WITH [id number] 21:27:59* Test Item Value Reference Range Interpretation Comme nts WBC (test code = 6690-2) 6.45 See_Comment [Automated [employer]] The system which generated this result transmitted reference range: 4.30 - 11.10 10*3/?L. The reference range was not used to interpret this result as normal/abnormal. RBC (test code = 789-8) 3.87 See_Comment L [Automated [employer]] The system which generated this result transmitted [...] 33.3 g/dL 31.6-35.1 RDW-SD (test code = 12713-1) 44.5 fL 39.0-49.9 RDW-CV (test code = 788-0) 13.8 % 12.0-15.5 PLT (test code = 777-3) 234 See_Comment [Automated messa ge] The system which generated this result transmitted reference range: 166 - 358 10*3/?L. The reference range was not used to interpret this result as normal/abnormal. MPV (test code = 02027-1) 10.7 fL 9.5-12.9 NRBC/100 WBC (test code = 3751514205) 0.0 See_Comment [Automated [employer]] The system which generated this result transmitted reference range: 0.0 - 10.0 /100 WBCs. The reference range was not used to interpret this result as normal/abnormal. NRBC x10^3 (test code = 4769640022) See_Comment [Automated [employer]] The system which generated this result transmitted reference range: 10*3/?L. The reference range was not used to interpret this result as normal/abnormal. GRAN MAT (NEUT) % (test code = 770-8) 69.1 % IMM GRAN % (test code = 8904151390) 0.20 % LYMPH % (test code = 736-9) 24.2 % MONO % (test code = 5905-5) 6.0 % EOS % (test code = 713-8) 0.3 % BASO % (test code = 706-2) 0.2 % GRAN MAT x10^3(ANC) (test code = 3492449145) 4.46 10*3/uL 1.88-7.09 IMM GRAN x10^3 (test code = 0939137357) 0.00-0.06 LYMPH x10^3 (test code = 731-0) 1.56 10*3/uL 1.32-3.29 MONO x10^3 (test code = 742-7) 0.39 10*3/uL 0.33-0.92 EOS x10^3 (test code = 711-2) 0.03-0.39 L BASO x10^3 (test code = 704-7) 0.01-0.07 Lab Interpretation (test code = 73202-0) Abnormal [facility] WITH [id number] 21:27:59* Test Item Value Reference Range Interpretation [...] 33.3 g/dL 31.6-35.1 RDW-SD (test code = 78191-6) 44.5 fL 39.0-49.9 RDW-CV (test code = 788-0) 13.8 % 12.0-15.5 PLT (test code = 777-3) 234 See_Comment [Automated messa ge] The system which generated this result transmitted reference range: 166 - 358 10*3/?L. The reference range was not used to interpret this result as normal/abnormal. MPV (test code = 58919-5) 10.7 fL 9.5-12.9 NRBC/100 WBC (test code = 7575561080) 0.0 See_Comment [Automated me ssage] The system which generated this result transmitted reference range: 0.0 - 10.0 /100 WBCs. The reference range was not used to interpret this result as normal/abnormal. NRBC x10^3 (test code = 3511452027) See_Comment [Automated messa ge] The system which generated this result transmitted reference range: 10*3/?L. The reference range was not used to interpret this result as normal/abnormal. GRAN MAT (NEUT) % (test code = 770-8) 69.1 % IMM GRAN % (test code = 3014750935) 0.20 % LYMPH % (test code = 736-9) 24.2 % MONO % (test code = 5905-5) 6.0 % EOS % (test code = 713-8) 0.3 % BASO % (test code = 706-2) 0.2 % GRAN MAT x10^3(ANC) (test code = 7798308061) 4.46 10*3/uL 1.88-7.09 IMM GRAN x10^3 (test code = 2515519093) 0.00-0.06 LYMPH x10^3 (test code = 731-0) 1.56 10*3/uL 1.32-3.29 MONO x10^3 (test code = 742-7) 0.39 10*3/uL 0.33-0.92 EOS x10^3 (test code = 711-2) 0.03-0.39 L BASO x10^3 (test code = 704-7) 0.01-0.07 Lab Interpretation (test code = 76814-4) [facility] [id number] 02:26:26* Test Item Value Reference Range Interpretation [...] . . . . . NG/ML 30-100 [facility] has important pathology staff changes effective 06/07/2022. New pathology staff will provide uninterrupted, excellent patient care and clinical consultation. See URL: [email or web address]. UNLESS OTHERWISE INDICATED, ALL TESTING PERFORMED AT [facility] [address] [place] [address] AGRICULTURAL EQUIPMENT OPERATOR: VALENCIA GONZALES M.D. CLIA NUMBER [id number] [facility] [place]. [id number] TSH, THIRD [id number] 02:18:46* Test Item Value Reference Range Interpretation Comme nts TSH, THIRD GENERATION (test code = 2821) 1.350 UIU/ML 0.400-4.100 COMPREHENSIVE METABOLIC [id number] 00:26:02* Test Item Value Reference Range Interpretation Comme nts GLUCOSE (test code = 2217) 91 MG/DL 70-99 BUN (test code = 2208) 7 MG/DL 6-20 CREATININE (test code = 2214) 0.55 MG/DL 0.60-1.30 L eGFR (2020 CKD-EPI) (test code = 21069) 115 ML/MIN/1.73 >60 CALC BUN/CREAT (test code = 2235) 13 RATIO 6-28 SODIUM (test code = 223) 132 MEQ/L 133-146 L POTASSIUM (test code [...] code = 2219) 15 U/L 5-40 LIPID [id number] 00:26:02* Test Item Value Reference Range Interpretation [...] SPECIMENS. FOR MOREINFORMATION, SEE CLIENT ANNOUNCEMENT AT [email or web address] RISK RATIO LDL/HDL (test code = 2238) 1.54 RATIO <3.22 COMPREHENSIVE METABOLIC [id number] 00:00:00* Test Item Value Reference Range Interpretation Comme nts GLUCOSE (test code = 2217) 91 MG/DL BUN (test code = 8) 7 MG/DL CREATININE (test code = 2214) 0.55 MG/DL eGFR (2020 CKD-EPI) (test code = 42879) 115 ML/MIN/1.73 CALC BUN/CREAT (test code = 2235) 13 RATIO SODIUM (test code = 223) 132 MEQ/L POTASSIUM (test code = 2228) [...] (test code = 2219) 15 U/L Oren HickeyLIPID [id number] 00:00:00* Test Item Value Reference Range Interpretation Comme nts CHOLESTEROL (test code = 2210) 169 MG/DL TRIGLYCERIDES (test code = 2232) 147 MG/DL HDL CHOLESTEROL (test code = 2220) 57 MG/DL CALC LDL CHOL (test code = 2237) 88 MG/DL RISK RATIO LDL/HDL (test cod e = 2238) 1.54 RATIO Oren HickeyTSH, THIRD [id number] 00:00:00* Test Item Value Reference Range Interpretation Comme haroon TSH, THIRD GENERATION (test code = 2821) 1.350 UIU/ML Oren HickeyVITAMIN D, 25 [id number] 00:00:00* Test Item Value Reference Range Interpretation Comme haroon VITAMIN D, 25 OH (test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 L MARKETING SPECIALIST Temitope Peralta [facility] 2024-01-29 09:16:11 I called the patient and scheduled her an appt with Dr Rich. Latrell Geiger [facility] 2024-01-28 15:53:18 Spoke to pharmacy. Medication was received and being processed. Call to pt to inform. Pt verbalized understanding Chance Singleton MA [facility] 2024-01-28 15:28:29 Pt is calling asking for a follow up to see . Please advise. Lani Borges [facility] 2024-01-28 15:22:17 Bruna Cedeño is a 48 year old female Pt is asking why the pharmacy is stating her rimegepant (NURTEC ODT) 75 mg TbDL was showing the medication was discontinued. Please advise. [facility] - [address] [facility], [place] [address] [place] [address] [facility] 2024-01-28 13:04:05 Spoke to pt. She will make appointment to follow up with both and Layla. Closing this encounter. Lolita Javier RN [facility] 2024-01-28 11:32:14 Please inform patient: Her seizure medicine can interact with the Plavix, making the Plavix less effective. She should discuss this with her stroke doctor, Dr. Rich, as he may wish to increase the Plavix dose or check labs pertaining to that. Also, in 2022 she was instructed to come back to see him in 3 months, but she has not. She needs to make an appointment to see him MARGA. Thanks. [facility] 2023-12-27 11:16:13 Returned call and patient informed. Verbalized understanding and agreed. Jaymie Espitia LVN [facility] 12:29:49 We are sorry you had some seizure episodes. Our device however was for heart rhythm monitoring, and results which we provided. It will be a good idea to reach out to your PCP or Neurologist. El Singh M.D. Interventional Cardiology Pager: [phone] [place] [id number] 10:39:19 Bruna Cedeño is a 48 year old female Pt is calling in regards to heart monitor results she received this morning. Pt wanted to inform the provider that she had 4 seizures while wearing the device. Wants to now if that is the reason for her heart rate being low. Please advise Mayda SubramanianPatrick [place] [id number] 10:11:38 Spoke with patient and informed. Verbalized understanding and agreed. Jaymie Espitia [place] [id number] 09:39:01 El Singh MD sent to Domonique Milton RN; Jaymie Espitia LVN Baseline rhythm is sinus. Some runs of sinus bradycardia, otherwise no arrhythmia noted El Singh M.D. Interventional Cardiology Pager: [phone] 30-day quality assurance monitor final [place] [address]-08-19 16:50:20 Called and spoke to pt. She states that it only happened once when she got the monitor placed. Denies SOB or dizziness at the time but it woke her out of her sleep. No episodes since. She states it went away as quick as it came. Advised to let us know if it happens again. She verbalized understanding. Domonique Milton [place] [id number] 09:34:41 Reviewed [employer] events . No events noted/recorded since monitor placed 8.9.24. Attempted to call pt. No answer. Message left to return call to clinic. Domonique Milton [id number] 10:30:23 Bruna Cedeño is a 48 year old female Pt states she has a heart monitor and she is having light pain throughout the night. She felt a sharp light pain on the right side of breast that she still feels. She says it comes and goes.Pt called heart monitor Sc[employer] and was informed to call . Please advise. Heart Monitor Ning [employer]:[id number] [facility] 15[facility]19:51 Called and informed pt of results and recommendations. She verbalized understanding. El Singh MD 11/16/2023 10:12 AM CDT Back to [facility] Normal EF 60-65%. Normal diastolic function. TTE is unremarkable El Singh M.D. Interventional Cardiology Pager: [phone] Domonique Milton [facility]viimy6002-14-00 09:30:00 Patient was given a [employer] 30 day Monitor. They were educated on use and care. The patient was instructed to contact [employer] with any further questions or issues. Patient verbally acknowledged these instructions via teach back. Macy HairUniversity Hospitals Beachwood Medical CenterHwullz2047-54-17 09:32:29 [facility] Monthly Clinical Refill Assessment Alka Cedeño is a 48 year old female who is followed by the [facility] specialty pharmacy service for Other [facility] ODT 75 . Am I speaking with the patient? Yes Have you missed any doses since the last fill? No Were any of the medications discontinued? No Have any changes been made to the medication, dose, or instructions on how to take it? No Have you started taking any new medications, herbals, or supplements? No Have you been diagnosed with any new medical conditions? No Are you experiencing any acute illness such as the common cold or flu-like symptoms? No Do you have any new allergies to medications or foods? No Have you been to the emergency room, hospital, or urgent care clinic since your last refill? No Have you experienced or do you have any concerns about side effects? No Do you have any concerns or questions about taking or administering the medication as prescribed? No Do you think the medication is working for you? Yes When is the next dose needed? The next dose is needed on 10/02/23 Would you prefer the medication be shipped to your address? YES, the confirmed shipping address is [address] [place], [place] [id number] [facility] [address]. Do you have any specific shipping directions? No The results of this survey will be reviewed by a specialty pharmacist and the medication order will be refilled. Thank you, Justin Arguelles [facility] Specialty Pharmacy Justin Arguelles [facility]2024-06-21 00:00:00 Oren Amador [facility]2024-05-29 09:32:52 Summary: [facility] Monthly Clinical Assessment After reviewing the results of the administered survey, it is appropriate to continue the medication as prescribed. The [facility] will refill the medication and continue to follow this patient and address any concerns that arise while on therapy with Nurtec. Thank you, Ina Rodgers [facility] Specialty Pharmacy Ina Rodgers [facility] - Yvzxai5216-06-60 10:50:37 [facility] Monthly Clinical Refill Assessment Alka Cedeño is a 48 year old female who is followed by the [facility] specialty pharmacy service for Nurtec. Am I speaking with the patient? Yes Have you missed any doses since the last fill? No Were any of the medications discontinued? No Have any changes been made to the medication, dose, or instructions on how to take it? No Have you started taking any new medications, herbals, or supplements? No Have you been diagnosed with any new medical conditions? No Are you experiencing any acute illness such as the common cold or flu-like symptoms? No Do you have any new allergies to medications or foods? No Have you been to the emergency room, hospital, or urgent care clinic since your last refill? No Have you experienced or do you have any concerns about side effects? No Do you have any concerns or questions about taking or administering the medication as prescribed? No Do you think the medication is working for you? Yes When is the next dose needed? The next dose is needed on (taken as needed) Would you prefer the medication be shipped to your address? YES, the confirmed shipping address is [address] [place] [address] [address] [facility] [address]. Do you have any specific shipping directions? No The results of this survey will be reviewed by a specialty pharmacist and the medication order will be refilled. Thank you, Deloris Rowe [facility] Deloris RoweUniversity Hospitals Beachwood Medical CenterKvdfsk9535-13-11 16:27:56 Thank you colleagues. Medical management it is then. El Singh M.D. Interventional Cardiology Pager: [phone] IM-INTERVENTIONAL CARDIOLOGY [facility]2024-05-09 20:10:[address] Singh, Our mutual patient was previously seen in stroke [...] dont think she had a YARELIS performed yet DR Layla Márquez MRI Exam Date: 07/28/22 EXAM DESCRIPTION: MRI - Brain [...] Fluid within the sinuses/mastoids is not seen [facility]2024-05-09 08:48:03 Dr. Rich, could you please communicate your thoughts to her nurse unit manager, Dr. Singh? He is considering PFO closure. Thanks. [facility]2024-05-08 23:04:17 I saw the patient in February 2023 [...] myself independent of what radiology report says . Irlanda Rich MD [facility]2024-05-07 17:54:26 Patient has not been seen by Layla since February [address]23. [address]. Rich do you want me to overbook patient to see you for follow up? See all from Lolita Jimenez, and Latrell below. Alka LrCoshocton Regional Medical CenterBqggwr8028-80-42 15:57:[address] Rich that mentioned MRI, for stroke purposes. I've sent this message to him and will defer to him on that. Also, in his note he said for her to RTC in 3 months. She needs to be scheduled to see him for follow-up as instructed. [facility] CenterLagszl7655-93-83 14:55:39 please review and advise, pt states that at the office visit 03/19/2023 you mentioned MRI. Please review and advise, do you wish to order MRI? Let us know how you would like this handled. Thank you. Lolita Javier [facility] CenterRyhsqd5547-76-00 16:47:06 The patiens wanting to get a MRI ordered. She stated that Dr. Singh at her last visit said he would get with neurology to get it done. She stated it hasn't happened yet. Can you please look into this and see about getting an MRI ordered if need be. Thank you! Latrell GeigerUniversity Hospitals Beachwood Medical CenterUciffk1987-69-85 14:15:00 Images from the original note were not included. Venipuncture collection performed by clean technique on the right anticubitus. Total of 1 attempts were made. Slight pressure and a bandage/dressing were applied to the site(s). The patient experienced no complications. The following specimens were processed according to instructions and sent to [facility] laboratories per lab order on 07/18/2023 : LT BLUE SST 1 RED 2 LAV 2 PPT DK GREEN (LiHep) DK GREEN (SodH) RIDLEY DK BLUE (K2) DK BLUE (S) ACD Blood Culture NIPT/NTD [facility] CenterYkdxnh0823-50-12 11:41:11 Please review and update the PA for the cenobamate. Thank you. Lolita Javier [facility] CenterLraavo4111-30-73 10:39:36 Copied from CRM #[id number]. Topic: Clinical - Medical Advice >> Jul 13, 2023 10:37 AM Patient Military Technology Manager wrote: Alka Cedeño is a 48 year old female Pt calling to check status of authorization for cenobamate 200 mg. Please advise. See encounter dated 07/10/23. Efra LoraNovant Health Kernersville Medical CenterCjrxwf3749-60-61 10:41:25 Forwarding to pharmacy for review. Sita Riley [facility] CenterPneepk6291-38-51 10:22:52 Copied from CRM #[id number]. Topic: Clinical - Medical Advice >> Jul 10, 2023 10:20 AM Patient Military Technology Manager wrote: Alka Cedeño is a 48 year old female Pt calling insurance states auth is required for cenobamate 200 mg for it to be covered. Please advise. Please contact [facility] . Fx. Pt requesting to please contact her once auth is completed. [facility] [place], [place] - [address] [place] [address] AT [employer] [address] [facility] [address] Efra LoraNovant Health Kernersville Medical CenterErpjmy9913-41-45 16:14:01 Returned call to patient, read Dr. Platt's note to patient, she verbalized understanding and states her daughter is helping her to take her meds now so she will not miss any doses. Informed patient new RX has been sent to her preferred pharmacy. [facility] Hammad Harris [place] [id number] 15:23:51 That is fine but she needs to commit to never missing any of the doses, including the midday dose. [place] [id number] 12:36:17 Pt requesting to change back to Clonazepam 1 mg TID because it made her fell safer, routing to Dr Platt for review and recommendations. Per [facility] note 04/18/2023: Seizure disorder Comment: Not optimally controlled, due to consistently missing [...] keep it on hand just in case. [place] [id number] 08:31:19 Alka Cedeño is a 48 year old female Patient is calling to speak with provider or nurse, said she want to go back to taking the full dose of her clonazePAM 1 mg tablet, 3 x a day, she states she feeling safer take it. Please advise L MARKETING SPECIALIST Smitha AhnUniversity Hospitals Beachwood Medical CenterWzuqsr5440-58-22 14:12:32 Routing to provider for approval or denial [facility]2024-01-04 12:27:17 Alka Cedeño is a 48 year old female Patient is calling as she is in need of refill of: clonazePAM 1 mg tablet 3xday She will be out of medication before her 04/18/2023 appointment. [phone] [facility] [address] AT [facility] & [address] LYN [place] [id number] 15:40:15 TRANSITIONAL CARE MANAGEMENT ASSESSMENT 12/25/2022 Alka Cedeño [id number] Alka Cedeño is a 47 year old /White female was admitted on 12/18/[address] She was discharged on 12/22/22 with discharge disposition of HR- Routine Discharge. 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 She denies having any questions/concerns at this time.) Discharge Instructions Do you understand your at-home instructions?: Yes Medications Have you filled your prescriptions and do you have them in your home? : N/A (no new meds ordered.) Do you know how to take your medications?: Yes Can you provide me with the names or descriptions of any [id number]-xyakfma or supplements you are currently taking?: Yes Supplies Did you receive applicable home medical supplies/equipment?: N/A Follow Up Appointment Has a follow up appointment been scheduled?: Yes Do you have any questions about your follow up appointments?: No Are you able to get to your appointment? Who will be taking you?: Yes (pt has transportation) Home Health Assistance Has the home health nurse contacted you since you've been home?: N/A Survey - Recognition Is there anything you would like to share about your recent hospitalization, or anyone you would like to recognize?: No Do you have any suggestions for improvement?: No Do you have any other questions or concerns at this time?: No Future Appointments: Future Appointments Provider Department Dept Phone 01/08/2023 12:40 PM Yo[facility] [phone] 03/19/2023 2:30 PM El Singh MD [facility] [phone] Theresa Tracey RNUniversity Hospitals Beachwood Medical [id number] 13:41:17 Problem: Seizures, Risk of / or Actual Goal: Absence of injury related to seizure activity Outcome: Resolved Goal: Absence of seizure activity Outcome: Resolved Goal: Successful induction of monitored seizure activity (Epilepsy Monitoring Unit - EMU) Outcome: Resolved Problem: Falls, Risk of Goal: Absence of falls Outcome: Resolved Problem: Discharge Planning Goal: Adequate for discharge Outcome: Resolved Goal: Effective communication Outcome: Resolved Problem: Pain Goal: Control of pain at or below patient's documented comfort goal Outcome: Resolved Goal: Reduction in pain sensation Outcome: Resolved [facility] - [id number] 07:30:44 Problem: Seizures, Risk of / or Actual Goal: Absence of injury related to seizure activity Outcome: Progressing as expected Goal: Absence of seizure activity Outcome: Progressing as expected Goal: Successful induction of monitored seizure activity (Epilepsy Monitoring Unit - EMU) Outcome: Progressing as expected Problem: Falls, Risk of Goal: Absence of falls Outcome: Progressing as expected Problem: Discharge Planning Goal: Adequate for discharge Outcome: Progressing as expected Goal: Effective communication Outcome: Progressing as expected Problem: Pain Goal: Control of pain at or below patient's documented comfort goal Outcome: Progressing as expected Goal: Reduction in pain sensation Outcome: Progressing as expected [facility] Britney [facility]ate [id number] 09:16:50 Problem: Seizures, Risk of / or Actual Goal: Absence of injury related to seizure activity Outcome: Progressing as expected Goal: Absence of seizure activity Outcome: Progressing as expected Goal: Successful induction of monitored seizure activity (Epilepsy Monitoring Unit - EMU) Outcome: Progressing as expected Problem: Falls, Risk of Goal: Absence of falls Outcome: Progressing as expected Problem: Discharge Planning Goal: Adequate for discharge Outcome: Progressing as expected Goal: Effective communication Outcome: Progressing as expected Problem: Pain Goal: Control of pain at or below patient's documented comfort goal Outcome: Progressing as expected Goal: Reduction in pain sensation Outcome: Progressing as expected Efren Coy [id number] 05:53:28 Problem: Seizures, Risk of / or Actual Goal: Absence of injury related to seizure activity Outcome: Progressing as expected Goal: Absence of seizure activity Outcome: Progressing as expected Goal: Successful induction of monitored seizure activity (Epilepsy Monitoring Unit - EMU) Outcome: Progressing as expected Problem: Falls, Risk of Goal: Absence of falls Outcome: Progressing as expected Problem: Discharge Planning Goal: Adequate for discharge Outcome: Progressing as expected Goal: Effective communication Outcome: Progressing as expected Problem: Pain Goal: Control of pain at or below patient's documented comfort goal Outcome: Progressing as expected Goal: Reduction in pain sensation Outcome: Progressing as expected Mark Scanlon [place] [id number] 10:47:57 Problem: Seizures, Risk of / or Actual Goal: Absence of injury related to seizure activity Outcome: Progressing as expected Goal: Absence of seizure activity Outcome: Progressing as expected Goal: Successful induction of monitored seizure activity (Epilepsy Monitoring Unit - EMU) Outcome: Progressing as expected Problem: Falls, Risk of Goal: Absence of falls Outcome: Progressing as expected Problem: Discharge Planning Goal: Adequate for discharge Outcome: Progressing as expected Goal: Effective communication Outcome: Progressing as expected Problem: Pain Goal: Control of pain at or below patient's documented comfort goal Outcome: Progressing as expected Goal: Reduction in pain sensation Outcome: Progressing as expected Cornelia Jessica [id number] 00:42:03 Problem: Seizures, Risk of / or Actual Goal: Absence of injury related to seizure activity Outcome: Progressing as expected Goal: Absence of seizure activity Outcome: Progressing as expected Goal: Successful induction of monitored seizure activity (Epilepsy Monitoring Unit - EMU) Outcome: Progressing as expected Problem: Falls, Risk of Goal: Absence of falls Outcome: Progressing as expected Problem: Discharge Planning Goal: Adequate for discharge Outcome: Progressing as expected Goal: Effective communication Outcome: Progressing as expected Problem: Pain Goal: Control of pain at or below patient's documented comfort goal Outcome: Progressing as expected Goal: Reduction in pain sensation Outcome: Progressing as expected Racheal Shukla [facility] [id number] 09:51:20 Problem: Seizures, Risk of / or Actual Goal: Absence of injury related to seizure activity 12/19/2022 0951 by Cornelia Jessica RN Outcome: Progressing as expected 12/19/2022 0950 by Cornelia Jessica RN Outcome: Progressing as expected Goal: Absence of seizure activity 12/19/202251 by Cornelia Jessica RN Outcome: Progressing as expected 12/19/2022 0950 by Cornelia Jessica RN Outcome: Progressing as expected Goal: Successful induction of monitored seizure activity (Epilepsy Monitoring Unit - EMU) 12/19/2022 0951 by Cornelia Jessica RN Outcome: Progressing as expected 12/19/2022 0950 by Cornelia Jessica RN Outcome: Progressing as expected Problem: Falls, Risk of Goal: Absence of falls 12/19/202251 by Cornelia Jessica RN Outcome: Progressing as expected 12/19/202250 by Cornelia Jessica RN Outcome: Progressing as expected Problem: Discharge Planning Goal: Adequate for discharge 12/19/202251 by Cornelia Jessica RN Outcome: Progressing as expected 12/19/202250 by Cornelia Jessica RN Outcome: Progressing as expected Goal: Effective communication 12/19/202251 by Cornelia Jessica RN Outcome: Progressing as expected 12/19/202250 by Cornelia Jessica RN Outcome: Progressing as expected Problem: Pain Goal: Control of pain at or below patient's documented comfort goal Outcome: Progressing as expected Goal: Reduction in pain sensation Outcome: Progressing as expected [place] [id number] 09:50:43 Problem: Seizures, Risk of / or Actual Goal: Absence of injury related to seizure activity Outcome: Progressing as expected Goal: Absence of seizure activity Outcome: Progressing as expected Goal: Successful induction of monitored seizure activity (Epilepsy Monitoring Unit - EMU) Outcome: Progressing as expected Problem: Falls, Risk of Goal: Absence of falls Outcome: Progressing as expected Problem: Discharge Planning Goal: Adequate for discharge Outcome: Progressing as expected Goal: Effective communication Outcome: Progressing as expected [place] [id number] 06:01:05 Problem: Seizures, Risk of / or Actual Goal: Absence of injury related to seizure activity Outcome: Progressing as expected Goal: Absence of seizure activity Outcome: Progressing as expected Goal: Successful induction of monitored seizure activity (Epilepsy Monitoring Unit - EMU) Outcome: Progressing as expected Problem: Falls, Risk of Goal: Absence of falls Outcome: Progressing as expected Problem: Discharge Planning Goal: Adequate for discharge Outcome: Progressing as expected Goal: Effective communication Outcome: Progressing as expected [place] [id number] 13:09:37 Problem: Seizures, Risk of / or Actual Goal: Absence of injury related to seizure activity Outcome: Progressing as expected Goal: Absence of seizure activity Outcome: Progressing as expected Goal: Successful induction of monitored seizure activity (Epilepsy Monitoring Unit - EMU) Outcome: Progressing as expected Problem: Falls, Risk of Goal: Absence of falls Outcome: Progressing as expected Problem: Discharge Planning Goal: Adequate for discharge Outcome: Progressing as expected Goal: Effective communication Outcome: Progressing as expected [place] [id number] 13:08:22 Thank you pt has been notified. She verbalized understanding. Closing encounter. [facility] Lolita Javier RNJohn[place] [id number] 09:09:17 Please inform patient: Echo shows a PFO, which is a common finding that may increase the chance of stroke in some patients. Have placed cardiology referral to discuss closure of the PFO. Thanks. [place] [id number] 13:21:20 Pt states that she received 2 different [...] on the . Ms. Cedeño verbalized understanding. Lolita Javier RNUniversity Hospitals Beachwood Medical [id number] 13:15:07 Alka Cedeño is a 47 year old female calling states that her daughter went to pharm yesterday and picked up meds and she was given 2 bottles of keppra: 750mg and 1000mg. She's wondering if she needs to take both. Pls advise, thanks. She's states that she currently gets her migraine meds from [facility] w/ her PCP and wondering if she can still continue to get the meds from [facility]. She believes that the mg were increased for thatmedication. Olamide SantanaUniversity Hospitals Beachwood Medical [id number] 11:15:00 Images from the original note were not included. Venipuncture collection performed by clean technique on the left forearm(s). Total of 1 attempts were made. Slight pressure and a bandage/dressing were applied to the site(s). The patient experiencedno complications. The following specimens were processed according to instructions and sent to [facility] per lab order on 10/30/2022: LT BLUE 5 SST 3 RED LAV 2 PPT DK GREEN (LiHep) DK GREEN (SodH) RIDLEY DK BLUE (K2) DK BLUE (S) ACD Blood Culture NIPT/NTD Blane SchroederCoshocton Regional Medical [id number] 11:15:00Addended by: EDEL FITCH on: 11/01/2022 09:19 AM Modules accepted: Orders Edel FitchUniversity Hospitals Beachwood Medical [id number] 08:00:00Addended by: YOAV PLATT MD on: 10/30/2022 01:45 PM Modules accepted: Level of Service [facility]
[2024-02-13 16:30] LABS: Absolute Eosinophils 0.1 K/uL (0-0.5); Absolute Lymphocytes (CBC) 1.7 K/uL (0.7-4.9); Absolute Monocytes 0.3 K/uL (0.1-1.3); Absolute Neutrophil 3.7 K/uL (1.8-8.0); Basophils % 0.5 % (0-1.3); Eosinophils % 2.3 % (0-4.4); Hematocrit 36.1 % (36.0-45.0); Hemoglobin 12.4 g/dL (12.0-15.0); Lymphocytes % 28.8 % (15.3-44.8); MCH 31.8 pg (27.0-35.0); MCHC 34.2 g/dL (32.0-36.0); MCV 92.9 fL (80-100); MPV 7.8 fL (7.6-11.3); Monocytes % 5.8 % (3.3-12.3); Neutrophils % 62.6 % (41.7-73.7); Platelets 201 thou/uL (152-406); RBC Red Blood Cell Count 3.89 M/uL (3.86-4.86); Red Cell Distribution Width 14.1 % (12.1-15.2)
--- NOTE | 2024-02-13 17:04 | RAD REPORT ---
EXAM: CT Head Brain Wo Cont HISTORY: SEIZURE COMPARISON: 11/05/2023 TECHNIQUE: Multiple contiguous axial images were obtained for a CT of the brain without contrast. Sag ittal and coronal reformats were performed. One or more of the following dose reduction techniques were used: Automated exposure control, adjus tment of the mA and kV according to patient size, and iterative reconstruction. Unless otherwise specified, incidental findings do not require dedicated imaging follow-up. FINDINGS: No evidence of hydrocephalus, intracranial hemorrhage, or extra-axial fluid collection. Mild brain atrophy with mild periventricular and deep white matter chronic microvascular ischemic ch anges present. 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 The calvarium is intact. The visualized paranasal sinuses and mastoid air cells are essentially clear . IMPRESSION: No evidence of acute intracranial abnormality. Stable findings as above.
[2024-02-13 17:07] LABS: Albumin 3.4 g/dL (3.4-5.0); Albumin/Globulin Ratio 0.9 (1.1-1.8); Anion Gap 8.9 mEq/L (5.0-15.0); Bilirubin Total 0.2 mg/dL (0.2-1.0); Globulin 3.8 g/dL (2.3-3.5); Potassium 3.9 mEq/L (3.5-5.1); Protein, Total 7.2 g/dL (6.4-8.2)
--- NOTE | 2024-02-13 17:10 | EDPHYS ---
Physician Documentation [facility] Name: Alka Cedeño Age: 48 yrs Sex: Female : 1975 Arrival Date: 02/13/2024 Time: 15:42 Bed 4 Private MD: ED Physician Jaime Bullard HPI: 02/12 15:59 This 48 yrs old Female presents to ER via EMS with complaints of Seizure. sp3 15:59 48-year-old female with a history of hypertension, seizures, migraines currently on sp3 Trileptal, Keppra and as needed clonazepam with her neurologist in [place] now presents to the ED after referred by phone nurse for multiple episodes of short "absence" seizures. Patient has had these in the past. She denies any different pattern. She denies headache, fever facial pain, chest pain, shortness of breath, abdominal pain, vomiting, diarrhea, rash, trauma, known sick contacts, travel history, or any other signs or symptoms on ROS this time. She also denies any drugs or alcohol use. Patient currently asymptomatic and feels back to her baseline.. Historical: - Allergies: 15:46 No Known Allergies; bp - PMHx: 15:46 Hypertension; Migraines; Seizures; TIA; bp - PSHx: 15:46 tubal ligation; bp - Immunization history:: Adult Immunizations up to date. - Infectious Disease History:: Denies. - Social history:: Smoking status: Patient denies any tobacco usage or history of. ROS: 16:07 Constitutional: Negative for fever, chills, and weight loss, Eyes: Negative for injury, sp3 pain, redness, and discharge, Neck: Negative for injury, pain, and swelling, Cardiovascular: Negative for chest pain, palpitations, and edema, Respiratory: Negative for shortness of breath, cough, wheezing, and pleuritic chest pain, Abdomen/GI: Negative for abdominal pain, nausea, vomiting, diarrhea, and constipation, Back: Negative for injury and pain, MS/Extremity: Negative for injury and deformity, Skin: Negative for injury, rash, and discoloration, Psych: Negative for depression, anxiety, suicide ideation, homicidal ideation, and hallucinations, Allergy/Immunology: Negative for hives, rash, and allergies, Endocrine: Negative for neck swelling, polydipsia, polyuria, polyphagia, and marked weight changes, Hematologic/Lymphatic: Negative for swollen nodes, abnormal bleeding, and unusual bruising, 16:07 All other systems are negative, Exam: 16:08 Constitutional: This is a well developed, well nourished patient who is awake, alert, sp3 and in no acute distress. Head/Face: Normocephalic, atraumatic. Eyes: Pupils equal round and reactive to light, extra-ocular motions intact. Lids and lashes normal. Conjunctiva and sclera are non-icteric and not injected. Cornea within normal limits. Periorbital areas with no swelling, redness, or edema. Neck: Trachea midline, no thyromegaly or masses palpated, and no cervical lymphadenopathy. Supple, full range of motion without nuchal rigidity, or vertebral point tenderness. No Meningismus. Chest/axilla: Normal chest wall appearance and motion. Nontender with no deformity. No lesions are appreciated. Cardiovascular: Regular rate and rhythm with a normal S1 and S2. No gallops, murmurs, or rubs. Normal PMI, no JVD. No pulse deficits. Respiratory: Lungs have equal breath sounds bilaterally, clear to auscultation and percussion. No rales, rhonchi or wheezes noted. No increased work of breathing, no retractions or nasal flaring. Abdomen/GI: Soft, non-tender, with normal bowel sounds. No distension or tympany. No guarding or rebound. No evidence of tenderness throughout. Back: No spinal tenderness. No costovertebral tenderness. Full range of motion. Skin: Warm, dry with normal turgor. Normal color with no rashes, no lesions, and no evidence of cellulitis. MS/ Extremity: Pulses equal, no cyanosis. Neurovascular intact. Full, normal range of motion. Neuro: Awake and alert, GCS 15, oriented to person, place, time, and situation. Cranial nerves II-XII grossly intact. Motor strength 5/5 in all extremities. Sensory grossly intact. Cerebellar exam normal. Normal gait. Psych: Awake, alert, with orientation to person, place and time. Behavior, mood, and affect are within normal limits. Vital Signs: 15:45 BP 144 / 90; Pulse 90; Resp 16; Temp 98; Pulse Ox 97% ; bp 17:33 BP 151 / 76; Pulse 68; Resp 16; Pulse Ox 99% ; bp [place] Coma Score: 15:46 Eye Response: spontaneous(4). Motor Response: obeys commands(6). Verbal Response: bp oriented(5). Total: 15. MDM: 15:51 Medical Screening Exam initiated sp3 16:08 Data reviewed: vital signs, nurses notes, lab test result(s), radiologic studies. ED sp3 course: 48-year-old female with recurrent seizure breakthrough in nature now resolved. Patient back at baseline with no current complaints. Will obtain CT scan labs and if negative safe to discharge patient home with follow-up with her neurologist in [place].. 17:09 ED course: Labs normal CT normal no seizures in the ED. we will safely discharge him sp3 home.. 02/12 15:55 Order name: CBC with Diff; Complete Time: 17:09 sp3 02/12 15:55 Order name: CMP; Complete Time: 17:09 sp3 02/12 15:55 Order name: CT Head Brain wo Cont; Complete Time: 17:09 sp3 02/12 15:55 Order name: IV Saline Lock; Complete Time: 16:44 sp3 02/12 15:55 Order name: Labs collected and sent; Complete Time: 16:44 sp3 02/12 15:55 Order name: Seizure Precautions; Complete Time: 16:07 sp3 02/12 15:55 Order name: NPO; Complete Time: 16:07 sp3 02/12 16:32 Order name: Labs - recollect needed: recollect green and lavender; Complete Time: 16:43 bd Administered Medications: No medications were administered Disposition Summary: 02/13/24 17:10 Discharge Ordered Notes: Location: Home sp3 Condition: Stable sp3 Diagnosis - Breakthrough seizure sp3 Followup: sp3 - With: Private Physician - When: Upon discharge from the Emergency Department - Reason: Continuance of care Discharge Instructions: - Discharge Summary Sheet sp3 - Seizure, Adult sp3 Forms: - Medication Reconciliation Form sp3 - Antibiotic Education sp3 - Prescription Opioid Use sp3 - Patient Portal Instructions sp3 - Leadership Thank You Letter sp3 Signatures: Dispatcher [facility] Anjali Willard Brian, RN RN bp Patel, Setul, MD MD sp3 Corrections: (The following items were deleted from the chart) 15:55 15:55 CBC+H.LAB.BRZ ordered. EDMS EDMS 15:55 15:55 COMPREHENSIVE METABOLIC PANEL+C.LAB.BRZ ordered. EDMS EDMS
--- NOTE | 2024-02-13 17:10 | ER ---
Nurse's Notes [facility] Name: Alka Cedeño Age: 48 yrs Sex: Female : 1975 Arrival Date: 02/13/2024 Time: 15:42 Bed 4 Private MD: Diagnosis: Breakthrough seizure Presentation: 02/12 15:45 Chief complaint: EMS states: [place] "ABSENCE SEIZURES" TODAY. Coronavirus screen: At this bp time, the client does not indicate any symptoms associated with coronavirus-19. Ebola Screen: No symptoms or risks identified at this time. Initial Sepsis Screen: Does the patient meet any 2 criteria? No. Patient's initial sepsis screen is negative. Does the patient have a suspected source of infection? No. Patient's initial sepsis screen is negative. Risk Assessment: Do you want to hurt yourself or someone else? Patient reports no desire to harm self or others. Onset of symptoms was February 13, 2024. 15:45 Method Of Arrival: EMS: [facility] bp 15:45 Acuity: DIANE 3 bp Triage Assessment: 15:46 General: Appears in no apparent distress. Behavior is calm, cooperative, appropriate bp for age. Pain: Denies pain. EENT: No deficits noted. Neuro: Level of Consciousness is awake, alert, obeys commands, Oriented to Appropriate for age. Cardiovascular: No deficits noted. Respiratory: No deficits noted. GI: No signs and/or symptoms were reported involving the gastrointestinal system. : No signs and/or symptoms were reported regarding the genitourinary system. Derm: No deficits noted. Musculoskeletal: No deficits noted. Historical: - Allergies: 15:46 No Known Allergies; bp - PMHx: 15:46 Hypertension; Migraines; Seizures; TIA; bp - PSHx: 15:46 tubal ligation; bp - Immunization history:: Adult Immunizations up to date. - Infectious Disease History:: Denies. - Social history:: Smoking status: Patient denies any tobacco usage or history of. Screenin:06 [facility] ED Fall Risk Assessment (Adult) History of falling in the last 3 months, ph including since admission Yes- physiologic fall (2 pts) Confusion or Disorientation No (0 pts) Intoxicated or Sedated No (0 pts) Impaired Gait No (0 pts) Mobility Assist Device Used No (0 pt) Altered Elimination No (0 pt) Score/Fall Risk Level 0 - 2 = Low Risk Oriented to surroundings, Maintained a safe environment, Hourly rounding (assess needs \\T\\ fall precautionary measures) done. Abuse screen: Denies threats or abuse. Denies injuries from another. Nutritional screening: No deficits noted. Tuberculosis screening: No symptoms or risk factors identified. Assessment: 16:05 General: Appears in no apparent distress. comfortable, Behavior is calm, cooperative. ph Pain: Denies pain. Neuro: Level of Consciousness is awake, alert, obeys commands, Oriented to person, place, time, situation, Seizure activity reported prior to arrival. Cardiovascular: Capillary refill < 3 seconds in bilateral fingers Patient's skin is warm and dry. Derm: Skin is pink, warm \\T\\ dry. Vital Signs: 15:45 BP 144 / 90; Pulse 90; Resp 16; Temp 98; Pulse Ox 97% ; bp 17:33 BP 151 / 76; Pulse 68; Resp 16; Pulse Ox 99% ; bp [place] Coma Score: 15:46 Eye Response: spontaneous(4). Motor Response: obeys commands(6). Verbal Response: bp oriented(5). Total: 15. ED Course: 15:44 Patient arrived in ED. bp 15:46 Triage completed. bp 15:46 Arm band placed on. bp 15:49 Jaime Bullard MD is Attending Physician. sp3 15:59 Vannessa Valladares, RN is Primary Nurse. ph 16:07 Seizure precautions initiated. Pulse ox on. NIBP on. ph 16:26 CT Head Brain wo Cont In Process Unspecified. EDMS 17:33 No provider procedures requiring assistance completed. IV discontinued, intact, bp bleeding controlled, No redness/swelling at site. Pressure dressing applied. Administered Medications: No medications were administered Medication: 16:07 VIS not applicable for this client. ph Outcome: 17:10 Discharge ordered by . sp3 17:33 Discharged to home ambulatory, with family, bp 17:33 Condition: stable 17:33 Discharge instructions given to patient, Instructed on discharge instructions, follow up and referral plans. Demonstrated understanding of instructions, follow-up care, 17:34 Patient left the ED. bp Signatures: Dispatcher [employer] EDMD Vannessa Valladares, RN RN Jacques Escoto RN RN bp Bullard, Setul, MD MD sp3
[2024-02-13 17:41] VITALS: TEMP 98
[2024-02-13 17:42] VITALS: BP 151/76; O2SAT 99
== END 2024-02-13 17:34 | disposition home or self-care (01) ==
LOC: ER 15:42
DX: G40.901 Epilepsy, unspecified, not intractable, with status epilepticus (principal); I10 Essential (primary) hypertension
CPT/HCPCS: 36415; 70450; 80053; 85025